=== PATIENT | female | born 1950 | race Caucasian/White ===

== ENCOUNTER 2020-04-09 11:41 | Outpatient (RCR) | payer MEDICARE, MEDICAID, SELFPAY ==
--- NOTE | 2020-04-09 13:52 | PCPTNOTE ---
Patient:Barbara Palma Date of :1950 Wheelchair seating assessment Thank you for referring this patient to [facility]. The patient has been evaluated for wheelchair seating and recommendations have been made, without assistance of the DME provider present. The findings have been scanned into the patient's EMR. Please review, sign, date and return this recognition of care provided and the wheelchair evaluation for the insurance company. I agree with and certify that the following plan for DME equipment is medically necessary.
--- NOTE | 2020-04-21 10:47 | PCPTNOTE ---
Called pt and left message to inform her of the lack of wc equipment provider available due to her insurance. Instructed her to contact her insurance company to locate a company who takes her insurance.
--- NOTE | 2020-04-25 13:48 | PCPTNOTE ---
Spoke with pt regarding locating a provider approved by her insurance. She stated she would contact her insurance to find a wc provider to allow completion of the paperwork.
== END 2020-05-13 10:13 | disposition home or self-care (01) ==
LOC: ANHPT 11:41
PROVIDERS: PCP Internal Medicine; Visit Provider Internal Medicine
DX: R26.2 Difficulty in walking, not elsewhere classified (principal)
CPT/HCPCS: 97163

== ENCOUNTER 2022-11-14 12:37 | Inpatient (IN) | payer MEDICARE, MEDICAID, SELFPAY ==
--- NOTE | ~2022-11-14 | XR_ITS ---
EXAMINATION: XR hip RT 2V w AP pelvis DATE: 11/14/2022 13:16 INDICATION: Right hip pain post fall from shower TECHNIQUE: Anteroposterior view of the pelvis and anteroposterior and cross-table lateral views of th e right hip were obtained. COMPARISON: None. FINDINGS: Basicervical fracture of the proximal right femur with 30 degrees varus angulation, 1 cm anterior dis placement, 2 cm proximal migration and external rotation. No other fractures identified. Bilateral hi p joint spaces appear relatively preserved. Mild left sacroiliac osteoarthritis. Lower lumbar spondyl osis. IMPRESSION: 1. Placement and varus angulation of a basicervical fracture of the proximal right femur. Reviewed, dictated and finalized at location A. IMPRESSION: 1. Placement and varus angulation of a basicervical fracture of the proximal ri ght femur.
--- NOTE | ~2022-11-14 | XR_ITS ---
EXAMINATION: XR surgery orthopedic DATE: 11/15/2022 13:40 CDT INDICATION: RIGHT I.T. NAIL . TECHNIQUE: 8 fluoroscopic images of the right hip were obtained during right intertrochanteric nail p lacement performed by the surgeon. I was not present in the operating room. Fluoroscopy exposure time was 1 minute 17.1 seconds. Air Kerma 20.015 mGy. DAP 0.3968 mGym2. COMPARISON: 11/14/2022 FINDINGS: Multiple images demonstrate intertrochanteric nail fixation of a basicervical proximal right femoral fracture into near-anatomic alignment. IMPRESSION: Fluoroscopic documentation of right intertrochanteric nail placement. Please refer to the operative n ote for complete procedural details . Reviewed, dictated and finalized at location K. IMPRESSION: Fluoroscopic documentation of right intertrochanteric nail placement. Please re oh to the operative note for complete procedural details .
--- NOTE | ~2022-11-14 | XR_ITS ---
EXAMINATION: XR chest 1V DATE: 11/14/2022 13:16 INDICATION: Right hip injury after falling out of the shower. TECHNIQUE: frontal view of the chest was obtained. COMPARISON: None FINDINGS: The lungs are clear with no focal airspace opacities, pulmonary edema, pleural effusion or pneumothor ax. The cardiomediastinal silhouette is normal. Moderate polyarticular osteoarthritis at the bilatera l shoulders. IMPRESSION: 1. No acute cardiopulmonary disease. Reviewed, dictated and finalized at location A.
--- NOTE | ~2022-11-14 | XR_ITS ---
EXAMINATION: XR knee RT min 4V DATE: 11/14/2022 13:16 INDICATION: Right hip pain and fracture post fall from shower TECHNIQUE: Anteroposterior, 2 oblique and crosstable lateral views of the right knee were obtained COMPARISON: None. FINDINGS: Tricompartmental osteoarthritis at the right knee, advanced in the medial compartment where there is severe joint space narrowing and remodeling of the articular surface of the medial tibial plateau. Th is contributes to approximately 10 degrees varus angulation on the AP radiograph. Additional moderate to severe joint space. The patellofemoral compartment and with moderate to large marginal osteophyte s in all 3 compartments. No fracture. No right knee joint effusion. Soft tissues are unremarkable. IMPRESSION: 1. Tricompartmental osteoarthritis, advanced in the medial compartment. Reviewed, dictated and finalized at location A.
[2022-11-14 12:36] VITALS: BP 122/99; PULSE 65; RESP 19; TEMP 36.4; O2SAT 99
--- NOTE | 2022-11-14 12:52 | ECG_ITS ---
Measurements Intervals [place] Rate: 62 P: 74 AK: 144 QRS: 45 QRSD: 93 T: 59 QT: 435 QTc: 443 Interpretive Statements SINUS RHYTHM BASELINE ARTIFACT- I, II, III, AVR, AVL, AVF, V1-V3 NORMAL ECG NO PREVIOUS ECG AVAILABLE FOR COMPARISON Electronically Signed On 11-14-2022 20:18:04 CDT by Ghulam Simmons D.O.
--- NOTE | 2022-11-14 12:54 | ED.GENADULT ---
HPI - General Adult General Chief complaint: Fall Stated complaint: fall/ right hip pain Source: patient, EMS and RN notes reviewed History of Present Illness HPI narrative: Patient presents emergency department from home via EMS for a fall. Patient states she was getting out of the shower when she tripped and fell landing on her right side. Since that time the patient's had pain in her right hip and has been unable to ambulate. States the pain radiates down into her right knee. She denies striking her head or any loss of consciousness she denies any other areas of pain. States she is not on any blood thinners. She denies having any dizziness or syncopal episodes prior to falling states she merely tripped getting out of the shower and fell. Patient was given fentanyl in route by EMS with minimal improvement in pain Related Data Allergies Allergy/AdvReac Type Severity Reaction Status Date / Time clindamycin Allergy Swelling Verified 11/14/22 12:55 of Lip/Tongue/Throat Review of Systems Review of Systems: Gen.: Denies fevers or chills Eyes: Denies eye pain or visual change ENT: Denies facial pain Respiratory: Denies shortness of breath or cough CV: Denies chest pain or palpitations GI: Denies abdominal pain nausea, emesis Musculoskeletal: See HPI Neuro: Denies numbness, tingling, weakness or focal weakness Skin: Denies rash Except as documented, all other systems reviewed and negative [facility] Past Medical History Medical History (Updated 11/14/22 @ 14:31 by Sloane Thompson NP) Depression with anxiety DM2 (diabetes mellitus, type 2) Ganglion wrist cyst removed Hepatitis B HTN (hypertension) with goal to be determined Hypercholesterolemia Hypothyroidism Surgical History Surgical History (Updated 11/14/22 @ 14:29 by Sloane Thompson NP) H/O: hysterectomy History of appendectomy Social History Social History (Updated 11/14/22 @ 14:31 by Sloane Thompson NP) Social History: 3 children [facility] . . 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 CARDIOVASCULAR: Regular rate and rhythm without murmurs rubs or gallops. ABDOMINAL: Soft, nontender, nondistended, no rebound or guarding MUSCULOSKELETAl: No clubbing, cyanosis or edema. No tenderness of the bilateral upper extremities and the left lower extremity full range of motion, tender over the right hip as well as the right knee pain with movement no tenderness of the right ankle dorsalis pedis pulse 2+ neurovascular intact NEURO: Awake and alert x 4. Following commands, speech normal, no focal deficits SKIN:: Warm, dry. No rashes lesions or abrasions PSYCHIATRIC: Normal affect/mood, Course Course Emergency Course: Called and discussed with Dr. Chaudhry for orthopedics presentation work-up agrees with consult with patient to be n.p.o. after Called and discussed with HAKAN Anton for Dr. Bustamante agrees with admission to hospital service Discussed with patient and family results of workup and diagnosis. Discussed need for admission. Patient and family understand and agree to current treatment plan Vital Signs Vital signs: Vital Signs Temperature 97.5 F L 11/14/22 12:36 Pulse Rate 65 11/14/22 12:36 Respiratory Rate 19 11/14/22 12:36 Blood Pressure 122/99 H 11/14/22 12:36 Pulse Oximetry 99 11/14/22 12:36 Temperature 97.5 F L 11/14/22 12:36 Pulse Rate 65 11/14/22 12:36 Respiratory Rate 19 11/14/22 12:36 Blood Pressure 122/99 H 11/14/22 12:36 Pulse Oximetry 99 11/14/22 12:36 Medical Decision Making MDM Narrative Medical
[2022-11-14] MEDS: MORPHINE SULFATE (*CRX) 4 MG/ML INJ 2 MG IV PUSH ×2 (13:00→15:22)
[2022-11-14 13:03] LABS: Basophils Absolute Auto 0.1 K/mm3 (0.0-0.1); Basophils Percent Auto 1.2 % (0.2-1.2); Eosinophils Absolute Auto 0.4 K/mm3 (0-0.3); Eosinophils Percent Auto 7.6 % (0-4.4); Hematocrit 37.3 % (37.0-47.0); Hemoglobin 12.1 g/dL (12.0-15.0); Immature Granulocyte Absolute 0.03 K/mm3 (0.00-0.031); Immature Granulocyte Percent A 0.6 % (0-0.5); Immature Platelet Fraction Pct 4.2 % (0.9-11.2); Lymphocytes Absolute Auto 1.01 K/mm3 (0.9-3.2); Lymphocytes Percent Auto 20.2 % (18.3-44.2); Mean Corpuscular HGB Conc 32.4 g/dl (32-36); Mean Corpuscular Volume 98.7 fl (80-100); Mean Platelet Volume 10.9 fl (7.4-10.4); Monocytes Absolute Auto 0.4 K/mm3 (0.1-0.6); Monocytes Percent Auto 7.6 % (2.6-8.5); Neutrophils Absolute Auto 3.1 K/mm3 (1.3-6.7); Neutrophils Percent Auto 62.8 % (45.5-73.1); Platelet Count Result 129 k/mm3 (150-375); Red Blood Count 3.78 M/mm3 (4.2-5.4); Red Cell Distribution Width 13.5 % (11.5-14.5)
[2022-11-14 13:12] LABS: Alanine Aminotransferase 38 U/L (6-35); Albumin Level 3.8 g/dL (3.5-5.1); Alkaline Phosphatase 111 U/L (38-126); Anion Gap 6 mmol/L (8-16); Aspartate Amino Transferase 51 U/L (14-36); Bilirubin,Total 1.1 mg/dL (0.2-1.3); Blood Urea Nitrogen 20 mg/dL (7-17); Calcium 8.9 mg/dL (8.4-10.2); Carbon Dioxide 23 mmol/L (22-30); Chloride 107 mmol/L (98-107); Estimated CRCL calculation 81 ml/min; Estimated Glomerular Filt Rate > 60; Glucose 165 mg/dL (65-110); Potassium 4.1 mmol/L (3.4-5.0); Sodium 136 mmol/L (137-145)
[2022-11-14 13:13] LABS: INR 1.2; Partial Thromboplastin Time 27.3 SECONDS (22.3-36.8); Prothrombin Time 14.4 Seconds (11.1-14.7)
--- NOTE | 2022-11-14 14:24 | PM.IMHP ---
H&P: HPI History of Present Illness Date/Time: 11/14/22 14:24 Chief Complaint: Fall Narrative: This is a 72-year-old female patient who resides at [facility]. The patient stated that she was getting out of the shower when she tripped and fell landing on her right side. She the patient is complaining of right hip pain and she on abdomen to ambulate on the right hip. The pain radiates into her right knee. She denies losing consciousness or striking her head. The patient is not on any blood thinners. The patient was given fentanyl EN route via EMS. Platelet count 129. Sodium 136. Knee x-ray was read as tricompartmental osteoarthritis she advanced in the medial compartment. Hip and pelvis x-ray?Placement and varus angulation of a basicervical fracture of the proximal right femur.. Ortho has been consulted. The patient was given morphine in the emergency room. The patient is being admitted to inpatient status on the date of service of 11/14/2022. Review of Systems Review of Systems: See HPI All systems reviewed & are unremarkable except as noted in HPI and below Constitutional: Constitutional: Reports as per HPI and Reports no additional constitutional complaints Eyes: Eyes: Reports as per HPI and Reports no additional eye complaints ENT: Reports system reviewed and no additional complaints, except as documented and Reports Normal hearing present Cardiovascular: Cardiovascular: Reports no additional cardiovascular complaints Respiratory: Respiratory: Reports no additional respiratory complaints and Reports no additional respiratory complaints Gastrointestinal: Gastrointestinal: Reports as per HPI and Reports no additional gastrointestinal complaints Musculoskeletal: Musculoskeletal: Reports no additional musculoskeletal complaints Integumentary/Breasts: Skin/Breast: Reports system reviewed and no additional complaints, except as docu and Reports as per HPI Neurologic: Reports system reviewed and no additional complaints, except as documented, Reports as per HPI and Reports Normal hearing present Psychiatric: Psychiatric: Reports no additional psychiatric complaints and Reports as per HPI Endocrine: Endocrine: Reports no additional endocrine complaints Hematologic/Lymphatic: Hematologic/Lymphatic: Reports no additional hematologic/lymphatic complaints Allergic/Immunologic: Allergic/Immunologic: Reports no additional allergic/immunologic complaints [facility] Past Medical History Medical History Depression with anxiety DM2 (diabetes mellitus, type 2) Ganglion wrist cyst removed Hepatitis B HTN (hypertension) with goal to be determined Hypercholesterolemia Hypothyroidism Surgical History Surgical History H/O: hysterectomy History of appendectomy Family History Family History Unknown No problems noted. Social History Social History (Updated 11/14/22 @ 17:12 by Sloane Thompson NP) Social History: She has 3 children. She resides at [facility]. She is . 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 Smoking status: Former smoker Alcohol intake: former Substance use: former Substance use type: marijuana Lack of Transportation: No Lack of Food: Sometimes True Current Housing: I Have Housing Concerned About Future Housing: No Difficulty Paying Gas/Electric Bills: No Difficulty Paying for Meds: No Currently Unemployed: No Education: Master's Degree or Higher Difficulty w/ Childcare or Family Care: No Spiritual care concerns: No Meds Home Medications and Allergies Allergies Allergy/AdvReac Type Severity Reaction Status Date / Time clindamycin Allergy Swelling Verified 11/14/22 12:55 of Lip/Tongue/Throat Vital Signs
[2022-11-14 14:27] LABS: Appearance Urine Clear (Clear); Bilirubin Urine Negative (Negative); Blood Urine Negative (Negative); Color Urine Yellow (Yellow); Glucose Urine UA Trace mg/dL (Negative); Ketones Urine Trace mg/dL (Negative); Leukocyte Esterase Ur Negative LEU/UL (Negative); Nitrate Urine Negative (Negative); Protein Urine Negative (Negative); Specific Grav Ur 1.018 (1.001-1.035); pH Urine 6.5 (5.0-9.0)
[2022-11-14 14:32] LABS: Add Urine Microscopic? NO
--- NOTE | 2022-11-14 14:51 | PC.NURSE ---
barrera placed per verbal order
[2022-11-14 15:03] VITALS: BP 159/84; PULSE 66; RESP 13; O2SAT 96
[2022-11-14 15:15] VITALS: BP 165/85; PULSE 66; RESP 18; TEMP 36.6; O2SAT 98
--- NOTE | 2022-11-14 15:18 | PC.NURSE ---
This patient, Barbara Palma, was admitted to Medical Room 257-01. Patient/family oriented to hospital policies and general routines including ID bracelet, bed and alarms, visiting hours, pain management, procedures, bathroom and other care routines, personal items, smoking policy, room service/diet, and visiting hours. Information on how to activate the Rapid Response Team has been discussed. Patient/Family are encouraged to report perceived risks to care and to ask questions if they do not understand what they are told or what they should do.
[2022-11-14 15:29] VITALS: BMI 37.0
--- NOTE | 2022-11-14 16:04 | PC.NURSE ---
Spoke with Nurse from [facility] ([phone]) in [place] regarding a medication list for the patient. She stated she will fax a list this afternoon. Patient unsure of medication list.
[2022-11-14 20:21] LABS: Glucose Point of Care 244 mg/dl (65-105)
[2022-11-14] MEDS: DICLOFENAC SODIUM 1% 100 GM GEL (*BKC) 1 APPLIC TOPICAL (21:34)
[2022-11-14] MEDS: DONEPEZIL HCL 5 MG TABLET PO (21:34)
[2022-11-14] MEDS: MELATONIN 3 MG TABLET PO (21:34)
[2022-11-14] MEDS: MORPHINE SULFATE (*CRX) 2 MG/ML INJ IV PUSH ×2 (21:36→23:40)
[2022-11-14 22:00] VITALS: BP 167/72; PULSE 79; RESP 20; TEMP 36.7; O2SAT 98
[2022-11-15] VITALS (14 sets, daily range): BP systolic 111–149; BP diastolic 54–73; PULSE 66–81; RESP 12–20; TEMP 36.6–36.9; O2SAT 94–100
[2022-11-15] MEDS: MORPHINE SULFATE (*CRX) 2 MG/ML INJ IV PUSH ×2 (05:25→08:40)
[2022-11-15] MEDS: LEVOTHYROXINE SODIUM 150 MCG TABLET PO (05:32)
[2022-11-15 06:09] LABS: Basophils Percent Auto 0.6 % (0.2-1.2); Eosinophils Absolute Auto 0.2 K/mm3 (0-0.3); Eosinophils Percent Auto 2.8 % (0-4.4); Hemoglobin 10.6 g/dL (12.0-15.0); Immature Granulocyte Absolute 0.02 K/mm3 (0.00-0.031); Immature Granulocyte Percent A 0.3 % (0-0.5); Lymphocytes Absolute Auto 1.59 K/mm3 (0.9-3.2); Lymphocytes Percent Auto 25.1 % (18.3-44.2); Mean Corpuscular HGB Conc 33.1 g/dl (32-36); Mean Corpuscular Hemoglobin 31.5 pg (26-34); Mean Platelet Volume 10.5 fl (7.4-10.4); Monocytes Absolute Auto 0.7 K/mm3 (0.1-0.6); Monocytes Percent Auto 10.7 % (2.6-8.5); Neutrophils Absolute Auto 3.8 K/mm3 (1.3-6.7); Neutrophils Percent Auto 60.5 % (45.5-73.1); Platelet Count Result 115 k/mm3 (150-375); Red Blood Count 3.37 M/mm3 (4.2-5.4); Red Cell Distribution Width 13.6 % (11.5-14.5); White Blood Count 6.3 K/mm3 (4.5-10.0)
[2022-11-15 06:14] LABS: Alanine Aminotransferase 33 U/L (6-35); Albumin Level 3.3 g/dL (3.5-5.1); Alkaline Phosphatase 92 U/L (38-126); Anion Gap 0 mmol/L (8-16); Aspartate Amino Transferase 46 U/L (14-36); Bilirubin,Total 1.1 mg/dL (0.2-1.3); Blood Urea Nitrogen 24 mg/dL (7-17); Calcium 8.7 mg/dL (8.4-10.2); Carbon Dioxide 30 mmol/L (22-30); Chloride 103 mmol/L (98-107); Estimated CRCL calculation 81 ml/min; Estimated Glomerular Filt Rate > 60; Glucose 121 mg/dL (65-110); Hemoglobin A1C 6.2 % (<5.7); Magnesium 1.4 mg/dL (1.6-2.3); Phosphorus 3.6 mg/dL (2.5-4.5); Potassium 3.8 mmol/L (3.4-5.0); Sodium 133 mmol/L (137-145)
[2022-11-15 06:26] LABS: INR 1.3; Prothrombin Time 15.5 Seconds (11.1-14.7)
[2022-11-15 08:26] LABS: Glucose Point of Care 126 mg/dl (65-105)
[2022-11-15] MEDS: LORATADINE 10 MG TABLET PO (08:37)
[2022-11-15] MEDS: DICLOFENAC SODIUM 1% 100 GM GEL (*BKC) 1 APPLIC TOPICAL ×2 (08:37→17:13)
[2022-11-15] MEDS: VENLAFAXINE HCL XR 75 MG CAP.ER.24H PO (08:37)
[2022-11-15] MEDS: FERROUS SULFATE 324 MG TABLET BY MOUTH (08:37)
[2022-11-15] MEDS: PANTOPRAZOLE 40 MG TABLET PO (08:37)
[2022-11-15] MEDS: LOVASTATIN 20 MG TABLET 40 MG PO (08:37)
[2022-11-15] MEDS: DOCUSATE SODIUM 100 MG CAPSULE PO (08:38)
[2022-11-15] MEDS: PROPRANOLOL HCL 20 MG TABLET PO (08:38)
--- NOTE | 2022-11-15 08:43 | PM.CNOR ---
Assessment and Plan Assessment and plan (1) Closed intertrochanteric fracture of right femur: Qualifiers: Encounter type: initial encounter Fracture alignment: displaced Qualified Code(s): S72.141A - Displaced intertrochanteric fracture of right femur, initial encounter for closed fracture Code(s): S72.141A - Displaced intertrochanteric fracture of right femur, initial encounter for closed fracture Status: Acute Assessment and Plan: New patient evaluation for chief complaint fall with right hip fracture. History, physical exam and radiographs reviewed with the patient. Discussed the condition, nature, etiology and course of natural history with the patient. Treatment options including surgical and nonoperative treatment were reviewed. Risks and benefits of each as well as alternatives reviewed. The patient's questions were answered. Conservative treatment ice, pain control and mechanical DVT prophylaxis. Patient desires operative treatment. Discussed nonoperative and operative treatment options with the patient. Risks and benefits of each as well as alternatives were reviewed. All of the patient's questions were answered. The risks of surgery reviewed including but not limited to: Neurovascular damage, wound complication, infection, blood clot, pulmonary embolus, stroke, myocardial infarction, and anesthetic risks up to and including . Continued pain and possible dysfunction were explained. Specific risks of the procedure including later recurrence of deformity. No guarantees were offered. If hardware used, discussed risk of failure/ breakage and possible need for removal. If complications occur, the patient understands the need for further treatment, possible further surgery. Patient verbalizes understanding and wishes to proceed. PLAN: Right hip open reduction internal fixation (trochanteric nail). 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 Right hip injury radiographs. Admitted through the emergency room for further care. Denies loss of consciousness. Review of Systems Constitutional: Constitutional: Denies fever(s) Eyes: Eyes: Denies blurry vision ENT: Reports Normal hearing present Cardiovascular: Cardiovascular: Denies chest pain and Denies dyspnea Respiratory: Respiratory: Denies dyspnea and Denies wheezing Gastrointestinal: Gastrointestinal: Denies abdominal pain Genitourinary: Genitourinary: Denies urinary urgency Musculoskeletal: Musculoskeletal: Reports as per HPI and Denies numbness Integumentary/Breasts: Skin/Breast: Denies changing lesions and Denies sores Neurologic: Reports Normal hearing present, Denies behavioral changes, Denies confusion, Denies numbness and Denies convulsions Psychiatric: Psychiatric: Denies behavioral changes, Denies confusion and Denies hallucinations Endocrine: Endocrine: Denies heat intolerance Hematologic/Lymphatic: Hematologic/Lymphatic: Denies easy bleeding Allergic/Immunologic: Allergic/Immunologic: Denies wheezing [facility] Past Medical History Medical History (Updated 11/15/22 @ 08:47 by Shimon Chaudhry MD) Degenerative arthritis of right knee Depression with anxiety DM2 (diabetes mellitus, type 2) Ganglion wrist cyst removed Hepatitis B HTN (hypertension) with
--- NOTE | 2022-11-15 10:55 | WPDHPUPDATE1 ---
History and Physical Update Update Date/Time: 11/15/22 10:55 History and Physical has been reviewed, including an updated exam of the patient. There are NO changes in the patient's condition. Risks, benefits, and alternatives have been discussed and questions answered. Patient agrees to proceed with procedure.
[2022-11-15] MEDS: LACTATED RINGERS 1,000 ML 30 ML IV CONT (12:15)
[2022-11-15] MEDS: TRANEXAMIC ACID 1,000MG/ISO100 1,000 MG/100 ML BAG 200 MG IVPB (12:15)
[2022-11-15] MEDS: KETOROLAC 15 MG/ML VIAL (*BKC) IV PUSH (12:15)
[2022-11-15] MEDS: ACETAMINOPHEN 500 MG TABLET 1000 MG PO (12:15)
--- NOTE | 2022-11-15 12:15 | WPDANESEPPF ---
Anes - Initial Pre Proc Eval Procedure: Operation Date: 11/15/22 13:00 Proposed Procedures p Right Hip Pinning - Shimon Chaudhry MD Date/Time: 11/15/22 12:15 Surgeon: Janina Cunningham PA-C Pre Op Diagnosis: Right Hip Fracture, Fall Patient Data Age: 72 Gender: F Height: 1.7 m Weight: 107.5 kg Last Vital Signs Temp 36.6 C 11/15/22 06:00 Pulse 77 11/15/22 08:38 Resp 16 11/15/22 06:00 BP 149/70 H 11/15/22 06:00 Pulse Ox 98 11/15/22 06:00 O2 Del Method Room Air 11/15/22 07:57 Allergies Allergy/AdvReac Type Severity Reaction Status Date / Time clindamycin Allergy Swelling Verified 11/14/22 12:55 of Lip/Tongue/Throat Home Medications Medication Instructions Recorded Confirmed Type Benadryl-D Allergy and Sinus 25 mg PO Q6H PRN Itching 11/14/22 11/14/22 History Fleet Enema 1 applicator RECTAL DAILY PRN 11/14/22 11/14/22 History Constipation Milk of Magnesia 30 ml PO DAILY PRN Constipation 11/14/22 11/14/22 History acetaminophen 500 mg tablet 500 mg PO BID PRN Pain 11/14/22 11/14/22 History bisacodyl 10 mg RECTAL DAILY 11/14/22 11/14/22 History diclofenac sodium 1 % topical gel 1 ea topical TID 11/14/22 11/14/22 History docusate sodium 100 mg capsule 100 mg PO DAILY 11/14/22 11/14/22 History donepezil 5 mg tablet 5 mg PO HS 11/14/22 11/14/22 History ferrous sulfate 325 mg (65 mg 325 mg DAILY 11/14/22 11/14/22 History iron) tablet (FeroSul) glucosamine sulf dipotassium Cl 1 cap PO DAILY 11/14/22 11/14/22 History 250 mg-chondroitin sulf 200 mg capsule hydroxyzine HCl 25 mg PO BID PRN Itching 11/14/22 11/14/22 History levothyroxine 150 mcg tablet 150 mcg PO DAILY 11/14/22 11/14/22 History loratadine 10 mg tablet 10 mg PO DAILY 11/14/22 11/14/22 History lovastatin 40 mg tablet 40 mg PO DAILY 11/14/22 11/14/22 History magnesium citrate 296 ml PO DAILY PRN Constipation 11/14/22 11/14/22 History melatonin 3 mg tablet 3 mg PO HS 11/14/22 11/14/22 History metformin 1,000 mg tablet 1,000 mg PO BID 11/14/22 11/14/22 History oxybutynin chloride 5 mg 5 mg PO DAILY 11/14/22 11/14/22 History tablet,extended release 24 hr pantoprazole 40 mg tablet,delayed 40 mg PO DAILY 11/14/22 11/14/22 History release polyethylene glycol 17 g PO DAILY PRN Constipation 11/14/22 11/14/22 History propranolol 20 mg tablet 20 mg PO DAILY 11/14/22 11/14/22 History tramadol 50 mg PO BID PRN Pain 11/14/22 11/14/22 History venlafaxine 75 mg capsule,extended 75 mg PO DAILY 11/14/22 11/14/22 History release 24 hr Laboratory Tests 11/14/22 11/14/22 11/14/22 12:56 12:56 12:56 WBC 5.0 K/mm3 K/mm3 (4.5-10.0) RBC 3.78 M/mm3 L M/mm3 (4.2-5.4) Hgb 12.1 g/dL g/dL (12.0-15.0) Hct 37.3 % % (37.0-47.0) MCV 98.7 fl fl (80-100) MCH 32.0 pg pg (26-34) MCHC 32.4 g/dl g/dl (32-36) RDW 13.5 % % (11.5-14.5) Plt Count 129 k/mm3 L k/mm3 (150-375) MPV 10.9 fl H fl (7.4-10.4) Immature Gran % (Auto) 0.6 % H % (0-0.5) Neut % (Auto) 62.8 % % (45.5-73.1) Lymph % (Auto) 20.2 % % (18.3-44.2) [place] % (Auto) 7.6 % % (2.6-8.5) Eos % (Auto) 7.6 % H % (0-4.4) Baso % (Auto) 1.2 % % (0.2-1.2) Lymph # (Auto) 1.01 K/mm3 K/mm3 (0.9-3.2) [place] # (Auto) 0.4 K/mm3 K/mm3 (0.1-0.6) Eos # (Auto) 0.4 K/mm3 H K/mm3 (0-0.3) Baso # (Auto) 0.1 K/mm3 K/mm3 (0.0-0.1) Abs Immat Gran (auto) 0.03 K/mm3 K/mm3 (0.00-0.031) Absolute Neuts (auto) 3.1 K/mm3 K/mm3 (1.3-6.7) Absolute Nucleated RBC 0.0 K/mm3 K/mm3 (0.0-0.012) Nucleated RBC % 0.0 % % (0.0-0.2) % Immature Plt Fraction 4.2 % % (0.9-11.2) PT 14.4 Seconds Seconds (11.1-14.7) INR 1.2 APTT 27.3 SECONDS SECONDS (22.3-36.8) Sodium 136 mmol/L L mmol/L
[2022-11-15] MEDS: HYDROmorphone HCL INJ (*CRX) 1 MG/ML SYR IV PUSH (12:30)
[2022-11-15 12:48] LABS: Glucose Point of Care 126 mg/dl (65-105)
[2022-11-15] MEDS: ceFAZolin 2 GM/D5W 50 ML 2 GM/50 ML BAG IVPB (13:18)
[2022-11-15] MEDS: BUPIVACAINE/EPINEPHRINE 0.25% 50 ML VIAL INFILTRATE (14:21)
--- NOTE | 2022-11-15 14:32 | PM.IMPN ---
Progress Note: A&P Assessment and Plan (1) Closed intertrochanteric fracture of right femur: Qualifiers: Encounter type: initial encounter Fracture alignment: displaced Qualified Code(s): S72.141A - Displaced intertrochanteric fracture of right femur, initial encounter for closed fracture Code(s): S72.141A - Displaced intertrochanteric fracture of right femur, initial encounter for closed fracture Status: Acute Assessment and Plan: secondary to mechanical fall hip/pelvis x-ray showed varus angulation of basicervical fracture of the proximal right femur appreciate orthopedic surgery consultation planning for surgical repair this afternoon DVT prophylaxis deferred to Orthopedic surgery will need PT/OT postoperatively supportive care. Analgesics available as needed (2) Hypothyroidism: Code(s): E03.9 - Hypothyroidism, unspecified Status: Acute Assessment and Plan: TSH is 2.2 continue home levothyroxine (3) DM2 (diabetes mellitus, type 2): Code(s): E11.9 - Type 2 diabetes mellitus without complications Status: Acute Assessment and Plan: A1c is 6.2 continue Accu-Cheks, sliding scale insulin, hypoglycemic protocol monitor glucose trends home metformin on hold (4) HTN (hypertension) with goal to be determined: Code(s): I10 - Essential (primary) hypertension Status: Acute Assessment and Plan: blood pressures are stable continue home propranolol monitor BP trends (5) Fall: Code(s): W19.XXXA - Unspecified fall, initial encounter Status: Acute Assessment and Plan: patient suffered a mechanical fall getting out of the shower fall precautions implemented (6) Hypomagnesemia: Code(s): E83.42 - Hypomagnesemia Status: Acute Assessment and Plan: magnesium is 1.4 today administer 2 g IV magnesium sulfate and recheck in the morning Subjective Date/time seen: 11/15/22 14:32 Interval history: date of service: 11/15/2022 1-at Louie is a 72-year-old female with a history of type 2 diabetes mellitus, hypertension, hepatitis-B, hypothyroidism, depression, anxiety who is seen in follow-up for right hip fracture secondary to mechanical fall. Patient reports that she is doing well. Endorses 6/10 hip pain at this time. Denies nausea, vomiting, fever, or chills. No shortness of breath or chest pain. She is preparing to head down to surgery for her right hip. Review of Systems Review of Systems: All systems reviewed & are unremarkable except as noted in HPI and below Exam Narrative: General: Well-nourished, well-appearing 72-year-old female, sitting up in bed, comfortable, NARD Neuro: awake, alert and oriented x4, speech clear, no focal neuro deficits noted HEENMT: normocephalic, atraumatic, EOMI, sclerae anicteric, moist oral mucosa Respiratory: clear to auscultation bilaterally, nonlabored breathing Cardio: regular rate, regular rhythm with S1-S2 Abdomen: nondistended, normoactive bowel sounds, soft, nontender to palpation] Extremities: no edema, erythema, or tenderness to palpation, DP pulses 2+ bilaterally, able to wiggle toes bilaterally Skin: no rashes or lesions, warm and dry Psych: appropriate mood and affect, judgment and insight intact Objective Data Vital Signs Vital Signs: Vital Signs - 24 hr 11/14/22 15:03 11/14/22 15:15 11/14/22 17:30 Temperature 97.8 F Pulse Rate 66 66 Respiratory Rate 13 18 Blood Pressure 159/84 H 165/85 H Pulse Oximetry 96 98 Oxygen Delivery Room Air 11/14/22 22:00 11/15/22 06:00 11/15/22 07:57 Temperature 98.1 F 98 F Pulse Rate 79 81 Respiratory Rate 20 16 Blood Pressure 167/72 H 149/70 H Pulse Oximetry 98 98 Oxygen Delivery Room Air 11/15/22 08:38 11/15/22 12:10 Temperature 98.4 F Pulse Rate 77 69 Respiratory Rate 16 Blood Pressure 144/56 H Pulse Oximetry 98 Oxyg
[2022-11-15 14:58] LABS: Glucose Point of Care 135 mg/dl (65-105)
--- NOTE | 2022-11-15 15:01 | W.PM.PROC2 ---
Procedure Note - Detailed Date of Procedure 11/15/22 Pre-op Diagnosis Right Hip Fracture, Fall Post-op Diagnosis Same Procedure Performed Intramedullary nail fixation right proximal femur fracture. Surgeon Shimon Chaudhry MD [place] [employer] psychiatric technician assistant Anesthesia General Indications 72-year-old woman who fell in the shower and sustained right hip proximal femur fracture. Presents for operative treatment. Description of Procedure After informed consent the operative extremity was marked in the preoperative holding area. Patient received intravenous antibiotics. The patient was taken to the operative room, placed in the supine position, general anesthesia induced by the anesthesia team, and was placed on a fracture table with longitudinal traction applied to the Right leg. left leg was extended out of the field. The hip fracture was reduced to near anatomic position and verified with image intensification. A time-out was performed confirming the patient, site of the surgery and plan. The left lower extremity was prepped and draped sterilely from the knee to the iliac crest region using a ChloraPrep skin solution. Incision was made just proximal to greater trochanter down to the subcutaneous tissues. Hemostasis controlled with electrocautery. Blunt dissection through the fascia to the tip of the greater trochanter. A starter awl was placed at the tip of the greater trochanter into the medullary canal of the femur. This was checked with image intensification and was in good position. Intramedullary guide nika positioned. A one-step hand reaming done proximally. Intramedullary canal was reamed with a 12.5 millimeter flexible reamer. Measuring was then performed off of the guide nika. Neck angle selected off of preoperative radiographs temp plating. 125 degree 11 X 390mm Nail opened on the back table and assembled. This was then inserted over the guide nika to the correct depth. Guide nika removed. Lag screw was then placed with a stab incision over the lateral femur using a 10 blade knife. Blunt dissection down to the lateral side of the bone. Soft tissue protectors placed. Guide pin placed in the center center position of the femoral head and measured. 95 millimeter x 10.5 millimeter lag screw placed to correct depth and verified with image intensification. Traction released from the leg and compression of the fracture performed with the external compression device. Distal locking of the nail necessary due to instability in the intramedullary canal and proximal femur. Stab incision made lateral distal thigh. Blunt dissection down lateral side of the femur. Image intensification used to guide drill which was placed through the locking hole. Distal femur measured and the appropriate size screw placed. Image intensification confirmed the placement through the locking hole. Final image intensification confirm reduction of the fracture and placement of the hardware. Wounds then thoroughly irrigated with antibiotic solution. Fascia repaired with 0 Vicryl interrupted suture. Subcutaneous tissue repaired with 00 Vicryl interrupted suture and skin repaired with geni. Sterile dressings applied. Patient then awoke from anesthesia, extubated, taken to recovery room stable condition. All sponge, needle and instrument counts correct at the end the case. Implants Arthrex extended length intramedullary right femoral nail 11 mm diameter by 39 cm length by 25? with 95 mm lag screw and 36 mm distal locking screw. Estimated Blood Loss -200.0 Drains No Packing No Pathology None sent Complications None Condition Stable Disposition PACU [facility] Billing Surgery - Charge Forward: Surgery Billing ([id number])
[2022-11-15] MEDS: HYDROmorphone HCL INJ (*CRX) 1 MG/ML SYR 0.5 MG IV PUSH (15:18)
[2022-11-15 16:57] LABS: Glucose Point of Care 121 mg/dl (65-105)
[2022-11-15] MEDS: SENNA/DOCUSATE SODIUM TABLET 2 TAB PO (17:13)
[2022-11-15] MEDS: KCL 20MEQ/0.9% SOD CHL 1,000 ML 125 ML IV CONT (17:13)
[2022-11-15] MEDS: ceFAZolin 1 GM/NS 50 ML 1 GM/50 ML BAG IVPB (20:19)
[2022-11-15] MEDS: DONEPEZIL HCL 5 MG TABLET PO (20:20)
[2022-11-15] MEDS: MELATONIN 3 MG TABLET PO (20:20)
[2022-11-15 20:24] LABS: Glucose Point of Care 126 mg/dl (65-105)
[2022-11-15] MEDS: HYDROcodone/acetaminophen (*CRX) 7.5-325 MG TABLET 1 TAB PO (20:54)
[2022-11-16] VITALS (8 sets, daily range): BP systolic 117–151; BP diastolic 60–83; PULSE 78–109; RESP 16–18; TEMP 36.5–36.9; O2SAT 92–97
[2022-11-16] MEDS: ceFAZolin 1 GM/NS 50 ML 1 GM/50 ML BAG IVPB ×2 (04:03→12:29)
[2022-11-16] MEDS: LEVOTHYROXINE SODIUM 150 MCG TABLET PO (06:36)
[2022-11-16 07:29] LABS: Basophils Percent Auto 0.5 % (0.2-1.2); Eosinophils Absolute Auto 0.2 K/mm3 (0-0.3); Eosinophils Percent Auto 2.7 % (0-4.4); Hematocrit 32.5 % (37.0-47.0); Hemoglobin 10.5 g/dL (12.0-15.0); Immature Granulocyte Absolute 0.03 K/mm3 (0.00-0.031); Immature Granulocyte Percent A 0.4 % (0-0.5); Lymphocytes Absolute Auto 1.14 K/mm3 (0.9-3.2); Lymphocytes Percent Auto 14.1 % (18.3-44.2); Mean Corpuscular HGB Conc 32.3 g/dl (32-36); Mean Corpuscular Hemoglobin 31.7 pg (26-34); Mean Corpuscular Volume 98.2 fl (80-100); Monocytes Absolute Auto 0.7 K/mm3 (0.1-0.6); Monocytes Percent Auto 8.9 % (2.6-8.5); Neutrophils Percent Auto 73.4 % (45.5-73.1); Platelet Count Result 106 k/mm3 (150-375); Red Blood Count 3.31 M/mm3 (4.2-5.4); Red Cell Distribution Width 13.8 % (11.5-14.5); White Blood Count 8.1 K/mm3 (4.5-10.0)
[2022-11-16 07:47] LABS: Anion Gap 3 mmol/L (8-16); Blood Urea Nitrogen 28 mg/dL (7-17); Calcium 8.1 mg/dL (8.4-10.2); Carbon Dioxide 27 mmol/L (22-30); Chloride 107 mmol/L (98-107); Estimated CRCL calculation 72 ml/min; Estimated Glomerular Filt Rate > 60; Glucose 149 mg/dL (65-110); Magnesium 1.5 mg/dL (1.6-2.3); Potassium 4.3 mmol/L (3.4-5.0); Sodium 137 mmol/L (137-145)
[2022-11-16 08:44] LABS: Glucose Point of Care 160 mg/dl (65-105)
--- NOTE | 2022-11-16 08:51 | PM.PNORT ---
Progress Note: A&P Assessment and Plan (1) Closed intertrochanteric fracture of right femur: Qualifiers: Encounter type: subsequent encounter Fracture alignment: displaced Fracture healing: with routine healing Qualified Code(s): S72.141D - Displaced intertrochanteric fracture of right femur, subsequent encounter for closed fracture with routine healing <Yarely Casey Rodríguez, BACTERIOLOGIST [employer] - Last Filed: 11/16/22 09:17> Code(s): S72.141A - Displaced intertrochanteric fracture of right femur, initial encounter for closed fracture <Yarely Nilo. Ruwe, BACTERIOLOGIST [employer] - Last Filed: 11/16/22 09:17> Status: Acute <Yarely Casey Canwe, BACTERIOLOGIST [employer] - Last Filed: 11/16/22 09:17> Assessment and Plan: POD #1: Right Hip CRPP Continue PT/OT. WBAT. Walker. HIGH FALL RISK. Continue pain control. Ice hip. Protect skin. DVT prophylaxis with Arixtra x28 days. SCDs. Incentive Spirometry Use reviewed. Monitor Dressing. Change daily. Okay to apply Mepilex Silver prior to discharge for ease with showering, etc. Romel to be removed on POD #14. Bowel Regimen. Dispo: SNF vs. [facility] pending progress with PT/OT and medical stability. <Yarely NiloMiguel Juan Joséyenny, BACTERIOLOGIST [employer] - Last Filed: 11/16/22 09:17> POD #1: Right Hip IMHS Continue PT/OT. WBAT. Walker. HIGH FALL RISK. Continue pain control. Ice hip. Protect skin. DVT prophylaxis with Arixtra while inpatient. Will switch to aspirin at d/c SCDs. Incentive Spirometry Use reviewed. Monitor Dressing. Change daily. Okay to apply Mepilex Silver prior to discharge for ease with showering, etc. Romel to be removed on POD #14. Bowel Regimen. Dispo: SNF vs. [facility] pending progress with PT/OT and medical stability. <Shimon Chaudhry MD - Last Filed: 11/16/22 09:45> (2) Hypothyroidism: Code(s): E03.9 - Hypothyroidism, unspecified <Yarely Casey Canwe, BACTERIOLOGIST [employer] - Last Filed: 11/16/22 09:17> Status: Acute <Yarely Casey Canwe, BACTERIOLOGIST [employer] - Last Filed: 11/16/22 09:17> (3) DM2 (diabetes mellitus, type 2): Code(s): E11.9 - Type 2 diabetes mellitus without complications <Yarely Rodríguez [facility] - Last Filed: 11/16/22 09:17> Status: Acute <Yarely Rodríguez [facility] - Last Filed: 11/16/22 09:17> (4) HTN (hypertension) with goal to be determined: Code(s): I10 - Essential (primary) hypertension <Yarely Rodríguez [facility] - Last Filed: 11/16/22 09:17> Status: Acute <Yarely Rodríguez [facility] - Last Filed: 11/16/22 09:17> Subjective Subjective Date/Time Seen: 11/16/22 08:51 <Yarely Rodríguez [facility] - Last Filed: 11/16/22 09:17> Post Op day: 1 <Yarely Rodríguez [facility] - Last Filed: 11/16/22 09:17> Interval history: POD #1: Right Hip CRPP Patient with mild confusion this AM. Up in chair. Assisted with breakfast. Complaints of 10/10 right hip pain. Awaiting pain medication from nursing at this time. Otherwise, no new concerns. <Yarely Rodríguez [facility] - Last Filed: 11/16/22 09:17> Review of Systems Review of Systems: All systems reviewed & are unremarkable except as noted in HPI and below <Yarely Rodríguez [facility] - Last Filed: 11/16/22 09:17> Exam Const: General: comfortable and no acute distress <Yarely Rodríguez [facility] - Last Filed: 11/16/22 09:17> Resp: Effort & Inspection: normal respiratory effort <Yarely Rodríguez [facility] - Last Filed: 11/16/22 09:17> Cardio: Rate: regular rate <Yarely Rodríguez [facility] - Last Filed: 11/16/22 09:17> Rhythm: regular rhythm <Yarely Rodríguez [facility] - Last Filed: 11/16/22 09:17> GI: Inspection: non-distended <OMID Solorio - Last Filed: 11/16/22 09:17> Skin: General skin exam: normal color <OMID Solorio - Last Filed: 11/16/22 09:17> Other: Incision right hip c/d/i. Surrounding tissue without redness/warmth. Mild swelling consistent with recent surgery. No drainage. <OMID Solorio - Last Filed: 11/16/22 09:17> Neuro: Cognition (Neuro): normal cognition <OMID Solorio - Last Filed: 11/16/22 09:17> Speech: normal
[2022-11-16] MEDS: DICLOFENAC SODIUM 1% 100 GM GEL (*BKC) 1 APPLIC TOPICAL ×2 (09:03→13:17)
[2022-11-16] MEDS: polyethylene glycoL 3350 17 GM POWD.PACK PO (09:03)
[2022-11-16] MEDS: SENNA/DOCUSATE SODIUM TABLET 2 TAB PO ×2 (09:03→16:08)
[2022-11-16] MEDS: FONDAPARINUX SODIUM 2.5 MG/0.5 ML SYRINGE SUB-Q (09:03)
[2022-11-16] MEDS: FERROUS SULFATE 324 MG TABLET BY MOUTH (09:03)
[2022-11-16] MEDS: DOCUSATE SODIUM 100 MG CAPSULE PO (09:03)
[2022-11-16] MEDS: VENLAFAXINE HCL XR 75 MG CAP.ER.24H PO (09:04)
[2022-11-16] MEDS: PANTOPRAZOLE 40 MG TABLET PO (09:04)
[2022-11-16] MEDS: LORATADINE 10 MG TABLET PO (09:04)
[2022-11-16] MEDS: LOVASTATIN 20 MG TABLET 40 MG PO (09:04)
[2022-11-16] MEDS: PROPRANOLOL HCL 20 MG TABLET PO (09:06)
[2022-11-16] MEDS: MORPHINE SULFATE (*CRX) 2 MG/ML INJ IV PUSH (09:25)
[2022-11-16] MEDS: MAGNESIUM SULF 2 GM/WATER 50ML 2 GM/50 ML BAG IVPB (10:36)
[2022-11-16 12:09] LABS: Glucose Point of Care 157 mg/dl (65-105)
[2022-11-16 16:20] LABS: Glucose Point of Care 193 mg/dl (65-105)
--- NOTE | 2022-11-16 16:37 | PM.IMPN ---
Progress Note: A&P Assessment and Plan (1) Closed intertrochanteric fracture of right femur: Qualifiers: Encounter type: subsequent encounter Fracture alignment: displaced Fracture healing: with routine healing Qualified Code(s): S72.141D - Displaced intertrochanteric fracture of right femur, subsequent encounter for closed fracture with routine healing Code(s): S72.141A - Displaced intertrochanteric fracture of right femur, initial encounter for closed fracture Status: Acute Assessment and Plan: secondary to mechanical fall hip/pelvis x-ray showed varus angulation of basicervical fracture of the proximal right femur appreciate orthopedic surgery consultation underwent surgical repair on 11/15/22. tolerated the procedure well continue Arixtra for DVT prophylaxis per Orthopedic surgery PT/OT eval appreciated supportive care. Analgesics available as needed (2) Hypothyroidism: Code(s): E03.9 - Hypothyroidism, unspecified Status: Acute Assessment and Plan: TSH is 2.2 continue home levothyroxine (3) DM2 (diabetes mellitus, type 2): Code(s): E11.9 - Type 2 diabetes mellitus without complications Status: Acute Assessment and Plan: A1c is 6.2 continue Accu-Cheks, sliding scale insulin, hypoglycemic protocol monitor glucose trends home metformin on hold (4) HTN (hypertension) with goal to be determined: Code(s): I10 - Essential (primary) hypertension Status: Acute Assessment and Plan: blood pressures are stable continue home propranolol monitor BP trends (5) Fall: Code(s): W19.XXXA - Unspecified fall, initial encounter Status: Acute Assessment and Plan: patient suffered a mechanical fall getting out of the shower resulting in right hip fracture fall precautions implemented (6) Hypomagnesemia: Code(s): E83.42 - Hypomagnesemia Status: Acute Assessment and Plan: magnesium is 1.5 today administer 2 g IV magnesium sulfate and recheck in the morning (7) Thrombocytopenia: Code(s): D69.6 - Thrombocytopenia, unspecified Status: Acute Assessment and Plan: mild thrombocytopenia noted monitor CBC with differential Subjective Date/time seen: 11/16/22 16:37 Interval history: date of service: 11/16/2022 Barbara Palma is a 72-year-old female with a history of type 2 diabetes mellitus, hypertension, hepatitis-B, hypothyroidism, depression, anxiety who is seen in follow-up for right hip fracture secondary to mechanical fall. patient is slightly confused today, not really able to provide any reliable history. States that her hip pain is severe, currently rates it as 10/10. She denies abdominal pain, nausea, vomiting, shortness of breath, cough, or chest pain. Not able to answer any additional questions Review of Systems Review of Systems: All systems reviewed & are unremarkable except as noted in HPI and below Exam Narrative: General: well-nourished, well-appearing 72-year-old female, sitting up in bed, comfortable, NARD Neuro: awake, alert and oriented x3, speech clear, no focal neuro deficits noted HEENMT: normocephalic, atraumatic, EOMI, sclerae anicteric Respiratory: clear to auscultation bilaterally, nonlabored breathing Cardio: regular rate, regular rhythm with S1-S2 Abdomen: nondistended, normoactive bowel sounds, soft, nontender to palpation Extremities: no edema, erythema, or tenderness to palpation, DP pulses 2+ bilaterally, able to wiggle toes bilaterally Skin: no rashes or lesions, warm and dry Psych: appropriate mood and affect, judgment and insight poor Objective Data Vital Signs Vital Signs: Vital Signs - 24 hr 11/15/22 16:44 11/15/22 17:44 11/15/22 19:38 Temperature 97.8 F 97.8 F 97.8 F Pulse Rate 77 76 79 Respiratory Rate 14 16 18 Blood Pressure 111/60 126/54 L 114/64 Pulse Oximetry 100 100
[2022-11-16 20:30] LABS: Glucose Point of Care 203 mg/dl (65-105)
[2022-11-16] MEDS: DONEPEZIL HCL 5 MG TABLET PO (20:47)
[2022-11-16] MEDS: MELATONIN 3 MG TABLET PO (20:47)
[2022-11-16] MEDS: HYDROcodone/acetaminophen (*CRX) 7.5-325 MG TABLET 1 TAB PO (23:30)
[2022-11-17 03:49] VITALS: BP 127/63; PULSE 95; RESP 18; TEMP 36.6; O2SAT 98
[2022-11-17 05:28] LABS: Hematocrit 29.1 % (37.0-47.0); Hemoglobin 9.5 g/dL (12.0-15.0); Mean Corpuscular HGB Conc 32.6 g/dl (32-36); Mean Corpuscular Hemoglobin 32.3 pg (26-34); Mean Platelet Volume 10.5 fl (7.4-10.4); Platelet Count Result 103 k/mm3 (150-375); Red Blood Count 2.94 M/mm3 (4.2-5.4); Red Cell Distribution Width 13.6 % (11.5-14.5); White Blood Count 6.5 K/mm3 (4.5-10.0)
[2022-11-17 05:37] LABS: Anion Gap 1 mmol/L (8-16); Blood Urea Nitrogen 24 mg/dL (7-17); Calcium 8.1 mg/dL (8.4-10.2); Carbon Dioxide 27 mmol/L (22-30); Chloride 106 mmol/L (98-107); Estimated CRCL calculation 81 ml/min; Estimated Glomerular Filt Rate > 60; Glucose 156 mg/dL (65-110); Potassium 3.8 mmol/L (3.4-5.0); Sodium 134 mmol/L (137-145)
[2022-11-17] MEDS: LEVOTHYROXINE SODIUM 150 MCG TABLET PO (06:15)
[2022-11-17] MEDS: FONDAPARINUX SODIUM 2.5 MG/0.5 ML SYRINGE SUB-Q (08:05)
[2022-11-17] MEDS: LOVASTATIN 20 MG TABLET 40 MG PO (08:06)
[2022-11-17] MEDS: VENLAFAXINE HCL XR 75 MG CAP.ER.24H PO (08:06)
[2022-11-17] MEDS: LORATADINE 10 MG TABLET PO (08:07)
[2022-11-17] MEDS: PANTOPRAZOLE 40 MG TABLET PO (08:07)
[2022-11-17] MEDS: SENNA/DOCUSATE SODIUM TABLET 2 TAB PO ×2 (08:07→16:31)
[2022-11-17] MEDS: FERROUS SULFATE 324 MG TABLET BY MOUTH (08:07)
[2022-11-17 08:10] VITALS: PULSE 94
[2022-11-17] MEDS: PROPRANOLOL HCL 20 MG TABLET PO (08:10)
[2022-11-17] MEDS: polyethylene glycoL 3350 17 GM POWD.PACK PO (08:11)
[2022-11-17] MEDS: DOCUSATE SODIUM 100 MG CAPSULE PO (08:11)
[2022-11-17 08:58] LABS: Glucose Point of Care 156 mg/dl (65-105)
--- NOTE | 2022-11-17 11:44 | PCOTNOTE ---
Patient refused treatment this session due to just being returned to bed by nursing.
[2022-11-17 12:22] LABS: Glucose Point of Care 220 mg/dl (65-105)
[2022-11-17] MEDS: INSULIN ASPART (*BKC) 100 UNITS/ML SUB-Q ×2 (12:36→16:38)
--- NOTE | 2022-11-17 16:02 | P.PNIM_ITS ---
Progress Note: A&P Assessment and Plan (1) Closed intertrochanteric fracture of right femur: Qualifiers: Encounter type: subsequent encounter Fracture alignment: displaced Fracture healing: with routine healing Qualified Code(s): S72.141D - Displaced intertrochanteric fracture of right femur, subsequent encounter for closed fracture with routine healing Code(s): S72.141A - Displaced intertrochanteric fracture of right femur, initial encounter for closed fracture Status: Acute Assessment and Plan: secondary to mechanical fall * hip/pelvis x-ray showed varus angulation of basicervical fracture of the proximal right femur * appreciate orthopedic surgery consultation * underwent surgical repair on 11/15/22. tolerated the procedure well * continue Arixtra for DVT prophylaxis per Orthopedic surgery * PT/OT eval appreciated * supportive care. Analgesics available as needed * planning for SNF following discharge (2) Hypothyroidism: Code(s): E03.9 - Hypothyroidism, unspecified Status: Acute Assessment and Plan: TSH is 2.2 * continue home levothyroxine (3) DM2 (diabetes mellitus, type 2): Code(s): E11.9 - Type 2 diabetes mellitus without complications Status: Acute Assessment and Plan: A1c is 6.2 * continue Accu-Cheks, sliding scale insulin, hypoglycemic protocol * monitor glucose trends * home metformin on hold (4) HTN (hypertension) with goal to be determined: Code(s): I10 - Essential (primary) hypertension Status: Acute Assessment and Plan: blood pressures are stable * continue home propranolol * monitor BP trends (5) Fall: Code(s): W19.XXXA - Unspecified fall, initial encounter Status: Acute Assessment and Plan: patient suffered a mechanical fall getting out of the shower resulting in right hip fracture * fall precautions implemented (6) Hypomagnesemia: Code(s): E83.42 - Hypomagnesemia Status: Acute Assessment and Plan: magnesium has been supplemented * continue to monitor (7) Thrombocytopenia: Code(s): D69.6 - Thrombocytopenia, unspecified Status: Acute Assessment and Plan: mild thrombocytopenia noted * monitor CBC with differential * no prior labs to establish baseline (8) Normocytic anemia: Code(s): D64.9 - Anemia, unspecified Status: Acute Assessment and Plan: hemoglobin within normal limits on presentation, slight decline postoperatively * suspect secondary to surgical blood loss * no evidence of active bleeding * continue to monitor H&H Subjective Date/time seen: 11/17/22 16:02 Interval history: date of service: 11/17/2022 Barbara Palma is a 72-year-old female with a history of type 2 diabetes mellitus, hypertension, hepatitis-B, hypothyroidism, depression, anxiety who is seen in follow-up for right hip fracture secondary to mechanical fall. patient is somewhat of a poor historian due to dementia, however answers all questions appropriately today. endorses 3/10 hip pain. States she was able to get out of bed and up to the chair with assistance today. She denies shortness of breath. Denies dysuria. Cannot recall her last bowel movement. States she has been eating well. Denies nausea or vomiting. Review of Systems Review of Systems: All systems reviewed & are unremarkable except as noted in HPI and below Exam
--- NOTE | 2022-11-17 16:02 | PM.IMPN ---
Progress Note: A&P Assessment and Plan (1) Closed intertrochanteric fracture of right femur: Qualifiers: Encounter type: subsequent encounter Fracture alignment: displaced Fracture healing: with routine healing Qualified Code(s): S72.141D - Displaced intertrochanteric fracture of right femur, subsequent encounter for closed fracture with routine healing Code(s): S72.141A - Displaced intertrochanteric fracture of right femur, initial encounter for closed fracture Status: Acute Assessment and Plan: secondary to mechanical fall hip/pelvis x-ray showed varus angulation of basicervical fracture of the proximal right femur appreciate orthopedic surgery consultation underwent surgical repair on 11/15/22. tolerated the procedure well continue Arixtra for DVT prophylaxis per Orthopedic surgery PT/OT eval appreciated supportive care. Analgesics available as needed planning for SNF following discharge (2) Hypothyroidism: Code(s): E03.9 - Hypothyroidism, unspecified Status: Acute Assessment and Plan: TSH is 2.2 continue home levothyroxine (3) DM2 (diabetes mellitus, type 2): Code(s): E11.9 - Type 2 diabetes mellitus without complications Status: Acute Assessment and Plan: A1c is 6.2 continue Accu-Cheks, sliding scale insulin, hypoglycemic protocol monitor glucose trends home metformin on hold (4) HTN (hypertension) with goal to be determined: Code(s): I10 - Essential (primary) hypertension Status: Acute Assessment and Plan: blood pressures are stable continue home propranolol monitor BP trends (5) Fall: Code(s): W19.XXXA - Unspecified fall, initial encounter Status: Acute Assessment and Plan: patient suffered a mechanical fall getting out of the shower resulting in right hip fracture fall precautions implemented (6) Hypomagnesemia: Code(s): E83.42 - Hypomagnesemia Status: Acute Assessment and Plan: magnesium has been supplemented continue to monitor (7) Thrombocytopenia: Code(s): D69.6 - Thrombocytopenia, unspecified Status: Acute Assessment and Plan: mild thrombocytopenia noted monitor CBC with differential no prior labs to establish baseline (8) Normocytic anemia: Code(s): D64.9 - Anemia, unspecified Status: Acute Assessment and Plan: hemoglobin within normal limits on presentation, slight decline postoperatively suspect secondary to surgical blood loss no evidence of active bleeding continue to monitor H&H Subjective Date/time seen: 11/17/22 16:02 Interval history: date of service: 11/17/2022 Barbara Palma is a 72-year-old female with a history of type 2 diabetes mellitus, hypertension, hepatitis-B, hypothyroidism, depression, anxiety who is seen in follow-up for right hip fracture secondary to mechanical fall. patient is somewhat of a poor historian due to dementia, however answers all questions appropriately today. endorses 3/10 hip pain. States she was able to get out of bed and up to the chair with assistance today. She denies shortness of breath. Denies dysuria. Cannot recall her last bowel movement. States she has been eating well. Denies nausea or vomiting. Review of Systems Review of Systems: All systems reviewed & are unremarkable except as noted in HPI and below Exam Narrative: General: well-nourished, well-appearing 72-year-old female, sitting up in bed, comfortable, NARD Neuro: awake, alert and oriented x3, speech clear, no focal neuro deficits noted, Exhibits occasional confusion HEENMT: normocephalic, atraumatic, EOMI, sclerae anicteric Respiratory: clear to auscultation bilaterally, nonlabored breathing Cardio: regular rate, regular rhythm with S1-S2 Abdomen: nondistended, normoactive bowel sounds, soft, nontender to palpation Extremities: no bharti
[2022-11-17 17:23] LABS: Glucose Point of Care 217 mg/dl (65-105)
[2022-11-17 17:28] LABS: Glucose Point of Care 204 mg/dl (65-105)
[2022-11-17] MEDS: DONEPEZIL HCL 5 MG TABLET PO (21:04)
[2022-11-17] MEDS: MELATONIN 3 MG TABLET PO (21:04)
[2022-11-17] MEDS: MORPHINE SULFATE (*CRX) 2 MG/ML INJ IV PUSH (21:05)
[2022-11-17 21:34] VITALS: BP 147/85; PULSE 93; RESP 18; TEMP 36.6; O2SAT 98
[2022-11-18] MEDS: MORPHINE SULFATE (*CRX) 2 MG/ML INJ IV PUSH (03:07)
[2022-11-18 04:58] VITALS: BP 144/69; PULSE 98; RESP 17; TEMP 36.8; O2SAT 100
[2022-11-18] MEDS: LEVOTHYROXINE SODIUM 150 MCG TABLET PO (05:57)
[2022-11-18 06:29] LABS: Magnesium 1.8 mg/dL (1.6-2.3)
[2022-11-18 08:40] LABS: Glucose Point of Care 138 mg/dl (65-105)
[2022-11-18] MEDS: FONDAPARINUX SODIUM 2.5 MG/0.5 ML SYRINGE SUB-Q (09:05)
[2022-11-18 09:07] VITALS: PULSE 88
[2022-11-18] MEDS: VENLAFAXINE HCL XR 75 MG CAP.ER.24H PO (09:07)
[2022-11-18] MEDS: PANTOPRAZOLE 40 MG TABLET PO (09:07)
[2022-11-18] MEDS: PROPRANOLOL HCL 20 MG TABLET PO (09:07)
[2022-11-18] MEDS: DOCUSATE SODIUM 100 MG CAPSULE PO (09:08)
[2022-11-18 09:09] VITALS: RESP 18; O2SAT 100
[2022-11-18] MEDS: FERROUS SULFATE 324 MG TABLET BY MOUTH (09:09)
[2022-11-18] MEDS: LOVASTATIN 20 MG TABLET 40 MG PO (09:09)
[2022-11-18] MEDS: LORATADINE 10 MG TABLET PO (09:09)
[2022-11-18] MEDS: DICLOFENAC SODIUM 1% 100 GM GEL (*BKC) 1 APPLIC TOPICAL ×3 (09:09→16:44)
[2022-11-18 09:59] LABS: Hematocrit 28.9 % (37.0-47.0); Hemoglobin 9.4 g/dL (12.0-15.0); Mean Corpuscular HGB Conc 32.5 g/dl (32-36); Mean Corpuscular Hemoglobin 31.3 pg (26-34); Mean Corpuscular Volume 96.3 fl (80-100); Mean Platelet Volume 10.6 fl (7.4-10.4); Platelet Count Result 128 k/mm3 (150-375); Red Cell Distribution Width 13.6 % (11.5-14.5); White Blood Count 6.1 K/mm3 (4.5-10.0)
[2022-11-18 10:09] LABS: Anion Gap 2 mmol/L (8-16); Blood Urea Nitrogen 18 mg/dL (7-17); Calcium 8.4 mg/dL (8.4-10.2); Carbon Dioxide 28 mmol/L (22-30); Chloride 102 mmol/L (98-107); Estimated CRCL calculation 94 ml/min; Estimated Glomerular Filt Rate > 60; Glucose 221 mg/dL (65-110); Potassium 4.1 mmol/L (3.4-5.0); Sodium 132 mmol/L (137-145)
[2022-11-18] MEDS: MAGNESIUM SULF 2 GM/WATER 50ML 2 GM/50 ML BAG IVPB (12:00)
[2022-11-18 12:42] LABS: Glucose Point of Care 304 mg/dl (65-105)
[2022-11-18 12:42] LABS: Glucose Point of Care 176 mg/dl (65-105)
[2022-11-18] MEDS: INSULIN ASPART (*BKC) 100 UNITS/ML SUB-Q (13:00)
[2022-11-18 14:00] VITALS: BP 142/70; PULSE 77; RESP 16; TEMP 36.8; O2SAT 98
[2022-11-18] MEDS: HYDROcodone/acetaminophen (*CRX) 7.5-325 MG TABLET 1 TAB PO ×2 (14:38→23:15)
--- NOTE | 2022-11-18 14:44 | P.PNIM_ITS ---
Progress Note: A&P Assessment and Plan (1) Closed intertrochanteric fracture of right femur: Qualifiers: Encounter type: subsequent encounter Fracture alignment: displaced Fracture healing: with routine healing Qualified Code(s): S72.141D - Displaced intertrochanteric fracture of right femur, subsequent encounter for closed fracture with routine healing Code(s): S72.141A - Displaced intertrochanteric fracture of right femur, initial encounter for closed fracture Status: Acute Assessment and Plan: secondary to mechanical fall * hip/pelvis x-ray showed varus angulation of basicervical fracture of the proximal right femur * appreciate orthopedic surgery consultation * underwent surgical repair on 11/15/22. tolerated the procedure well * continue Arixtra for DVT prophylaxis per Orthopedic surgery * PT/OT eval appreciated * supportive care. Analgesics available as needed * planning for SNF following discharge (2) Hypothyroidism: Code(s): E03.9 - Hypothyroidism, unspecified Status: Acute Assessment and Plan: TSH is 2.2 * continue home levothyroxine (3) DM2 (diabetes mellitus, type 2): Code(s): E11.9 - Type 2 diabetes mellitus without complications Status: Acute Assessment and Plan: A1c is 6.2 * continue Accu-Cheks, sliding scale insulin, hypoglycemic protocol * monitor glucose trends * home metformin on hold (4) HTN (hypertension) with goal to be determined: Code(s): I10 - Essential (primary) hypertension Status: Acute Assessment and Plan: blood pressures are stable * continue home propranolol * monitor BP trends (5) Fall: Code(s): W19.XXXA - Unspecified fall, initial encounter Status: Acute Assessment and Plan: patient suffered a mechanical fall getting out of the shower resulting in right hip fracture * fall precautions implemented (6) Hypomagnesemia: Code(s): E83.42 - Hypomagnesemia Status: Acute Assessment and Plan: magnesium 1.8 today * administer 2 g IV mag sulfate * continue to monitor (7) Thrombocytopenia: Code(s): D69.6 - Thrombocytopenia, unspecified Status: Acute Assessment and Plan: mild thrombocytopenia noted * monitor CBC with differential * no prior labs to establish baseline * remaining stable (8) Normocytic anemia: Code(s): D64.9 - Anemia, unspecified Status: Acute Assessment and Plan: hemoglobin within normal limits on presentation, slight decline postoperatively * suspect secondary to surgical blood loss * no evidence of active bleeding * continue to monitor H&H Subjective Date/time seen: 11/18/22 14:44 Interval history: date of service: 11/18/2022 Barbara Palma is a 72-year-old female with a history of type 2 diabetes mellitus, hypertension, hepatitis-B, hypothyroidism, depression, anxiety who is seen in follow-up for right hip fracture secondary to mechanical fall. patient is somewhat of a poor historian due to dementia. She is more alert today and participates in conversation well. We had a nice talk about what books she likes to read. Her right hip pain is well controlled today. She currently rates it as 3/10. She got out of bed and up into the chair today. She does complain of some neck discomfort which she attributes still lying in bed. She cannot recall her last bowel movement. Denies any issues with urination. Denies nausea or vomi
--- NOTE | 2022-11-18 14:44 | PM.IMPN ---
Progress Note: A&P Assessment and Plan (1) Closed intertrochanteric fracture of right femur: Qualifiers: Encounter type: subsequent encounter Fracture alignment: displaced Fracture healing: with routine healing Qualified Code(s): S72.141D - Displaced intertrochanteric fracture of right femur, subsequent encounter for closed fracture with routine healing Code(s): S72.141A - Displaced intertrochanteric fracture of right femur, initial encounter for closed fracture Status: Acute Assessment and Plan: secondary to mechanical fall hip/pelvis x-ray showed varus angulation of basicervical fracture of the proximal right femur appreciate orthopedic surgery consultation underwent surgical repair on 11/15/22. tolerated the procedure well continue Arixtra for DVT prophylaxis per Orthopedic surgery PT/OT eval appreciated supportive care. Analgesics available as needed planning for SNF following discharge (2) Hypothyroidism: Code(s): E03.9 - Hypothyroidism, unspecified Status: Acute Assessment and Plan: TSH is 2.2 continue home levothyroxine (3) DM2 (diabetes mellitus, type 2): Code(s): E11.9 - Type 2 diabetes mellitus without complications Status: Acute Assessment and Plan: A1c is 6.2 continue Accu-Cheks, sliding scale insulin, hypoglycemic protocol monitor glucose trends home metformin on hold (4) HTN (hypertension) with goal to be determined: Code(s): I10 - Essential (primary) hypertension Status: Acute Assessment and Plan: blood pressures are stable continue home propranolol monitor BP trends (5) Fall: Code(s): W19.XXXA - Unspecified fall, initial encounter Status: Acute Assessment and Plan: patient suffered a mechanical fall getting out of the shower resulting in right hip fracture fall precautions implemented (6) Hypomagnesemia: Code(s): E83.42 - Hypomagnesemia Status: Acute Assessment and Plan: magnesium 1.8 today administer 2 g IV mag sulfate continue to monitor (7) Thrombocytopenia: Code(s): D69.6 - Thrombocytopenia, unspecified Status: Acute Assessment and Plan: mild thrombocytopenia noted monitor CBC with differential no prior labs to establish baseline remaining stable (8) Normocytic anemia: Code(s): D64.9 - Anemia, unspecified Status: Acute Assessment and Plan: hemoglobin within normal limits on presentation, slight decline postoperatively suspect secondary to surgical blood loss no evidence of active bleeding continue to monitor H&H Subjective Date/time seen: 11/18/22 14:44 Interval history: date of service: 11/18/2022 Barbara Palma is a 72-year-old female with a history of type 2 diabetes mellitus, hypertension, hepatitis-B, hypothyroidism, depression, anxiety who is seen in follow-up for right hip fracture secondary to mechanical fall. patient is somewhat of a poor historian due to dementia. She is more alert today and participates in conversation well. We had a nice talk about what books she likes to read. Her right hip pain is well controlled today. She currently rates it as 3/10. She got out of bed and up into the chair today. She does complain of some neck discomfort which she attributes still lying in bed. She cannot recall her last bowel movement. Denies any issues with urination. Denies nausea or vomiting. Review of Systems Review of Systems: All systems reviewed & are unremarkable except as noted in HPI and below Exam Narrative: General: well-nourished, well-appearing 72-year-old female, sitting up in bed, comfortable, NARD Neuro: awake, alert and oriented x3, speech clear, no focal neuro deficits noted, exhibits occasional confusion HEENMT: normocephalic, atraumatic, EOMI, sclerae anicteric Respiratory: clear to auscultation bilaterally, n
[2022-11-18] MEDS: SENNA/DOCUSATE SODIUM TABLET 2 TAB PO (16:44)
[2022-11-18 17:39] LABS: Glucose Point of Care 146 mg/dl (65-105)
[2022-11-18 20:17] VITALS: BP 140/80; PULSE 82; RESP 18; TEMP 36.4; O2SAT 98
[2022-11-18] MEDS: MELATONIN 3 MG TABLET PO (22:37)
[2022-11-18] MEDS: DONEPEZIL HCL 5 MG TABLET PO (22:37)
[2022-11-18 23:02] LABS: Glucose Point of Care 145 mg/dl (65-105)
[2022-11-19] MEDS: MORPHINE SULFATE (*CRX) 2 MG/ML INJ IV PUSH ×3 (00:22→14:42)
[2022-11-19 03:39] VITALS: BP 129/65; PULSE 92; RESP 18; TEMP 36.6; O2SAT 98
[2022-11-19] MEDS: LEVOTHYROXINE SODIUM 150 MCG TABLET PO (05:35)
[2022-11-19 06:00] LABS: Hematocrit 28.1 % (37.0-47.0); Hemoglobin 9.1 g/dL (12.0-15.0); Mean Corpuscular HGB Conc 32.4 g/dl (32-36); Mean Corpuscular Hemoglobin 31.2 pg (26-34); Mean Corpuscular Volume 96.2 fl (80-100); Mean Platelet Volume 10.3 fl (7.4-10.4); Platelet Count Result 137 k/mm3 (150-375); Red Blood Count 2.92 M/mm3 (4.2-5.4); Red Cell Distribution Width 13.4 % (11.5-14.5); White Blood Count 4.9 K/mm3 (4.5-10.0)
[2022-11-19 06:12] LABS: Anion Gap 1 mmol/L (8-16); Blood Urea Nitrogen 17 mg/dL (7-17); Calcium 8.3 mg/dL (8.4-10.2); Carbon Dioxide 29 mmol/L (22-30); Chloride 101 mmol/L (98-107); Estimated CRCL calculation 94 ml/min; Estimated Glomerular Filt Rate > 60; Glucose 144 mg/dL (65-110); Potassium 4.1 mmol/L (3.4-5.0); Sodium 131 mmol/L (137-145)
[2022-11-19 08:38] LABS: Magnesium 1.7 mg/dL (1.6-2.3)
[2022-11-19 09:14] LABS: Glucose Point of Care 130 mg/dl (65-105)
[2022-11-19] MEDS: SENNA/DOCUSATE SODIUM TABLET 2 TAB PO (09:17)
[2022-11-19] MEDS: FONDAPARINUX SODIUM 2.5 MG/0.5 ML SYRINGE SUB-Q (09:17)
[2022-11-19] MEDS: DOCUSATE SODIUM 100 MG CAPSULE PO (09:18)
[2022-11-19] MEDS: FERROUS SULFATE 324 MG TABLET BY MOUTH (09:18)
[2022-11-19] MEDS: DICLOFENAC SODIUM 1% 100 GM GEL (*BKC) 1 APPLIC TOPICAL ×3 (09:18→18:00)
[2022-11-19] MEDS: LORATADINE 10 MG TABLET PO (09:19)
[2022-11-19] MEDS: PANTOPRAZOLE 40 MG TABLET PO (09:19)
[2022-11-19] MEDS: LOVASTATIN 20 MG TABLET 40 MG PO (09:19)
[2022-11-19 09:20] VITALS: PULSE 84
[2022-11-19] MEDS: PROPRANOLOL HCL 20 MG TABLET PO (09:20)
[2022-11-19] MEDS: VENLAFAXINE HCL XR 75 MG CAP.ER.24H PO (09:20)
[2022-11-19 09:25] VITALS: BP 135/57; PULSE 84; RESP 20; O2SAT 98
--- NOTE | 2022-11-19 09:34 | PM.PNORT ---
Progress Note: A&P Assessment and Plan (1) Closed intertrochanteric fracture of right femur: Qualifiers: Encounter type: subsequent encounter Fracture alignment: displaced Fracture healing: with routine healing Qualified Code(s): S72.141D - Displaced intertrochanteric fracture of right femur, subsequent encounter for closed fracture with routine healing Code(s): S72.141A - Displaced intertrochanteric fracture of right femur, initial encounter for closed fracture Status: Acute Assessment and Plan: POD #4: Right Hip IMHS Continue PT/OT. WBAT. Walker. HIGH FALL RISK. Continue pain control. Ice hip. Protect skin. DVT prophylaxis with Arixtra while inpatient. Will switch to aspirin at d/c SCDs. Incentive Spirometry Use reviewed. Monitor Dressing. Change daily. Okay to apply Mepilex Silver prior to discharge for ease with showering, etc. [place] to be removed on POD #14. Bowel Regimen. Dispo: SNF vs. [facility] pending progress with PT/OT and medical stability. (2) Hypothyroidism: Code(s): E03.9 - Hypothyroidism, unspecified Status: Acute (3) DM2 (diabetes mellitus, type 2): Code(s): E11.9 - Type 2 diabetes mellitus without complications Status: Acute (4) HTN (hypertension) with goal to be determined: Code(s): I10 - Essential (primary) hypertension Status: Acute Subjective Subjective Date/Time Seen: 11/19/ 09:34 Post Op day: 4 Interval history: POD #4: Right Hip CRPP Up in chair, working well with PT/OT. No new concerns. Still with pain right leg. Review of Systems Review of Systems: All systems reviewed & are unremarkable except as noted in HPI and below Exam Const: General: comfortable and no acute distress Resp: Effort & Inspection: normal respiratory effort Cardio: Rate: regular rate Rhythm: regular rhythm GI: Inspection: non-distended Skin: General skin exam: normal color Other: Incision right hip c/d/i. Surrounding tissue without redness/warmth. Mild swelling consistent with recent surgery. No drainage. Neuro: Cognition (Neuro): normal cognition Speech: normal speech Extrem: Right lower extremity: normal to inspection, normal capillary refill, hip/thigh Details: tenderness Location: of the hip (Thigh soft ) Location: laterally and anteriorly, swelling Location: at the hip, abnormal ROM (limited consistent with recent surgery ) Details: pain with active ROM during and pain with passive ROM during and other (Incision c/d/i. ); no deformity and no unusual warmth, knee Details: normal to inspection; no tenderness and no swelling, lower leg (Negative Elsie's Sign ) Details: normal to inspection and no edema; no tenderness, ankle (+ankle dorsiflexion/plantarflexion) Details: normal to inspection and no edema; no tenderness, no swelling and no ecchymosis and foot Details: normal capillary refill, toes with normal ROM, vascular exam Details: dorsalis pedis pulse present and motor-sensory exam Details: light-touch normal; no tenderness Objective Data Vital Signs Vital Signs: Vital Signs - 24 hr 11/18/22 14:00 11/18/22 20:17 11/18/22 20:00 Temperature 36.8 C 36.4 C Pulse Rate 77 82 Respiratory Rate 16 18 Blood Pressure 142/70 H 140/80 Pulse Oximetry 98 98 Oxygen Delivery Room Air 11/19/22 03:39 11/19/22 09:20 11/19/22 09:25 Temperature 36.6 C Pulse Rate 92 84 84 Respiratory Rate 18 20 Blood Pressure 129/65 135/57 L Pulse Oximetry 98 98 Oxygen Delivery Intake/Output Intake/Output: Intake & Output 11/16/22 11/17/22 11/18/22 11/19/22 23:59 23:59 23:59 23:59 Intake Total 2350 1180 1370 200 Output Total 500 500 Balance 1850 1180 1370 -300 Meds/Results Medications: Active Medications Generic Name Dose Route Start Last Admin Trade Name Russ PRN Reason Stop Dose Admin Hydrocodone Bitart/Acetaminophen 1 tab 11/15/22 15:59 11/18/22 23:15 Hydrocodone/Acetaminophen (*Crx) 7.5-325 Mg Tablet
[2022-11-19 12:55] LABS: Glucose Point of Care 195 mg/dl (65-105)
[2022-11-19 15:00] VITALS: BP 126/65; PULSE 86; RESP 16; TEMP 36.9; O2SAT 97
--- NOTE | 2022-11-19 15:43 | PM.DS ---
DS: Admitting Diagnosis Discharge Date 11/19/22 Admitting Diagnosis right hip fracture DS: Discharge Diagnosis Discharge Diagnosis (1) Closed intertrochanteric fracture of right femur: Qualifiers: Encounter type: subsequent encounter Fracture alignment: displaced Fracture healing: with routine healing Qualified Code(s): S72.141D - Displaced intertrochanteric fracture of right femur, subsequent encounter for closed fracture with routine healing Code(s): S72.141A - Displaced intertrochanteric fracture of right femur, initial encounter for closed fracture Status: Acute Assessment and Plan: Secondary to mechanical fall Hip/pelvis x-ray showed varus angulation of basicervical fracture of the proximal right femur Patient was seen in consultation by Orthopedic surgery underwent surgical repair on 11/15/22. tolerated the procedure well continue Arixtra for DVT prophylaxis per Orthopedic surgery Participated in PT/OT during admission and will continue therapy at SNF supportive care provided Outpatient orthopedic surgery follow-up (2) Hypothyroidism: Code(s): E03.9 - Hypothyroidism, unspecified Status: Acute Assessment and Plan: TSH is 2.2 continue home levothyroxine (3) DM2 (diabetes mellitus, type 2): Code(s): E11.9 - Type 2 diabetes mellitus without complications Status: Acute Assessment and Plan: A1c is 6.2 Blood sugars remained well controlled during admission Continue home metformin (4) HTN (hypertension) with goal to be determined: Code(s): I10 - Essential (primary) hypertension Status: Acute Assessment and Plan: Blood pressures are stable continue home propranolol (5) Fall: Code(s): W19.XXXA - Unspecified fall, initial encounter Status: Acute Assessment and Plan: patient suffered a mechanical fall getting out of the shower resulting in right hip fracture fall precautions implemented (6) Hypomagnesemia: Code(s): E83.42 - Hypomagnesemia Status: Acute Assessment and Plan: Magnesium was supplemented with improvement Begin magnesium oxide 400 mg daily supplementation (7) Thrombocytopenia: Code(s): D69.6 - Thrombocytopenia, unspecified Status: Acute Assessment and Plan: mild thrombocytopenia noted Platelet count improved, near normal at time of discharge (8) Normocytic anemia: Code(s): D64.9 - Anemia, unspecified Status: Acute Assessment and Plan: hemoglobin within normal limits on presentation, slight decline postoperatively suspect secondary to surgical blood loss no evidence of active bleeding H&H remained stable DS: Summary Hospital Course Hospital Course: date of admission: 11/14/2022 date of discharge: 11/19/2022 Barbara Palma is a 72-year-old female with a history of type 2 diabetes mellitus, hypertension, hepatitis-B, hypothyroidism, depression, anxiety who presented to the emergency department on 11/14/2022 after suffering a fall, patient tripped from her shower and fell onto her right side. Did not hit her head or lose consciousness. On presentation to the ED, her vital signs were stable, she was afebrile, labs on arrival showed mild thrombocytopenia, additional CBC and BMP relatively unremarkable, UA without concerns for infection, CXR with no acute cardiopulmonary disease, hip/ pelvis x-ray showed basal cervical fracture of the proximal right femur. She was admitted to the hospitalist service for further evaluation and management was seen in consultation by Orthopedic surgery. Please see above for further details. Patient underwent surgical repair on 11/15/2022 and tolerated the procedure well. She participated in PT/ OT postoperatively and will continue therapy at SNF. Patient was overall feeling improved and was determined to no longer require inpatient care. She was discharged
[2022-11-19 16:52] LABS: EDCOVIDSCREEN Negative (Negative)
[2022-11-19 17:33] LABS: Glucose Point of Care 176 mg/dl (65-105)
[2022-11-19] MEDS: HYDROcodone/acetaminophen (*CRX) 7.5-325 MG TABLET 1 TAB PO (18:38)
== END 2022-11-19 19:45 | DRG 481 ==
LOC: ANHED 14:35 → ANH2MED 14:44
PROVIDERS: Nurse Practitioner; Orthopaedic Surgery; Admitting Provider Chiropractor; Emergency Provider Emergency Medicine; PCP Internal Medicine; Visit Provider Physician Assistant
PROC: 0QS636Z Reposition Right Upper Femur with Intramedullary Internal Fixation Device, Percutaneous Approach (ICD-10-PCS; CPT 27245; principal; 2022-11-15 13:00)
DX: S72.091A Other fracture of head and neck of right femur, initial encounter for closed fracture (principal); D62 Acute posthemorrhagic anemia; W18.09XA Striking against other object with subsequent fall, initial encounter; M17.11 Unilateral primary osteoarthritis, right knee; Z20.822 Contact with and (suspected) exposure to COVID-19; E03.9 Hypothyroidism, unspecified; E11.9 Type 2 diabetes mellitus without complications; I10 Essential (primary) hypertension; E83.42 Hypomagnesemia; D69.6 Thrombocytopenia, unspecified; E78.00 Pure hypercholesterolemia, unspecified; F41.8 Other specified anxiety disorders; E66.9 Obesity, unspecified; Z68.37 Body mass index [BMI] 37.0-37.9, adult; Z86.19 Personal history of other infectious and parasitic diseases; Z90.49 Acquired absence of other specified parts of digestive tract; Z90.710 Acquired absence of both cervix and uterus; Z87.891 Personal history of nicotine dependence
CPT/HCPCS: 36415; 71045; 73502; 73564; 80048; 80053; 81003; 82948; 83036; 83735; 84100; 84443; 85025; 85027; 85055; 85610; 85730; 86850; 86900; 86901; 87426; 93005; 96374; 96376; 97110; 97161; 97165; 97530; 97535; 99199; 99285; A9270; C1713; C9803; G0378; J0131; J0690; J1100; J1170; J1652; J1815; J1885; J2270; J2405; J2704; J3010; J3475; J3480; J7120

== ENCOUNTER 2022-11-22 01:29 | Observation (INO) | payer MEDICARE, MEDICAID, SELFPAY ==
[2022-11-22] VITALS (9 sets, daily range): BP systolic 134–173; BP diastolic 57–80; PULSE 82–105; RESP 14–18; TEMP 36.3–36.5; O2SAT 94–100; BMI 37.3
--- NOTE | ~2022-11-22 | US_ITS ---
EXAMINATION: US venous doppler [facility] DATE: 11/22/2022 14:16 INDICATION: +Homans, recent surgery . Leg pain and mass. TECHNIQUE: Grayscale images without and with compression and Doppler images of the bilateral lower ex tremity veins were obtained. COMPARISON: None FINDINGS: The right common femoral vein, profunda (deep) femoral vein, femoral vein, popliteal vein, peroneal v ein, posterior tibial veins, gastrocnemius vein, and greater saphenous vein are patent. Subcutaneous edema in the right popliteal fossa The left common femoral vein, profunda femoral vein, femoral vein, popliteal vein, peroneal vein, pos terior tibial veins, gastrocnemius vein, and greater saphenous vein are patent. IMPRESSION: 1. Patent bilateral lower extremity veins. No evidence of deep venous thrombosis. Reviewed, dictated and finalized at location K. IMPRESSION: 1. Patent bilateral lower extremity veins. No evidence of deep venous thrombos is.
--- NOTE | ~2022-11-22 | CT_ITS ---
EXAMINATION: CT abdomen pelvis wo con DATE: 11/22/2022 13:46 INDICATION: Iliopsoas injury versus hematoma with right hip pain TECHNIQUE: Computed tomography (CT) of the abdomen and pelvis was performed without intravenous contr ast. Automated exposure control and iterative reconstruction technique were employed. The dose-length product was 2831.15 mGy-cm. COMPARISON: Pelvis CT dated 11/22/2022 FINDINGS: Antegrade intramedullary nika and interlocking femoral neck screw fixation of a comminuted intratrocha nteric fracture of the proximal right femur. Alignment appears near-anatomic aside 5 similar anterior proximal distraction of the lesser trochanteric fragments which are not included within the fixation . There is surrounding soft tissue swelling including diffuse asymmetric enlargement of the right glu teal musculature in the musculature of the proximal right thigh without discrete hematoma. There is a lso asymmetric enlargement of the right iliac is muscle with approximately 3 cm diameter region of in creased density within the muscle belly likely representing a small intramuscular hematoma. Minimal p ostoperative soft tissue gas and mild stranding with more focal approximately 4.5 x 4.8 x 2.2 cm like ly subcutaneous hematoma underlying several skin geni along the lateral proximal right thigh. Smal l fat-containing umbilical hernia. Bladder and visualized portions of the bowels are unremarkable. Th e uterus is not identified and has likely been surgically resected. Age-indeterminate L3 compression fracture with approximately one third anterior vertebral body height loss. Mild to moderate lumbar sp ondylosis with multilevel severe bilateral lumbar facet osteoarthritis. IMPRESSION: 1. Expected appearance post internal fixation of a comminuted intratrochanteric fracture of the proxi mal right femur is in near-anatomic alignment aside from residual distraction of the lesser trochante jaida fragments which are not included in the fixation. 2. Diffuse likely postoperative soft tissue swelling of the musculature about the right hip with like ly small intramuscular hematoma within the right iliac is muscle. 3. Age-indeterminate L3 compression fracture with one third anterior vertebral body height loss. Reviewed, dictated and finalized at location A. IMPRESSION: 1. Expected appearance post internal fixation of a comminuted intratrochanteric fracture of the proximal right femur is in near-anatomic alignment aside from residual distraction of the lesser trochanteric fragments which are not include d in the fixation. 2. Diffuse likely postoperative soft tissue swelling of the musculature about t he right hip with likely small intramuscular hematoma within the right iliac is muscle. 3. Age-indeterminate L3 compression fracture with one third anterior vertebral body height loss.
--- NOTE | ~2022-11-22 | XR_ITS ---
Left Humerus Technique: AP and lateral views were obtained. Clinical History: Trauma Findings: Lucency in the proximal humeral shaft is suspicious for an oblique, minimally displaced fra cture of the proximal half of the humeral shaft. Visualized joint spaces are grossly preserved. Soft tissues are unremarkable. Impression: Suspected oblique, minimally displaced fracture of the proximal half of the humeral shaft. Reviewed, dictated and finalized at location . Impression: Suspected oblique, minimally displaced fracture of the proximal half of the hum eral shaft.
--- NOTE | ~2022-11-22 | CT_ITS ---
Non-contrast CT scan of the Pelvis Clinical indication: Hip fracture Technique: 2.5 mm axial scans were obtained through the pelvis without intravenous or oral contrast. Dose reduction technique was used on this scan by utilizing automated exposure control and iterative reconstruction technique. The dose-length product (DLP) was 900.46 mGy-cm. COMPARISON: Prior radiographs dated 11/14/2022 Findings: Comminuted intertrochanteric fracture of the proximal right femur is present. There is orth opedic fixation hardware at the proximal femur, with intramedullary nika and dynamic interlocking femo ral neck screw, consistent with history of ORIF which was performed on 11/15/2022. There is significan t displacement of small lesser trochanteric fragments, which appear to be retracted along the course of the tendon, significantly anterior and superior to the anatomic location of the lesser trochanter (axial image 91 for example). Otherwise, remaining fracture alignment appears essentially unchanged f rom prior intraoperative radiographs, near anatomic. No other fracture identified in the pelvis. There is extensive soft tissue swelling about the right h ip, compatible with posttraumatic and/or postoperative change. There is asymmetric enlarged appearanc e of the right iliopsoas muscle at the iliac fossa as compared to the left side. Impression: Comminuted intertrochanteric fracture of the proximal right femur, status post ORIF on 11/15/2022. Most of the fracture alignment is near anatomic in appearance, except for several small lesser trocha nteric fragments which are significantly displaced anterosuperiorly along the expected course of the iliopsoas tendon. Asymmetric enlarged appearance of the right iliopsoas muscle belly. It is unclear whether this is rel ated to torn and retracted distal tendon versus possible intramuscular hematoma or other swelling. Reviewed, dictated and finalized at location . Impression: Comminuted intertrochanteric fracture of the proximal right femur, status post ORIF on 11/15/2022. Most of the fracture alignment is near anatomic in appearance, except for sever al small lesser trochanteric fragments which are significantly displaced sae superiorly along the expected course of the iliopsoas tendon. Asymmetric enlarged appearance of the right iliopsoas muscle belly. It is uncle ar whether this is related to torn and retracted distal tendon versus possible intramuscular hematoma or other swelling.
--- NOTE | ~2022-11-22 | XR_ITS ---
AP and lateral views of the right femur Clinical History: Pain COMPARISON: 11/14/2022 Findings: Patient is status post interval ORIF of comminuted intertrochanteric fracture of the proxim al right femur. There are displaced small lesser trochanteric fragments, but the remainder the fractu re fragments demonstrate near-anatomic alignment. There is advanced degenerative change of the medial compartment of the knee, with moderate degenerative change of the lateral and patellofemoral compart ments. Right hip joint space is preserved. Postoperative changes noted in the soft tissues. Impression: Status post ORIF of comminuted intertrochanteric fracture of the proximal right femur since 11/14/2022 . Displaced small lesser trochanteric fragments are present. Degenerative change at the knee, worst in the medial compartment. Reviewed, dictated and finalized at [facility]. Impression: Status post ORIF of comminuted intertrochanteric fracture of the proximal right femur since 11/14/2022. Displaced small lesser trochanteric fragments are prese nt. Degenerative change at the knee, worst in the medial compartment.
--- NOTE | ~2022-11-22 | CT_ITS ---
EXAMINATION: CT cervical spine wo con DATE: 11/22/2022 13:46 INDICATION: neck pain, fall TECHNIQUE: Computed tomography (CT) of the cervical spine was performed without intravenous contrast. Automated exposure control and iterative reconstruction technique were employed. The dose-length pro duct was 2831.15 mGy-cm. COMPARISON: None. FINDINGS: Vertebral Body Alignment: Intact. . Craniocervical and atlantoaxial alignment: Moderate degenerative change. Alignment intact. Osseous structures/fracture: No evidence of a lytic or blastic process in the visualized spine. No e vidence of acute fracture. . Cervical soft tissues: The paraspinal soft tissues planes are maintained. Degenerative changes: Multilevel degenerative disc disease and facet arthropathy. Mild-moderate bilat eral neural foraminal narrowing at C5-6. No severe central canal narrowing. IMPRESSION: No acute fracture or traumatic malalignment in the cervical spine. Reviewed, dictated and finalized at location K.
--- NOTE | ~2022-11-22 | XR_ITS ---
AP view of the pelvis and AP and lateral views of the right hip Clinical history: Pain COMPARISON: 11/14/2022 Findings: Patient is status post ORIF of comminuted intertrochanteric fracture of the proximal right femur. There are mildly displaced lesser trochanteric fragments. Remainder the fracture fragments ove rall demonstrate near-anatomic alignment. Remaining pelvic bones and left hip joint space are intact. Soft tissues are unremarkable. Impression: Comminuted intertrochanteric fracture of the proximal right femur, status post ORIF since 11/14/2022. Displaced lesser trochanteric fragments are present. Reviewed, dictated and finalized at location . Impression: Comminuted intertrochanteric fracture of the proximal right femur, status post ORIF since 11/14/2022. Displaced lesser trochanteric fragments are present.
--- NOTE | 2022-11-22 04:02 | ECG_ITS ---
Measurements Intervals [place] Rate: 100 P: 12 WI: 146 QRS: 13 QRSD: 87 T: 28 QT: 346 QTc: 448 Interpretive Statements SINUS TACHYCARDIA CONSIDER INFERIOR INFARCT, AGE INDETERMINATE BORDERLINE ST ABNORMALITY- HIGH LATERAL LEADS ABNORMAL ECG COMPARED TO ECG 11/14/2022 13:35:[address] PRESENT [address] ABNORMALITY NOW PRESENT Electronically Signed On 11-22-2022 6:52:30 CDT by Ghulam Simmons D.O.
[2022-11-22] MEDS: SODIUM CHLORIDE 0.9% IV 1,000 ML 999 ML IV CONT (04:48)
[2022-11-22] MEDS: HYDROmorphone HCL INJ (*CRX) 1 MG/ML SYR 0.5 MG IV PUSH ×2 (04:49→10:00)
--- NOTE | 2022-11-22 04:53 | ED.GENADULT ---
HPI - General Adult General Chief complaint: Extremity Injury, Upper Stated complaint: fall, arm deformity Time Seen by Provider: 11/22/22 01:40 History of Present Illness HPI narrative: This is a 72-year-old female presenting ED with chief complaint of a fall with arm pain. Patient is currently at [facility] after undergoing repair for a fractured hip. She got up to go to the restroom to urinate and tripped. She tripped into the wall and then slid down the wall and landed on her hip. Denies head trauma, loss of consciousness. She is complaining of pain to her left arm and right hip. She has not been ambulatory since the incident. She denies any pain difficulty breathing palpitations or dizziness before the fall and any other physical complaints at this time Related Data Home Medications Medication Instructions Recorded Confirmed Benadryl-D Allergy and Sinus 25 mg PO Q6H PRN Itching 11/14/22 11/14/22 Fleet Enema 1 applicator RECTAL DAILY PRN 11/14/22 11/14/22 Constipation Milk of Magnesia 30 ml PO DAILY PRN Constipation 11/14/22 11/14/22 acetaminophen 500 mg tablet 500 mg PO BID PRN Pain 11/14/22 11/14/22 diclofenac sodium 1 % topical gel 1 ea topical TID 11/14/22 11/14/22 docusate sodium 100 mg capsule 100 mg PO DAILY 11/14/22 11/14/22 donepezil 5 mg tablet 5 mg PO HS 11/14/22 11/14/22 ferrous sulfate 325 mg (65 mg 325 mg DAILY 11/14/22 11/14/22 iron) tablet (FeroSul) glucosamine sulf dipotassium Cl 1 cap PO DAILY 11/14/22 11/14/22 250 mg-chondroitin sulf 200 mg capsule hydroxyzine HCl 25 mg PO BID PRN Itching 11/14/22 11/14/22 levothyroxine 150 mcg tablet 150 mcg PO DAILY 11/14/22 11/14/22 loratadine 10 mg tablet 10 mg PO DAILY 11/14/22 11/14/22 lovastatin 40 mg tablet 40 mg PO DAILY 11/14/22 11/14/22 magnesium citrate 296 ml PO DAILY PRN Constipation 11/14/22 11/14/22 melatonin 3 mg tablet 3 mg PO HS 11/14/22 11/14/22 metformin 1,000 mg tablet 1,000 mg PO BID 11/14/22 11/14/22 oxybutynin chloride 5 mg 5 mg PO DAILY 11/14/22 11/14/22 tablet,extended release 24 hr pantoprazole 40 mg tablet,delayed 40 mg PO DAILY 11/14/22 11/14/22 release polyethylene glycol 17 g PO DAILY PRN Constipation 11/14/22 11/14/22 propranolol 20 mg tablet 20 mg PO DAILY 11/14/22 11/14/22 tramadol 50 mg PO BID PRN Pain 11/14/22 11/14/22 venlafaxine 75 mg capsule,extended 75 mg PO DAILY 11/14/22 11/14/22 release 24 hr Allergies Allergy/AdvReac Type Severity Reaction Status Date / Time clindamycin Allergy Swelling Verified 11/22/22 01:37 of Lip/Tongue/Throat PMFSH Past Medical History Medical History Degenerative arthritis of right knee Depression with anxiety DM2 (diabetes mellitus, type 2) Ganglion wrist cyst removed Hepatitis B HTN (hypertension) with goal to be determined Hypercholesterolemia Hypothyroidism Surgical History Surgical History H/O: hysterectomy History of appendectomy Family History Family History Unknown No problems noted. Social History Social History Social History: She has 3 children. She resides at [facility]. She is . 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 Head: atraumat
[2022-11-22 05:00] LABS: Basophils Absolute Auto 0.1 K/mm3 (0.0-0.1); Basophils Percent Auto 0.7 % (0.2-1.2); Eosinophils Absolute Auto 0.1 K/mm3 (0-0.3); Eosinophils Percent Auto 1.7 % (0-4.4); Hematocrit 28.9 % (37.0-47.0); Hemoglobin 9.4 g/dL (12.0-15.0); Immature Granulocyte Absolute 0.04 K/mm3 (0.00-0.031); Immature Granulocyte Percent A 0.5 % (0-0.5); Lymphocytes Absolute Auto 0.89 K/mm3 (0.9-3.2); Lymphocytes Percent Auto 10.8 % (18.3-44.2); Mean Corpuscular HGB Conc 32.5 g/dl (32-36); Mean Corpuscular Volume 98.3 fl (80-100); Mean Platelet Volume 10.2 fl (7.4-10.4); Monocytes Absolute Auto 0.9 K/mm3 (0.1-0.6); Monocytes Percent Auto 10.9 % (2.6-8.5); Neutrophils Absolute Auto 6.2 K/mm3 (1.3-6.7); Neutrophils Percent Auto 75.4 % (45.5-73.1); Platelet Count Result 182 k/mm3 (150-375); Red Blood Count 2.94 M/mm3 (4.2-5.4); Red Cell Distribution Width 13.3 % (11.5-14.5); White Blood Count 8.2 K/mm3 (4.5-10.0)
[2022-11-22 05:13] LABS: Anion Gap 4 mmol/L (8-16); Blood Urea Nitrogen 17 mg/dL (7-17); Calcium 8.7 mg/dL (8.4-10.2); Carbon Dioxide 27 mmol/L (22-30); Chloride 102 mmol/L (98-107); Estimated CRCL calculation 78 ml/min; Estimated Glomerular Filt Rate > 60; Glucose 173 mg/dL (65-110); Magnesium 1.5 mg/dL (1.6-2.3); Potassium 4.2 mmol/L (3.4-5.0); Sodium 133 mmol/L (137-145)
[2022-11-22 06:36] LABS: Appearance Urine Clear (Clear); Blood Urine Negative (Negative); Color Urine Dark Yellow (Yellow); Glucose Urine UA Negative (Negative); Ketones Urine 1+ mg/dL (Negative); Nitrate Urine Negative (Negative); Protein Urine Negative (Negative); Specific Grav Ur 1.022 (1.001-1.035); pH Urine 5.5 (5.0-9.0)
[2022-11-22 06:37] LABS: Bilirubin Urine Negative (Negative); Leukocyte Esterase Ur Negative LEU/UL (Negative)
[2022-11-22 06:48] LABS: Add Urine Microscopic? NO
[2022-11-22] MEDS: HYDROcodone/acetaminophen (*CRX) 5-325 MG TABLET 1 TAB PO (08:52)
[2022-11-22] MEDS: FAMOTIDINE 20 MG/2 ML VIAL IV PUSH (08:53)
--- NOTE | 2022-11-22 09:26 | PM.CNOR ---
Assessment and Plan Assessment and plan (1) Fracture, humerus: Code(s): S42.309A - Unspecified fracture of shaft of humerus, unspecified arm, initial encounter for closed fracture Status: Acute Assessment and Plan: Radiographs of the left humerus reveal an oblique, minimally displaced fracture of the proximal half of the humeral shaft. The fracture type and injury as well as radiographs discussed with the patient. Operative and nonoperative treatment options reviewed. The patient elects for non operative treatment. Risk of nonunion, malunion or late displacement discussed. Stiffness, pain and possible dysfunction of the joint discussed. Fracture precautions and activity restrictions reviewed. The patient verbalizes understanding. Patient to be fit with a sling. NWB LUE. PT/OT consult. Ice. Pain control. (2) Fall: Code(s): W19.XXXA - Unspecified fall, initial encounter Status: Acute Assessment and Plan: Patient with complaints of neck pain s/p fall. Cervical spine CT reveals no acute fracture or traumatic malalignment in the cervical spine. (3) Psoas muscle strain: Code(s): S76.019A - Strain of muscle, fascia and tendon of unspecified hip, initial encounter Status: Acute Assessment and Plan: Pelvis CT reveals an asymmetric enlarged appearance of the right iliopsoas muscle belly. Concern for torn and retracted distal tendon versus possible intramuscular hematoma. Abdomen CT ordered by medicine team. Results pending. Hgb Stable in comparison to postoperative labs. (4) Diabetes: Code(s): E11.9 - Type 2 diabetes mellitus without complications Status: Acute (5) Closed intertrochanteric fracture of right femur: Qualifiers: Encounter type: subsequent encounter Fracture alignment: displaced Fracture healing: with routine healing Qualified Code(s): S72.141D - Displaced intertrochanteric fracture of right femur, subsequent encounter for closed fracture with routine healing Code(s): S72.141A - Displaced intertrochanteric fracture of right femur, initial encounter for closed fracture Status: Acute Assessment and Plan: POD #7: Intramedullary nail fixation right proximal femur fracture Continue PT/OT. WBAT. Walker. HIGH FALL RISK. Continue pain control. Ice hip. Protect skin. DVT prophylaxis with resumed Arixtra- okay to transition back to Aspirin at discharge. SCDs. Incentive Spirometry Use reviewed. Monitor Dressing. New dressing placed today. Okay to change again prior to discharge. Bowel Regimen. Dispo: SNF pending medical work up, PT/OT, pain control (6) DM2 (diabetes mellitus, type 2): Code(s): E11.9 - Type 2 diabetes mellitus without complications Status: Acute Plan Reviewed radiographs, CT, assessment and current plan of care with attending MD, Dr. Chaudhry. Agrees with current plan as indicated above. No further recommendations at this time. History of Present Illness HPI Consult date: 11/22/22 Chief complaint: Humerus Fracture Narrative: 72 year old female well-known to the orthopedic service as she is 1 week s/p right hip fracture. She underwent an intramedullary nail fixation right proximal femur fracture by Dr. Chaudhry on 11/15/22. She was discharged to [facility] on 11/19/22 for acute rehab. Per the medical records and the patient, she got up to go to the bathroom when she fell to the floor on the hip. She was transported to the ED for further evaluation. Radiographs and CT of the right hip reveal postoperative ORIF of a comminuted intertrochanteric fracture of the proximal right femur with mildly displaced lesser trochanteric fragments. The remainder the fracture fragments demonstrate near-anatomic alignment. Radiographs of the left arm reveal an oblique, minimally displaced fracture of the proximal half of the humeral shaft. Orthopedic consult requested. Patient admitted to the medicine team. Review o
[2022-11-22] MEDS: LACTATED RINGERS 1,000 ML 75 ML IV CONT (10:02)
--- NOTE | 2022-11-22 11:26 | PM.IMHP ---
H&P: HPI History of Present Illness Date/Time: 11/22/22 11:26 Chief Complaint: Fall and left arm pain Narrative: 72yo female with DM, HTN and recent right hip fracture s/p repair 11/15/22 presents with complaints of left arm pain after a fall. Patient is alert and oriented x4 but is vague on the mechanism of fall. On 11/14/22, patient fell getting other shower landing on her right side. She is brought to the emergency room and found to have right hip fracture. The hip/pelvis x-ray showed varus angulation of basicervical fracture of the proximal right femur. Patient was seen by Orthopedics and she underwent an intramedullary nail fixation of the right proximal femur fracture on 11/15/2022. Patient worked with therapy. she remained clinically stable. She was discharged to a senior living facility on 11/19/2022. Since being at the facility, patient states she has been walking with a walker but only up to 4 ft. She has been up to the chair. In the evening hours around 10:30 p.m., patient stated she needed to go the bathroom and she was tired of waiting for assistance. Because of this reason she got up by herself to walk to the bathroom. Patient denies any chest pain, lightheadedness or dizziness when she got up. Patient is vague about the mechanism of injury but she states initially that she reached for the door and that the door handle came off in her hand and she fell backwards striking the left arm against the bed and landing on her buttock and then slid to the floor. She denies head injury or loss of consciousness. She does complain of neck pain and she does have a history of cervical spine arthritis. She also complains of right hip pain. She says she has no other joint pain but does have chronic arthritis in multiple joints. Because of this reason patient was sent to the emergency room for evaluation. In the ED, patient was hemodynamically stable. EKG showed sinus tachycardia rate of [address] abnormalities high lateral leads. The borderline ST changes are new. Pelvic CT showed comminuted IT fracture proximal humerus as ORIF. Most of the fracture alignment is near anatomic in appearance except for several smaller fragments. Asymmetric enlargement appearance to the right iliopsoas muscle which could be torn and retracted or possibly hematoma. Humerus x-ray showed suspected oblique minimally displaced fracture of the proximal half of the humeral shaft. Hemoglobin is 9.4. At time of last discharge, her hemoglobin was 9.1. UA was negative. She was given dose of Dilaudid and acetaminophen. She was given IV fluids. She was admitted for further care. Review of Systems Review of Systems: All systems reviewed & are unremarkable except as noted in HPI and below PMFSH Past Medical History Medical History Degenerative arthritis of right knee Depression with anxiety DM2 (diabetes mellitus, type 2) Ganglion wrist cyst removed Hepatitis B HTN (hypertension) with goal to be determined Hypercholesterolemia Hypothyroidism Surgical History Surgical History H/O: hysterectomy History of appendectomy Family History Family History (Updated 11/22/22 @ 11:45 by Evert Bess MD) Father Malignant neoplasm of prostate Mother Breast cancer Social History Social History (Updated 11/22/22 @ 11:47 by Evert Bess MD) Social History: She has 3 children. She resides at [facility]. She is . 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 She quite marijuana use and alcohol in the . Smoked cigarettes off/on for about 15 years but quite 30+ years ago. She is a [employer]. She nominates her sister to be the individual to make medical decisions for her if she is unable. Smoking packs per day: 1 Smoking cigarettes per day: 20.0 Smoking status: Former smoker T
[2022-11-22 12:26] LABS: Glucose Point of Care 173 mg/dl (65-105)
--- NOTE | 2022-11-22 14:51 | PM.OP ---
Procedure Note - Brief Procedure Note - Brief Date of procedure: 11/22/22 Pre-op diagnosis: Humerus Fracture Surgeon: OMID Solorio Fracture/Casting/Strapping Pre Procedure Consent was obtained, Procedures/risks were explained, Questions were answered, Correct patient identified and Correct side and site confirmed Episode of Care New episode Location: Left upper arm Fracture Care Humerus/elbow/ulna Humerus, Elbow, Ulna: CLOSED TX HUMERAL SHAFT W/O MANIPULATION Application Exam of Affected Area: Color: Normal, Temp: Normal, Pulse: Normal, Blanching: Normal, Capillary Refill: Normal and Sensory Exam: Normal Swelling: Yes and Tenderness: Yes Skin Apperance: Clean and Dry Patient Tolerated Procedure Well: Yes Post Procedure Patient tolerated the procedure well?: Tolerated procedure well
[2022-11-22 16:52] LABS: Glucose Point of Care 189 mg/dl (65-105)
[2022-11-22] MEDS: PROPRANOLOL HCL 20 MG TABLET PO (17:47)
[2022-11-22] MEDS: VENLAFAXINE HCL XR 75 MG CAP.ER.24H PO (17:47)
[2022-11-22] MEDS: LEVOTHYROXINE SODIUM 150 MCG TABLET PO (17:47)
[2022-11-22] MEDS: DONEPEZIL HCL 5 MG TABLET PO (20:08)
[2022-11-22] MEDS: metFORMIN HCL 500 MG TABLET 1000 MG PO (20:08)
[2022-11-22] MEDS: MELATONIN 3 MG TABLET PO (20:08)
[2022-11-22] MEDS: oxyCODONE HCL (*CRX) 5 MG TAB IR PO (20:12)
[2022-11-22 20:49] LABS: Glucose Point of Care 203 mg/dl (65-105)
[2022-11-22 22:50] LABS: Glucose Point of Care 180 mg/dl (65-105)
[2022-11-23] MEDS: LEVOTHYROXINE SODIUM 150 MCG TABLET PO (05:44)
[2022-11-23 06:00] VITALS: BP 139/68; PULSE 91; RESP 16; TEMP 36.2; O2SAT 99
[2022-11-23 06:36] LABS: Basophils Absolute Auto 0.1 K/mm3 (0.0-0.1); Basophils Percent Auto 0.9 % (0.2-1.2); Eosinophils Absolute Auto 0.5 K/mm3 (0-0.3); Eosinophils Percent Auto 6.6 % (0-4.4); Hematocrit 24.3 % (37.0-47.0); Hemoglobin 7.9 g/dL (12.0-15.0); Immature Granulocyte Absolute 0.04 K/mm3 (0.00-0.031); Immature Granulocyte Percent A 0.5 % (0-0.5); Lymphocytes Absolute Auto 1.51 K/mm3 (0.9-3.2); Lymphocytes Percent Auto 19.4 % (18.3-44.2); Mean Corpuscular HGB Conc 32.5 g/dl (32-36); Mean Corpuscular Hemoglobin 31.6 pg (26-34); Mean Corpuscular Volume 97.2 fl (80-100); Mean Platelet Volume 10.4 fl (7.4-10.4); Monocytes Absolute Auto 1.2 K/mm3 (0.1-0.6); Monocytes Percent Auto 15.4 % (2.6-8.5); Neutrophils Absolute Auto 4.5 K/mm3 (1.3-6.7); Neutrophils Percent Auto 57.2 % (45.5-73.1); Platelet Count Result 182 k/mm3 (150-375); Red Cell Distribution Width 13.6 % (11.5-14.5); White Blood Count 7.8 K/mm3 (4.5-10.0)
[2022-11-23 06:44] LABS: Chloride 104 mmol/L (98-107)
[2022-11-23 06:47] LABS: Alanine Aminotransferase 41 U/L (6-35); Alkaline Phosphatase 151 U/L (38-126); Anion Gap 4 mmol/L (8-16); Aspartate Amino Transferase 53 U/L (14-36); Bilirubin,Total 2.1 mg/dL (0.2-1.3); Blood Urea Nitrogen 21 mg/dL (7-17); Calcium 8.5 mg/dL (8.4-10.2); Carbon Dioxide 26 mmol/L (22-30); Estimated CRCL calculation 94 ml/min; Estimated Glomerular Filt Rate > 60; Glucose 164 mg/dL (65-110); Potassium 4.3 mmol/L (3.4-5.0); Sodium 134 mmol/L (137-145)
[2022-11-23 07:50] LABS: Glucose Point of Care 154 mg/dl (65-105)
[2022-11-23] MEDS: metFORMIN HCL 500 MG TABLET 1000 MG PO ×2 (09:21→20:33)
[2022-11-23] MEDS: PROPRANOLOL HCL 20 MG TABLET PO (09:21)
[2022-11-23] MEDS: DOCUSATE SODIUM 100 MG CAPSULE PO (09:21)
[2022-11-23] MEDS: PANTOPRAZOLE 40 MG TABLET PO (09:21)
[2022-11-23] MEDS: LOVASTATIN 20 MG TABLET 40 MG PO (09:21)
[2022-11-23] MEDS: FONDAPARINUX SODIUM 2.5 MG/0.5 ML SYRINGE SUB-Q (09:21)
[2022-11-23] MEDS: VENLAFAXINE HCL XR 75 MG CAP.ER.24H PO (09:21)
[2022-11-23] MEDS: oxyBUTYnin CHLORIDE XL 5 MG TAB.ER.24 PO (09:21)
[2022-11-23] MEDS: FERROUS SULFATE 324 MG TABLET PO (09:21)
[2022-11-23] MEDS: MAGNESIUM OXIDE 400 MG TABLET PO (09:21)
[2022-11-23] MEDS: DICLOFENAC SODIUM 1% 100 GM GEL (*BKC) 1 APPLIC TOPICAL ×3 (09:22→18:02)
[2022-11-23] MEDS: HYDROcodone/acetaminophen (*CRX) 5-325 MG TABLET 1 TAB PO ×2 (09:23→14:50)
[2022-11-23 12:08] LABS: Glucose Point of Care 234 mg/dl (65-105)
[2022-11-23] MEDS: INSULIN ASPART (*BKC) 100 UNITS/ML SUB-Q (12:32)
--- NOTE | 2022-11-23 13:21 | PM.PNORT ---
Progress Note: A&P Assessment and Plan (1) Fracture, humerus: Qualifiers: Encounter type: subsequent encounter Humerus Location: proximal Fracture type: closed Laterality: left Fracture healing: with routine healing Fracture alignment: displaced Fracture morphology: other fracture Qualified Code(s): S42.292D - Other displaced fracture of upper end of left humerus, subsequent encounter for fracture with routine healing Code(s): S42.309A - Unspecified fracture of shaft of humerus, unspecified arm, initial encounter for closed fracture Status: Acute Assessment and Plan: Radiographs reviewed with the patient. Treatment options including operative and non operative treatment discussed in detail. She has declined operative treatment. Continue with sling for immobilization. Okay for gentle range of motion of the elbow wrist and hand. Pain control. Discussed healing time of 10-12 weeks. Plan for disposition to [facility] when medically stable. (2) Closed intertrochanteric fracture of right femur: Qualifiers: Encounter type: subsequent encounter Fracture alignment: displaced Fracture healing: with routine healing Qualified Code(s): S72.141D - Displaced intertrochanteric fracture of right femur, subsequent encounter for closed fracture with routine healing Code(s): S72.141A - Displaced intertrochanteric fracture of right femur, initial encounter for closed fracture Status: Acute Assessment and Plan: POD #4: Right Hip IMHS Continue PT/OT. WBAT. Walker. HIGH FALL RISK. (3) DM2 (diabetes mellitus, type 2): Code(s): E11.9 - Type 2 diabetes mellitus without complications Status: Acute Subjective Subjective Date/Time Seen: 11/23/22 13:21 Post Op day: 8 Principal diagnosis: Right hip fracture Interval history: patient seen and evaluated. 8 days status post intramedullary fixation right hip fracture. Was at [facility] and fell getting and shower and sustained left humerus fracture 2 days ago. Patient states pain left shoulder and arm. Denies numbness or tingling. Right hip without increased pain at this time. Exam Const: General: comfortable and no acute distress Resp: Effort & Inspection: normal respiratory effort Cardio: Rate: regular rate Rhythm: regular rhythm GI: Inspection: non-distended Skin: General skin exam: normal color Other: Incision right hip c/d/i. Surrounding tissue without redness/warmth. Mild swelling consistent with recent surgery. No drainage. Neuro: Cognition (Neuro): abnormal cognition (mildly confused to situation. ) Speech: normal speech Extrem: Left upper extremity: shoulder/upper arm tenderness of the proximal humerus, swelling of the proximal humerus, axillary nerve sensory function normal and abnormal ROM held in an abnormal fashion in ADduction (sling in place ); no ecchymosis and no crepitus, elbow/forearm normal to inspection and normal ROM; no tenderness and no swelling, wrist normal to inspection and normal ROM; no tenderness and no swelling and hand normal to inspection, normal capillary refill, vascular exam radial pulse present Details: 2+ and no swelling; no tenderness, no unusual warmth, no swelling, no ecchymosis and no crepitus Right lower extremity: normal to inspection, normal capillary refill, hip/thigh Details: tenderness Location: of the hip (Thigh soft ) Location: laterally and anteriorly, swelling Location: at the hip, abnormal ROM (limited consistent with recent surgery ) Details: pain with active ROM during and pain with passive ROM during and other (Incision c/d/i. ); no deformity and no unusual warmth, knee Details: normal to inspection; no tenderness and no swelling, lower leg (Negative Elsie's Sign ) Details: normal to inspection and no edema; no tenderness, ankle (+ankle dorsiflexion/plantarflexion) Details: normal to inspection and no edema; no tenderness, no swelling and no ecchymosis a
[2022-11-23 14:00] VITALS: BP 114/80; PULSE 81; RESP 16; TEMP 36.7; O2SAT 100
[2022-11-23 14:09] LABS: Bilirubin Indirect 1.7 mg/dL (0-1.1); Creatine Kinase 118 U/L (30-135)
[2022-11-23 16:44] LABS: Glucose Point of Care 139 mg/dl (65-105)
--- NOTE | 2022-11-23 17:07 | PM.IMPN ---
Progress Note: A&P Assessment and Plan (1) Fracture, humerus: Qualifiers: Encounter type: subsequent encounter Fracture alignment: displaced Fracture healing: with routine healing Fracture morphology: other fracture Fracture type: closed Humerus Location: proximal Laterality: left Qualified Code(s): S42.292D - Other displaced fracture of upper end of left humerus, subsequent encounter for fracture with routine healing Code(s): S42.309A - Unspecified fracture of shaft of humerus, unspecified arm, initial encounter for closed fracture Status: Acute Assessment and Plan: Patient had a fall while attempting to walk to the bathroom at the rehab facility. She was found to have a left humeral fracture on evaluation here. After admission, she complained of neck pain but a CT cervical spine showed no acute fracture or traumatic malalignment. No CT the brain was performed because she denied head injury. Orthopedics was consulted. Options were discussed with the patient. Patient declined operative treatment. Continue with sling for immobilization. Therapy consult. Okay to return to rehab facility when arranged by care coordination. (2) Psoas muscle strain: Code(s): S76.019A - Strain of muscle, fascia and tendon of unspecified hip, initial encounter Status: Acute Assessment and Plan: There is ileus psoas abnormality noted on imaging. CT of the abdomen pelvis shows right hip with near anatomic alignment. There is asymmetric enlargement of the right iliac muscle which could be a small intramuscular hematoma. There is also minimal postoperative soft tissue gas and stranding likely a subcutaneous hematoma underlying stapled area. Will continue monitor clinically. (3) Fall: Code(s): W19.XXXA - Unspecified fall, initial encounter Status: Acute Assessment and Plan: Patient had a fall when she attempted to walk to the bathroom unassisted. No head injury. As above. (4) Diabetes: Code(s): E11.9 - Type 2 diabetes mellitus without complications Status: Acute Assessment and Plan: The patient's blood glucose was reviewed on 11/23 Glucose elevated at times. Continue AccuCheks covering with sliding scale. Hypoglycemia protocol available as needed. Continue current medications. (5) Normocytic anemia: Code(s): D64.9 - Anemia, unspecified Status: Acute Assessment and Plan: Hemoglobin was 9.1 at time of discharge and was 9.4 on readmission yesterday. Hemoglobin has dropped to 7.9. Could be related to the development of hematomas. Will continue to monitor H&H. Transfuse as necessary. (6) HTN (hypertension) with goal to be determined: Code(s): I10 - Essential (primary) hypertension Status: Acute Assessment and Plan: Patient's blood pressure was reviewed on 11/23 Blood pressure better controlled. Will continue to monitor (7) Closed intertrochanteric fracture of right femur: Qualifiers: Encounter type: subsequent encounter Fracture alignment: displaced Fracture healing: with routine healing Qualified Code(s): S72.141D - Displaced intertrochanteric fracture of right femur, subsequent encounter for closed fracture with routine healing Code(s): S72.141A - Displaced intertrochanteric fracture of right femur, initial encounter for closed fracture Status: Acute Assessment and Plan: Patient was admitted on November 14 for right hip pain after fall and found to have intratrochanteric right femur fracture. She underwent surgical repair on 11/15/2022. Continue therapy. Appreciate Orthopedic input. Subjective Date/time seen: 11/23/22 17:07 Interval history: 72yo female with DM, HTN and recent right hip fracture s/p repair 11/15/22 presents with complaints of left arm pain after a fall.? Patient continues to have pain in left arm and right hip. She slept okay last night. No
[2022-11-23] MEDS: DONEPEZIL HCL 5 MG TABLET PO (20:33)
[2022-11-23 20:36] VITALS: BP 143/63; PULSE 85; RESP 16; TEMP 36.9; O2SAT 99
[2022-11-23] MEDS: MELATONIN 3 MG TABLET PO (20:37)
[2022-11-23] MEDS: oxyCODONE HCL (*CRX) 5 MG TAB IR PO (20:37)
[2022-11-23] MEDS: PROMETHAZINE HCL 25 MG/ML AMPUL 12.5 MG IV PUSH (20:41)
[2022-11-23 20:59] LABS: Glucose Point of Care 172 mg/dl (65-105)
[2022-11-24] MEDS: oxyCODONE HCL (*CRX) 5 MG TAB IR PO ×3 (01:19→21:56)
[2022-11-24 04:56] VITALS: BP 126/56; PULSE 91; RESP 18; TEMP 36.6; O2SAT 96
[2022-11-24] MEDS: LEVOTHYROXINE SODIUM 150 MCG TABLET PO (05:41)
--- NOTE | 2022-11-24 06:14 | PC.NURSE ---
Pt flay affect, forgetful at times, talks about days gone by. Pain to both R hip from recent hip repair, and L humerus, Refused surgery to L arm. Sling on, pt loosened this am and is not giving support at present.Obese, pt cannot move self , Max assist turn in bed, Incontinent urine periwick placed at beginning of shift. Urine yogesh. Pt does not garbage pick up man container to drink per self. Neuro checks stable Oxy po given x3 overnight 12 hour shift Continue to monitor
[2022-11-24 06:37] LABS: Basophils Absolute Auto 0.1 K/mm3 (0.0-0.1); Basophils Percent Auto 0.7 % (0.2-1.2); Eosinophils Absolute Auto 0.4 K/mm3 (0-0.3); Eosinophils Percent Auto 5.6 % (0-4.4); Hemoglobin 7.7 g/dL (12.0-15.0); Immature Granulocyte Absolute 0.06 K/mm3 (0.00-0.031); Immature Granulocyte Percent A 0.8 % (0-0.5); Lymphocytes Absolute Auto 2.03 K/mm3 (0.9-3.2); Lymphocytes Percent Auto 27.9 % (18.3-44.2); Mean Corpuscular HGB Conc 32.1 g/dl (32-36); Mean Corpuscular Hemoglobin 32.4 pg (26-34); Mean Corpuscular Volume 100.8 fl (80-100); Mean Platelet Volume 10.2 fl (7.4-10.4); Monocytes Absolute Auto 0.9 K/mm3 (0.1-0.6); Monocytes Percent Auto 12.8 % (2.6-8.5); Neutrophils Absolute Auto 3.8 K/mm3 (1.3-6.7); Neutrophils Percent Auto 52.2 % (45.5-73.1); Platelet Count Result 183 k/mm3 (150-375); Red Blood Count 2.38 M/mm3 (4.2-5.4); Red Cell Distribution Width 13.9 % (11.5-14.5); White Blood Count 7.3 K/mm3 (4.5-10.0)
[2022-11-24 06:51] LABS: Alanine Aminotransferase 36 U/L (6-35); Albumin Level 2.8 g/dL (3.5-5.1); Alkaline Phosphatase 141 U/L (38-126); Anion Gap 3 mmol/L (8-16); Aspartate Amino Transferase 43 U/L (14-36); Bilirubin,Total 1.8 mg/dL (0.2-1.3); Blood Urea Nitrogen 20 mg/dL (7-17); Calcium 8.3 mg/dL (8.4-10.2); Carbon Dioxide 29 mmol/L (22-30); Chloride 101 mmol/L (98-107); Estimated CRCL calculation 82 ml/min; Estimated Glomerular Filt Rate > 60; Glucose 135 mg/dL (65-110); Potassium 4.1 mmol/L (3.4-5.0); Sodium 133 mmol/L (137-145)
[2022-11-24 08:22] LABS: Glucose Point of Care 141 mg/dl (65-105)
[2022-11-24 09:13] VITALS: PULSE 74
[2022-11-24] MEDS: metFORMIN HCL 500 MG TABLET 1000 MG PO ×2 (09:13→20:28)
[2022-11-24] MEDS: DOCUSATE SODIUM 100 MG CAPSULE PO (09:13)
[2022-11-24] MEDS: LOVASTATIN 20 MG TABLET 40 MG PO (09:13)
[2022-11-24] MEDS: VENLAFAXINE HCL XR 75 MG CAP.ER.24H PO (09:13)
[2022-11-24] MEDS: oxyBUTYnin CHLORIDE XL 5 MG TAB.ER.24 PO (09:13)
[2022-11-24] MEDS: MAGNESIUM OXIDE 400 MG TABLET PO (09:13)
[2022-11-24] MEDS: FERROUS SULFATE 324 MG TABLET PO (09:13)
[2022-11-24] MEDS: PROPRANOLOL HCL 20 MG TABLET PO (09:13)
[2022-11-24] MEDS: PANTOPRAZOLE 40 MG TABLET PO (09:13)
[2022-11-24] MEDS: FONDAPARINUX SODIUM 2.5 MG/0.5 ML SYRINGE SUB-Q (09:14)
[2022-11-24] MEDS: DICLOFENAC SODIUM 1% 100 GM GEL (*BKC) 1 APPLIC TOPICAL ×3 (09:14→16:47)
[2022-11-24 09:21] VITALS: O2SAT 96
[2022-11-24 11:26] LABS: Glucose Point of Care 181 mg/dl (65-105)
[2022-11-24] MEDS: HYDROcodone/acetaminophen (*CRX) 5-325 MG TABLET 1 TAB PO ×2 (11:33→18:28)
[2022-11-24 14:00] VITALS: BP 111/51; PULSE 86; RESP 18; TEMP 36.2; O2SAT 100
--- NOTE | 2022-11-24 15:04 | PM.DS ---
DS: Admitting Diagnosis Discharge Date 11/24/22 Admitting Diagnosis fall DS: Discharge Diagnosis Discharge Diagnosis (1) Fracture, humerus: Qualifiers: Encounter type: subsequent encounter Fracture alignment: displaced Fracture healing: with routine healing Fracture morphology: other fracture Fracture type: closed Humerus Location: proximal Laterality: left Qualified Code(s): S42.292D - Other displaced fracture of upper end of left humerus, subsequent encounter for fracture with routine healing Code(s): S42.309A - Unspecified fracture of shaft of humerus, unspecified arm, initial encounter for closed fracture Status: Acute Assessment and Plan: Patient had a fall while attempting to walk to the bathroom at the rehab facility. She was found to have a left humeral fracture on evaluation here. After admission, she complained of neck pain but a CT cervical spine showed no acute fracture or traumatic malalignment. No CT the brain was performed because she denied head injury. Orthopedics was consulted. Options were discussed with the patient. Patient declined operative treatment. Continue with sling for immobilization. Therapy consult. Okay to return to rehab facility when arranged by care coordination. (2) Psoas muscle strain: Code(s): S76.019A - Strain of muscle, fascia and tendon of unspecified hip, initial encounter Status: Acute Assessment and Plan: There is ileus psoas abnormality noted on imaging. CT of the abdomen pelvis shows right hip with near anatomic alignment. There is asymmetric enlargement of the right iliac muscle which could be a small intramuscular hematoma. There is also minimal postoperative soft tissue gas and stranding likely a subcutaneous hematoma underlying stapled area. Will continue monitor clinically. (3) Fall: Code(s): W19.XXXA - Unspecified fall, initial encounter Status: Acute Assessment and Plan: Patient had a fall when she attempted to walk to the bathroom unassisted. No head injury. As above. (4) Diabetes: Code(s): E11.9 - Type 2 diabetes mellitus without complications Status: Acute Assessment and Plan: The patient's blood glucose was reviewed on 11/26 Glucose elevated at times. Continue AccuCheks covering with sliding scale. Hypoglycemia protocol available as needed. Continue current medications. (5) Normocytic anemia: Code(s): D64.9 - Anemia, unspecified Status: Acute Assessment and Plan: Hemoglobin was 9.1 at time of discharge and was 9.4 on readmission. Hemoglobin has dropped to 7.9. Could be related to the development of hematomas. Will continue to monitor H&H. Transfuse as necessary. (6) HTN (hypertension) with goal to be determined: Code(s): I10 - Essential (primary) hypertension Status: Acute Assessment and Plan: Patient's blood pressure was reviewed on 11/26 Blood pressure better controlled. Will continue to monitor (7) Closed intertrochanteric fracture of right femur: Qualifiers: Encounter type: subsequent encounter Fracture alignment: displaced Fracture healing: with routine healing Qualified Code(s): S72.141D - Displaced intertrochanteric fracture of right femur, subsequent encounter for closed fracture with routine healing Code(s): S72.141A - Displaced intertrochanteric fracture of right femur, initial encounter for closed fracture Status: Acute Assessment and Plan: Patient was admitted on November 14 for right hip pain after fall and found to have intratrochanteric right femur fracture. She underwent surgical repair on 11/15/2022. Continue therapy. Appreciate Orthopedic input. Plan DVT prophylaxis with fondaparinux GI prophylaxis with PPI Code status full code DS: Summary Hospital Course Hospital Course: 72-year-old female with diabetes and hypertension presenting from a skilled
[2022-11-24 16:54] LABS: Glucose Point of Care 177 mg/dl (65-105)
--- NOTE | 2022-11-24 19:51 | PM.IMPN ---
Progress Note: A&P Assessment and Plan (1) Fracture, humerus: Qualifiers: Encounter type: subsequent encounter Fracture alignment: displaced Fracture healing: with routine healing Fracture morphology: other fracture Fracture type: closed Humerus Location: proximal Laterality: left Qualified Code(s): S42.292D - Other displaced fracture of upper end of left humerus, subsequent encounter for fracture with routine healing Code(s): S42.309A - Unspecified fracture of shaft of humerus, unspecified arm, initial encounter for closed fracture Status: Acute Assessment and Plan: Patient had a fall while attempting to walk to the bathroom at the rehab facility. She was found to have a left humeral fracture on evaluation here. After admission, she complained of neck pain but a CT cervical spine showed no acute fracture or traumatic malalignment. No CT the brain was performed because she denied head injury. Orthopedics was consulted. Options were discussed with the patient. Patient declined operative treatment. Continue with sling for immobilization. Therapy consult. Okay to return to rehab facility when arranged by care coordination. (2) Psoas muscle strain: Code(s): S76.019A - Strain of muscle, fascia and tendon of unspecified hip, initial encounter Status: Acute Assessment and Plan: There is ileus psoas abnormality noted on imaging. CT of the abdomen pelvis shows right hip with near anatomic alignment. There is asymmetric enlargement of the right iliac muscle which could be a small intramuscular hematoma. There is also minimal postoperative soft tissue gas and stranding likely a subcutaneous hematoma underlying stapled area. Will continue monitor clinically. (3) Fall: Code(s): W19.XXXA - Unspecified fall, initial encounter Status: Acute Assessment and Plan: Patient had a fall when she attempted to walk to the bathroom unassisted. No head injury. As above. (4) Diabetes: Code(s): E11.9 - Type 2 diabetes mellitus without complications Status: Acute Assessment and Plan: The patient's blood glucose was reviewed on 11/24 Glucose elevated at times. Continue AccuCheks covering with sliding scale. Hypoglycemia protocol available as needed. Continue current medications. (5) Normocytic anemia: Code(s): D64.9 - Anemia, unspecified Status: Acute Assessment and Plan: Hemoglobin was 9.1 at time of discharge and was 9.4 on readmission. Hemoglobin has dropped to 7.9. Could be related to the development of hematomas. Will continue to monitor H&H. Transfuse as necessary. (6) HTN (hypertension) with goal to be determined: Code(s): I10 - Essential (primary) hypertension Status: Acute Assessment and Plan: Patient's blood pressure was reviewed on 11/24 Blood pressure better controlled. Will continue to monitor (7) Closed intertrochanteric fracture of right femur: Qualifiers: Encounter type: subsequent encounter Fracture alignment: displaced Fracture healing: with routine healing Qualified Code(s): S72.141D - Displaced intertrochanteric fracture of right femur, subsequent encounter for closed fracture with routine healing Code(s): S72.141A - Displaced intertrochanteric fracture of right femur, initial encounter for closed fracture Status: Acute Assessment and Plan: Patient was admitted on November 14 for right hip pain after fall and found to have intratrochanteric right femur fracture. She underwent surgical repair on 11/15/2022. Continue therapy. Appreciate Orthopedic input. Plan DVT prophylaxis with fondaparinux GI prophylaxis with PPI Code status full code Subjective Date/time seen: 11/24/22 19:51 Interval history: 72yo female with DM, HTN and recent right hip fracture s/p repair 11/15/22 presents with complaints of left arm pain after a fall.? Patien
[2022-11-24] MEDS: MELATONIN 3 MG TABLET PO (20:28)
[2022-11-24] MEDS: DONEPEZIL HCL 5 MG TABLET PO (20:28)
[2022-11-24 21:33] VITALS: BP 119/61; PULSE 87; RESP 16; TEMP 37; O2SAT 100
[2022-11-24 21:49] LABS: Glucose Point of Care 184 mg/dl (65-105)
[2022-11-25 05:17] VITALS: BP 130/58; PULSE 90; RESP 18; TEMP 36.7; O2SAT 100
[2022-11-25] MEDS: LEVOTHYROXINE SODIUM 150 MCG TABLET PO (05:21)
[2022-11-25] MEDS: oxyCODONE HCL (*CRX) 5 MG TAB IR PO ×4 (05:21→23:48)
[2022-11-25 08:07] LABS: Glucose Point of Care 147 mg/dl (65-105)
[2022-11-25] MEDS: metFORMIN HCL 500 MG TABLET 1000 MG PO ×2 (09:18→20:57)
[2022-11-25] MEDS: PROPRANOLOL HCL 20 MG TABLET PO (09:18)
[2022-11-25] MEDS: MAGNESIUM OXIDE 400 MG TABLET PO (09:18)
[2022-11-25] MEDS: DOCUSATE SODIUM 100 MG CAPSULE PO (09:18)
[2022-11-25] MEDS: LOVASTATIN 20 MG TABLET 40 MG PO (09:18)
[2022-11-25] MEDS: FERROUS SULFATE 324 MG TABLET PO (09:18)
[2022-11-25] MEDS: oxyBUTYnin CHLORIDE XL 5 MG TAB.ER.24 PO (09:18)
[2022-11-25] MEDS: PANTOPRAZOLE 40 MG TABLET PO (09:18)
[2022-11-25] MEDS: VENLAFAXINE HCL XR 75 MG CAP.ER.24H PO (09:18)
[2022-11-25] MEDS: FONDAPARINUX SODIUM 2.5 MG/0.5 ML SYRINGE SUB-Q (09:18)
[2022-11-25] MEDS: HYDROcodone/acetaminophen (*CRX) 5-325 MG TABLET 1 TAB PO ×2 (09:24→16:27)
[2022-11-25 11:19] LABS: Basophils Absolute Auto 0.1 K/mm3 (0.0-0.1); Basophils Percent Auto 0.7 % (0.2-1.2); Eosinophils Absolute Auto 0.4 K/mm3 (0-0.3); Eosinophils Percent Auto 5.1 % (0-4.4); Hemoglobin 7.5 g/dL (12.0-15.0); Immature Granulocyte Absolute 0.08 K/mm3 (0.00-0.031); Lymphocytes Absolute Auto 1.18 K/mm3 (0.9-3.2); Lymphocytes Percent Auto 15.4 % (18.3-44.2); Mean Corpuscular HGB Conc 31.3 g/dl (32-36); Mean Corpuscular Hemoglobin 31.5 pg (26-34); Mean Corpuscular Volume 100.8 fl (80-100); Mean Platelet Volume 9.8 fl (7.4-10.4); Monocytes Absolute Auto 0.9 K/mm3 (0.1-0.6); Neutrophils Absolute Auto 5.1 K/mm3 (1.3-6.7); Neutrophils Percent Auto 65.8 % (45.5-73.1); Platelet Count Result 193 k/mm3 (150-375); Red Blood Count 2.38 M/mm3 (4.2-5.4); Red Cell Distribution Width 13.9 % (11.5-14.5); White Blood Count 7.7 K/mm3 (4.5-10.0)
[2022-11-25 11:41] LABS: Alanine Aminotransferase 34 U/L (6-35); Albumin Level 2.7 g/dL (3.5-5.1); Anion Gap 3 mmol/L (8-16); Aspartate Amino Transferase 62 U/L (14-36); Bilirubin,Total 1.8 mg/dL (0.2-1.3); Blood Urea Nitrogen 18 mg/dL (7-17); Carbon Dioxide 27 mmol/L (22-30); Chloride 101 mmol/L (98-107); Estimated CRCL calculation 94 ml/min; Estimated Glomerular Filt Rate > 60; Glucose 231 mg/dL (65-110); Potassium 4.4 mmol/L (3.4-5.0); Sodium 131 mmol/L (137-145)
[2022-11-25 11:42] LABS: Alkaline Phosphatase 145 U/L (38-126)
[2022-11-25 11:51] LABS: Glucose Point of Care 238 mg/dl (65-105)
[2022-11-25] MEDS: INSULIN ASPART (*BKC) 100 UNITS/ML SUB-Q (12:08)
[2022-11-25] MEDS: DICLOFENAC SODIUM 1% 100 GM GEL (*BKC) 1 APPLIC TOPICAL ×2 (13:12→16:27)
[2022-11-25 14:00] VITALS: BP 106/52; PULSE 78; RESP 18; TEMP 36.2; O2SAT 100
--- NOTE | 2022-11-25 15:29 | PM.IMPN ---
Progress Note: A&P Assessment and Plan (1) Fracture, humerus: Qualifiers: Encounter type: subsequent encounter Fracture alignment: displaced Fracture healing: with routine healing Fracture morphology: other fracture Fracture type: closed Humerus Location: proximal Laterality: left Qualified Code(s): S42.292D - Other displaced fracture of upper end of left humerus, subsequent encounter for fracture with routine healing Code(s): S42.309A - Unspecified fracture of shaft of humerus, unspecified arm, initial encounter for closed fracture Status: Acute Assessment and Plan: Patient had a fall while attempting to walk to the bathroom at the rehab facility. She was found to have a left humeral fracture on evaluation here. After admission, she complained of neck pain but a CT cervical spine showed no acute fracture or traumatic malalignment. No CT the brain was performed because she denied head injury. Orthopedics was consulted. Options were discussed with the patient. Patient declined operative treatment. Continue with sling for immobilization. Therapy consult. Okay to return to rehab facility when arranged by care coordination. (2) Psoas muscle strain: Code(s): S76.019A - Strain of muscle, fascia and tendon of unspecified hip, initial encounter Status: Acute Assessment and Plan: There is ileus psoas abnormality noted on imaging. CT of the abdomen pelvis shows right hip with near anatomic alignment. There is asymmetric enlargement of the right iliac muscle which could be a small intramuscular hematoma. There is also minimal postoperative soft tissue gas and stranding likely a subcutaneous hematoma underlying stapled area. Will continue monitor clinically. (3) Fall: Code(s): W19.XXXA - Unspecified fall, initial encounter Status: Acute Assessment and Plan: Patient had a fall when she attempted to walk to the bathroom unassisted. No head injury. As above. (4) Diabetes: Code(s): E11.9 - Type 2 diabetes mellitus without complications Status: Acute Assessment and Plan: The patient's blood glucose was reviewed on 11/25 Glucose elevated at times. Continue AccuCheks covering with sliding scale. Hypoglycemia protocol available as needed. Continue current medications. (5) Normocytic anemia: Code(s): D64.9 - Anemia, unspecified Status: Acute Assessment and Plan: Hemoglobin was 9.1 at time of discharge and was 9.4 on readmission. Hemoglobin has dropped to 7.9. Could be related to the development of hematomas. Will continue to monitor H&H. Transfuse as necessary. (6) HTN (hypertension) with goal to be determined: Code(s): I10 - Essential (primary) hypertension Status: Acute Assessment and Plan: Patient's blood pressure was reviewed on 11/25 Blood pressure better controlled. Will continue to monitor (7) Closed intertrochanteric fracture of right femur: Qualifiers: Encounter type: subsequent encounter Fracture alignment: displaced Fracture healing: with routine healing Qualified Code(s): S72.141D - Displaced intertrochanteric fracture of right femur, subsequent encounter for closed fracture with routine healing Code(s): S72.141A - Displaced intertrochanteric fracture of right femur, initial encounter for closed fracture Status: Acute Assessment and Plan: Patient was admitted on November 14 for right hip pain after fall and found to have intratrochanteric right femur fracture. She underwent surgical repair on 11/15/2022. Continue therapy. Appreciate Orthopedic input. Plan DVT prophylaxis with fondaparinux GI prophylaxis with PPI Code status full code Subjective Date/time seen: 11/25/22 15:29 Interval history: 72yo female with DM, HTN and recent right hip fracture s/p repair 11/15/22 presents with complaints of left arm pain after a fall.? No ove
[2022-11-25 17:16] LABS: Glucose Point of Care 157 mg/dl (65-105)
[2022-11-25] MEDS: DONEPEZIL HCL 5 MG TABLET PO (20:57)
[2022-11-25] MEDS: MELATONIN 3 MG TABLET PO (20:57)
[2022-11-25 22:00] VITALS: BP 142/54; PULSE 82; RESP 16; TEMP 36.2; O2SAT 100
[2022-11-26] MEDS: oxyCODONE HCL (*CRX) 5 MG TAB IR PO (04:52)
[2022-11-26] MEDS: LEVOTHYROXINE SODIUM 150 MCG TABLET PO (04:52)
[2022-11-26 06:00] VITALS: BP 114/57; PULSE 87; RESP 16; TEMP 36.2; O2SAT 99
[2022-11-26 07:41] LABS: Glucose Point of Care 155 mg/dl (65-105)
[2022-11-26] MEDS: metFORMIN HCL 500 MG TABLET 1000 MG PO (08:37)
[2022-11-26 08:38] VITALS: PULSE 86
[2022-11-26] MEDS: oxyBUTYnin CHLORIDE XL 5 MG TAB.ER.24 PO (08:38)
[2022-11-26] MEDS: VENLAFAXINE HCL XR 75 MG CAP.ER.24H PO (08:38)
[2022-11-26] MEDS: PROPRANOLOL HCL 20 MG TABLET PO (08:38)
[2022-11-26] MEDS: FERROUS SULFATE 324 MG TABLET PO (08:38)
[2022-11-26] MEDS: LOVASTATIN 20 MG TABLET 40 MG PO (08:38)
[2022-11-26] MEDS: DOCUSATE SODIUM 100 MG CAPSULE PO (08:38)
[2022-11-26] MEDS: MAGNESIUM OXIDE 400 MG TABLET PO (08:38)
[2022-11-26] MEDS: PANTOPRAZOLE 40 MG TABLET PO (08:39)
[2022-11-26] MEDS: FONDAPARINUX SODIUM 2.5 MG/0.5 ML SYRINGE SUB-Q (08:39)
[2022-11-26] MEDS: DICLOFENAC SODIUM 1% 100 GM GEL (*BKC) 1 APPLIC TOPICAL ×3 (08:39→17:12)
[2022-11-26] MEDS: HYDROcodone/acetaminophen (*CRX) 5-325 MG TABLET 1 TAB PO (08:41)
[2022-11-26 11:57] LABS: Glucose Point of Care 206 mg/dl (65-105)
[2022-11-26] MEDS: INSULIN ASPART (*BKC) 100 UNITS/ML SUB-Q (12:15)
[2022-11-26] MEDS: ACETAMINOPHEN 325 MG TABLET 650 MG PO (12:17)
[2022-11-26 14:00] VITALS: BP 110/51; PULSE 85; RESP 18; TEMP 36.3; O2SAT 98
[2022-11-26 16:06] LABS: EDCOVIDSCREEN Negative (Negative)
[2022-11-26 17:07] LABS: Glucose Point of Care 137 mg/dl (65-105)
== END 2022-11-26 18:35 ==
LOC: ANHED 07:17 → ANH3MEDSUR 11-23 09:41
PROVIDERS: Admitting Provider Internal Medicine; Emergency Provider Emergency Medicine; PCP Internal Medicine; Visit Provider Student in an Organized Health Care Education/Training Program
DX: S42.292A Other displaced fracture of upper end of left humerus, initial encounter for closed fracture (principal); S76.019A Strain of muscle, fascia and tendon of unspecified hip, initial encounter; W01.0XXA Fall on same level from slipping, tripping and stumbling without subsequent striking against object, initial encounter; Y92.129 Unspecified place in nursing home as the place of occurrence of the external cause; S72.141D Displaced intertrochanteric fracture of right femur, subsequent encounter for closed fracture with routine healing; E11.9 Type 2 diabetes mellitus without complications; F41.8 Other specified anxiety disorders; I10 Essential (primary) hypertension; E78.00 Pure hypercholesterolemia, unspecified; E03.9 Hypothyroidism, unspecified; Z20.822 Contact with and (suspected) exposure to COVID-19; M17.11 Unilateral primary osteoarthritis, right knee; F12.11 Cannabis abuse, in remission; R94.31 Abnormal electrocardiogram [ECG] [EKG]; Z87.891 Personal history of nicotine dependence; Z79.1 Long term (current) use of non-steroidal anti-inflammatories (NSAID); Z79.82 Long term (current) use of aspirin; Z79.891 Long term (current) use of opiate analgesic; Z79.899 Other long term (current) drug therapy
CPT/HCPCS: 36415; 72125; 72192; 73060; 73502; 73552; 74176; 80048; 80053; 81003; 82550; 82607; 82746; 82948; 83735; 85025; 87426; 93005; 93970; 96361; 96372; 96374; 96375; 96376; 97110; 97162; 97165; 97530; 97535; 99285; A4565; A9270; C9803; G0378; J0131; J1170; J1652; J1815; J2550; J7030; J7120

== ENCOUNTER 2023-06-08 22:51 | Inpatient (IN) | payer MEDICARE, MEDICAID, SELFPAY ==
--- NOTE | ~2023-06-08 | CT_ITS ---
Noncontrast CT scan of the right hip CLINICAL HISTORY: Femoral neck fracture TECHNIQUE: Axial noncontrast imaging of the right hip was performed. Sagittal and coronal reformatted images were constructed. Dose reduction technique was used on this scan by utilizing automated expos ure control and iterative reconstruction technique. The dose-length product (DLP) was 625.71 mGy-cm. Comparison made to prior CT scan dated 11/22/2022. FINDINGS: Patient is status post ORIF of an intertrochanteric comminuted fracture of the proximal rig ht femur, as was present on prior CT dated 11/22/2022. This fracture demonstrates partial interval hea ling, callus formation present, though there are still fracture lines visible at the lesser trochante r/subtrochanteric region. There is a new minimally displaced subcapital fracture of the proximal right femoral neck with associ ated fracture of the femoral neck orthopedic screw. There is no subcapital fracture present on the pr ior CT, and this is therefore most likely an acute new fracture. Right hip joint space is preserved. There is nonspecific soft tissue edema in the subcutaneous soft tissues at the right hip region, part icularly laterally. Visualized musculature is grossly unremarkable. No definite joint effusion seen. IMPRESSION: Acute, minimally displaced subcapital fracture of the right femoral neck with associated fracture of the right femoral neck orthopedic screw. Fracture of the screw and subcapital femoral neck are new as compared to prior CT dated 11/22/2022. Healing comminuted intertrochanteric fracture of the proximal right femur, which was in the more acut e phase on prior CT dated 11/22/2022. Some fracture lines are still partially visible as lucencies, in dicating incomplete healing at this time. Visualized portion of the femoral intramedullary nika is int act. Reviewed, dictated and finalized at location . IMPRESSION: Acute, minimally displaced subcapital fracture of the right femoral neck with a ssociated fracture of the right femoral neck orthopedic screw. Fracture of the screw and subcapital femoral neck are new as compared to prior CT dated 11/23/19 23. Healing comminuted intertrochanteric fracture of the proximal right femur, whic h was in the more acute phase on prior CT dated 11/22/2022. Some fracture lines are still partially visible as lucencies, indicating incomplete healing at this time. Visualized portion of the femoral intramedullary nika is intact.
--- NOTE | ~2023-06-08 | XR_ITS ---
Portable chest x-ray Comparison: 11/14/2022 Clinical History: Preoperative evaluation Findings: Lungs are clear, without focal consolidation or pleural effusion. Cardiomediastinal silho uette is stable. Bones and soft tissues are unremarkable. Impression: Clear lungs. Reviewed, dictated and finalized at [facility]. Impression: Clear lungs.
--- NOTE | ~2023-06-08 | XR_ITS ---
AP view of the pelvis and AP and lateral views of the right hip Clinical history: Pain COMPARISON: 12/22/2022 Findings: There is a fracture through the distal portion of the femoral neck orthopedic screw at the region of the subcapital neck. There is a probable recurrent fracture through the subcapital region o f the right femoral neck. Small fragments about the hip are again present related to prior fracture. Visualized femoral intramedullary nika appears intact. Bilateral hip joint spaces are intact. Soft tis sues are unremarkable. Impression: Fracture of the femoral neck orthopedic screw at the subcapital region with probable minimally displa maxwell subcapital femoral neck fracture. Somewhat unclear whether this is a new fracture versus failure of healing of the fracture diagnosed and operated on in . Reviewed, dictated and finalized at [facility]. Impression: Fracture of the femoral neck orthopedic screw at the subcapital region with pro bable minimally displaced subcapital femoral neck fracture. Somewhat unclear wh ether this is a new fracture versus failure of healing of the fracture diagnose d and operated on in .
[2023-06-08 23:01] VITALS: BP 151/69; PULSE 79; RESP 18; TEMP 36.8; O2SAT 100
[2023-06-09] VITALS (10 sets, daily range): BP systolic 134–218; BP diastolic 62–104; PULSE 76–89; RESP 16–20; TEMP 36.6–36.9; O2SAT 96–100; BMI 37.0
[2023-06-09] MEDS: ACETAMINOPHEN 500 MG TABLET 1000 MG PO (00:29)
[2023-06-09] MEDS: HYDROmorphone HCL INJ (*CRX) 1 MG/ML SYR 0.5 MG IV PUSH (00:29)
--- NOTE | 2023-06-09 02:33 | PC.NURSE ---
Dr. Nelson, EDP, VORB. 15mg Toradol IV push.
[2023-06-09] MEDS: KETOROLAC 15 MG/ML VIAL (*BKC) IV PUSH (02:48)
--- NOTE | 2023-06-09 03:13 | ECG_ITS ---
Measurements Intervals [place] Rate: 84 P: 50 PA: 141 QRS: 7 QRSD: 91 T: 30 QT: 388 QTc: 459 Interpretive Statements SINUS RHYTHM COMPARED TO ECG 11/22/2022 05:55:53 SINUS RHYTHM NOW PRESENT Electronically Signed On 06-09-2023 12:44:03 CDT by Lanie Ayala M.D.
--- NOTE | 2023-06-09 03:13 | ED.GENADULT ---
HPI - General Adult General Chief complaint: Extremity Injury, Lower Stated complaint: RIGHT HIP PAIN Time Seen by Provider: 06/09/23 00:24 History of Present Illness HPI narrative: this is 72-year-old female presenting ED with chief complaint of right hip pain. Patient had ahip replacement hip replacement performed in November of 2022. She has been doing well since then but earlier tonight when she got up and started walking bathroom she noticed significant pain in her hip. She then sat down on the toilet but was unable to get up. She activated her Life Alert and came to the hospital via EMS. Patient denies any falls, fevers chills chest pain difficulty breathing urinary symptoms Her only complaint is right hip pain Related Data Home Medications Medication Instructions Recorded Confirmed acetaminophen 500 mg tablet 500 mg PO BID PRN Pain 11/14/22 01/25/23 diclofenac sodium 1 % topical gel 1 ea topical TID 11/14/22 01/25/23 docusate sodium 100 mg capsule 100 mg PO DAILY 11/14/22 01/25/23 donepezil 5 mg tablet 5 mg PO HS 11/14/22 01/25/23 ferrous sulfate 325 mg (65 mg 325 mg DAILY 11/14/22 01/25/23 iron) tablet (FeroSul) glucosamine sulf dipotassium Cl 1 cap PO DAILY 11/14/22 01/25/23 250 mg-chondroitin sulf 200 mg capsule hydroxyzine HCl 25 mg PO BID PRN Itching 11/14/22 01/25/23 levothyroxine 150 mcg tablet 150 mcg PO DAILY 11/14/22 01/25/23 loratadine 10 mg tablet 10 mg PO DAILY 11/14/22 01/25/23 lovastatin 40 mg tablet 40 mg PO DAILY 11/14/22 01/25/23 melatonin 3 mg tablet 3 mg PO HS 11/14/22 01/25/23 metformin 1,000 mg tablet 1,000 mg PO BID 11/14/22 01/25/23 oxybutynin chloride 5 mg 5 mg PO DAILY 11/14/22 01/25/23 tablet,extended release 24 hr pantoprazole 40 mg tablet,delayed 40 mg PO DAILY 11/14/22 01/25/23 release propranolol 20 mg tablet 20 mg PO DAILY 11/14/22 01/25/23 venlafaxine 75 mg capsule,extended 75 mg PO DAILY 11/14/22 01/25/23 release 24 hr Allergies Allergy/AdvReac Type Severity Reaction Status Date / Time clindamycin Allergy Swelling Verified 06/08/23 23:12 of Lip/Tongue/Throat PMFSH Past Medical History Medical History Degenerative arthritis of right knee Depression with anxiety DM2 (diabetes mellitus, type 2) Ganglion wrist cyst removed Hepatitis B HTN (hypertension) with goal to be determined Hypercholesterolemia Hypothyroidism Surgical History Surgical History H/O: hysterectomy History of appendectomy Family History Family History Father Malignant neoplasm of prostate Mother Breast cancer Social History Social History Social History: She has 3 children. She resides at [facility]. She is . 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 She quite marijuana use and alcohol in the . Smoked cigarettes off/on for about 15 years but quite 30+ years ago. She is a Full Code. She nominates her sister to be the individual to make medical decisions for her if she is unable. Smoking packs per day: 1 Smoking cigarettes per day: 20.0 Smoking status: Former smoker Tobacco type: cigarettes Alcohol intake: former Substance use: former Substance use type: marijuana Lack of Transportation: No Lack of Food: Sometimes True Current Housing: I Have Housing Concerned About Future Housing: No Difficulty Paying Gas/Electric Bills: No Difficulty Paying for Meds: No Currently Unemployed: No Education: Master's Degree or Higher Difficulty w/ Childcare or Family Care: No Spiritual care concerns: No Exam Narrative: APPEARANCE: No apparent distress. Head: atraumatic. EYES: EOMI, NOSE: Atraumatic NECK: Trachea midline RESPIRATORY: No increased rate of breathing CARDIOVASCULA
[2023-06-09] MEDS: SODIUM CHLORIDE 0.9% IV 1,000 ML 999 ML IV CONT (03:45)
[2023-06-09 03:52] LABS: Basophils Percent Auto 0.7 % (0.2-1.2); Eosinophils Absolute Auto 0.2 K/mm3 (0-0.3); Eosinophils Percent Auto 3.2 % (0-4.4); Hematocrit 34.9 % (37.0-47.0); Hemoglobin 10.9 g/dL (12.0-15.0); Immature Granulocyte Absolute 0.01 K/mm3 (0.00-0.031); Immature Granulocyte Percent A 0.2 % (0-0.5); Lymphocytes Absolute Auto 1.02 K/mm3 (0.9-3.2); Lymphocytes Percent Auto 18.4 % (18.3-44.2); Mean Corpuscular HGB Conc 31.2 g/dl (32-36); Mean Corpuscular Hemoglobin 31.6 pg (26-34); Mean Corpuscular Volume 101.2 fl (80-100); Mean Platelet Volume 10.1 fl (7.4-10.4); Monocytes Absolute Auto 0.6 K/mm3 (0.1-0.6); Monocytes Percent Auto 10.6 % (2.6-8.5); Neutrophils Absolute Auto 3.7 K/mm3 (1.3-6.7); Neutrophils Percent Auto 66.9 % (45.5-73.1); Platelet Count Result 142 k/mm3 (150-375); Red Blood Count 3.45 M/mm3 (4.2-5.4); Red Cell Distribution Width 14.3 % (11.5-14.5); White Blood Count 5.6 K/mm3 (4.5-10.0)
[2023-06-09 04:04] LABS: Alanine Aminotransferase 33 U/L (6-35); Albumin Level 3.5 g/dL (3.5-5.1); Alkaline Phosphatase 151 U/L (38-126); Anion Gap 6 mmol/L (8-16); Aspartate Amino Transferase 58 U/L (14-36); Bilirubin,Total 1.3 mg/dL (0.2-1.3); Blood Urea Nitrogen 21 mg/dL (7-17); Carbon Dioxide 25 mmol/L (22-30); Chloride 104 mmol/L (98-107); Estimated CRCL calculation 520 ml/min; Estimated Glomerular Filt Rate > 60; Glucose 113 mg/dL (65-110); Potassium 4.3 mmol/L (3.4-5.0); Sodium 135 mmol/L (137-145)
--- NOTE | 2023-06-09 05:54 | ADMGEN ---
This patient, Barbara Palma, was admitted to Medical Room 244-. Patient/family oriented to hospital policies and general routines including ID bracelet, bed and alarms, visiting hours, pain management, procedures, bathroom and other care routines, personal items, smoking policy, room service/diet, and visiting hours. Information on how to activate the Rapid Response Team has been discussed. Patient/Family are encouraged to report perceived risks to care and to ask questions if they do not understand what they are told or what they should do.
--- NOTE | 2023-06-09 06:43 | PC.NURSE ---
On 06/09/23, the Derick Schmid, provided care and completed [employer] documentation on this patient. I have reviewed the student's documentation and agree with the findings.
--- NOTE | 2023-06-09 07:12 | PM.IMHP ---
H&P: HPI History of Present Illness Date/Time: 06/09/23 07:12 Chief Complaint: Right hip pain Narrative: This is a 9-year-old female with a past medical history of depression with anxiety, diabetes type 2, hypertension , hypercholesteremia, hypothyroidism who presented to the ER her assisted living with complaints of right hip pain. She also had recently undergone right hip fracture repair in November of this year. She states she went to the bathroom and then was able to walk a couple feet to her sink and started having right hip pain. She was unable to bear weight on her right hip and she needed to sit back down. EMS was called and she was transferred to the ER here at [facility]. Imaging shows minimally displaced subcapital fracture of the right femoral neck with associated fracture of the right femoral neck orthopedic screw. Besides her right hip pain she complains of recurrent episodes of depression and as well as diarrhea. She says that since she came out of rehab back in December she has been having intermittent episodes of diarrhea approximately 6 to 7 times but not daily. She takes Imodium for this. She has seen her PCP regarding the diarrhea and she states the workup has been negative. She is requesting assistance with establishing a new PCP as well as psychiatrist. Her previous providers were [facility] and now that she lives at [facility] there unable to provide transportation that far. She is being admitted with orthopedic consult for possible intervention and pain control. She is seen this morning resting in bed states that she has hip pain that is not controlled with the 5 mg of Oxy that I have prescribed. Will make adjustments to her pain regimen. She said orthopedics to come by this morning already but she does not know if they are planning to take her to surgery today. She remains NPO. Review of Systems Review of Systems: All systems reviewed & are unremarkable except as noted in HPI and below PMFSH Past Medical History Medical History (Updated 06/09/23 @ 10:54 by Stephanie Fish APRN) Closed right femoral fracture Degenerative arthritis of right knee Depression with anxiety DM2 (diabetes mellitus, type 2) Ganglion wrist cyst removed Hepatitis B HTN (hypertension) with goal to be determined Hypercholesterolemia Hypothyroidism Surgical History Surgical History H/O: hysterectomy History of appendectomy Family History Family History Father Malignant neoplasm of prostate Mother Breast cancer Social History Social History Social History: She has 3 children. She resides at [facility]. She is . 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 She quite marijuana use and alcohol in the . Smoked cigarettes off/on for about 15 years but quite 30+ years ago. She is a Full Code. She nominates her sister to be the individual to make medical decisions for her if she is unable. Smoking packs per day: 1 Smoking cigarettes per day: 20.0 Smoking status: Former smoker Tobacco type: cigarettes Alcohol intake: former Substance use: former Substance use type: marijuana Lack of Transportation: YES Lack of Food: Sometimes True Current Housing: I Have Housing Concerned About Future Housing: No Difficulty Paying Gas/Electric Bills: No Difficulty Paying for Meds: YES Currently Unemployed: No Education: Don't Know Difficulty w/ Childcare or Family Care: No Spiritual care concerns: No Meds Home Medications and Allergies Home Medications Medication Instructions Recorded Confirmed Type acetaminophen 500 mg tablet 500 mg PO BID PRN Pain 11/14/22 06/09/23 History diclofenac sodium 1 % topical gel 1 ea topical TID 11/14/22 06/09/23 History donepezil 5 mg tablet 5 mg PO HS 11/14/22
[2023-06-09] MEDS: PANTOPRAZOLE 40 MG TABLET PO (08:04)
[2023-06-09] MEDS: PROPRANOLOL HCL 20 MG TABLET PO (08:04)
[2023-06-09] MEDS: LEVOTHYROXINE SODIUM 150 MCG TABLET PO (08:05)
[2023-06-09] MEDS: lisinopriL 10 MG TABLET PO (08:05)
[2023-06-09] MEDS: oxyCODONE HCL (*CRX) 5 MG TAB IR PO (08:05)
[2023-06-09] MEDS: VENLAFAXINE HCL XR 75 MG CAP.ER.24H PO (08:05)
[2023-06-09 09:16] LABS: Glucose Point of Care 109 mg/dl (65-105)
--- NOTE | 2023-06-09 10:54 | PM.CNOR ---
Assessment and Plan Assessment and plan (1) Closed hip fracture: Qualifiers: Encounter type: initial encounter Laterality: right Qualified Code(s): S72.001A - Fracture of unspecified part of neck of right femur, initial encounter for closed fracture Code(s): S72.009A - Fracture of unspecified part of neck of unspecified femur, initial encounter for closed fracture Status: Acute Assessment and Plan: 72-year-old woman now 7 months status post right hip intertrochanteric fracture with intramedullary fixation. Now with new femoral neck fracture with failure of the lag screw hardware which was in place. Injury occurred overnight when she got up from seated position. No other trauma reported. Full discussion with the patient regarding treatment options including operative and non operative treatment. Concern about bone quality and the failure of the femoral neck as well as the internal device. Concern for ability of bone to heal. Discussed option of hardware removal and hip arthroplasty replacement. Risks, benefits and alternatives discussed in detail. Chance for ambulation and function without operative treatment discussed in detail. Questions were answered. Patient would like to be transferred to a trauma/hip specialty center. We will try to assist with transfer as needed. Patient is medically stable at this time. Continue with conservative care in meantime. (2) Failed hardware: Status: Acute History of Present Illness HPI Consult date: 06/09/23 Requesting physician: Stephanie Fish APRN Chief complaint: Hip Fracture Narrative: 72-year-old woman known to the Orthopedic Service for right hip intertrochanteric fracture November 2022. Also with left proximal humerus fracture at that time. Treated with right hip trochanteric nail intramedullary fixation. Was reportedly doing well until yesterday. She got up at night the bathroom and felt pain in the right hip. New radiographs from the emergency room show fracture through the femoral neck as well as fracture the internal fixation. Complains of right hip pain and inability to bear weight. Review of Systems Constitutional: Constitutional: Denies fever(s) Eyes: Eyes: Denies blurry vision ENT: Reports Normal hearing present Cardiovascular: Cardiovascular: Denies chest pain and Denies dyspnea Respiratory: Respiratory: Denies dyspnea and Denies wheezing Gastrointestinal: Gastrointestinal: Denies abdominal pain Genitourinary: Genitourinary: Denies urinary urgency Musculoskeletal: Musculoskeletal: Reports as per HPI and Denies numbness Integumentary/Breasts: Skin/Breast: Denies changing lesions and Denies sores Neurologic: Reports Normal hearing present, Denies behavioral changes, Denies confusion, Denies numbness and Denies convulsions Psychiatric: Psychiatric: Denies behavioral changes, Denies confusion and Denies hallucinations Endocrine: Endocrine: Denies heat intolerance Hematologic/Lymphatic: Hematologic/Lymphatic: Denies easy bleeding Allergic/Immunologic: Allergic/Immunologic: Denies wheezing PMF Past Medical History Medical History (Updated 06/09/23 @ 10:59 by Shimon Chaudhry MD) Closed right femoral fracture Degenerative arthritis of right knee Depression with anxiety DM2 (diabetes mellitus, type 2) Failed hardware Ganglion wrist cyst removed Hepatitis B HTN (hypertension) with goal to be determined Hypercholesterolemia Hypothyroidism Surgical History Surgical History H/O: hysterectomy History of appendectomy Family History Family History Father Malignant neoplasm of prostate Mother Breast cancer Social History Social History Social History: She has 3 children. She resides at [facility]. She is . She is a re
[2023-06-09] MEDS: ACETAMINOPHEN 500 MG TABLET PO ×2 (11:52→16:29)
[2023-06-09] MEDS: MORPHINE SULFATE (*CRX) 2 MG/ML INJ IV PUSH ×3 (11:52→20:12)
[2023-06-09 11:56] LABS: Glucose Point of Care 108 mg/dl (65-105)
--- NOTE | 2023-06-09 13:25 | PC.NURSE ---
On 06/09/23, the student, [Billie Tariq], provided care and completed [facility] documentation on this patient. I have reviewed the student's documentation and agree with the findings.
[2023-06-09] MEDS: hydrALAZINE HCL 20 MG/ML VIAL 10 MG IV PUSH (15:06)
[2023-06-09 17:18] LABS: Glucose Point of Care 163 mg/dl (65-105)
[2023-06-09] MEDS: hydrOXYzine HCL 25 MG TABLET PO (20:12)
[2023-06-09] MEDS: FLUTICASONE PROPIONATE 0.05% NA SPR 16 GM BTL (*BKC) 2 SPRAY NASAL (20:12)
[2023-06-09] MEDS: DONEPEZIL HCL 5 MG TABLET PO (20:12)
[2023-06-09 21:08] LABS: Glucose Point of Care 163 mg/dl (65-105)
--- NOTE | 2023-06-09 21:12 | PC.NURSE ---
2100 REPORT CALLED TO [facility] TAKEN BY ANNMARIE BOYLE. AMBULANCE ETA 2200. PT AWARE OF TRANSFER. PT TO GO TO ROOM [facility]
[2023-06-09 21:37] LABS: Glucose Point of Care 166 mg/dl (65-105)
[2023-06-09] MEDS: oxyCODONE HCL (*CRX) 5 MG TAB IR 10 MG PO (22:06)
--- NOTE | 2023-06-10 15:24 | PM.TDS ---
Transfer Discharge Sum: Prov Provider Date of admission: 06/09/23 04:24 Primary care physician: Cali Lerma MD Admitting clinician: Priti Miller DO Consults: 06/09/23 Care Coordination Consult Routine Comment: needs new PCP referral and psychatrist referral Reason for Consult:: Other 06/09/23 04:25 Consult to Physician Routine Comment: Consulting Provider: Shimon Chaudhry Reason for consultation: Hip fx Has provider been notified: Yes DS: Admitting Diagnosis Discharge Date 06/09/23 Admitting Diagnosis right hip pain DS: Discharge Diagnosis Discharge Diagnosis (1) Closed hip fracture: Qualifiers: Encounter type: initial encounter Laterality: right Qualified Code(s): S72.001A - Fracture of unspecified part of neck of right femur, initial encounter for closed fracture Code(s): S72.009A - Fracture of unspecified part of neck of unspecified femur, initial encounter for closed fracture Status: Acute Assessment and Plan: Right hip pain from fracture of the femoral neck orthopedic screw at the subcapital region with probable minimally displaced subcapital femoral neck fracture seen on hip and pelvis x-ray. Recent repair in November of this year Orthopedics consulted and recommendations appreciated Oxy and Tylenol for pain PRN NPO for expected surgery SCD's for DVT prophylaxis (2) Diabetes: Code(s): E11.9 - Type 2 diabetes mellitus without complications Status: Acute Assessment and Plan: Hemoglobin A1c 6.2% in 11/2022 On metformin at home. Holding while inpatient. Accu checks ac/hs with SSI (3) Hypothyroidism: Code(s): E03.9 - Hypothyroidism, unspecified Status: Acute Assessment and Plan: TSH ordered for the morning home dose levothyroxine reordered (4) Depression with anxiety: Code(s): F41.8 - Other specified anxiety disorders Status: Acute Assessment and Plan: History of anxiety and depression on venlafaxine Nurse called to notify of suicide screening score with a 6. Patient has long psych history of anxiety depression and she spoke to her past history of having a plan. She is currently not suicidal and does not have an active plan. See's psychiatrist and counselor in [place]. She needs referrals closer to [facility] because of lack of transportation. Plan This is a 72-year-old female with a past medical history of depression with anxiety, diabetes type 2, hypertension , hypercholesteremia, hypothyroidism who presented to the ER her assisted living with complaints of right hip pain.? She also had recently undergone right hip fracture repair in November of this year.? She states she went to the bathroom and then was able to walk a couple feet to her sink and started having right hip pain.? She was unable to bear weight on her right hip and she needed to sit back down.? EMS was called and she was transferred to the ER here at [place].? Imaging shows minimally displaced subcapital fracture of the right femoral neck with associated fracture of the right femoral neck orthopedic screw.? Besides her right hip pain she complains of recurrent episodes of depression and as well as diarrhea.? She says that since she came out of rehab back in December she has been having intermittent episodes of diarrhea approximately 6 to 7 times but not daily.? She takes Imodium for this.? She has seen her PCP regarding the diarrhea and she states the workup has been negative.? She is requesting assistance with establishing a new PCP as well as psychiatrist.? Her previous providers were [facility] and now that she lives at [facility] [place] unable to provide transportation that far.? She is being admitted with orthopedic consult for possible intervention and pain control. She is seen this morning resting in bed states that she has hip pain that is not controlled with the 5 mg of Oxy that I have prescribed.? Will make a
== END 2023-06-09 22:14 | disposition short-term general hospital (02) | DRG 559 ==
LOC: ANHED 06-09 04:24 → ANH2MED 06-09 05:30
PROVIDERS: Admitting Provider Internal Medicine; Emergency Provider Emergency Medicine; PCP Emergency Medicine; Visit Provider Nurse Practitioner Acute Care
DX: T84.114A Breakdown (mechanical) of internal fixation device of right femur, initial encounter (principal); S72.011A Unspecified intracapsular fracture of right femur, initial encounter for closed fracture; I10 Essential (primary) hypertension; S42.202D Unspecified fracture of upper end of left humerus, subsequent encounter for fracture with routine healing; S72.141D Displaced intertrochanteric fracture of right femur, subsequent encounter for closed fracture with routine healing; E11.9 Type 2 diabetes mellitus without complications; E78.00 Pure hypercholesterolemia, unspecified; E03.9 Hypothyroidism, unspecified; M17.11 Unilateral primary osteoarthritis, right knee; R19.7 Diarrhea, unspecified; Y79.2 Prosthetic and other implants, materials and accessory orthopedic devices associated with adverse incidents; F32.A Depression, unspecified; F41.9 Anxiety disorder, unspecified; Z87.891 Personal history of nicotine dependence
CPT/HCPCS: 36415; 71045; 73502; 73700; 80053; 82948; 85025; 93005; 96361; 96374; 96375; 99285; A9270; J0360; J1170; J1885; J2270; J7030

== ENCOUNTER 2023-07-01 13:21 | Inpatient (IN) | payer MEDICARE, MEDICAID, SELFPAY ==
[2023-07-01] VITALS (27 sets, daily range): BP systolic 126–162; BP diastolic 55–118; PULSE 80–94; RESP 16–21; TEMP 36.3–37.1; O2SAT 97–100; BMI 42.3
--- NOTE | ~2023-07-01 | US_ITS ---
EXAMINATION: US paracentesis abd w/image DATE: 07/05/2023 11:13 INDICATION: Cirrhosis with ascites TECHNIQUE: The procedure and its risks and benefits were discussed with the patient. Potential risks discussed included bleeding and infection. The skin was prepped and draped in sterile fashion. 1% lid ocaine was used for local anesthesia. Under ultrasound guidance, a 5 Fr catheter with trochar was adv anced into the ascites in the left lower quadrant. Fluid was aspirated into vacuum bottles. The hernandez ter was removed, and a dressing was applied. There were no immediate complications. FINDINGS: Ultrasound images demonstrate ascites and the catheter within the fluid. IMPRESSION: 1. Successful ultrasound-guided paracentesis yielding 1900 mL of cloudy yellow fluid. Reviewed, dictated and finalized at location A.
--- NOTE | ~2023-07-01 | CT_ITS ---
EXAMINATION: CT soft tissue neck w con DATE: 07/01/2023 15:35 INDICATION: Right-sided neck swelling and erythema TECHNIQUE: Computed tomography (CT) of the neck was performed with 75 mL Omnipaque-350 intravenous co ntrast. Automated exposure control and iterative reconstruction technique were employed. The dose-bela gth product was 509.94 mGy-cm. COMPARISON: None FINDINGS: There is soft tissue swelling at the lateral right side of the face with prominent asymmetr ic stranding within and surrounding the right parotid gland consistent with parotitis. No abscess or calcified sialolithiasis. The left parotid gland is unremarkable. Bilateral submandibular glands are normal and symmetric. Dystrophic calcifications at the bilateral palatine tonsils. Parapharyngeal sof t tissues are otherwise unremarkable. Normal epiglottis and aryepiglottic folds. Bilateral orbits are normal. Near-complete opacification of the left maxillary sinus mastoid air cells and middle ear cav ities are clear. No pathologically enlarged cervical or upper thoracic lymphadenopathy. Cervical vasc ulature is unremarkable. Mosaic attenuation in the visualized upper lungs consistent with mild atelec tasis which along with the concave posterior wall of the trachea is likely related to expiratory phas e of imaging. Visualized portions of the thoracic aorta is normal in caliber with no dissection. Ther e is enlargement of the central pulmonary arteries consistent with pulmonary arterial hypertension. M oderate lower cervical spondylosis. IMPRESSION: 1. Prominent inflammatory stranding within and surrounding the right parotid lobe consistent with par otitis. No abscess. Reviewed, dictated and finalized at location A. IMPRESSION: 1. Prominent inflammatory stranding within and surrounding the right parotid lo be consistent with parotitis. No abscess.
--- NOTE | ~2023-07-01 | US_ITS ---
EXAMINATION: US venous doppler LE DATE: 07/01/2023 19:13 INDICATION: Bilateral lower limb swelling TECHNIQUE: Martin scale images without and with compression and Doppler images of the bilateral lower e xtremity veins were obtained. COMPARISON: 11/22/2022 FINDINGS: There is moderate amount of bilateral lower limb edema. Probable bilateral Florez cysts are noted. The right common femoral vein, profunda femoral vein, femoral vein, popliteal vein are grossly patent . The peroneal trunk, posterior tibial veins, and greater saphenous vein are not well evaluated. The left common femoral vein, profunda femoral vein, femoral vein, popliteal vein grossly patent. The peroneal trunk, posterior tibial veins, and greater saphenous vein are not well evaluated. IMPRESSION: 1. Patent bilateral lower extremity veins. No evidence of deep venous thrombosis. Limited examination . Reviewed, dictated and finalized at location F. IMPRESSION: 1. Patent bilateral lower extremity veins. No evidence of deep venous thrombosi s. Limited examination.
--- NOTE | ~2023-07-01 | XR_ITS ---
EXAMINATION: XR chest 2V DATE: 07/04/2023 11:35 INDICATION: Vomiting TECHNIQUE: frontal and lateral views of the chest were obtained. COMPARISON: Chest radiograph dated 06/09/2023 FINDINGS: Lung volumes remain small with elevation of the right hemidiaphragm. No focal airspace opacities, pul monary edema, pleural effusion or pneumothorax. The cardiomediastinal silhouette is normal. IMPRESSION: 1. Unchanged small lung volumes with elevation of the right hemidiaphragm. No acute cardiopulmonary d isease. Reviewed, dictated and finalized at location A. IMPRESSION: 1. Unchanged small lung volumes with elevation of the right hemidiaphragm. No a cute cardiopulmonary disease.
--- NOTE | ~2023-07-01 | CT_ITS ---
EXAMINATION: CT abdomen pelvis w con DATE: 07/04/2023 21:34 INDICATION: Generalized abdominal pain TECHNIQUE: Computed tomography (CT) of the abdomen and pelvis was performed with 100 cc Omnipaque 350 intravenous contrast. The dose-length product was 1637.27 mGy-cm. Automated exposure control and ite rative reconstruction technique were employed. COMPARISON: None. FINDINGS: Lung bases unremarkable. There is generalized subcutaneous edema. Large amount of ascites. Findings compatible with anasarca. Dias catheter in the bladder. Cirrhosis of the liver. Spleen, harris creas, adrenal glands and kidneys are unremarkable. No significant vascular abnormality. No lymphaden opathy. Gallbladder is present. No free air. Nonobstructive bowel gas pattern. There is a right hip a rthroplasty. Moderate size hiatal hernia. Small left pleural effusion. IMPRESSION: 1. Cirrhosis of the liver with large amount of ascites and diffuse subcutaneous edema, consistent wit h anasarca. 2: Moderate size hiatal hernia. 3: Small left pleural effusion. Moderate lower thoracic and lumbar spondylosis. Reviewed, dictated and finalized at location A. IMPRESSION: 1. Cirrhosis of the liver with large amount of ascites and diffuse subcutaneous edema, consistent with anasarca. 2: Moderate size hiatal hernia. 3: Small left pleural effusion. Moderate lower thoracic and lumbar spondylosis.
--- NOTE | ~2023-07-01 | XR_ITS ---
EXAMINATION: XR abdomen/kub 1V DATE: 07/04/2023 11:35 INDICATION: Vomiting. TECHNIQUE: A supine view of the abdomen on 2 radiographs was obtained. COMPARISON: CT abdomen and pelvis 11/22/2022 FINDINGS: There are dilated loops of small bowel. The colon is normal in caliber. There is a total ri ght hip arthroplasty. IMPRESSION: 1. Dilated small bowel, consistent with adynamic ileus versus small bowel obstruction. Reviewed, dictated and finalized at location E. IMPRESSION: 1. Dilated small bowel, consistent with adynamic ileus versus small bowel obstr uction.
--- NOTE | 2023-07-01 13:56 | ED.GENADULT ---
HPI - General Adult General Chief complaint: Unspecified <Court Guzman PA-C - Last Filed: 07/01/23 17:26> Stated complaint: neck swelling <Court Guzman PA-C - Last Filed: 07/01/23 17:26> Time Seen by Provider: 07/01/23 13:50 <Court Guzman PA-C - Last Filed: 07/01/23 17:26> Source: patient <LYNN Perkins Last Filed: 07/01/23 17:26> Mode of arrival: EMS <LYNN Perkins Last Filed: 07/01/23 17:26> Limitations: no limitations <Court Guzman PA-C - Last Filed: 07/01/23 17:26> History of Present Illness HPI narrative: This is a 72-year-old female that presents to the emergency department for right-sided neck swelling. Ongoing over the last couple of days. Associated with sore throat. Reports she has been on oral antibiotics with little relief. Denies fevers, difficulty swallowing, or trouble breathing. <Court Guzman PA-C - Last Filed: 07/01/23 17:26> Related Data Home medications: Home Medications Medication Instructions Recorded Confirmed acetaminophen 500 mg tablet 500 mg PO BID PRN Pain 11/14/22 06/09/23 diclofenac sodium 1 % topical gel 1 ea topical TID 11/14/22 06/09/23 donepezil 5 mg tablet 5 mg PO HS 11/14/22 06/09/23 ferrous sulfate 325 mg (65 mg 325 mg PO Q12H 11/14/22 06/09/23 iron) tablet (FeroSul) glucosamine sulf dipotassium Cl 1 cap PO DAILY 11/14/22 06/09/23 250 mg-chondroitin sulf 200 mg capsule hydroxyzine HCl 25 mg PO BID PRN Itching 11/14/22 06/09/23 levothyroxine 150 mcg tablet 150 mcg PO DAILY 11/14/22 06/09/23 loratadine 10 mg tablet 10 mg PO DAILY 11/14/22 06/09/23 lovastatin 40 mg tablet 40 mg PO DAILY 11/14/22 06/09/23 melatonin 3 mg tablet 3 mg PO HS 11/14/22 06/09/23 metformin 1,000 mg tablet 1,000 mg PO BID 11/14/22 06/09/23 oxybutynin chloride 5 mg 5 mg PO DAILY 11/14/22 06/09/23 tablet,extended release 24 hr pantoprazole 40 mg tablet,delayed 40 mg PO DAILY 11/14/22 06/09/23 release propranolol 20 mg tablet 20 mg PO DAILY 11/14/22 06/09/23 venlafaxine 75 mg capsule,extended 75 mg PO DAILY 11/14/22 06/09/23 release 24 hr bisacodyl 10 mg rectal suppository 10 mg RECTAL Q24H PRN Constipation 06/09/23 06/09/23 colestipol 1 gram tablet 1 g PO BID PRN Diarrhea 06/09/23 06/09/23 diphenhydramine HCl 25 mg tablet 25 mg PO Q6H PRN Itching 06/09/23 06/09/23 (Benadryl Allergy) fluticasone propionate 50 2 spray intranasal HS 06/09/23 06/09/23 mcg/actuation nasal spray,suspension lisinopril 10 mg tablet 10 mg PO DAILY 06/09/23 06/09/23 magnesium citrate 300 ml PO DAILY PRN Constipation 06/09/23 06/09/23 magnesium hydroxide 400 mg/5 mL 30 ml PO DAILY PRN Constipation 06/09/23 06/09/23 oral suspension (Milk of Magnesia) naloxone 4 mg/actuation nasal spray 4 mg intranasal PRN PRN overdose 06/09/23 06/09/23 oxycodone 5 mg tablet 5 mg PO Q4H PRN Pain (Scale Score 06/09/23 06/09/23 4-6) peg 400-propylene glycol (PF) 0.4 1 drp ophthalmic (eye) QID PRN Dry 06/09/23 06/09/23 %-0.3 % eye drops in a dropperette Eyes (Systane (PF)) polyethylene glycol 3350 17 17 g PO DAILY PRN Constipation 06/09/23 06/09/23 gram/dose oral powder <Court Guzman PA-C - Last Filed: 07/01/23 17:26> Allergies/adverse reactions: Allergies Allergy/AdvReac Type Severity Reaction Status Date / Time clindamycin Allergy Swelling Verified 06/08/23 23:12 of Lip/Tongue/Throat <Court Guzman PA-C - Last Filed: 07/01/23 17:26> Review of Systems Review of Systems: CONSTITUTIONAL: Denies fever ENT: Reports sore throat RESPIRATORY: Denies dyspnea. GASTROINTESTINAL: Denies vomiting <Court Guzman PA-C - Last Filed: 07/01/23 17:26> All systems reviewed & are unremarkable except as noted in HPI and below <Court Guzman PA-C - Last Filed: 07/01/23 17:26> [facility] Past Medical History Medical History: Medical History (Updated 07/01/23 @ 21:57 by Gretta Sanchez PA-C) Arthritis Depres
[2023-07-01 15:19] LABS: Basophils Percent Auto 0.3 % (0.2-1.2); Eosinophils Absolute Auto 0.3 K/mm3 (0-0.3); Eosinophils Percent Auto 1.8 % (0-4.4); Hematocrit 27.8 % (37.0-47.0); Hemoglobin 8.5 g/dL (12.0-15.0); Immature Granulocyte Absolute 0.09 K/mm3 (0.00-0.031); Immature Granulocyte Percent A 0.6 % (0-0.5); Lymphocytes Absolute Auto 1.22 K/mm3 (0.9-3.2); Lymphocytes Percent Auto 7.9 % (18.3-44.2); Mean Corpuscular HGB Conc 30.6 g/dl (32-36); Mean Corpuscular Hemoglobin 31.5 pg (26-34); Mean Platelet Volume 8.9 fl (7.4-10.4); Monocytes Absolute Auto 1.4 K/mm3 (0.1-0.6); Monocytes Percent Auto 8.9 % (2.6-8.5); Neutrophils Absolute Auto 12.4 K/mm3 (1.3-6.7); Neutrophils Percent Auto 80.5 % (45.5-73.1); Platelet Count Result 171 k/mm3 (150-375); Red Cell Distribution Width 17.4 % (11.5-14.5); White Blood Count 15.4 K/mm3 (4.5-10.0)
[2023-07-01 15:22] LABS: Estimated Glomerular Filt Rate 44
[2023-07-01 15:32] LABS: Lactic Acid Reflex 2.8 mmol/L (0.7-2.0)
[2023-07-01 15:36] LABS: Alanine Aminotransferase 23 U/L (6-35); Albumin Level 2.8 g/dL (3.5-5.1); Alkaline Phosphatase 233 U/L (38-126); Anion Gap 7 mmol/L (8-16); Aspartate Amino Transferase 50 U/L (14-36); Bilirubin,Total 1.8 mg/dL (0.2-1.3); Blood Urea Nitrogen 31 mg/dL (7-17); Calcium 8.6 mg/dL (8.4-10.2); Carbon Dioxide 17 mmol/L (22-30); Chloride 105 mmol/L (98-107); Estimated Glomerular Filt Rate 49; Glucose 131 mg/dL (65-110); Potassium 4.9 mmol/L (3.4-5.0); Sodium 129 mmol/L (137-145)
[2023-07-01 15:53] LABS: CRP 17.6 mg/dL (<1.0)
[2023-07-01] MEDS: SODIUM CHLORIDE 0.9% IV 500 ML 999 ML IV CONT (15:56)
[2023-07-01 15:57] LABS: Erythrocyte Sedimentation Rate 88 mm/hr (0-20)
--- NOTE | 2023-07-01 17:01 | PM.IMHP ---
H&P: HPI History of Present Illness Date/Time: 07/01/23 20:00 Chief Complaint: Pain and swelling over the right side of the face and neck. Narrative: This is a 9-year-old female with type 2 diabetes mellitus, hypertension, hyperlipidemia, hypothyroidism, and other comorbidities who presented to the emergency department via EMS from a local rehab facility for evaluation of pain and swelling over the right side of the face and neck. The patient provides the following history. She was admitted to this facility on 06/09/2023 with a right femoral neck fracture with failure of leg screw hardware which was previously in place. She was evaluated by the orthopedic surgeon and was ultimately transferred to [facility] for trauma/hip specialty. There she reportedly underwent repair/replacement of the hip and she has been at rehab since that time. She reports doing well with therapy and is now reportedly able to be 20% weight-bearing. In any event on Tuesday she developed discomfort on the right side of her face and she has since developed swelling and redness in front of the ear extending onto the neck. Workup today in the ED is consistent with right parotiditis. With further questioning she does endorse mild discomfort with swallowing but she denies difficulty swallowing. She has no knowledge of fever and denies chills and sweats. Appetite has been okay though she has been a bit nauseated. No vomiting or diarrhea. No prior history of proctitis. She has not noticed any drainage coming from the mouth. Review of Systems Review of Systems: Twelve systems were reviewed. She is doing well with regards to her recent hip fracture and surgery. She has bilateral lower extremity edema since her hospitalization at [facility] which is new for her. No known history of DVT or congestive heart failure. She denies orthopnea, paroxysmal nocturnal dyspnea, chest pain, pleuritic pain, and shortness of breath. Except as documented, all other systems were reviewed and are negative. [facility] Past Medical History Medical History (Updated 07/01/23 @ 21:57 by Gretta Sanchez PA-C) Arthritis Depression with anxiety Failed hardware Hepatitis B Hypercholesterolemia Hypertension Hypothyroidism Type 2 diabetes mellitus Surgical History Surgical History (Updated 07/01/23 @ 21:50 by Gretta Sanchez PA-C) History of appendectomy History of hysterectomy History of right hip replacement History of surgical removal of ganglion cyst Family History Family History Father Malignant neoplasm of prostate History of quadruple bypass HLD (hyperlipidemia) Hypertension Diabetes mellitus Mother Breast cancer Diabetes mellitus Sibling Diabetes mellitus Other Arthritis Social History Social History (Updated 07/01/23 @ 21:51 by Gretta Sanchez PA-C) Social History: She has 3 children. She resides at [facility]. She is . 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 She quit marijuana use and alcohol in the . Smoked cigarettes off/on for about 15 years but quite 30+ years ago. She is a [employer]. She nominates her sister to be the individual to make medical decisions for her if she is unable. Smoking packs per day: 1 Smoking cigarettes per day: 20.0 Smoking status: Former smoker Alcohol intake: former Substance use: former Substance use type: marijuana Lack of Transportation: No Lack of Food: Never True Current Housing: I Have Housing Concerned About Future Housing: No Difficulty Paying Gas/Electric Bills: No Difficulty Paying for Meds: No Currently Unemployed: No Education: Decline to Answer Difficulty w/ Childcare or Family Care: No Spiritual care concerns: No Meds Home Medications and Allergies Home Medications Medication Instructions Recorded Confirmed Type acetaminophen 500 mg tablet 500 mg PO BID PRN Pain 0
[2023-07-01] MEDS: AMPICILLIN SULB 3 GM/NS 100 ML 3 GM/100 ML VIAL IVPB (17:16)
[2023-07-01 18:17] LABS: Reflex Lactic Acid Yes or No Add Lactic
[2023-07-01] MEDS: metroNIDAZOLE 500 MG/ISO 100ML 500 MG/100 ML BAG 100 MG IVPB (18:20)
[2023-07-01 20:45] LABS: Lactic Acid 2.3 mmol/L (0.7-2.0)
[2023-07-01 20:54] LABS: Glucose Point of Care 112 mg/dl (65-105)
[2023-07-01 22:38] LABS: Anion Gap 7 mmol/L (8-16); Blood Urea Nitrogen 32 mg/dL (7-17); Calcium 8.8 mg/dL (8.4-10.2); Carbon Dioxide 19 mmol/L (22-30); Chloride 103 mmol/L (98-107); Estimated CRCL calculation 57 ml/min; Estimated Glomerular Filt Rate 49; Glucose 124 mg/dL (65-110); Iron 32 ug/dL (37-170); Potassium 5.3 mmol/L (3.4-5.0); Sodium 129 mmol/L (137-145)
[2023-07-01 22:45] LABS: Prealbumin 6.2 mg/dL (17.6-36.0)
[2023-07-01 22:47] LABS: NT Pro B Type Natriuretic Pept 316 pg/mL (19.9-100)
[2023-07-01 22:48] LABS: Percent Iron Saturation 14 % (20-50)
[2023-07-01 23:44] LABS: Folic Acid 6.5 ng/mL (2.76->20)
[2023-07-02] MEDS: CEFEPIME 2 GM/NS 50 ML 2 GM/50 ML BAG IVPB ×3 (00:43→21:21)
[2023-07-02] MEDS: VANCOMYCIN 1,250 MG/NS 250 ML 1,250 MG/250 ML BAG 166.67 MG IVPB ×2 (00:45→02:15)
[2023-07-02] MEDS: metroNIDAZOLE 500 MG/ISO 100ML 500 MG/100 ML BAG 100 MG IVPB ×3 (02:40→17:09)
[2023-07-02 06:00] VITALS: BP 156/67; PULSE 100; RESP 21; TEMP 35.6; O2SAT 100
[2023-07-02 06:17] LABS: Anion Gap 4 mmol/L (8-16); Blood Urea Nitrogen 28 mg/dL (7-17); Calcium 8.4 mg/dL (8.4-10.2); Carbon Dioxide 21 mmol/L (22-30); Chloride 106 mmol/L (98-107); Estimated CRCL calculation 63 ml/min; Estimated Glomerular Filt Rate 55; Glucose 127 mg/dL (65-110); Magnesium 1.7 mg/dL (1.6-2.3); Potassium 4.8 mmol/L (3.4-5.0); Sodium 131 mmol/L (137-145)
--- NOTE | 2023-07-02 08:00 | ECHO_ITS ---
Patient Info Name: Barbara Palma Age: 72 years : 1950 Gender: Female Ht: 67 in Wt: 220 lbs BSA: 2.21 m2 HR: 102 bpm Heart Rhythm: Tachycardia, Sinus Rhythm Technical Quality: Good Exam Date: 07/02/2023 12:31 PM Exam Location: [facility] Patient Status: Inpatient Admit Date: 07/01/2023 Staff Ordering Physician: Radha Whipple MD Inset Cutter: Lydia Cerda RDCS Attending Provider: Evert Bess MD Exam Type: CA echo doppler color flow Study Info Indications - leg swelling Complete two-dimensional, color flow and Doppler transthoracic echocardiogram is performed. Summary 1. Complete two-dimensional, color flow and Doppler transthoracic echocardiogram is performed. 2. Left ventricular chamber dimension is normal. 3. Left ventricular systolic function is hyperdynamic, estimated at >70%. 4. There is moderately increased left ventricular wall thickness. 5. The left ventricular diastolic function is grade I diastolic dysfunction. 6. There is no aortic valve stenosis. 7. There is trace aortic valve regurgitation. 8. There is trace mitral valve regurgitation. 9. The mitral valve has normal leaflets. 10. There is mild tricuspid valve regurgitation. 11. Moderate pulmonary hypertension, estimated pulmonary arterial systolic pressure is 54 mmHg. Left Ventricle Left ventricular chamber dimension is normal. Left ventricular systolic function is hyperdynamic, estimated at >70%. There is moderately increased left ventricular wall thickness. The left ventricular diastolic function is grade I diastolic dysfunction. Right Ventricle Right ventricular chamber dimension is normal. Right ventricular systolic function is normal. Left Atria Left atrial chamber dimension is normal. Right Atria Right atrial chamber dimension is normal. Aortic Valve The aortic valve is trileaflet. There is no aortic valve stenosis. There is trace aortic valve regurgitation. Pulmonic Valve The pulmonic valve is not well visualized. There is trace pulmonic regurgitation. Mitral Valve The mitral valve has normal leaflets. There is trace mitral valve regurgitation. Tricuspid Valve The tricuspid valve leaflets are normal. There is mild tricuspid valve regurgitation. Moderate pulmonary hypertension, estimated pulmonary arterial systolic pressure is 54 mmHg. Pericardium/Pleural The pericardium appears normal. There is small pericardial effusion. Pleural effusion. Aorta The aortic root size at the sinus of Valsalva is upper limits or normal at 3.7cm.. Left Ventricular Outflow Tract Name Value Normal LVOT 2D LVOT Diameter 2.1 cm LVOT Doppler LVOT Peak Gradient 9 mmHg LVOT Mean Gradient 5 mmHg LVOT VTI 41 cm LVOT VTI/AV VTI Ratio 1.2 LVOT Stroke Volume 137 ml LVOT CO 10.5 l/min LVOT CI 4.7 l/min/m2 Pulmonic Valve Name Value Normal
[2023-07-02 08:31] LABS: Hematocrit 26.4 % (37.0-47.0); Hemoglobin 8.2 g/dL (12.0-15.0); Mean Corpuscular HGB Conc 31.1 g/dl (32-36); Mean Corpuscular Volume 103.1 fl (80-100); Mean Platelet Volume 9.2 fl (7.4-10.4); Platelet Count Result 169 k/mm3 (150-375); Red Blood Count 2.56 M/mm3 (4.2-5.4); Red Cell Distribution Width 17.9 % (11.5-14.5); White Blood Count 12.5 K/mm3 (4.5-10.0)
[2023-07-02] MEDS: ENOXAPARIN 40 MG/0.4 ML SYRINGE SUB-Q (08:47)
[2023-07-02 08:52] LABS: Glucose Point of Care 136 mg/dl (65-105)
--- NOTE | 2023-07-02 10:46 | PM.IMPN ---
Progress Note: A&P Assessment and Plan (1) Edema: Code(s): R60.9 - Edema, unspecified Status: Acute (2) Chronic anemia: Code(s): D64.9 - Anemia, unspecified Status: Acute (3) Acute parotitis: Code(s): K11.21 - Acute sialoadenitis Status: Acute (4) Type 2 diabetes mellitus: Code(s): E11.9 - Type 2 diabetes mellitus without complications Status: Acute (5) Hypertension: Code(s): I10 - Essential (primary) hypertension Status: Acute (6) Hyponatremia: Code(s): E87.1 - Hypo-osmolality and hyponatremia Status: Acute (7) Acute kidney injury: Code(s): N17.9 - Acute kidney failure, unspecified Status: Acute Plan 72F w/ PMH NIDDM, HTN, HLD, hypothyroidism, depression with anxiety, presented with right facial swelling. Admitted on 07/02 for acute parotitis. 1) acute parotitis - started 2 days prior to admission, no evidence of metastatic infection. - cefepime, vancomycin, and flagyl started 07/01. continue. f/u blood cultures malik MRSA swab - non toxic appearing. CTM 2) R hip fracture - recent, past month, was transferred to OSH, was at rehab which is where she presented from this admission - stable. PT/OT. case mgmt for d/c to rehab again 3) PIOTR - resolved after fluid administration 4) LE swelling - new since she had her surgery, but b/l. US dopplers negataive - continue compression stockings. check 2d echo. likely venous stasis revealing after immobility 5) suspected hypoosmolar hyponatremia - improved after fluid bolus. ctm 6) NIDDM - accuchecks and ISS 7) HTN - CTM FEN: saline lock IV, cardiac diabetic diet GI prophylaxis: not indicated DVT prophylaxis: lovenox Lines: pIV Code Status: Full Code Dispo: stable. plan to discharge back to rehab More than 35 minutes spent on chart review, patient interaction and assessment and plan. Subjective Date/time seen: 07/02/23 10:46 Interval history: NAOE. pt believes her swelling is slightly improved but pain upon swallowing is still 6/10 since admission. she otherwise denies any complaints Review of Systems Review of Systems: All systems reviewed & are unremarkable except as noted in HPI and below Exam Const: General: comfortable and no acute distress HENMT: Mouth: Yes moist mucous membranes Other: no drainage or lesion identified Eyes: Pupils: Equal, round and reactive pupils present Neck: Neck: supple Resp: Effort & Inspection: normal respiratory effort Auscultation: clear to auscultation bilaterally Cardio: Rate: regular rate Rhythm: regular rhythm GI: Inspection: non-distended GI Palp: Yes Soft to palpation Auscultation: normal bowel sounds Extrem: General: edema (1+ edema b/l LEs) Objective Data Vital Signs Vital Signs: Vital Signs - 24 hr 07/01/23 13:22 07/01/23 13:28 07/01/23 14:01 Temperature 98.1 F Pulse Rate 87 90 Respiratory Rate 18 18 Blood Pressure 126/55 L 126/55 L 127/70 Pulse Oximetry 100 100 100 Oxygen Delivery Room Air 07/01/23 15:00 07/01/23 15:15 07/01/23 14:30 Temperature 97.3 F L 98.3 F Pulse Rate 88 83 Respiratory Rate 18 16 Blood Pressure 142/80 H 143/80 H Pulse Oximetry 100 100 98 Oxygen Delivery 07/01/23 15:38 07/01/23 15:58 07/01/23 16:00 Temperature Pulse Rate 80 82 Respiratory Rate 20 20 Blood Pressure 150/59 H 143/67 H 141/78 H Pulse Oximetry 98 Oxygen Delivery 07/01/23 16:01 07/01/23 16:15 07/01/23 16:16 Temperature Pulse Rate Respiratory Rate Blood Pressure 158/79 H Pulse Oximetry 100 99 Oxygen Delivery 07/01/23 16:30 07/01/23 16:31 07/01/23 16:45 Temperature Pulse Rate Respiratory Rate Blood Pressure 162/98 H 147/118 H Pulse Oximetry 99 Oxygen Delivery 07/01/23 16:46 07/01/23 17:01 07/01/23 17:02 Temperature Pulse Rate Respiratory Rate Blood Pressure 157/75 H Pulse Oximetry 100 100 100 Oxygen Deliv
[2023-07-02 11:47] LABS: Glucose Point of Care 166 mg/dl (65-105)
[2023-07-02 14:00] VITALS: BP 153/84; PULSE 124; RESP 18; TEMP 36.9; O2SAT 97
[2023-07-02 17:06] LABS: Glucose Point of Care 146 mg/dl (65-105)
[2023-07-02] MEDS: ACETAMINOPHEN 325 MG TABLET 650 MG PO (20:27)
[2023-07-02 20:49] LABS: Glucose Point of Care 151 mg/dl (65-105)
[2023-07-02 21:10] VITALS: BP 144/77; PULSE 112; RESP 18; TEMP 37.4; O2SAT 99
[2023-07-02 21:46] LABS: Glucose Point of Care 139 mg/dl (65-105)
[2023-07-03] MEDS: metroNIDAZOLE 500 MG/ISO 100ML 500 MG/100 ML BAG 100 MG IVPB ×3 (02:59→17:12)
[2023-07-03 05:59] VITALS: BP 131/69; PULSE 101; RESP 20; TEMP 36.9; O2SAT 96
[2023-07-03 06:13] LABS: Basophils Percent Auto 0.6 % (0.2-1.2); Eosinophils Absolute Auto 0.5 K/mm3 (0-0.3); Hematocrit 25.7 % (37.0-47.0); Hemoglobin 7.8 g/dL (12.0-15.0); Immature Granulocyte Absolute 0.04 K/mm3 (0.00-0.031); Immature Granulocyte Percent A 0.6 % (0-0.5); Lymphocytes Absolute Auto 0.64 K/mm3 (0.9-3.2); Lymphocytes Percent Auto 8.9 % (18.3-44.2); Mean Corpuscular HGB Conc 30.4 g/dl (32-36); Mean Corpuscular Hemoglobin 31.7 pg (26-34); Mean Corpuscular Volume 104.5 fl (80-100); Mean Platelet Volume 9.1 fl (7.4-10.4); Monocytes Absolute Auto 0.7 K/mm3 (0.1-0.6); Monocytes Percent Auto 9.3 % (2.6-8.5); Neutrophils Absolute Auto 5.3 K/mm3 (1.3-6.7); Neutrophils Percent Auto 73.6 % (45.5-73.1); Platelet Count Result 145 k/mm3 (150-375); Red Blood Count 2.46 M/mm3 (4.2-5.4); Red Cell Distribution Width 17.8 % (11.5-14.5); White Blood Count 7.2 K/mm3 (4.5-10.0)
[2023-07-03 06:32] LABS: Anion Gap 5 mmol/L (8-16); Blood Urea Nitrogen 23 mg/dL (7-17); Calcium 8.1 mg/dL (8.4-10.2); Carbon Dioxide 21 mmol/L (22-30); Chloride 105 mmol/L (98-107); Estimated CRCL calculation 78 ml/min; Estimated Glomerular Filt Rate > 60; Glucose 149 mg/dL (65-110); Potassium 4.6 mmol/L (3.4-5.0); Sodium 131 mmol/L (137-145)
[2023-07-03 08:45] LABS: Glucose Point of Care 142 mg/dl (65-105)
--- NOTE | 2023-07-03 09:35 | PM.IMPN ---
Progress Note: A&P Assessment and Plan (1) Acute parotitis: Code(s): K11.21 - Acute sialoadenitis Status: Acute (2) Edema: Code(s): R60.9 - Edema, unspecified Status: Acute (3) Chronic anemia: Code(s): D64.9 - Anemia, unspecified Status: Acute (4) Type 2 diabetes mellitus: Code(s): E11.9 - Type 2 diabetes mellitus without complications Status: Acute (5) Hypertension: Code(s): I10 - Essential (primary) hypertension Status: Acute (6) Hyponatremia: Code(s): E87.1 - Hypo-osmolality and hyponatremia Status: Acute (7) Acute kidney injury: Code(s): N17.9 - Acute kidney failure, unspecified Status: Acute Plan 72F w/ PMH NIDDM, HTN, HLD, hypothyroidism, depression with anxiety, presented with right facial swelling. Admitted on 07/02 for acute parotitis. 1) acute parotitis - started 2 days prior to admission, no evidence of metastatic infection. - cefepime, vancomycin, and flagyl started 07/01. continue for 1 more day. f/u blood cultures and MRSA swab - non toxic appearing. CTM 2) R hip fracture - recent, past month, was transferred to OSH, was at rehab which is where she presented from this admission - stable. PT/OT. case mgmt for d/c to rehab again 3) PIOTR - resolved after fluid administration 4) LE swelling - new since she had her surgery, but b/l. US dopplers negative - continue compression stockings. echo revealing diastolic dysfunction. she otherwise appears compensated volume contreras. venous stasis revealing after immobility 5) suspected hypoosmolar hyponatremia - improved after fluid bolus on admission. ctm 6) NIDDM - accuchecks and ISS 7) HTN - CTM FEN: saline lock IV, cardiac diabetic diet GI prophylaxis: not indicated DVT prophylaxis: lovenox Lines: pIV Code Status: Full Code Dispo: stable. plan to discharge back to rehab Subjective Date/time seen: 07/03/23 09:35 Interval history: NAOE. pt believes swelling it better but she still has pain upon swallowing. she feels overly weak and would be amenable to acute rehab Review of Systems Review of Systems: All systems reviewed & are unremarkable except as noted in HPI and below Exam Const: General: comfortable HENMT: Other: right swelling decreased, but indurated at angle under tmj . redness improved Eyes: Pupils: Equal, round and reactive pupils present Resp: Effort & Inspection: normal respiratory effort Cardio: Rate: regular rate Rhythm: regular rhythm Objective Data Vital Signs Vital Signs: Vital Signs - 24 hr 07/02/23 13:47 07/02/23 14:00 07/02/23 21:10 Temperature 98.4 F 99.3 F Pulse Rate 124 H 112 H Respiratory Rate 18 18 Blood Pressure 153/84 H 144/77 H Pulse Oximetry 97 99 Oxygen Delivery Room Air 07/02/23 20:00 07/03/23 05:59 Temperature 98.4 F Pulse Rate 101 H Respiratory Rate 20 Blood Pressure 131/69 Pulse Oximetry 96 Oxygen Delivery Room Air Intake/Output Intake/Output: Intake & Output 06/30/23 07/01/23 07/02/23 07/03/23 23:59 23:59 23:59 23:59 Intake Total 600 2520 700 Balance 600 2520 700 Meds/Results Medications: Active Medications Generic Name Dose Route Start Last Admin Trade Name Freq PRN Reason Stop Dose Admin Acetaminophen 650 mg 07/01/23 22:05 07/02/23 20:27 Acetaminophen 325 Mg Tablet PO 650 mg Q6H PRN Administration Mild Pain (1-3) or Fever Dextrose 12.5 gm 07/01/23 22:05 Dextrose 50% 25 Gm/50 Ml Syringe IV PUSH PRN PRN Hypoglycemia Protocol Enoxaparin Sodium 40 mg 07/02/23 09:00 07/02/23 08:47 Enoxaparin 40 Mg/0.4 Ml Syringe SUB-Q 40 mg DAILY LORA Administration Glucagon 1 mg 07/01/23 22:05 Glucagon For Inj 1 Mg Vial IM PRN PRN Hypoglycemia Protocol Glucose 15 gm 07/01/23 22:05 Glucose Oral Gel 15 Gm Of Glucse In 37.5 Gm Tube PO PRN PRN Hypoglycemia Protocol Metronidazo
[2023-07-03] MEDS: ENOXAPARIN 40 MG/0.4 ML SYRINGE SUB-Q (09:40)
[2023-07-03] MEDS: CEFEPIME 2 GM/NS 50 ML 2 GM/50 ML BAG IVPB (10:51)
[2023-07-03 12:05] LABS: Glucose Point of Care 153 mg/dl (65-105)
--- NOTE | 2023-07-03 13:54 | PCPTNOTE ---
The patient treatment was not able to be completed today due to patient having nausea and vomiting. Will plan to continue treatment per plan of care.
[2023-07-03 14:00] VITALS: BP 168/91; PULSE 119; RESP 20; TEMP 37.4; O2SAT 100
[2023-07-03] MEDS: ONDANSETRON INJ 4 MG/2 ML VIAL IV PUSH (14:43)
[2023-07-03 17:21] LABS: Glucose Point of Care 162 mg/dl (65-105)
[2023-07-03 18:37] LABS: Vancomycin Trough 13.1 ug/mL (10.0-20.0)
[2023-07-03 19:35] VITALS: BP 168/94; PULSE 132; RESP 18; TEMP 37.1; O2SAT 98
[2023-07-03 20:00] VITALS: PULSE 132; RESP 18; O2SAT 98
[2023-07-03 20:40] LABS: Glucose Point of Care 170 mg/dl (65-105)
[2023-07-03 21:53] LABS: Creatinine Urine 127.3 mg/dL
[2023-07-03 21:58] LABS: Sodium Urine Random < 5 meq/L
[2023-07-03 22:40] VITALS: PULSE 108
--- NOTE | 2023-07-03 22:58 | PC.NURSE ---
Blood culture results not flagging positive under microbiology, positive result entered under comment with no definitive results. Lab results received from [facility], printed out, and placed on chart. Blood cultures positive for gram positive cocci in clusters in both aerobic and anaerobic bottles. Gretta notified.
[2023-07-04] MEDS: ONDANSETRON HCL ODT 4 MG TABLET PO ×2 (00:02→05:13)
[2023-07-04 06:00] VITALS: BP 166/72; PULSE 110; RESP 20; TEMP 36.4; O2SAT 99
[2023-07-04 06:03] LABS: Basophils Percent Auto 0.5 % (0.2-1.2); Eosinophils Percent Auto 0.1 % (0-4.4); Hematocrit 26.9 % (37.0-47.0); Hemoglobin 8.4 g/dL (12.0-15.0); Immature Granulocyte Absolute 0.03 K/mm3 (0.00-0.031); Immature Granulocyte Percent A 0.4 % (0-0.5); Lymphocytes Percent Auto 7.2 % (18.3-44.2); Mean Corpuscular HGB Conc 31.2 g/dl (32-36); Mean Corpuscular Hemoglobin 31.8 pg (26-34); Mean Corpuscular Volume 101.9 fl (80-100); Monocytes Absolute Auto 0.9 K/mm3 (0.1-0.6); Monocytes Percent Auto 10.6 % (2.6-8.5); Neutrophils Absolute Auto 6.8 K/mm3 (1.3-6.7); Neutrophils Percent Auto 81.2 % (45.5-73.1); Platelet Count Result 208 k/mm3 (150-375); Red Blood Count 2.64 M/mm3 (4.2-5.4); Red Cell Distribution Width 17.7 % (11.5-14.5); White Blood Count 8.3 K/mm3 (4.5-10.0)
[2023-07-04 06:20] LABS: Anion Gap 4 mmol/L (8-16); Blood Urea Nitrogen 28 mg/dL (7-17); Calcium 8.5 mg/dL (8.4-10.2); Carbon Dioxide 23 mmol/L (22-30); Chloride 104 mmol/L (98-107); Estimated CRCL calculation 69 ml/min; Estimated Glomerular Filt Rate > 60; Glucose 178 mg/dL (65-110); Potassium 4.9 mmol/L (3.4-5.0); Sodium 131 mmol/L (137-145)
--- NOTE | 2023-07-04 08:22 | ECG_ITS ---
Measurements Intervals [place] Rate: 121 P: 0 ND: 118 QRS: -2 QRSD: 87 T: 34 QT: 314 QTc: 446 Interpretive Statements SINUS TACHYCARDIA WITH SHORT ND INTERVAL POSSIBLE ANTERIOR MYOCARDIAL INFARCTION , OF INDETERMINATE AGE [30 ms Q WAVE IN V3/V4, OR R < 0.2 mV IN V4] ABNORMAL ECG COMPARED TO ECG 06/09/2023 03:27:24 SINUS TACHYCARDIA NOW PRESENT Electronically Signed On 07-04-2023 8:52:25 CDT by Shon Kenny M.D.
[2023-07-04 08:39] LABS: Glucose Point of Care 196 mg/dl (65-105)
[2023-07-04 09:01] LABS: Basophils Absolute Auto 0.1 K/mm3 (0.0-0.1); Basophils Percent Auto 0.6 % (0.2-1.2); Hematocrit 25.9 % (37.0-47.0); Hemoglobin 7.9 g/dL (12.0-15.0); Immature Granulocyte Absolute 0.12 K/mm3 (0.00-0.031); Immature Granulocyte Percent A 1.4 % (0-0.5); Lymphocytes Absolute Auto 0.54 K/mm3 (0.9-3.2); Lymphocytes Percent Auto 6.4 % (18.3-44.2); Mean Corpuscular HGB Conc 30.5 g/dl (32-36); Mean Corpuscular Hemoglobin 31.5 pg (26-34); Mean Corpuscular Volume 103.2 fl (80-100); Monocytes Percent Auto 11.3 % (2.6-8.5); Neutrophils Absolute Auto 6.8 K/mm3 (1.3-6.7); Neutrophils Percent Auto 80.3 % (45.5-73.1); Platelet Count Result 197 k/mm3 (150-375); Red Blood Count 2.51 M/mm3 (4.2-5.4); Red Cell Distribution Width 17.6 % (11.5-14.5); White Blood Count 8.5 K/mm3 (4.5-10.0)
--- NOTE | 2023-07-04 09:10 | PCPTNOTE ---
Attempted to see patient for PT, however patient was eating breakfast.
[2023-07-04 09:11] LABS: Alanine Aminotransferase 20 U/L (6-35); Albumin Level 2.5 g/dL (3.5-5.1); Alkaline Phosphatase 173 U/L (38-126); Anion Gap 4 mmol/L (8-16); Aspartate Amino Transferase 34 U/L (14-36); Bilirubin,Total 1.1 mg/dL (0.2-1.3); Blood Urea Nitrogen 29 mg/dL (7-17); Calcium 8.2 mg/dL (8.4-10.2); Carbon Dioxide 23 mmol/L (22-30); Chloride 105 mmol/L (98-107); Estimated CRCL calculation 69 ml/min; Estimated Glomerular Filt Rate > 60; Glucose 184 mg/dL (65-110); Lipase 15 U/L (23-300); Sodium 132 mmol/L (137-145)
[2023-07-04 09:12] LABS: Lactic Acid Reflex 1.8 mmol/L (0.7-2.0)
[2023-07-04 09:23] LABS: Troponin I 0.015 ng/mL (0.000-0.034)
[2023-07-04] MEDS: ENOXAPARIN 40 MG/0.4 ML SYRINGE SUB-Q (09:31)
--- NOTE | 2023-07-04 09:41 | PCPTNOTE ---
Patient unable to be seen for PT at this time, per RN asked therapy to wait to see patient due to patient needing testing done prior to therapy.
[2023-07-04] MEDS: SODIUM CHLORIDE 0.9% IV 500 ML 999 ML IV CONT (09:45)
[2023-07-04 09:50] LABS: Procalcitonin 0.4 ng/mL
[2023-07-04 10:00] VITALS: BP 145/65; PULSE 123; RESP 18; TEMP 37.3; O2SAT 96
[2023-07-04 10:40] VITALS: BP 152/70; PULSE 128; RESP 18; TEMP 37.1; O2SAT 100
--- NOTE | 2023-07-04 11:11 | PM.IMPN ---
Progress Note: A&P Assessment and Plan (1) Acute parotitis: Code(s): K11.21 - Acute sialoadenitis Status: Acute (2) Edema: Code(s): R60.9 - Edema, unspecified Status: Acute (3) Chronic anemia: Code(s): D64.9 - Anemia, unspecified Status: Acute (4) Type 2 diabetes mellitus: Code(s): E11.9 - Type 2 diabetes mellitus without complications Status: Acute (5) Hypertension: Code(s): I10 - Essential (primary) hypertension Status: Acute (6) Hyponatremia: Code(s): E87.1 - Hypo-osmolality and hyponatremia Status: Acute (7) Acute kidney injury: Code(s): N17.9 - Acute kidney failure, unspecified Status: Acute (8) Vomiting: Code(s): R11.10 - Vomiting, unspecified Status: Acute (9) Tachycardia: Code(s): R00.0 - Tachycardia, unspecified Status: Acute Plan 72F w/ PMH NIDDM, HTN, HLD, hypothyroidism, depression with anxiety, presented with right facial swelling. Admitted on 07/02 for acute parotitis. That has improved with antibiotics. on 07/04 she had dark/brown vomitus. 1) acute parotitis - started 2 days prior to admission, no evidence of metastatic infection. - cefepime, vancomycin, and flagyl started 07/01. greatly improved. continue antibiotics. 2) bacteremia? - for some reason unknown to me, only one bottle of blood culture was drawn on admission which now resulted staph aureus on 07/04. her MSRA nares cultures is negative. - continue vancomycin, metronidazole and cefepime as in plan #1 and check repeat blood cultures on 07/04. 3) tachycardia and vomiting - sinus. EKG without acute ischemic changes and trop x1 normal. this is likely 2/2 to her vomiting. - lipase pending, CXR 2 view and KUB 1 view pending. made her NPO and consulted GI for futher recs. also started normal saline 150ml/hr as her urine sodium was <5 on admission and protonix 40mg IV BID. she denies taking aspirin or painkillers at home, denies tobacco or ETOH abuse, takes 1 coffee per day. - echo on this admission with diastolic dysfunction and PAP of 54 mmhg. she has 1+ pitting edema of LE on admission but otherwise has no s/s of decompensated heart failure 4) R hip fracture - recent, past month, was transferred to OSH, was at rehab which is where she presented from this admission - stable. PT/OT. case mgmt for d/c to rehab again 5) PIOTR - resolved after fluid administration 6) LE swelling - new since she had her surgery, but b/l. US dopplers negative - continue compression stockings. echo revealing diastolic dysfunction. she otherwise appears compensated volume contreras. 7) suspected hypoosmolar hyponatremia - improved after fluid bolus on admission. ctm 8) NIDDM - accuchecks and ISS 7) HTN - CTM FEN: NPO with IVF GI prophylaxis: protonix 40mg IV BID DVT prophylaxis: lovenox dc'ed on 07/04 due to dark/brown vomitus. Lines: pIV Code Status: Full Code Dispo: stable. plan to discharge back to rehab More than 35 minutes spent on chart review, patient interaction and assessment and plan. Subjective Date/time seen: 07/04/23 11:11 Interval history: pt vomited multiple times since last night, dark/black vomitus. at bedside she appears anxious and slightly short of breath, but she denies shortness of breath, chest pain or abdominal pain and only admit to feeling a bit nauseous. her parotitis does not seem to both her anymore Review of Systems Review of Systems: All systems reviewed & are unremarkable except as noted in HPI and below Exam Const: General: no acute distress and uncomfortable HENMT: Other: right swelling decreased, but indurated at angle under tmj . redness improved Eyes: Pupils: Equal, round and reactive pupils present Neck: Neck: supple Resp: Effort & Inspection: normal respiratory effort Auscultation: clear to auscultation bilaterally Cardio: Rate: regular rate Rhythm: regular rhythm GI: Inspection: non-di
[2023-07-04 11:48] LABS: Glucose Point of Care 170 mg/dl (65-105)
[2023-07-04] MEDS: BETAMETHASONE/CLOTRIMAZOLE CR 15 GM TUBE 1 APPLIC TOPICAL ×2 (12:43→22:02)
[2023-07-04] MEDS: SODIUM CHLORIDE 0.9% IV 1,000 ML 150 ML IV CONT (12:45)
[2023-07-04] MEDS: CEFEPIME 2 GM/NS 50 ML 2 GM/50 ML BAG IVPB ×2 (12:46→18:21)
[2023-07-04] MEDS: metroNIDAZOLE 500 MG/ISO 100ML 500 MG/100 ML BAG 100 MG IVPB ×2 (12:50→21:57)
--- NOTE | 2023-07-04 12:59 | PCOTNOTE ---
Per nursing, pt. vomiting today with concerns for need for pt.'s further testing and observation prior to activity with therapy. Following.
[2023-07-04 13:05] LABS: IFOB Positive Control Positive; Immunochemical Fecal Occult Bl Positive (N)
--- NOTE | 2023-07-04 14:12 | WPDGICN ---
Assessment and Plan Assessment and plan (1) Coffee ground emesis: Code(s): K92.0 - Hematemesis Status: Acute Assessment and Plan: will assess with egd to check if ulcers, esophagitis, gastritis, etc iv protonix for now (2) Nausea and vomiting in adult: Code(s): R11.2 - Nausea with vomiting, unspecified Status: Acute Assessment and Plan: kub showed possible ileus (3) Chronic anemia: Code(s): D64.9 - Anemia, unspecified Status: Acute Assessment and Plan: could be after recent hip surgery but also noted occult blood in stools will proceed with sigmoidoscopy as well (4) Occult blood in stools: Code(s): R19.5 - Other fecal abnormalities Status: Acute (5) Acute parotitis: Code(s): K11.21 - Acute sialoadenitis Status: Acute Assessment and Plan: on iv antibiotics, clinically better (6) Type 2 diabetes mellitus: Code(s): E11.9 - Type 2 diabetes mellitus without complications Status: Acute (7) Hyponatremia: Code(s): E87.1 - Hypo-osmolality and hyponatremia Status: Acute (8) Closed hip fracture: Qualifiers: Encounter type: initial encounter Laterality: right Qualified Code(s): S72.001A - Fracture of unspecified part of neck of right femur, initial encounter for closed fracture Code(s): S72.009A - Fracture of unspecified part of neck of unspecified femur, initial encounter for closed fracture Status: Acute GI Consult Note Consult date/time: 07/04/23 14:12 Reason for consult: coffee ground emesis, anemia, FOBT + HPI: Barbaranahomi Palma is a 72 year old female with history of?type 2 diabetes mellitus, hypertension, hyperlipidemia who presented to the emergency department via EMS from a local rehab facility for evaluation of pain and swelling over the right side of the face and neck. She had recent hospitalization on 06/09/2023 with a right femoral neck fracture with failure of leg screw hardware which was previously in place then transferred to [place] for trauma/hip specialty and underwent repair/replacement of the hip and she has been at rehab since that time. This weekend she noticed discomfort on the right side of her face with swelling and redness in front of the ear extending onto the neck. CT scan reviewed and showed right parotiditis, also anemia with hgb 8 range since surgery, also yesterday episode of dark emesis but no abdominal pain, RN noted mucus in stool and positive for occult blood. Started on antibiotics for parotiditis. Review of Systems Constitutional: Constitutional: Denies chills Eyes: Eyes: Denies blurry vision ENT: Reports Normal hearing present Comments: Ri sided facial swelling Cardiovascular: Cardiovascular: Denies chest pain Respiratory: Respiratory: Denies cough Gastrointestinal: Gastrointestinal: Reports nausea and Reports vomiting Musculoskeletal: Musculoskeletal: Denies back pain Integumentary/Breasts: Skin/Breast: Denies rash Neurologic: Denies Abnormal speech present [facility] Past Medical History Medical History (Updated 07/04/23 @ 14:19 by Dewey Arauz MD) Arthritis Coffee ground emesis Depression with anxiety Failed hardware Hepatitis B Hypercholesterolemia Hypertension Hypothyroidism Nausea and vomiting in adult Occult blood in stools Type 2 diabetes mellitus Surgical History Surgical History (Updated 07/01/23 @ 21:50 by Gretta Sanchez PA-C) History of appendectomy History of hysterectomy History of right hip replacement History of surgical removal of ganglion cyst Family History Family History Father Malignant neoplasm of prostate History of quadruple bypass HLD (hyperlipidemia) Hypertension Diabetes mellitus Mother Breast cancer Diabetes mellitus Sibling Diabetes mellitus Other Arthritis Social History Social History (Updated
[2023-07-04 14:34] VITALS: BP 150/71; PULSE 113; RESP 18; TEMP 36.1; O2SAT 100
[2023-07-04] MEDS: polyethylene glycoL 3350 238 GM BOTTLE PO (16:21)
[2023-07-04 16:56] LABS: Glucose Point of Care 205 mg/dl (65-105)
--- NOTE | 2023-07-04 18:38 | PC.NURSE ---
Pt tolerated removal of remaining sutures.
[2023-07-04] MEDS: INSULIN ASPART (*BKC) 100 UNITS/ML SUB-Q (18:43)
--- NOTE | 2023-07-04 20:30 | PM.EVENT ---
Event Note Event Note Event Note: I was on the floor for another matter when nursing staff were in the patient's room evaluating the patient's Dias catheter. The patient had Dias catheter placed earlier in the day. There was 100 mL of urine in the catheter. However there had been no further urine output from the catheter. There was some concern as to whether the catheter was in the appropriate place. Nursing staff stated that a bladder scanner was demonstrating greater than a 1000 mL of presumed urine. I went to evaluate the patient. Found the patient to be tachycardic and altered. Nursing staff reports the patient has been confused but the nurse was unsure if this was new finding. Patient was oriented to place and time but confused as to the month. Patient has been afebrile. She is currently being treated for possible bacteremia however only 1 blood culture was obtained. I suspect patient only had 1 blood culture obtain due to her having difficulty with blood draws an access as the patient had an ultrasound guided IV placed earlier today for unknown reasons that midline that had been ordered was not placed. The patient has a 22 IV and her forearm. Patient reports feeling mildly short of breath. She denies any chest pain. On exam she her abdomen was noted to be distended with large pannus and large is mons edema. She had a small ulceration in the pannus fold with no obvious drainage. Some mild erythema underlying the pannus with no overt candidiasis. The reported generalized abdominal tenderness. Patient was noted to have anasarca on exam. She had some abdominal scars noted with a linear scar running from the umbilicus to the pubic symphysis and a smaller lateral right lower quadrant scar all that her well-healed, abdomen was distended but not taut no rebound or guarding, quiet bowel sounds, Dias catheter in place with a small amount of dark mildly cloudy urine, no UA available for review. Initially bladder scan was used at bedside but is was unable to provide me with additional information regarding abdominal structures. IC use ultrasound was utilized to perform a limited abdominal ultrasound of the abdomen with interpretation by myself demonstrating large volume of ascites, no obvious free air. The patient had significant tenderness to palpation of the abdomen and given limited evaluation with bedside ultrasound stat contrast CT scan of the abdomen pelvis was ordered. Patient was tachycardic but no leukocytosis. Patient had initial positive blood cultures with plan for repeat blood cultures on the however looks like these were not obtained. Subsequently repeat blood cultures have been ordered at this time. Will continue antibiotic coverage with cefepime Flagyl and vancomycin. Rate lactic acid was obtained which was normal. Patient is afebrile. CT of the abdomen pelvis result was personally reviewed and demonstrated marked ascites and nodular liver. No free air on my interpretation. Later official radiology interpretation was reviewed verified my interpretation with the addition of moderate-size hiatal hernia and small left pleural effusion with thoracic and lumbar spondylosis. Patient was receiving IV fluids at 150 mL/hour intravascular volume depletion in the patient was still on 150 mL of normal saline. Given the patient's marked amount of anasarca and ascites will discontinue IV fluids at this time. The patient would likely benefit from some Lasix. On review of the patient's sharp when the patient was admitted to the hospital on the 08 of June her weight was 101 kg. Currently her weight is 123 kg. Patient has had significant fluid retention since her orthopedic surgeries. Diuresis would definitely be beneficial. Will monitor strict I&O's and daily weights. Also upon review of the chart the patient has been persistently tachycardic since admission. Will place patient on telemetry. Patient during the review of the chart is appears
[2023-07-04 21:07] LABS: Lactic Acid Reflex 1.6 mmol/L (0.7-2.0)
[2023-07-04] MEDS: PANTOPRAZOLE SODIUM IV 40 MG VIAL IV PUSH (21:57)
[2023-07-04 22:00] VITALS: BP 141/56; PULSE 114; RESP 18; TEMP 36.7; O2SAT 97
[2023-07-04 22:19] LABS: Glucose Point of Care 159 mg/dl (65-105)
[2023-07-05] VITALS (24 sets, daily range): BP systolic 115–149; BP diastolic 53–84; PULSE 64–124; RESP 15–24; TEMP 35.2–37.2; O2SAT 93–100
[2023-07-05] MEDS: CEFEPIME 2 GM/NS 50 ML 2 GM/50 ML BAG IVPB ×3 (03:08→22:00)
[2023-07-05] MEDS: metroNIDAZOLE 500 MG/ISO 100ML 500 MG/100 ML BAG 100 MG IVPB ×3 (04:09→22:35)
--- NOTE | 2023-07-05 05:25 | WPDPROCEDUR ---
Procedures Other Procedures Procedure 1: Other Procedure: Bedside ultrasound was used to evaluate the patient's abdomen. Exam demonstrated copious amounts of fluids. No obvious dilated bowel. Dias catheter noted within the bladder. Exam was generally limited due to the volume of ascites and depth of penetration of the ultrasound. No obvious free air noted of. Exam was limited to the lower abdomen. Given the limited nature of the exam in the degree the patient's pain and concern for possible sepsis or other inter abdominal process CT of the abdomen pelvis was ordered.
[2023-07-05 05:38] LABS: Appearance Urine Cloudy (Clear); Bacteria Urine None Seen /hpf; Bilirubin Urine Negative (Negative); Blood Urine Negative (Negative); Color Urine Dark Yellow (Yellow); Glucose Urine UA Negative (Negative); Ketones Urine Negative (Negative); Leukocyte Esterase Ur Trace LEU/UL (Negative); Nitrate Urine Negative (Negative); Non Pathogenic Casts 0-2; Protein Urine 2+ mg/dL (Negative); RBC Urine 0-2 /hpf (0-2); Squamous Epithelial Cell Urine Few /hpf (Few); Urobilinogen Urine 0.2 mg/dL (<2.0); pH Urine 5.5 (5.0-9.0)
[2023-07-05 05:44] LABS: Add Urine Microscopic? YES; Specific Grav Ur 1.052 (1.001-1.035)
[2023-07-05] MEDS: METOPROLOL TARTRATE INJ 5 MG/5 ML VIAL IV PUSH (06:01)
[2023-07-05] MEDS: FUROSEMIDE INJ 40 MG/4 ML VIAL IV PUSH (06:01)
[2023-07-05] MEDS: LEVOTHYROXINE SODIUM INJ 100 MCG/5 ML VIAL 87.5 MCG IV PUSH (06:02)
[2023-07-05 07:04] LABS: Basophils Percent Auto 0.6 % (0.2-1.2); Eosinophils Absolute Auto 0.3 K/mm3 (0-0.3); Eosinophils Percent Auto 4.7 % (0-4.4); Hematocrit 21.3 % (37.0-47.0); Immature Granulocyte Absolute 0.04 K/mm3 (0.00-0.031); Immature Granulocyte Percent A 0.6 % (0-0.5); Lymphocytes Absolute Auto 0.83 K/mm3 (0.9-3.2); Lymphocytes Percent Auto 12.7 % (18.3-44.2); Mean Corpuscular HGB Conc 29.6 g/dl (32-36); Mean Corpuscular Hemoglobin 31.8 pg (26-34); Mean Corpuscular Volume 107.6 fl (80-100); Monocytes Percent Auto 14.9 % (2.6-8.5); Neutrophils Absolute Auto 4.3 K/mm3 (1.3-6.7); Neutrophils Percent Auto 66.5 % (45.5-73.1); Platelet Count Result 134 k/mm3 (150-375); Red Blood Count 1.98 M/mm3 (4.2-5.4); White Blood Count 6.5 K/mm3 (4.5-10.0)
[2023-07-05 07:16] LABS: Ammonia < 9 umol/L (9-30)
[2023-07-05 07:18] LABS: Albumin Level 1.9 g/dL (3.5-5.1)
[2023-07-05 07:22] LABS: Amylase < 30 U/L (30-110)
[2023-07-05 07:24] LABS: Alanine Aminotransferase 17 U/L (6-35); Albumin Level 1.8 g/dL (3.5-5.1); Alkaline Phosphatase 132 U/L (38-126); Anion Gap 3 mmol/L (8-16); Aspartate Amino Transferase 33 U/L (14-36); Bilirubin,Total 0.9 mg/dL (0.2-1.3); Blood Urea Nitrogen 22 mg/dL (7-17); Calcium 6.5 mg/dL (8.4-10.2); Carbon Dioxide 19 mmol/L (22-30); Chloride 89 mmol/L (98-107); Estimated CRCL calculation 88 ml/min; Estimated Glomerular Filt Rate > 60; Magnesium 1.3 mg/dL (1.6-2.3); Potassium 3.5 mmol/L (3.4-5.0)
[2023-07-05 07:40] LABS: Glucose Point of Care 153 mg/dl (65-105)
[2023-07-05 07:40] LABS: Procalcitonin 0.3 ng/mL
[2023-07-05 07:40] LABS: Glucose Point of Care 155 mg/dl (65-105)
[2023-07-05 07:50] LABS: Anisocytosis 1+ (NORMAL); Hemoglobin 6.3 g/dL (12.0-15.0); Hypochromasia 1+ (NORMAL); Platelet Estimate Decreased (Adequate); Schistocytes None Seen (NORMAL)
--- NOTE | 2023-07-05 08:05 | PCPTNOTE ---
The patient treatment was not able to be completed on 07/05/2023 due to change in medical condition. Per RN advised not to see patient for therapy due to change in medical condition this date. Will plan to continue treatment per plan of care.
[2023-07-05 08:25] LABS: Anion Gap 3 mmol/L (8-16); Blood Urea Nitrogen 29 mg/dL (7-17); Calcium 8.1 mg/dL (8.4-10.2); Carbon Dioxide 22 mmol/L (22-30); Chloride 106 mmol/L (98-107); Estimated CRCL calculation 78 ml/min; Estimated Glomerular Filt Rate > 60; Glucose 158 mg/dL (65-110); INR 1.4; Potassium 4.3 mmol/L (3.4-5.0); Prothrombin Time 18.4 Seconds (11.1-14.7); Sodium 131 mmol/L (137-145)
[2023-07-05 08:26] LABS: Partial Thromboplastin Time 36.1 SECONDS (22.3-36.8)
[2023-07-05] MEDS: BETAMETHASONE/CLOTRIMAZOLE CR 15 GM TUBE 1 APPLIC TOPICAL ×2 (09:51→20:31)
[2023-07-05] MEDS: PANTOPRAZOLE SODIUM IV 40 MG VIAL IV PUSH ×2 (09:54→20:32)
--- NOTE | 2023-07-05 10:39 | PC.NURSE ---
[facility] [employer] confirmed with radiologist that is is ok to continue with paracentesis with current labs.
[2023-07-05 10:50] LABS: Hematocrit 22.5 % (37.0-47.0)
[2023-07-05 10:51] LABS: Hemoglobin 6.8 g/dL (12.0-15.0)
[2023-07-05] MEDS: LACTATED RINGERS 1,000 ML 150 ML IV CONT (11:42)
--- NOTE | 2023-07-05 11:56 | WPDANESEPPF ---
Anes - Initial Pre Proc Eval Procedure: Operation Date: 07/05/23 14:30 Proposed Procedures p Esophagogastroduodenoscopy - Dewey Arauz MD s Flexible Sigmoidoscopy - Dewey Arauz MD Date/Time: 07/05/23 11:56 Surgeon: Tarik Bess MD Pre Op Diagnosis: Parotitis Patient Data Age: 72 Gender: F Height: 1.7 m Weight: 125.4 kg Last Vital Signs Temp 97.2 F L 07/05/23 11:48 Pulse 87 07/05/23 11:48 Resp 24 H 07/05/23 11:48 BP 119/53 L 07/05/23 11:48 Pulse Ox 100 07/05/23 11:48 O2 Del Method Room Air 07/05/23 11:48 Allergies Allergy/AdvReac Type Severity Reaction Status Date / Time baclofen Allergy Unknown Verified 07/05/23 11:45 clindamycin Allergy Swelling Verified 07/05/23 11:45 of Lip/Tongue/Throat corn Allergy Unknown Verified 07/05/23 11:45 erythromycin base Allergy Unknown Verified 07/05/23 11:45 oxytetracycline Allergy Unknown Verified 07/05/23 11:45 streptomycin Allergy Unknown Verified 07/05/23 11:45 Home Medications Medication Instructions Recorded Confirmed Type acetaminophen 500 mg tablet 1,000 mg PO TID PRN Pain 11/14/22 07/01/23 History donepezil 5 mg tablet 5 mg PO DAILY 11/14/22 07/01/23 History loratadine 10 mg tablet 10 mg PO DAILY 11/14/22 07/01/23 History lovastatin 40 mg tablet 40 mg PO HS 11/14/22 07/01/23 History melatonin 3 mg tablet 3 mg PO HS 11/14/22 07/01/23 History metformin 1,000 mg tablet 1,000 mg PO BID 11/14/22 07/01/23 History oxybutynin chloride 5 mg 5 mg PO TID 11/14/22 07/01/23 History tablet,extended release 24 hr propranolol 20 mg tablet 20 mg PO DAILY 11/14/22 07/01/23 History venlafaxine 75 mg capsule,extended 75 mg PO DAILY 11/14/22 07/01/23 History release 24 hr bisacodyl 10 mg rectal suppository 10 mg RECTAL Q24H PRN Constipation 06/09/23 07/01/23 History magnesium hydroxide 400 mg/5 mL 30 ml PO PRN PRN Constipation 06/09/23 07/01/23 History oral suspension (Milk of Magnesia) oxycodone 5 mg tablet 5 mg PO Q4H PRN pain 7-10 06/09/23 07/01/23 History ascorbic acid (vitamin C) 500 mg 500 mg PO BID 07/01/23 07/01/23 History tablet aspirin 81 mg capsule 81 mg PO DAILY 07/01/23 07/01/23 History levothyroxine 175 mcg tablet 175 mcg PO DAILY 07/01/23 07/01/23 History multivitamin with minerals (Daily 1 tablet PO DAILY 07/01/23 07/01/23 History Multivitamin-Minerals tablet) omeprazole 20 mg tablet,delayed 20 mg PO DAILY 07/01/23 07/01/23 History release senna-docusate sodium tablet 1 tablet PO BID 07/01/23 07/01/23 History tramadol 50 mg tablet 50 mg PO Q6H PRN pain 4-6 07/01/23 07/01/23 History Laboratory Tests 07/04/23 07/04/23 07/04/23 12:40 16:50 20:51 WBC RBC Hgb Hct MCV MCH MCHC RDW Plt Count MPV Immature Gran % (Auto) Neut % (Auto) Lymph % (Auto) Meagher % (Auto) Eos % (Auto) Baso % (Auto) Lymph # (Auto) Meagher # (Auto) Eos # (Auto) Baso # (Auto) Abs Immat Gran (auto) Absolute Neuts (auto) Absolute Nucleated RBC Nucleated RBC % Platelet Estimate Hypochromasia Anisocytosis Schistocytes PT INR APTT Sodium Potassium Chloride Carbon Dioxide Anion Gap BUN Creatinine Estim Creat Clear Calc Estimated GFR Glucose POC Capillary Glucose 205 H mg/dl (65-105) Lactic Acid 1.6 mmol/L (0.7-2.0) Calcium Magnesium Total Bilirubin AST ALT Alkaline Phosphatase Ammonia Total Protein
[2023-07-05 12:02] LABS: Glucose Point of Care 137 mg/dl (65-105)
[2023-07-05 12:04] LABS: Appearance Peritoneal Fluid Hazy (Clear); Color Peritoneal Fluid Yellow (Colorless); Nucleated Cells Peritoneal Flu 214 /uL (0-500); Source Peritoneal Fluid Peritoneal Fluid
[2023-07-05 12:12] LABS: RBC Peritoneal Fluid < 2000 /uL (0-100000)
[2023-07-05 12:23] LABS: Lymphocytes Peritoneal Fluid 23 %; Mesothelial Cells Peritoneal Fluid 25 %; Monocytes Peritoneal Fluid 5 %; Neutrophils Peritoneal Fluid 28 % (0-25); Other Cells Peritoneal Fluid 2 %
[2023-07-05 12:24] LABS: Macrophages Peritoneal Fluid 17 %
--- NOTE | 2023-07-05 12:54 | PM.IMPN ---
Progress Note: A&P Assessment and Plan (1) Acute parotitis: Code(s): K11.21 - Acute sialoadenitis Status: Acute Assessment and Plan: SEE BELOW (2) Edema: Code(s): R60.9 - Edema, unspecified Status: Acute (3) Chronic anemia: Code(s): D64.9 - Anemia, unspecified Status: Acute (4) Type 2 diabetes mellitus: Code(s): E11.9 - Type 2 diabetes mellitus without complications Status: Acute (5) Hypertension: Code(s): I10 - Essential (primary) hypertension Status: Acute (6) Hyponatremia: Code(s): E87.1 - Hypo-osmolality and hyponatremia Status: Acute (7) Acute kidney injury: Code(s): N17.9 - Acute kidney failure, unspecified Status: Acute (8) Vomiting: Code(s): R11.10 - Vomiting, unspecified Status: Acute (9) Tachycardia: Code(s): R00.0 - Tachycardia, unspecified Status: Acute Plan 1) acute parotitis - started 2 days prior to admission, no evidence of metastatic infection. - cefepime, vancomycin, and flagyl started 07/01. greatly improved. continue antibiotics. - BC positive for MRSA 2) bacteremia? - for some reason unknown to me, only one bottle of blood culture was drawn on admission which now resulted staph aureus on 07/04. her MSRA nares cultures is negative. - continue vancomycin, metronidazole and cefepime - BC positive for MRSA 3) upper GI bleed pt going for EGD and flex sigmoidoscopy today GI rounding 4) ascites Pt sp paracentesis watch lfts GI rounding 5) Acute blood loss anaemia Hb less than 7 tranfuse 2 units of blood 6) R hip fracture - recent, past month, was transferred to OSH, was at rehab which is where she presented from this admission - stable. PT/OT. case mgmt for d/c to rehab again 7) PIOTR - resolved after fluid administration 8) suspected hypoosmolar hyponatremia - improved after fluid bolus on admission. 9) NIDDM - accuchecks and SSI 100) HTN - chronic continue to monitor Subjective Date/time seen: 07/05/23 12:54 Interval history: 9O-year-old female with type 2 diabetes mellitus, hypertension, hyperlipidemia, hypothyroidism, and other comorbidities who presented to the emergency department via EMS from a local rehab facility for evaluation of pain and swelling over the right side of the face and neck. The patient provides the following history. She was admitted to this facility on 06/09/2023 with a right femoral neck fracture with failure of leg screw hardware which was previously in place. She was evaluated by the orthopedic surgeon and was ultimately transferred to [place] for trauma/hip specialty. There she reportedly underwent repair/replacement of the hip and she has been at rehab since that time. pt admitted for right parotiditis. Unfortunately pt has been having vomiting blood pt due to have EGD an flex sigmoid for upper GI bleed Pt had paracentesis today earlier this morning Pt to have 2 units of blood for hb less than 7 Review of Systems Review of Systems: Tired and weak chronically ill appearing All systems reviewed & are unremarkable except as noted in HPI and below Exam Const: General: comfortable, no acute distress and uncomfortable HENMT: Mouth: Yes moist mucous membranes Other: right swelling decreased, but indurated at angle under tmj . redness improved Eyes: Pupils: Equal, round and reactive pupils present Neck: Neck: supple Resp: Effort & Inspection: normal respiratory effort Auscultation: clear to auscultation bilaterally Cardio: Rate: regular rate Rhythm: regular rhythm GI: Inspection: non-distended Auscultation: normal bowel sounds Neuro: Cranial nerves: Yes Equal, round and reactive pupils present Extrem: General: edema (1+ LE edema b/l. unchanged) Objective Data Vital Signs Vital Signs: Vital Signs - 24 hr 07/04/23 14:34 07/04/23 22:00 07/05/23 00:00 Temperature 36.1 C L
[2023-07-05] MEDS: SODIUM CHLORIDE 0.9% IV 500 ML IV CONT (12:55)
--- NOTE | 2023-07-05 13:00 | SUR.OPER ---
EGD: Start 12:50, End 12:53 Sigmoidoscopy: Start 12:58, End 13:06
[2023-07-05] MEDS: SODIUM CHLORIDE 0.9% IV 250 ML 30 ML IV CONT (13:50)
[2023-07-05 15:18] LABS: Glucose Point of Care 132 mg/dl (65-105)
--- NOTE | 2023-07-05 17:01 | PCOTNOTE ---
Pt. unable to be evaluated due to change in medical condition. Per RN advised not to see patient for therapy due to change in medical condition this date. Pt. underwent procedures on this date. Therapy services to follow up with care team prior to evaluation of pt. to ensure safe participation in therapy services
[2023-07-05] MEDS: SUCRALFATE SUSP 100 MG/ML 10 ML UDC 1000 MG PO ×2 (17:26→20:32)
[2023-07-05 17:38] LABS: Glucose Point of Care 125 mg/dl (65-105)
[2023-07-05] MEDS: ACETAMINOPHEN 325 MG TABLET 650 MG PO (20:33)
[2023-07-06] VITALS (10 sets, daily range): BP systolic 128–147; BP diastolic 61–75; PULSE 76–100; RESP 18–20; TEMP 36.2–37.1; O2SAT 98–100
[2023-07-06] MEDS: traMADol HCL (*CRX) 50 MG TABLET 25 MG PO (00:23)
[2023-07-06 06:05] LABS: Iron 71 ug/dL (37-170)
[2023-07-06 06:12] LABS: Vancomycin Trough 22.5 ug/mL (10.0-20.0)
[2023-07-06 06:15] LABS: Percent Iron Saturation 40 % (20-50)
[2023-07-06] MEDS: SUCRALFATE SUSP 100 MG/ML 10 ML UDC 1000 MG PO ×4 (06:22→21:21)
[2023-07-06] MEDS: LEVOTHYROXINE SODIUM INJ 100 MCG/5 ML VIAL 87.5 MCG IV PUSH (06:22)
[2023-07-06] MEDS: CEFEPIME 2 GM/NS 50 ML 2 GM/50 ML BAG IVPB (06:22)
[2023-07-06] MEDS: metroNIDAZOLE 500 MG/ISO 100ML 500 MG/100 ML BAG 100 MG IVPB (06:22)
[2023-07-06 06:36] LABS: Hepatitis B Surface Antigen Negative (Negative)
[2023-07-06 06:42] LABS: HAV RESULT Negative (Negative); Hepatitis B Core IgM Result Negative (Negative)
[2023-07-06 06:54] LABS: Hepatitis C Virus Antibody Negative (Negative)
[2023-07-06] MEDS: PROPRANOLOL HCL 20 MG TABLET PO (08:15)
[2023-07-06] MEDS: PANTOPRAZOLE SODIUM IV 40 MG VIAL IV PUSH ×2 (08:16→21:21)
[2023-07-06] MEDS: VENLAFAXINE HCL XR 75 MG CAP.ER.24H PO (08:16)
[2023-07-06] MEDS: BETAMETHASONE/CLOTRIMAZOLE CR 15 GM TUBE 1 APPLIC TOPICAL ×2 (08:17→21:22)
--- NOTE | 2023-07-06 08:57 | WPDANESPN ---
Anes - Prog Note Post-Op Date/Time: 07/06/23 08:57 Cardiovascular status: other (anemia) Respiratory status: normal Airway patency: baseline Mental status: baseline Post-Op hydration status: normal Vital Signs: Last Vital Signs Temp 98.7 F 07/06/23 06:00 Pulse 99 07/06/23 08:15 Resp 20 07/06/23 06:00 BP 147/71 H 07/06/23 06:00 Pulse Ox 99 07/06/23 06:00 O2 Del Method Room Air 07/05/23 13:30 O2 Flow Rate 3 07/05/23 13:20 Pain Score (VAS): 0/10 I/O: Intake & Output 07/05/23 07/06/23 07/06/23 23:59 07:59 15:59 Intake Total 840 Output Total 400 600 Balance 440 -600 Laboratory Tests 07/05/23 10:41 07/05/23 08:07 07/02/23 07/05/23 07/05/23 05:22 06:46 10:41 Hgb 6.8 L* Hct 22.5 L POC Capillary Glucose Serum Osmolality 290 Iron TIBC % Saturation Ferritin Peritoneal Source Peritoneal Color Peritoneal Appearance Peritoneal RBC Periton Nuc Cells Periton Neutrophils Periton Lymphocytes Peritoneal Monocytes Periton Mesothelial Periton Macrophages Peritoneal Other Cells Peritoneal Tot Protein Peritoneal Albumin Peritoneal LDH Peritoneal Glucose Peritoneal Amylase Vancomycin Trough GALINA Screen Mitochondria M2 IgG Ab Hepatitis A IgM Ab Hep Bs Antigen Hep B Core IgM Ab Hepatitis C Ab Screen Blood Type A Positive Antibody Screen Negative Crossmatch See Detail 07/05/23 07/05/23 07/05/23 10:51 12:00 15:05 Hgb Hct POC Capillary Glucose 137 H 132 H Serum Osmolality Iron TIBC % Saturation Ferritin Peritoneal Source Peritoneal fluid Peritoneal Color Yellow Peritoneal Appearance Hazy A Peritoneal RBC < 2000 Periton Nuc Cells 214 Periton Neutrophils 28 H Periton Lymphocytes 23 Peritoneal Monocytes 5 Periton Mesothelial 25 Periton Macrophages 17 Peritoneal Other Cells 2 Peritoneal Tot Protein Pending Peritoneal Albumin Pending Peritoneal LDH Pending Peritoneal Glucose Pending Peritoneal Amylase Pending Vancomycin Trough GALINA Screen Mitochondria M2 IgG Ab Hepatitis A IgM Ab Hep Bs Antigen Hep B Core IgM Ab Hepatitis C Ab Screen Blood Type Antibody Screen Crossmatch 07/05/23 07/06/23 17:35 05:29 Hgb Hct POC Capillary Glucose 125 H Serum Osmolality Iron 71 TIBC 177 L % Saturation 40 Ferritin 105.00 Peritoneal Source Peritoneal Color Peritoneal Appearance Peritoneal RBC Periton Nuc Cells Periton Neutrophils Periton Lymphocytes Peritoneal Monocytes Periton Mesothelial Periton Macrophages Peritoneal Other Cells Peritoneal Tot Protein Peritoneal Albumin Peritoneal LDH Peritoneal Glucose Peritoneal Amylase Vancomycin Trough 22.5 H GALINA Screen Pending Mitochondria M2 IgG Ab Pending Hepatitis A IgM Ab Negative Hep Bs Antigen Negative Hep B Core IgM Ab Negative Hepatitis C Ab Screen Negative Blood Type Antibody Screen Crossmatch Microbiology 07/04/23 20:51 Blood Blood Culture - Preliminary 07/04/23 20:51 Blood Blood Culture - Preliminary 07/01/23 17:27 Blood Blood Culture - Final Methicillin Resis Staph Aureus Post-procedural complaints: none Patient Feedback: Patient satisfied with anesthetic care.
[2023-07-06 08:58] LABS: Glucose Point of Care 111 mg/dl (65-105)
[2023-07-06] MEDS: VANCOMYCIN 1,250 MG/NS 250 ML 1,250 MG/250 ML BAG 166.67 MG IVPB (09:02)
[2023-07-06 09:14] LABS: Glucose 804 mg/dL (65-110)
[2023-07-06 09:15] LABS: Sodium 111 mmol/L (137-145)
[2023-07-06 12:27] LABS: Hematocrit 26.1 % (37.0-47.0); Hemoglobin 8.2 g/dL (12.0-15.0); Mean Corpuscular HGB Conc 31.4 g/dl (32-36); Mean Corpuscular Hemoglobin 30.5 pg (26-34); Mean Platelet Volume 9.6 fl (7.4-10.4); Platelet Count Result 132 k/mm3 (150-375); Red Blood Count 2.69 M/mm3 (4.2-5.4); White Blood Count 6.8 K/mm3 (4.5-10.0)
[2023-07-06 12:32] LABS: Glucose Point of Care 135 mg/dl (65-105)
[2023-07-06 12:36] LABS: Alanine Aminotransferase 23 U/L (6-35); Albumin Level 2.2 g/dL (3.5-5.1); Alkaline Phosphatase 132 U/L (38-126); Anion Gap 2 mmol/L (8-16); Aspartate Amino Transferase 57 U/L (14-36); Bilirubin,Total 1.5 mg/dL (0.2-1.3); Blood Urea Nitrogen 24 mg/dL (7-17); Calcium 7.9 mg/dL (8.4-10.2); Carbon Dioxide 21 mmol/L (22-30); Chloride 106 mmol/L (98-107); Estimated CRCL calculation 88 ml/min; Estimated Glomerular Filt Rate > 60; Glucose 120 mg/dL (65-110); Sodium 129 mmol/L (137-145)
--- NOTE | 2023-07-06 12:58 | PCPTNOTE ---
Attempted to see patient for PT, however patient was eating breakfast.
--- NOTE | 2023-07-06 13:20 | PM.IMPN ---
Progress Note: A&P Assessment and Plan (1) Acute parotitis: Code(s): K11.21 - Acute sialoadenitis Status: Acute Assessment and Plan: SEE BELOW (2) Edema: Code(s): R60.9 - Edema, unspecified Status: Acute (3) Chronic anemia: Code(s): D64.9 - Anemia, unspecified Status: Acute (4) Type 2 diabetes mellitus: Code(s): E11.9 - Type 2 diabetes mellitus without complications Status: Acute (5) Hypertension: Code(s): I10 - Essential (primary) hypertension Status: Acute (6) Hyponatremia: Code(s): E87.1 - Hypo-osmolality and hyponatremia Status: Acute (7) Acute kidney injury: Code(s): N17.9 - Acute kidney failure, unspecified Status: Acute (8) Vomiting: Code(s): R11.10 - Vomiting, unspecified Status: Acute (9) Tachycardia: Code(s): R00.0 - Tachycardia, unspecified Status: Acute Plan 1) acute parotitis - started 2 days prior to admission, no evidence of metastatic infection. - cefepime, vancomycin, and flagyl started 07/01. greatly improved. - Change to iv vancomycin and Augmentin - BC positive for MRSA 2) bacteremia? - for some reason unknown to me, only one bottle of blood culture was drawn on admission which now resulted staph aureus on 07/04. her MSRA nares cultures is negative. - dc vancomycin, metronidazole and cefepime transition to iv vancomycin and augmentin - BC positive for MRSA 3) upper GI bleed sp EGD and flex sigmoidoscopy GI rounding 4) ascites Pt sp paracentesis watch lfts GI rounding 5) Acute blood loss anaemia Hb less than 7 tranfuse 2 units of blood hb is 8 today 6) R hip fracture - recent, past month, was transferred to OSH, was at rehab which is where she presented for this admission - stable. PT/OT. case mgmt for d/c to rehab when medically stable 7) PIOTR - resolved after fluid administration 8) suspected hypoosmolar hyponatremia - improved after fluid bolus on admission. 9) NIDDM - accuchecks and SSI 10) HTN - chronic continue to monitor Subjective Date/time seen: 07/06/23 13:20 Interval history: 9O-year-old female with type 2 diabetes mellitus, hypertension, hyperlipidemia, hypothyroidism, and other comorbidities who presented to the emergency department via EMS from a local rehab facility for evaluation of pain and swelling over the right side of the face and neck. The patient provides the following history. She was admitted to this facility on 06/09/2023 with a right femoral neck fracture with failure of leg screw hardware which was previously in place. She was evaluated by the orthopedic surgeon and was ultimately transferred to [place] for trauma/hip specialty. There she reportedly underwent repair/replacement of the hip and she has been at rehab since that time. pt admitted for right parotiditis. Unfortunately pt has been having vomiting blood pt due to have EGD an flex sigmoid for upper GI bleed Pt had paracentesis today earlier this morning Pt to have 2 units of blood for hb less than 7 hb today is 8 pt looks better more alert holding conversation Review of Systems Review of Systems: Tired and weak chronically ill appearing Exam Const: General: comfortable, no acute distress and uncomfortable Neck: Neck: supple Resp: Effort & Inspection: normal respiratory effort Auscultation: clear to auscultation bilaterally Cardio: Rate: regular rate Rhythm: regular rhythm GI: Inspection: non-distended Auscultation: normal bowel sounds Neuro: Cranial nerves: Yes Equal, round and reactive pupils present Extrem: General: edema (1+ LE edema b/l. unchanged) Objective Data Vital Signs Vital Signs: Vital Signs - 24 hr 07/05/23 13:30 07/05/23 14:03 07/05/23 14:19 Temperature 35.3 C L 35.2 C L Pulse Rate 84 91 87 Respiratory Rate 15 18 18 Blood Pressure 134/76 126/69 115/67 Pulse Oximetry 99 93 99 Oxygen Deliver
[2023-07-06] MEDS: AMOXICILLIN/CLAVULANATE K 875-125 MG TAB 1 TABLET PO ×2 (14:05→21:21)
--- NOTE | 2023-07-06 15:09 | WPDGIPROGNO ---
Progress Note: A&P Assessment and Plan (1) Coffee ground emesis: Code(s): K92.0 - Hematemesis Status: Acute Assessment and Plan: egd yesterday showed non bleeding esophagitis and hiatal hernia, no varices continue with ppi and also carafate no more coffee ground emesis (2) Erosive esophagitis: Code(s): K22.10 - Ulcer of esophagus without bleeding Status: Acute (3) Cirrhosis: Code(s): K74.60 - Unspecified cirrhosis of liver Status: Acute Assessment and Plan: probably lucio work up for other chronic liver conditions pending she will need liver imaging every 6 months and follow-up in office after discharge (4) Acute parotitis: Code(s): K11.21 - Acute sialoadenitis Status: Acute Assessment and Plan: on iv antibiotic also noted MRSA in one bottle (5) MRSA bacteremia: Code(s): R78.81 - Bacteremia; B95.62 - Methicillin resistant Staphylococcus aureus infection as the cause of diseases classified elsewhere Status: Acute (6) Ascites: Code(s): R18.8 - Other ascites Status: Acute Assessment and Plan: no sign of sbp but she has been on abx anyways will start low dose diuretics 2g na diet Subjective Date/time seen: 07/06/23 15:09 Interval history: egd yesterday with esophagitis without bleeding, also hiatal hernia. Also underwent paracentesis- liquid negative for SBP. She denies any nausea, no abdominal pain. Review of Systems Review of Systems: All systems reviewed & are unremarkable except as noted in HPI and below Exam Const: General: comfortable, no acute distress and uncomfortable HENMT: Face/Nose/Sinus: Normal nares present Eyes: Sclera: sclerae normal Neck: Neck: supple Resp: Effort & Inspection: normal respiratory effort Auscultation: clear to auscultation bilaterally Cardio: Rate: regular rate Rhythm: regular rhythm GI: Inspection: non-distended GI Palp: Yes Soft to palpation and No Guarding due to palpation present (GI) Auscultation: normal bowel sounds Skin: General skin exam: normal color Neuro: Speech: normal speech Motor exam (neuro): 5/5 motor strength present throughout Extrem: General: edema (1+ LE edema b/l. unchanged) Psych: Affect: normal affect Objective Data Vital Signs Vital Signs: Vital Signs - 24 hr 07/05/23 15:15 07/05/23 16:20 07/05/23 17:19 Temperature 98.0 F 98.3 F 98.4 F Pulse Rate 96 90 81 Respiratory Rate 18 16 16 Blood Pressure 120/56 L 116/77 133/73 Pulse Oximetry 100 96 100 Oxygen Delivery 07/05/23 16:00 07/05/23 18:39 07/05/23 18:57 Temperature 98.4 F 98.3 F Pulse Rate 78 84 105 H Respiratory Rate 16 16 Blood Pressure 125/82 127/70 Pulse Oximetry 100 100 Oxygen Delivery 07/05/23 18:57 07/05/23 19:57 07/05/23 20:57 Temperature 98.3 F 98.5 F 98.7 F Pulse Rate 105 H 104 H 102 H Respiratory Rate 16 21 H 21 H Blood Pressure 127/70 145/65 H 115/69 Pulse Oximetry 100 100 100 Oxygen Delivery 07/05/23 21:57 07/05/23 22:57 07/05/23 22:00 Temperature 99.0 F 98.1 F 98.5 F Pulse Rate 101 H 99 104 H Respiratory Rate 21 H 20 21 H Blood Pressure 115/62 132/60 145/65 H Pulse Oximetry 100 98 100 Oxygen Delivery 07/05/23 20:00 07/06/23 00:00 07/06/23 04:00 Temperature Pulse Rate 101 H 99 84 Respiratory Rate Blood Pressure Pulse Oximetry Oxygen Delivery 07/06/23 06:00 07/06/23 08:15 07/06/23 08:30 Temperature 98.7 F Pulse Rate 86 99 Respiratory Rate 20 Blood Pressure 147/71 H Pulse Oximetry 99 Oxygen Delivery Room Air 07/06/23 08:04 07/06/23 12:05 07/06/23 14:21 Temperature 98.2 F Pulse Rate 100 77 76 Respiratory Rate 18 Blood Pressure 128/75 Pulse Oximetry 100 Oxygen Delivery Intake/Output Intake/Output: Intake & Output 07/03/23 07/04/23 07/05/23 07/06/23 23:59 23:59 23:59 23:59 Intake Total 1310 1340 890 730 Output Total 234 856 7329 600 Balance 1110 765
[2023-07-06 15:57] LABS: Osmolality, Urine 510 mOsm/kg (50-1200)
[2023-07-06 17:19] LABS: Glucose Point of Care 126 mg/dl (65-105)
[2023-07-06] MEDS: VANCOMYCIN 1,250 MG/NS 250 ML 1,250 MG/250 ML BAG 166 MG IVPB (20:00)
[2023-07-06 20:23] LABS: Glucose Point of Care 157 mg/dl (65-105)
[2023-07-06 22:26] LABS: Glucose Point of Care 146 mg/dl (65-105)
[2023-07-07] VITALS (8 sets, daily range): BP systolic 118–129; BP diastolic 51–67; PULSE 73–99; RESP 18; TEMP 36.3–36.7; O2SAT 96–100
[2023-07-07] MEDS: ACETAMINOPHEN 325 MG TABLET 650 MG PO (01:40)
[2023-07-07] MEDS: LEVOTHYROXINE SODIUM INJ 100 MCG/5 ML VIAL 87.5 MCG IV PUSH (05:49)
[2023-07-07] MEDS: SUCRALFATE SUSP 100 MG/ML 10 ML UDC 1000 MG PO ×4 (05:49→21:36)
[2023-07-07] MEDS: PANTOPRAZOLE SODIUM IV 40 MG VIAL IV PUSH ×2 (08:17→21:36)
[2023-07-07] MEDS: VENLAFAXINE HCL XR 75 MG CAP.ER.24H PO (08:17)
[2023-07-07] MEDS: AMOXICILLIN/CLAVULANATE K 875-125 MG TAB 1 TABLET PO ×2 (08:18→21:36)
[2023-07-07] MEDS: SPIRONOLACTONE 50 MG TABLET PO (08:18)
[2023-07-07] MEDS: FUROSEMIDE 20 MG TABLET PO (08:18)
[2023-07-07] MEDS: PROPRANOLOL HCL 20 MG TABLET PO (08:18)
[2023-07-07] MEDS: BETAMETHASONE/CLOTRIMAZOLE CR 15 GM TUBE 1 APPLIC TOPICAL ×2 (08:19→21:39)
[2023-07-07] MEDS: VANCOMYCIN 1,250 MG/NS 250 ML 1,250 MG/250 ML BAG 166 MG IVPB (08:23)
[2023-07-07 08:26] LABS: Glucose Point of Care 113 mg/dl (65-105)
--- NOTE | 2023-07-07 12:29 | PM.IMPN ---
Progress Note: A&P Assessment and Plan (1) Acute parotitis: Code(s): K11.21 - Acute sialoadenitis Status: Acute Assessment and Plan: SEE BELOW (2) Edema: Code(s): R60.9 - Edema, unspecified Status: Acute (3) Chronic anemia: Code(s): D64.9 - Anemia, unspecified Status: Acute (4) Type 2 diabetes mellitus: Code(s): E11.9 - Type 2 diabetes mellitus without complications Status: Acute (5) Hypertension: Code(s): I10 - Essential (primary) hypertension Status: Acute (6) Hyponatremia: Code(s): E87.1 - Hypo-osmolality and hyponatremia Status: Acute (7) Acute kidney injury: Code(s): N17.9 - Acute kidney failure, unspecified Status: Acute (8) Vomiting: Code(s): R11.10 - Vomiting, unspecified Status: Acute (9) Tachycardia: Code(s): R00.0 - Tachycardia, unspecified Status: Acute Plan 1) acute parotitis - started 2 days prior to admission, no evidence of metastatic infection. - cefepime, vancomycin, and flagyl started 07/01. greatly improved. - Changed to iv vancomycin and Augmentin - BC positive for MRSA 2) bacteremia? - for some reason unknown to me, only one bottle of blood culture was drawn on admission which now resulted staph aureus on 07/04. her MSRA nares cultures is negative. - dc vancomycin, metronidazole and cefepime transition to iv vancomycin and augmentin - BC positive for MRSA 3) upper GI bleed sp EGD and flex sigmoidoscopy GI rounding EGD showed non bleeding esophagitis and hiatal hernia, no varices 4) ascites Pt sp paracentesis not likely to be SBP watch lfts likely secondary to DUQUE GI rounding 5) Acute blood loss anaemia Hb less than 7 tranfuse 2 units of blood hb is 8 continue to watch hb 6) R hip fracture - recent, past month, was transferred to OSH, was at rehab which is where she presented for this admission - stable. PT/OT. case mgmt for d/c to rehab when medically stable 7) PIOTR - resolved after fluid administration 8) suspected hypoosmolar hyponatremia - improved after fluid bolus on admission. sodium is 129 today 9) NIDDM - accuchecks and SSI 10) HTN - chronic continue to monitor [facility] to SNF on Tuesday Subjective Date/time seen: 07/07/23 12:29 Interval history: 9O-year-old female with type 2 diabetes mellitus, hypertension, hyperlipidemia, hypothyroidism, and other comorbidities who presented to the emergency department via EMS from a local rehab facility for evaluation of pain and swelling over the right side of the face and neck. The patient provides the following history. She was admitted to this facility on 06/09/2023 with a right femoral neck fracture with failure of leg screw hardware which was previously in place. She was evaluated by the orthopedic surgeon and was ultimately transferred to [place] for trauma/hip specialty. There she reportedly underwent repair/replacement of the hip and she has been at rehab since that time. pt admitted for right parotiditis. Unfortunately pt has been having vomiting blood pt due to have EGD an flex sigmoid for upper GI bleed EGD showed non bleeding esophagitis and hiatal hernia, no varices Pt had paracentesis Pt had blood tranfusion Pt doing better today continue theraphy and DC to SNF on Tuesday Review of Systems Review of Systems: Feels better Exam Const: General: comfortable, no acute distress and uncomfortable HENMT: Mouth: Yes moist mucous membranes Other: right swelling decreased, but indurated at angle under tmj . redness improved Eyes: Pupils: Equal, round and reactive pupils present Neck: Neck: supple Resp: Effort & Inspection: normal respiratory effort Auscultation: clear to auscultation bilaterally Cardio: Rate: regular rate Rhythm: regular rhythm GI: Inspection: non-distended Auscultation: normal bowel sounds Neuro: Cranial nerves: Yes Equal,
[2023-07-07 12:43] LABS: Glucose Point of Care 138 mg/dl (65-105)
[2023-07-07 17:30] LABS: Glucose Point of Care 131 mg/dl (65-105)
[2023-07-07 19:24] LABS: Vancomycin Trough 28.5 ug/mL (10.0-20.0)
[2023-07-07 21:06] LABS: Glucose Point of Care 136 mg/dl (65-105)
[2023-07-08 05:24] VITALS: BP 142/67; PULSE 84; RESP 16; TEMP 36.8; O2SAT 100
[2023-07-08] MEDS: LEVOTHYROXINE SODIUM INJ 100 MCG/5 ML VIAL 87.5 MCG IV PUSH (05:42)
[2023-07-08] MEDS: SUCRALFATE SUSP 100 MG/ML 10 ML UDC 1000 MG PO ×4 (05:43→20:11)
[2023-07-08 06:22] LABS: Alanine Aminotransferase 19 U/L (6-35); Albumin Level 2.3 g/dL (3.5-5.1); Alkaline Phosphatase 162 U/L (38-126); Anion Gap 2 mmol/L (8-16); Aspartate Amino Transferase 48 U/L (14-36); Blood Urea Nitrogen 18 mg/dL (7-17); Calcium 7.9 mg/dL (8.4-10.2); Carbon Dioxide 21 mmol/L (22-30); Chloride 105 mmol/L (98-107); Estimated CRCL calculation 79 ml/min; Estimated Glomerular Filt Rate > 60; Glucose 120 mg/dL (65-110); Potassium 3.9 mmol/L (3.4-5.0); Sodium 128 mmol/L (137-145)
[2023-07-08 08:20] LABS: Glucose Point of Care 124 mg/dl (65-105)
[2023-07-08 08:31] VITALS: PULSE 84
[2023-07-08] MEDS: AMOXICILLIN/CLAVULANATE K 875-125 MG TAB 1 TABLET PO ×2 (08:31→20:10)
[2023-07-08] MEDS: FUROSEMIDE 20 MG TABLET PO (08:31)
[2023-07-08] MEDS: PROPRANOLOL HCL 20 MG TABLET PO (08:31)
[2023-07-08] MEDS: PANTOPRAZOLE SODIUM IV 40 MG VIAL IV PUSH ×2 (08:31→20:11)
[2023-07-08] MEDS: BETAMETHASONE/CLOTRIMAZOLE CR 15 GM TUBE 1 APPLIC TOPICAL ×2 (08:32→20:11)
[2023-07-08] MEDS: SPIRONOLACTONE 50 MG TABLET PO (08:32)
[2023-07-08] MEDS: VENLAFAXINE HCL XR 75 MG CAP.ER.24H PO (08:32)
[2023-07-08 12:28] LABS: Glucose Point of Care 142 mg/dl (65-105)
[2023-07-08] MEDS: SODIUM CHLORIDE 1 GM TABLET PO (13:50)
--- NOTE | 2023-07-08 15:46 | PM.IMPN ---
Progress Note: A&P Assessment and Plan (1) Acute parotitis: Code(s): K11.21 - Acute sialoadenitis Status: Acute Assessment and Plan: SEE BELOW (2) Edema: Code(s): R60.9 - Edema, unspecified Status: Acute (3) Chronic anemia: Code(s): D64.9 - Anemia, unspecified Status: Acute (4) Type 2 diabetes mellitus: Code(s): E11.9 - Type 2 diabetes mellitus without complications Status: Acute (5) Hypertension: Code(s): I10 - Essential (primary) hypertension Status: Acute (6) Hyponatremia: Code(s): E87.1 - Hypo-osmolality and hyponatremia Status: Acute (7) Acute kidney injury: Code(s): N17.9 - Acute kidney failure, unspecified Status: Acute (8) Vomiting: Code(s): R11.10 - Vomiting, unspecified Status: Acute (9) Tachycardia: Code(s): R00.0 - Tachycardia, unspecified Status: Acute Plan 1) acute parotitis - started 2 days prior to admission, no evidence of metastatic infection. - cefepime, vancomycin, and flagyl started 07/01. greatly improved. - Changed to iv vancomycin and Augmentin - BC positive for MRSA 2) bacteremia? - for some reason unknown to me, only one bottle of blood culture was drawn on admission which now resulted staph aureus on 07/04. her MSRA nares cultures is negative. - dc vancomycin, metronidazole and cefepime transition to iv vancomycin and augmentin - BC positive for MRSA 3) upper GI bleed sp EGD and flex sigmoidoscopy GI rounding EGD showed non bleeding esophagitis and hiatal hernia, no varices 4) ascites Pt sp paracentesis not likely to be SBP watch lfts likely secondary to DUQUE GI rounding 5) Acute blood loss anaemia Hb less than 7 tranfuse 2 units of blood hb is 8 continue to watch hb 6) R hip fracture - recent, past month, was transferred to OSH, was at rehab which is where she presented for this admission - stable. PT/OT. case mgmt for d/c to rehab when medically stable 7) PIOTR - resolved after fluid administration 8) suspected hypoosmolar hyponatremia - improved after fluid bolus on admission. sodium is 129 today - start salt tablets 9) NIDDM - accuchecks and SSI 10) HTN - chronic continue to monitor [facility] Dc to SNF on Tuesday Subjective Date/time seen: 07/08/23 15:46 Interval history: 9O-year-old female with type 2 diabetes mellitus, hypertension, hyperlipidemia, hypothyroidism, and other comorbidities who presented to the emergency department via EMS from a local rehab facility for evaluation of pain and swelling over the right side of the face and neck. The patient provides the following history. She was admitted to this facility on 06/09/2023 with a right femoral neck fracture with failure of leg screw hardware which was previously in place. She was evaluated by the orthopedic surgeon and was ultimately transferred to [place] for trauma/hip specialty. There she reportedly underwent repair/replacement of the hip and she has been at rehab since that time. pt admitted for right parotiditis. Unfortunately pt has been having vomiting blood pt due to have EGD an flex sigmoid for upper GI bleed EGD showed non bleeding esophagitis and hiatal hernia, no varices Pt had paracentesis Pt had blood tranfusion Pt doing better today continue theraphy and DC to SNF on Tuesday plan to dc barrera today voiding trail today Pt to be DC on tuesday to SNF Review of Systems Review of Systems: Feels better All systems reviewed & are unremarkable except as noted in HPI and below Exam Const: General: comfortable, no acute distress and uncomfortable HENMT: Mouth: Yes moist mucous membranes Other: right swelling decreased, but indurated at angle under tmj . redness improved Eyes: Pupils: Equal, round and reactive pupils present Neck: Neck: supple Resp: Effort & Inspection: normal respiratory effort Auscultation: clear to auscultatio
[2023-07-08 17:46] LABS: Glucose Point of Care 141 mg/dl (65-105)
[2023-07-08 18:37] LABS: Vancomycin Trough 19.2 ug/mL (10.0-20.0)
[2023-07-08 21:23] VITALS: BP 122/53; PULSE 77; RESP 18; TEMP 36.3; O2SAT 100
[2023-07-08] MEDS: VANCOMYCIN 1,250 MG/NS 250 ML 1,250 MG/250 ML BAG 166.67 MG IVPB (21:35)
[2023-07-08 22:03] LABS: Glucose Point of Care 134 mg/dl (65-105)
[2023-07-09] MEDS: ACETAMINOPHEN 325 MG TABLET 650 MG PO (00:45)
[2023-07-09] MEDS: SUCRALFATE SUSP 100 MG/ML 10 ML UDC 1000 MG PO ×4 (05:38→21:19)
[2023-07-09] MEDS: LEVOTHYROXINE SODIUM INJ 100 MCG/5 ML VIAL 87.5 MCG IV PUSH (05:38)
[2023-07-09 05:40] VITALS: BP 114/54; PULSE 89; RESP 18; TEMP 37; O2SAT 99
[2023-07-09 08:09] LABS: Glucose Point of Care 121 mg/dl (65-105)
[2023-07-09 08:33] LABS: Hematocrit 27.3 % (37.0-47.0); Hemoglobin 8.6 g/dL (12.0-15.0); Mean Corpuscular HGB Conc 31.5 g/dl (32-36); Mean Corpuscular Hemoglobin 30.7 pg (26-34); Mean Corpuscular Volume 97.5 fl (80-100); Mean Platelet Volume 9.2 fl (7.4-10.4); Platelet Count Result 166 k/mm3 (150-375); Red Cell Distribution Width 18.7 % (11.5-14.5); White Blood Count 5.7 K/mm3 (4.5-10.0)
[2023-07-09 08:36] LABS: Anion Gap 1 mmol/L (8-16); Blood Urea Nitrogen 16 mg/dL (7-17); Carbon Dioxide 22 mmol/L (22-30); Chloride 106 mmol/L (98-107); Estimated CRCL calculation 79 ml/min; Estimated Glomerular Filt Rate > 60; Glucose 120 mg/dL (65-110); Potassium 3.9 mmol/L (3.4-5.0); Sodium 129 mmol/L (137-145)
[2023-07-09] MEDS: AMOXICILLIN/CLAVULANATE K 875-125 MG TAB 1 TABLET PO ×2 (08:36→21:18)
[2023-07-09] MEDS: PANTOPRAZOLE SODIUM IV 40 MG VIAL IV PUSH ×2 (08:36→21:20)
[2023-07-09] MEDS: SPIRONOLACTONE 50 MG TABLET PO (08:36)
[2023-07-09] MEDS: BETAMETHASONE/CLOTRIMAZOLE CR 15 GM TUBE 1 APPLIC TOPICAL ×2 (08:37→21:19)
[2023-07-09] MEDS: VENLAFAXINE HCL XR 75 MG CAP.ER.24H PO (08:37)
[2023-07-09] MEDS: FUROSEMIDE 20 MG TABLET PO (08:37)
[2023-07-09] MEDS: SODIUM CHLORIDE 1 GM TABLET PO (08:37)
[2023-07-09 08:39] VITALS: PULSE 83
[2023-07-09] MEDS: PROPRANOLOL HCL 20 MG TABLET PO (08:39)
[2023-07-09 11:47] LABS: Glucose Point of Care 137 mg/dl (65-105)
--- NOTE | 2023-07-09 12:35 | PM.IMPN ---
Progress Note: A&P Assessment and Plan (1) Acute parotitis: Code(s): K11.21 - Acute sialoadenitis Status: Acute Assessment and Plan: Continue vancomycin and Augmentin Clinically improving (2) Edema: Code(s): R60.9 - Edema, unspecified Status: Acute Assessment and Plan: Appears to be chronic and nonpitting (3) Chronic anemia: Code(s): D64.9 - Anemia, unspecified Status: Acute Assessment and Plan: EGD and colonoscopy showed only nonbleeding esophagitis (4) Type 2 diabetes mellitus: Code(s): E11.9 - Type 2 diabetes mellitus without complications Status: Acute Assessment and Plan: 07/09/2023 blood sugar adequately controlled (5) Hypertension: Code(s): I10 - Essential (primary) hypertension Status: Acute Assessment and Plan: 07/09/2023 blood pressure adequately controlled (6) Hyponatremia: Code(s): E87.1 - Hypo-osmolality and hyponatremia Status: Acute Assessment and Plan: Chronic mild 07/09/2023 sodium 129 (7) Acute kidney injury: Code(s): N17.9 - Acute kidney failure, unspecified Status: Acute Assessment and Plan: Resolved (8) Vomiting: Code(s): R11.10 - Vomiting, unspecified Status: Acute Assessment and Plan: Resolved Subjective Date/time seen: 07/09/23 12:35 Interval history: Pain right jaw much better. Swelling and right jaw much better. No fevers or chills. Denied GI issues. Denied chest pain or shortness of breath or swelling. Tolerating diet well. Review of Systems Review of Systems: All systems reviewed & are unremarkable except as noted in HPI and below Exam Narrative: HEENT: PERRL, sclerae nonicteric, pharyngeal mucosa pink and intact NECK: No JVD, adenopathy, or thyromegaly, mild enlargement of right parotid gland with mild tenderness CHEST: Clear to auscultation. Normal effort. HEART: NL S1/S2, regular, no murmur ABDOMEN: BS+, soft, nontender, no mass, no bruits EXTREMITIES: No cyanosis, edema, or clubbing NEUROLOGIC: CN intact and symmetric to inspection. MUSCULOSKELETAL: Tone and strength symmetric. PSYCH: Alert. Oriented to person, place, and time. Objective Data Vital Signs Vital Signs: Vital Signs - 24 hr 07/08/23 21:23 07/09/23 05:40 07/09/23 08:39 Temperature 97.4 F L 98.6 F Pulse Rate 77 89 83 Respiratory Rate 18 18 Blood Pressure 122/53 L 114/54 L Pulse Oximetry 100 99 Oxygen Delivery 07/09/23 08:00 Temperature Pulse Rate Respiratory Rate Blood Pressure Pulse Oximetry Oxygen Delivery Room Air Intake/Output Intake/Output: Intake & Output 07/06/23 07/07/23 07/08/23 07/09/23 23:59 23:59 23:59 23:59 Intake Total 1770 1540 2060 390 Output Total 850 1050 900 Balance 794 869 9787 390 Meds/Results Medications: Active Medications Generic Name Dose Route Start Last Admin Trade Name Freq PRN Reason Stop Dose Admin Acetaminophen 650 mg 07/01/23 22:05 07/09/23 00:45 Acetaminophen 325 Mg Tablet PO 650 mg Q6H PRN Administration Pain or Fever Amoxicillin/Clavulanate Potassium 1 tablet 07/06/23 12:45 07/09/23 08:36 Amoxicillin/Clavulanate K 875-125 Mg Tab PO 1 tablet Q12HR LORA Administration Clotrimazole 1 applic 07/04/23 09:00 07/09/23 08:37 Betamethasone/Clotrimazole Cr 15 Gm Tube TOPICAL 1 applic Q12HR LORA Administration Dextrose 12.5 gm 07/01/23 22:05 Dextrose 50% 25 Gm/50 Ml Syringe IV PUSH PRN PRN Hypoglycemia Protocol Furosemide 20 mg 07/07/23 09:00 07/09/23 08:37 Furosemide 20 Mg Tablet PO 20 mg DAILY LORA Administration Glucagon 1 mg 07/01/23 22:05 Glucagon For Inj 1 Mg Vial IM PRN PRN Hypoglycemia Protocol Glucose 15 gm 07/01/23 22:05 Glucose Oral Gel 15 Gm Of Glucse In 37.5 Gm Tube PO PRN PRN Hypoglycemia Protocol Dextrose 1,000 mls @ 100
[2023-07-09 14:15] VITALS: BP 123/62; PULSE 80; RESP 12; TEMP 37; O2SAT 100
--- NOTE | 2023-07-09 15:35 | WPDGIPROGNO ---
Progress Note: A&P Assessment and Plan (1) Coffee ground emesis: Code(s): K92.0 - Hematemesis Status: Acute Assessment and Plan: no more episodes, tolerating diet egd c/w non-bleeding esophagitis and hiatal hernia, no varices ppi and also carafate (2) Erosive esophagitis: Code(s): K22.10 - Ulcer of esophagus without bleeding Status: Acute Assessment and Plan: on treatment (3) Cirrhosis: Code(s): K74.60 - Unspecified cirrhosis of liver Status: Acute Assessment and Plan: probably lucio work up for other chronic liver conditions pending she will need liver imaging every 6 months and follow-up in office after discharge (4) Acute parotitis: Code(s): K11.21 - Acute sialoadenitis Status: Acute Assessment and Plan: on antibiotic (5) MRSA bacteremia: Code(s): R78.81 - Bacteremia; B95.62 - Methicillin resistant Staphylococcus aureus infection as the cause of diseases classified elsewhere Status: Acute (6) Ascites: Code(s): R18.8 - Other ascites Status: Acute Assessment and Plan: no sign of sbp but she has been on abx anyways she is tolerating low dose diuretics, normal renal function and Na stable now Subjective Date/time seen: 07/09/23 15:35 Interval history: no new issues, tolerating diet, no gib Review of Systems Review of Systems: All systems reviewed & are unremarkable except as noted in HPI and below Exam Narrative: awake and alert HEENT: PERRL, sclerae nonicteric, pharyngeal mucosa pink and intact NECK: No JVD, mild enlargement of right parotid gland with mild tenderness CHEST: Clear to auscultation. Normal effort. HEART: NL S1/S2, regular, no murmur ABDOMEN: BS+, soft, nontender, less distended EXTREMITIES: No cyanosis, edema, or clubbing NEUROLOGIC: CN intact and symmetric to inspection. MUSCULOSKELETAL: Tone and strength symmetric. PSYCH: Alert. Oriented to person, place, and time. Objective Data Vital Signs Vital Signs: Vital Signs - 24 hr 07/08/23 21:23 07/09/23 05:40 07/09/23 08:39 Temperature 97.4 F L 98.6 F Pulse Rate 77 89 83 Respiratory Rate 18 18 Blood Pressure 122/53 L 114/54 L Pulse Oximetry 100 99 Oxygen Delivery 07/09/23 08:00 07/09/23 14:15 Temperature 98.6 F Pulse Rate 80 Respiratory Rate 12 Blood Pressure 123/62 Pulse Oximetry 100 Oxygen Delivery Room Air Intake/Output Intake/Output: Intake & Output 07/06/23 07/07/23 07/08/23 07/09/23 23:59 23:59 23:59 23:59 Intake Total 1770 1540 2060 390 Output Total 850 1050 900 Balance 021 850 4388 390 Meds/Results Medications: Active Medications Generic Name Dose Route Start Last Admin Trade Name Freq PRN Reason Stop Dose Admin Acetaminophen 650 mg 07/01/23 22:05 07/09/23 00:45 Acetaminophen 325 Mg Tablet PO 650 mg Q6H PRN Administration Pain or Fever Amoxicillin/Clavulanate Potassium 1 tablet 07/06/23 12:45 07/09/23 08:36 Amoxicillin/Clavulanate K 875-125 Mg Tab PO 1 tablet Q12HR LORA Administration Clotrimazole 1 applic 07/04/23 09:00 07/09/23 08:37 Betamethasone/Clotrimazole Cr 15 Gm Tube TOPICAL 1 applic Q12HR LORA Administration Dextrose 12.5 gm 07/01/23 22:05 Dextrose 50% 25 Gm/50 Ml Syringe IV PUSH PRN PRN Hypoglycemia Protocol Furosemide 20 mg 07/07/23 09:00 07/09/23 08:37 Furosemide 20 Mg Tablet PO 20 mg DAILY LORA Administration Glucagon 1 mg 07/01/23 22:05 Glucagon For Inj 1 Mg Vial IM PRN PRN Hypoglycemia Protocol Glucose 15 gm 07/01/23 22:05 Glucose Oral Gel 15 Gm Of Glucse In 37.5 Gm Tube PO PRN PRN Hypoglycemia Protocol Dextrose 1,000 mls @ 100 mls/hr 07/01/23 22:05 Dextrose 5% 1,000 Ml IVPB PRN PRN Hypoglycemia Protocol Vancomycin HCl 1,250 mg in 250 mls @ 166.667 mls/hr 07/08/23 21:00 07/08/23 23:05 Vancomycin 1,250 Mg/Ns 250
[2023-07-09 16:54] LABS: Glucose Point of Care 163 mg/dl (65-105)
[2023-07-09 19:49] LABS: Amylase Peritoneal Fluid <10 U/L
[2023-07-09] MEDS: VANCOMYCIN 1,250 MG/NS 250 ML 1,250 MG/250 ML BAG 100 MG IVPB (22:29)
[2023-07-09 22:36] VITALS: BP 153/79; PULSE 85; RESP 21; TEMP 36.8; O2SAT 100
--- NOTE | 2023-07-10 01:25 | PC.NURSE ---
Daylight Savings Time For Daylight Savings Time Ending in the Fall - Clocks are moved back. For Daylight Savings Time Beginning in the Spring - Clocks are moved ahead. For [facility], the time of change occurs at 0200 hrs. Time is taken from the client server programmer. This entry on the patient's chart recognizes the change in time reflected during documentation. Example: 2 entries for vital signs may be charted for 0200 hrs.
[2023-07-10] MEDS: LEVOTHYROXINE SODIUM INJ 100 MCG/5 ML VIAL 87.5 MCG IV PUSH (05:37)
[2023-07-10] MEDS: SUCRALFATE SUSP 100 MG/ML 10 ML UDC 1000 MG PO ×4 (05:37→21:03)
[2023-07-10 05:47] LABS: Hematocrit 28.7 % (37.0-47.0); Hemoglobin 8.9 g/dL (12.0-15.0); Mean Corpuscular Hemoglobin 30.5 pg (26-34); Mean Corpuscular Volume 98.3 fl (80-100); Mean Platelet Volume 9.2 fl (7.4-10.4); Platelet Count Result 159 k/mm3 (150-375); Red Blood Count 2.92 M/mm3 (4.2-5.4); Red Cell Distribution Width 18.6 % (11.5-14.5); White Blood Count 5.9 K/mm3 (4.5-10.0)
[2023-07-10 05:58] LABS: Anion Gap 2 mmol/L (8-16); Blood Urea Nitrogen 14 mg/dL (7-17); Calcium 8.1 mg/dL (8.4-10.2); Carbon Dioxide 22 mmol/L (22-30); Chloride 106 mmol/L (98-107); Estimated CRCL calculation 89 ml/min; Estimated Glomerular Filt Rate > 60; Glucose 128 mg/dL (65-110); Potassium 3.7 mmol/L (3.4-5.0); Sodium 130 mmol/L (137-145)
[2023-07-10 06:00] VITALS: BP 129/56; PULSE 86; RESP 21; TEMP 37.1; O2SAT 100
[2023-07-10 08:11] LABS: Glucose Point of Care 133 mg/dl (65-105)
[2023-07-10 08:16] LABS: Glucose Point of Care 126 mg/dl (65-105)
[2023-07-10 08:45] VITALS: BP 124/56; PULSE 81
[2023-07-10] MEDS: AMOXICILLIN/CLAVULANATE K 875-125 MG TAB 1 TABLET PO ×2 (08:45→21:03)
[2023-07-10] MEDS: VENLAFAXINE HCL XR 75 MG CAP.ER.24H PO (08:45)
[2023-07-10 08:46] VITALS: PULSE 81
[2023-07-10] MEDS: PROPRANOLOL HCL 20 MG TABLET PO (08:46)
[2023-07-10] MEDS: SPIRONOLACTONE 50 MG TABLET PO (08:46)
[2023-07-10] MEDS: BETAMETHASONE/CLOTRIMAZOLE CR 15 GM TUBE 1 APPLIC TOPICAL ×2 (08:46→21:04)
[2023-07-10] MEDS: SODIUM CHLORIDE 1 GM TABLET PO (08:46)
[2023-07-10] MEDS: PANTOPRAZOLE SODIUM IV 40 MG VIAL IV PUSH ×2 (08:46→21:03)
[2023-07-10] MEDS: FUROSEMIDE 20 MG TABLET PO (08:46)
--- NOTE | 2023-07-10 09:48 | PM.IMPN ---
Progress Note: A&P Assessment and Plan (1) Acute parotitis: Code(s): K11.21 - Acute sialoadenitis Status: Acute Assessment and Plan: Continue vancomycin and Augmentin Clinically improving Scheduled to return to rehab 07/11 (2) Edema: Code(s): R60.9 - Edema, unspecified Status: Acute Assessment and Plan: Appears to be chronic and nonpitting (3) Chronic anemia: Code(s): D64.9 - Anemia, unspecified Status: Acute Assessment and Plan: EGD and colonoscopy showed only nonbleeding esophagitis (4) Type 2 diabetes mellitus: Code(s): E11.9 - Type 2 diabetes mellitus without complications Status: Acute Assessment and Plan: 07/10/2023 blood sugar adequately controlled (5) Hypertension: Code(s): I10 - Essential (primary) hypertension Status: Acute Assessment and Plan: 07/10/2023 blood pressure adequately controlled (6) Hyponatremia: Code(s): E87.1 - Hypo-osmolality and hyponatremia Status: Acute Assessment and Plan: Chronic mild 07/09/2023 sodium 129, 07/10 130 (7) Acute kidney injury: Code(s): N17.9 - Acute kidney failure, unspecified Status: Acute Assessment and Plan: Resolved (8) Vomiting: Code(s): R11.10 - Vomiting, unspecified Status: Acute Assessment and Plan: Resolved Subjective Date/time seen: 07/10/23 09:48 Interval history: Pain right jaw resolved. Swelling and right jaw much better. No fevers or chills. Denied GI issues. Denied chest pain or shortness of breath or swelling. Tolerating diet well. Review of Systems Review of Systems: All systems reviewed & are unremarkable except as noted in HPI and below Exam Narrative: HEENT: PERRL, sclerae nonicteric, pharyngeal mucosa pink and intact NECK: No JVD, adenopathy, or thyromegaly, NO enlargement of right parotid gland with NO tenderness CHEST: Clear to auscultation. Normal effort. HEART: NL S1/S2, regular, no murmur ABDOMEN: BS+, soft, nontender, no mass, no bruits EXTREMITIES: No cyanosis, edema, or clubbing NEUROLOGIC: CN intact and symmetric to inspection. MUSCULOSKELETAL: Tone and strength symmetric. PSYCH: Alert. Oriented to person, place, and time. Objective Data Vital Signs Vital Signs: Vital Signs - 24 hr 07/09/23 14:15 07/09/23 22:36 07/10/23 06:00 Temperature 98.6 F 98.2 F 98.7 F Pulse Rate 80 85 86 Respiratory Rate 12 21 H 21 H Blood Pressure 123/62 153/79 H 129/56 L Pulse Oximetry 100 100 100 07/10/23 08:46 Temperature Pulse Rate 81 Respiratory Rate Blood Pressure Pulse Oximetry Intake/Output Intake/Output: Intake & Output 07/07/23 07/08/23 07/09/23 07/10/23 23:59 23:59 23:59 22:59 Intake Total 1540 2060 830 650 Output Total 1050 900 800 Balance 490 1160 830 -150 Meds/Results Medications: Active Medications Generic Name Dose Route Start Last Admin Trade Name Freq PRN Reason Stop Dose Admin Acetaminophen 650 mg 07/01/23 22:05 07/09/23 00:45 Acetaminophen 325 Mg Tablet PO 650 mg Q6H PRN Administration Pain or Fever Amoxicillin/Clavulanate Potassium 1 tablet 07/06/23 12:45 07/10/23 08:45 Amoxicillin/Clavulanate K 875-125 Mg Tab PO 1 tablet Q12HR LORA Administration Clotrimazole 1 applic 07/04/23 09:00 07/10/23 08:46 Betamethasone/Clotrimazole Cr 15 Gm Tube TOPICAL 1 applic Q12HR LORA Administration Dextrose 12.5 gm 07/01/23 22:05 Dextrose 50% 25 Gm/50 Ml Syringe IV PUSH PRN PRN Hypoglycemia Protocol Furosemide 20 mg 07/07/23 09:00 07/10/23 08:46 Furosemide 20 Mg Tablet PO 20 mg DAILY LORA Administration Glucagon 1 mg 07/01/23 22:05 Glucagon For Inj 1 Mg Vial IM PRN PRN Hypoglycemia Protocol Glucose 15 gm 07/01/23 22:05 Glucose Oral Gel 15 Gm Of Glucse In 37.5 Gm Tube PO PRN PRN Hypoglycemia Protocol Dextrose 1
[2023-07-10 12:07] LABS: Glucose Point of Care 164 mg/dl (65-105)
[2023-07-10 14:33] VITALS: BP 119/70; PULSE 73; RESP 17; TEMP 36.8; O2SAT 100
[2023-07-10 17:31] LABS: Glucose Point of Care 134 mg/dl (65-105)
[2023-07-10 19:57] VITALS: BP 120/60; PULSE 79; RESP 14; TEMP 36.7; O2SAT 99
[2023-07-10 20:09] LABS: Vancomycin Trough 17.4 ug/mL (10.0-20.0)
[2023-07-10 20:47] LABS: Glucose Point of Care 177 mg/dl (65-105)
[2023-07-10] MEDS: VANCOMYCIN 1,250 MG/NS 250 ML 1,250 MG/250 ML BAG 175 MG IVPB (21:04)
[2023-07-10 23:51] LABS: Albumin Peritoneal Fluid 0.4 g/dL
[2023-07-11 04:54] LABS: Glucose Peritoneal Fluid 176 mg/dL; LDH Peritoneal Fluid 46 U/L (<63); Total Protein Peritoneal Fluid <3.0 g/dL
[2023-07-11 04:55] VITALS: BP 121/65; PULSE 90; RESP 18; TEMP 36.9; O2SAT 97
[2023-07-11] MEDS: SUCRALFATE SUSP 100 MG/ML 10 ML UDC 1000 MG PO ×3 (05:29→17:11)
[2023-07-11 06:19] LABS: Estimated CRCL calculation 89 ml/min; Estimated Glomerular Filt Rate > 60
[2023-07-11 08:39] LABS: Glucose Point of Care 129 mg/dl (65-105)
[2023-07-11 08:53] VITALS: PULSE 88
[2023-07-11] MEDS: SPIRONOLACTONE 50 MG TABLET PO (08:53)
[2023-07-11] MEDS: PROPRANOLOL HCL 20 MG TABLET PO (08:53)
[2023-07-11] MEDS: FUROSEMIDE 20 MG TABLET PO (08:53)
[2023-07-11] MEDS: AMOXICILLIN/CLAVULANATE K 875-125 MG TAB 1 TABLET PO (08:53)
[2023-07-11] MEDS: SODIUM CHLORIDE 1 GM TABLET PO (08:53)
[2023-07-11] MEDS: VENLAFAXINE HCL XR 75 MG CAP.ER.24H PO (08:53)
[2023-07-11] MEDS: BETAMETHASONE/CLOTRIMAZOLE CR 15 GM TUBE 1 APPLIC TOPICAL (08:54)
--- NOTE | 2023-07-11 09:40 | PM.IMPN ---
Progress Note: A&P Assessment and Plan (1) Acute parotitis: Code(s): K11.21 - Acute sialoadenitis Status: Acute Assessment and Plan: Continue vancomycin since 07/08, and continue vancomycin DS May 17 for bacteremia of MRSA And Augmentin since 07/06 Clinically improving Scheduled to return to rehab 07/11 (2) Edema: Code(s): R60.9 - Edema, unspecified Status: Acute Assessment and Plan: Appears to be chronic and nonpitting (3) Chronic anemia: Code(s): D64.9 - Anemia, unspecified Status: Acute Assessment and Plan: EGD and colonoscopy showed only nonbleeding esophagitis, hiatal hernia, no varices ppi and also carafate (4) Type 2 diabetes mellitus: Code(s): E11.9 - Type 2 diabetes mellitus without complications Status: Acute Assessment and Plan: 07/10/2023 blood sugar adequately controlled (5) Hypertension: Code(s): I10 - Essential (primary) hypertension Status: Acute Assessment and Plan: 07/10/2023 blood pressure adequately controlled (6) Hyponatremia: Code(s): E87.1 - Hypo-osmolality and hyponatremia Status: Acute Assessment and Plan: Chronic mild 07/09/2023 sodium 129, 07/10 130 (7) Acute kidney injury: Code(s): N17.9 - Acute kidney failure, unspecified Status: Acute Assessment and Plan: Resolved (8) Vomiting: Code(s): R11.10 - Vomiting, unspecified Status: Acute Assessment and Plan: Resolved Plan Plans to place midline, discharg patient today to rehab or long term Subjective Date/time seen: 07/11/23 09:40 Interval history: I saw exam patient, patient has no new issue events overnight. Patient feels comfortable, denies jaw pain, abdomen pain, nausea vomiting chest pain. Patient is afebrile, blood pressure stable. Exam Narrative: HEENT: PERRL, sclerae nonicteric, pharyngeal mucosa pink and intact NECK: No JVD, adenopathy, or thyromegaly, NO enlargement of right parotid gland with NO tenderness CHEST: Clear to auscultation. Normal effort. HEART: NL S1/S2, regular, no murmur ABDOMEN: BS+, soft, nontender, no mass, no bruits EXTREMITIES: No cyanosis, edema, or clubbing NEUROLOGIC: CN intact and symmetric to inspection. MUSCULOSKELETAL: Tone and strength symmetric. PSYCH: Alert. Oriented to person, place, and time. Objective Data Vital Signs Vital Signs: Vital Signs - 24 hr 07/10/23 14:33 07/10/23 19:57 07/11/23 04:55 Temperature 98.2 F 98.1 F 98.4 F Pulse Rate 73 79 90 Respiratory Rate 17 14 18 Blood Pressure 119/70 120/60 121/65 Pulse Oximetry 100 99 97 07/11/23 08:53 Temperature Pulse Rate 88 Respiratory Rate Blood Pressure Pulse Oximetry Intake/Output Intake/Output: Intake & Output 07/09/23 07/10/23 07/10/23 07/11/23 00:59 00:59 23:59 23:59 Intake Total 290 Output Total 250 Balance 40 Meds/Results Medications: Active Medications Generic Name Dose Route Start Last Admin Trade Name Freq PRN Reason Stop Dose Admin Acetaminophen 650 mg 07/01/23 22:05 07/09/23 00:45 Acetaminophen 325 Mg Tablet PO 650 mg Q6H PRN Administration Pain or Fever Amoxicillin/Clavulanate Potassium 1 tablet 07/06/23 12:45 07/11/23 08:53 Amoxicillin/Clavulanate K 875-125 Mg Tab PO 1 tablet Q12HR LORA Administration Clotrimazole 1 applic 07/04/23 09:00 07/11/23 08:54 Betamethasone/Clotrimazole Cr 15 Gm Tube TOPICAL 1 applic Q12HR LORA Administration Dextrose 12.5 gm 07/01/23 22:05 Dextrose 50% 25 Gm/50 Ml Syringe IV PUSH PRN PRN Hypoglycemia Protocol Furosemide 20 mg 07/07/23 09:00 07/11/23 08:53 Furosemide 20 Mg Tablet PO 20 mg DAILY LORA Administration Glucagon 1 mg 07/01/23 22:05 Glucagon For Inj 1 Mg Vial IM PRN PRN Hypoglycemia Protocol Glucose 15 gm 07/01/23 22:05 Glucose Oral Gel 15 Gm Of Glucse In
--- NOTE | 2023-07-11 09:44 | PM.DS ---
DS: Admitting Diagnosis Discharge Date 07/11 Admitting Diagnosis K11.21 - Acute sialoadenitis ?Status:?Acute ?Code(s): D64.9 - Anemia, unspecified ?Status:?Acute DS: Discharge Diagnosis Discharge Diagnosis (1) Erosive esophagitis: Code(s): K22.10 - Ulcer of esophagus without bleeding Status: Acute (2) Chronic anemia: Code(s): D64.9 - Anemia, unspecified Status: Acute (3) Type 2 diabetes mellitus: Code(s): E11.9 - Type 2 diabetes mellitus without complications Status: Acute (4) Acute parotitis: Code(s): K11.21 - Acute sialoadenitis Status: Acute (5) HTN (hypertension) with goal to be determined: Code(s): I10 - Essential (primary) hypertension Status: Acute (6) DM2 (diabetes mellitus, type 2): Code(s): E11.9 - Type 2 diabetes mellitus without complications Status: Acute (7) Hypothyroidism: Code(s): E03.9 - Hypothyroidism, unspecified Status: Acute (8) Coffee ground emesis: Code(s): K92.0 - Hematemesis Status: Acute DS: Summary Hospital Course Hospital Course: Per H&P, this is a 72-year-old female with type 2 diabetes mellitus, hypertension, hyperlipidemia, hypothyroidism, and other comorbidities who presented to the emergency department via EMS from a local rehab facility for evaluation of pain and swelling over the right side of the face and neck. The patient provides the following history. She was admitted to this facility on 06/09/2023 with a right femoral neck fracture with failure of leg screw hardware which was previously in place. She was evaluated by the orthopedic surgeon and was ultimately transferred to [place] for trauma/hip specialty. There she reportedly underwent repair/replacement of the hip and she has been at rehab since that time. She reports doing well with therapy and is now reportedly able to be 20% weight-bearing. In any event on Tuesday she developed discomfort on the right side of her face and she has since developed swelling and redness in front of the ear extending onto the neck. Workup today in the ED is consistent with right parotiditis. With further questioning she does endorse mild discomfort with swallowing but she denies difficulty swallowing. She has no knowledge of fever and denies chills and sweats. Appetite has been okay though she has been a bit nauseated. No vomiting or diarrhea. No prior history of proctitis. She has not noticed any drainage coming from the mouth. The following med issues have been addressed during hospitalization (1) Acute parotitis: ?Code(s): K11.21 - Acute sialoadenitis ?Status:?Acute ?Assessment and Plan: Continue vancomycin and Augmentin Clinically improving Bacteremia with MRSA Discussed the case with Infectious Disease pharmacist, will continue vancomycin until 07/16/2023 PICC line is placed or ?Code(s): R60.9 - Edema, unspecified ?Status:?Acute ?Assessment and Plan: Appears to be chronic and nonpitting(3) Chronic anemia: ?Code(s): D64.9 - Anemia, unspecified ?Status:?Acute ?Assessment and Plan: EGD and colonoscopy showed only nonbleeding esophagitis (4) Type 2 diabetes mellitus: ?Code(s): E11.9 - Type 2 diabetes mellitus without complications ?Status:?Acute ?Assessment and Plan: 07/10/2023 blood sugar adequately controlled (5) Hypertension: ?Code(s): I10 - Essential (primary) hypertension ?Status:?Acute ?Assessment and Plan: 07/10/2023 blood pressure adequately controlled (6) Hyponatremia: ?Code(s): E87.1 - Hypo-osmolality and hyponatremia ?Status:?Acute ?Assessment and Plan: Chronic mild 07/09/2023 sodium 129, 07/10 130 Follow-up with primary care doctor for monitoring (7) Acute kidney injury: ?Code(s): N17.9 - Acute kidney failure, unspecified ?Status:?Acute ?Assessment and Plan: Resolved (8)
--- NOTE | 2023-07-11 11:20 | PCNWS ---
Weekly nutritional screen. Patient is tolerating current diet with adequate intake. No weight loss reported. No nutritional needs at this time.
[2023-07-11 11:45] LABS: Glucose Point of Care 124 mg/dl (65-105)
[2023-07-11 14:33] VITALS: BP 111/55; PULSE 86; RESP 16; TEMP 36.8; O2SAT 100
[2023-07-11] MEDS: LIDOCAINE HCL 1% PF INJ 5 ML VIAL INFILTRATE (15:15)
[2023-07-11 16:52] LABS: Glucose Point of Care 141 mg/dl (65-105)
--- NOTE | 2023-07-11 18:41 | PC.NURSE ---
RN attempted to call report at [place]. Applications Programmer hung up on RN.
--- NOTE | 2023-07-11 18:55 | PC.NURSE ---
RN called a third time and got Julia and gave report on patient via telephone.
[2023-07-11 21:54] LABS: Mitochondrial (M2) Ab (IgG) <=20.0 U (<=20.0)
--- NOTE | 2023-07-12 11:01 | PC.NURSE ---
This RN opened patient's chart after discharge because patient left wallet in room. RN called patient and asked who the best person would be to come retrieve patient's wallet. Patient stated Shiela will come cloth picker wallet tomorrow 07/13/2023. RN will call and confirm with Shiela as well.
== END 2023-07-11 18:48 | DRG 155 ==
LOC: ANHED 17:24 → ANH3MED 18:21
PROVIDERS: Family Medicine; General Practice; Internal Medicine; Internal Medicine Gastroenterology; Physician Assistant; Admitting Provider Internal Medicine; Emergency Provider Physician Assistant; PCP Emergency Medicine; Visit Provider Hospitalist
PROC: 0DJ08ZZ Inspection of Upper Intestinal Tract, Via Natural or Artificial Opening Endoscopic (ICD-10-PCS; CPT 43235; principal; 2023-07-05 14:30)
PROC: 0DJD8ZZ Inspection of Lower Intestinal Tract, Via Natural or Artificial Opening Endoscopic (ICD-10-PCS; CPT 45330; 2023-07-05 14:30)
DX: K11.21 Acute sialoadenitis (principal); E87.1 Hypo-osmolality and hyponatremia; N17.9 Acute kidney failure, unspecified; K92.0 Hematemesis; R18.8 Other ascites; R78.81 Bacteremia; K22.10 Ulcer of esophagus without bleeding; B95.62 Methicillin resistant Staphylococcus aureus infection as the cause of diseases classified elsewhere; K21.00 Gastro-esophageal reflux disease with esophagitis, without bleeding; K44.9 Diaphragmatic hernia without obstruction or gangrene; K64.4 Residual hemorrhoidal skin tags; K75.81 Nonalcoholic steatohepatitis (NASH); K74.60 Unspecified cirrhosis of liver; D64.9 Anemia, unspecified; E03.9 Hypothyroidism, unspecified; E78.00 Pure hypercholesterolemia, unspecified; E11.9 Type 2 diabetes mellitus without complications; F41.8 Other specified anxiety disorders; I10 Essential (primary) hypertension; R00.0 Tachycardia, unspecified; M19.90 Unspecified osteoarthritis, unspecified site; S72.001D Fracture of unspecified part of neck of right femur, subsequent encounter for closed fracture with routine healing; Z90.49 Acquired absence of other specified parts of digestive tract; Z90.710 Acquired absence of both cervix and uterus; Z96.641 Presence of right artificial hip joint; Z87.891 Personal history of nicotine dependence; Z79.84 Long term (current) use of oral hypoglycemic drugs; Z79.82 Long term (current) use of aspirin
CPT/HCPCS: 36415; 36430; 36569; 49083; 70491; 71046; 74018; 74177; 80048; 80053; 80074; 80202; 81001; 82040; 82042; 82140; 82150; 82274; 82565; 82570; 82607; 82728; 82746; 82945; 82948; 83520; 83540; 83550; 83605; 83615; 83690; 83735; 83880; 83930; 83935; 84134; 84145; 84157; 84300; 84443; 84484; 85014; 85018; 85025; 85027; 85610; 85652; 85730; 86038; 86039; 86140; 86850; 86900; 86901; 86923; 87040; 87070; 87075; 87081; 87086; 87147; 87186; 87205; 88104; 88108; 88305; 89051; 93005; 93306; 93970; 96361; 96365; 96366; 96367; 96372; 96375; 97110; 97161; 97165; 97530; 97535; 99285; A9270; C9113; G0378; J0295; J0692; J1650; J1815; J1836; J1940; J2405; J2704; J3370; J7030; J7040; J7050; J7120; P9016; Q9967

== ENCOUNTER 2023-07-29 13:11 | Inpatient (IN) | payer MEDICARE, MEDICAID, SELFPAY ==
--- NOTE | ~2023-07-29 | US_ITS ---
EXAMINATION: US venous doppler [facility] DATE: 07/30/2023 16:22 INDICATION: Bilateral lower extremity edema . TECHNIQUE: Grayscale images without and with compression and Doppler images of the bilateral lower ex tremity veins were obtained. COMPARISON: 07/01/2023 FINDINGS: Acute nonocclusive thrombus in the right popliteal vein. Flow noted within the right posterior tibial and peroneal veins which were otherwise poorly visualized. The right common femoral vein, profunda ( deep) femoral vein, femoral vein, and greater saphenous vein are patent. Acute nonocclusive thrombus at the left common femoral/greater saphenous junction and the left proxim al femoral vein. Flow detected within the posterior tibial and peroneal veins, otherwise poorly visua lized. The profunda (deep) femoral vein, femoral vein, popliteal vein, and greater saphenous vein ar e patent. Florez's cyst. IMPRESSION: Acute bilateral DVTs, detailed above. Limited visualization of the bilateral peroneal and posterior tibial veins. Reviewed, dictated and finalized at location K. S REPRESENTATIVE PRINTING PAPER
--- NOTE | ~2023-07-29 | CT_ITS ---
EXAMINATION: CT brain wo con DATE: 08/07/2023 10:42 INDICATION: Confusion TECHNIQUE: Computed tomography (CT) of the head was performed without intravenous contrast. Sagittal and coronal reconstructions were performed. The mA was adjusted according to patient size. Iterative reconstruction technique was employed. The dose-length product was 605.33 mGy-cm. COMPARISON: head CT dated FINDINGS: No acute intracranial hemorrhage, acute infarction or abnormal extra axial fluid collection. There is mild scattered white matter hypoattenuation consistent with chronic small vessel ischemic disease. S ymmetric prominence of the sulci and ventricles consistent with mild to moderateage-appropriate diffu se cerebral volume loss. Normal variant cavum septum pellucidum et vergae. No mass/mass effect. The orbits, paranasal sinuses and mastoid air cells are normal. IMPRESSION: 1. No acute intracranial process. 2. Age-related changes including mild to moderate diffuse volume loss and mild scattered white matter hypoattenuation consistent with chronic small vessel ischemic disease. Reviewed, dictated and finalized at location A. AL RISK MANAGEMENT DIRECTOR IMPRESSION: 1. No acute intracranial process. 2. Age-related changes including mild to moderate diffuse volume loss and mild scattered white matter hypoattenuation consistent with chronic small vessel isc hemic disease.
--- NOTE | ~2023-07-29 | XR_ITS ---
EXAMINATION: XR chest 1V portable INDICATION: Hypoxia TECHNIQUE: Portable AP chest at 1448 hours COMPARISON: 07/04/2023 FINDINGS: There is elevation of the right hemidiaphragm. The lungs are free of acute opacities. No pl eural effusion or pneumothorax. The cardiomediastinal silhouette is normal. There is advanced osteoar thritis of the shoulders. IMPRESSION: 1. No acute cardiopulmonary abnormality. Reviewed, dictated and finalized at location F. UNITY DEVELOPMENT TECHNICIAN
--- NOTE | ~2023-07-29 | XR_ITS ---
XR chest PICC line 08/06/2023 15:11 Indication: PICC line placement Procedure: AP portable chest Comparison: Comparison to multiple prior studies sequentially, with oldest reviewed study dated 11/14. Findings: Right subclavian PICC line tip in the SVC. Cardiomegaly. Chronic elevation the right diaphr agm. Shallow inspiration with crowding of the pulmonary vasculature. No focal air space disease, pulm onary edema, pleural effusion or suspected pneumothorax. Impression: 1: PICC line tip in the SVC. Reviewed, dictated and finalized at location A. NEER TECHNICIAN Impression: 1: PICC line tip in the SVC.
--- NOTE | ~2023-07-29 | US_ITS ---
EXAMINATION: US biopsy renal DATE: 08/12/2023 13:21 INDICATION: Resolving acute renal insufficiency TECHNIQUE: The procedure including the risks, benefits, and alternatives was discussed with the patie nt. Risks discussed included bleeding and infection. The patient understood the risks and agreed to p roceed. A timeout was performed to verify the patient's name, date of , and procedure to be p erformed. The skin overlying the left kidney was prepped and draped in usual sterile fashion. Anest hetic was administered with 1% lidocaine subcutaneously. An 18 gauge core biopsy needle was then use d to obtain 4 core biopsy specimens under continuous sonographic guidance. The entry site was cleaned and dressed. There were no immediate complications. FINDINGS: Ultrasound images demonstrate the needle in the kidney. IMPRESSION: 1. Ultrasound-guided random left kidney core needle biopsy. Reviewed, dictated and finalized at location A. K SUPERINTENDENT
--- NOTE | ~2023-07-29 | US_ITS ---
EXAMINATION: US renal BI DATE: 07/30/2023 16:14 INDICATION: Acute kidney injury TECHNIQUE: Multiple grayscale and Doppler ultrasound images of the kidneys were obtained. COMPARISON: None. FINDINGS: The right kidney measures 10.8 x 4.8 x 5.1 cm. The left kidney measures 10.3 x 4.9 x 4.5 cm. The kidn eys demonstrate normal parenchymal echogenicity. There is no hydronephrosis. The bladder is empty, th erefore not well visualized or evaluated. Moderate ascites. IMPRESSION: Moderate ascites, bladder not visualized, otherwise unremarkable renal sonogram findings. Reviewed, dictated and finalized at location K. TION TECHNICIAN
--- NOTE | ~2023-07-29 | NM_ITS ---
EXAMINATION: NM renal flow and function DATE: 08/01/2023 14:59 INDICATION: Acute kidney injury. TECHNIQUE: 8.2 mCi Tc-99m MAG3 was administered IV. The patient was scanned in the supine position. A posterior abdominal radionuclide angiogram was obtained. A subsequent time course of static images of the kidneys, ureters, and bladder was obtained. COMPARISON: Ultrasound 07/30/2023, CT abdomen and pelvis 07/04/2023 FINDINGS: The posterior abdominal radionuclide angiogram and sequential static images show normal siz e, position, and morphology of the kidneys. Peak renal parenchymal uptake was 29 min in right kidney and 28 min in left kidney (normal peak 3-5 minutes). The relative early renal uptake was 67% on the right and 33% on the left (<40% is abnormal). No abnormalities of the ureters or bladder are seen. T1/2 for clearance of activity from the right kidney and proximal collecting system was too long to m easure. T1/2 for clearance of activity from the left kidney and proximal collecting system was too long to me asure. IMPRESSION: 1. Relatively decreased left kidney function, which is 33% of total renal function. 2. Delayed uptake and clearance of contrast from the kidneys, consistent with decreased renal functi on. Reviewed, dictated and finalized at location A. RANDER IMPRESSION: 1. Relatively decreased left kidney function, which is 33% of total renal func tion. 2. Delayed uptake and clearance of contrast from the kidneys, consistent with decreased renal function.
[2023-07-29 13:17] VITALS: BP 138/80; PULSE 80; RESP 18; TEMP 36.4; O2SAT 100
[2023-07-29 14:37] VITALS: BP 139/92; PULSE 84; RESP 20; O2SAT 100
--- NOTE | 2023-07-29 14:40 | ED.GENADULT ---
HPI - General Adult General Chief complaint: Abdominal Pain Stated complaint: Abd Discomfort Time Seen by Provider: 07/29/23 13:42 History of Present Illness HPI narrative: 72-year-old female presenting to the emergency department for evaluation of hypoxia. Patient is currently at a rehab facility for having 5 falls over the course of the year. Patient is a previous smoker but has no previous history of COPD. Upon arrival to the emergency department patient's oxygen is 100% on room air. Patient denies any current shortness of breath. Patient does have history of cirrhosis and has had previous paracentesis. Related Data Home Medications Medication Instructions Recorded Confirmed acetaminophen 500 mg tablet 1,000 mg PO TID PRN Pain 11/14/22 07/29/23 donepezil 5 mg tablet 5 mg PO DAILY 11/14/22 07/29/23 loratadine 10 mg tablet 10 mg PO DAILY 11/14/22 07/29/23 lovastatin 40 mg tablet 40 mg PO HS 11/14/22 07/29/23 melatonin 3 mg tablet 3 mg PO HS 11/14/22 07/29/23 metformin 1,000 mg tablet 1,000 mg PO BID 11/14/22 07/29/23 oxybutynin chloride 5 mg 5 mg PO TID 11/14/22 07/29/23 tablet,extended release 24 hr propranolol 20 mg tablet 20 mg PO DAILY 11/14/22 07/29/23 bisacodyl 10 mg rectal suppository 10 mg RECTAL Q24H PRN Constipation 06/09/23 07/29/23 magnesium hydroxide 400 mg/5 mL 30 ml PO PRN PRN Constipation 06/09/23 07/29/23 oral suspension (Milk of Magnesia) oxycodone 5 mg tablet 5 mg PO Q4H PRN pain 7-10 06/09/23 07/29/23 ascorbic acid (vitamin C) 500 mg 500 mg PO BID 07/01/23 07/29/23 tablet multivitamin with minerals (Daily 1 tablet PO DAILY 07/01/23 07/29/23 Multivitamin-Minerals tablet) omeprazole 20 mg tablet,delayed 20 mg PO DAILY 07/01/23 07/29/23 release senna-docusate sodium tablet 1 tablet PO BID 07/01/23 07/29/23 tramadol 50 mg tablet 50 mg PO Q6H PRN pain 4-6 07/01/23 07/29/23 Allergies Allergy/AdvReac Type Severity Reaction Status Date / Time baclofen Allergy Unknown Verified 07/05/23 11:45 clindamycin Allergy Swelling Verified 07/05/23 11:45 of Lip/Tongue/Throat corn Allergy Unknown Verified 07/05/23 11:45 erythromycin base Allergy Unknown Verified 07/05/23 11:45 oxytetracycline Allergy Unknown Verified 07/05/23 11:45 streptomycin Allergy Unknown Verified 07/05/23 11:45 Review of Systems Review of Systems: All systems reviewed & are unremarkable except as noted in HPI and below PMFSH Past Medical History Medical History (Updated 07/29/23 @ 19:14 by Valentino Taylor MD) Arthritis Ascites Cirrhosis Coffee ground emesis Depression with anxiety Erosive esophagitis Failed hardware Hepatitis B Hypercholesterolemia Hypertension Hypothyroidism MRSA bacteremia Nausea and vomiting in adult Occult blood in stools Type 2 diabetes mellitus Surgical History Surgical History (Updated 07/01/23 @ 21:50 by Gretta Sanchez PA-C) History of appendectomy History of hysterectomy History of right hip replacement History of surgical removal of ganglion cyst Family History Family History Father Malignant neoplasm of prostate History of quadruple bypass HLD (hyperlipidemia) Hypertension Diabetes mellitus Mother Breast cancer Diabetes mellitus Sibling Diabetes mellitus Other Arthritis Social History Social History (Updated 07/01/23 @ 21:51 by Gretta Sanchez PA-C) Social History: She has 3 children. She resides at [facility]. She is . 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 She quit marijuana use and alcohol in the . Smoked cigarettes off/on for about 15 years but quite 30+ years ago. She is a Full Code. She nominates her sister to be the individual to make medical decisions for her if she is unable. Smoking packs per day: 1 Smoking cigarettes per day: 20.0 Years smoked: 30 Smoking pack-years: 30.00 Smoking status: Former smok
[2023-07-29 15:04] LABS: Basophils Percent Auto 0.5 % (0.2-1.2); Eosinophils Absolute Auto 0.3 K/mm3 (0-0.3); Eosinophils Percent Auto 5.3 % (0-4.4); Immature Granulocyte Absolute 0.02 K/mm3 (0.00-0.031); Immature Granulocyte Percent A 0.3 % (0-0.5); Lymphocytes Absolute Auto 0.94 K/mm3 (0.9-3.2); Lymphocytes Percent Auto 14.8 % (18.3-44.2); Mean Corpuscular HGB Conc 31.3 g/dl (32-36); Mean Corpuscular Hemoglobin 30.7 pg (26-34); Mean Corpuscular Volume 98.2 fl (80-100); Mean Platelet Volume 10.3 fl (7.4-10.4); Monocytes Absolute Auto 0.6 K/mm3 (0.1-0.6); Monocytes Percent Auto 9.7 % (2.6-8.5); Neutrophils Absolute Auto 4.4 K/mm3 (1.3-6.7); Neutrophils Percent Auto 69.4 % (45.5-73.1); Platelet Count Result 216 k/mm3 (150-375); Red Blood Count 3.26 M/mm3 (4.2-5.4); Red Cell Distribution Width 17.7 % (11.5-14.5); White Blood Count 6.4 K/mm3 (4.5-10.0)
[2023-07-29 15:21] LABS: Alanine Aminotransferase 22 U/L (6-35); Albumin Level 2.8 g/dL (3.5-5.1); Alkaline Phosphatase 137 U/L (38-126); Anion Gap 12 mmol/L (8-16); Aspartate Amino Transferase 36 U/L (14-36); Bilirubin,Total 0.8 mg/dL (0.2-1.3); Blood Urea Nitrogen 28 mg/dL (7-17); Calcium 8.6 mg/dL (8.4-10.2); Carbon Dioxide 15 mmol/L (22-30); Chloride 106 mmol/L (98-107); Estimated Glomerular Filt Rate 17; Glucose 102 mg/dL (65-110); Potassium 4.2 mmol/L (3.4-5.0); Sodium 133 mmol/L (137-145)
[2023-07-29 15:25] LABS: INR 1.3; Prothrombin Time 16.8 Seconds (11.1-14.7)
[2023-07-29 15:26] LABS: Partial Thromboplastin Time 37.1 SECONDS (22.3-36.8)
[2023-07-29 15:39] LABS: Influenza A QL RT-PCR Negative (Negative); Influenza B QL RT-PCR Negative (Negative); RSV RNA, RT-PCR Negative (Negative); SARS-CoV-2 RNA PCR Negative (Negative)
[2023-07-29 17:04] LABS: Appearance Urine Clear (Clear); Bacteria Urine None Seen /hpf; Bilirubin Urine Negative (Negative); Blood Urine Negative (Negative); Color Urine Yellow (Yellow); Glucose Urine UA Negative (Negative); Ketones Urine Negative (Negative); Leukocyte Esterase Ur Trace LEU/UL (Negative); Nitrate Urine Negative (Negative); Non Pathogenic Casts 0-2; Protein Urine Negative (Negative); RBC Urine 0-2 /hpf (0-2); Specific Grav Ur 1.009 (1.001-1.035); Squamous Epithelial Cell Urine None seen /hpf (Few); Urobilinogen Urine 0.2 mg/dL (<2.0); WBC Urine 0-5 /hpf
[2023-07-29 17:06] LABS: Add Urine Microscopic? YES
--- NOTE | 2023-07-29 17:49 | PM.IMHP ---
H&P: HPI History of Present Illness Date/Time: 07/29/23 16:30 Chief Complaint: Hypoxia. Narrative: This is a pleasant 72-year-old female with type 2 diabetes mellitus, hypertension, hyperlipidemia, hypothyroidism, cirrhosis, heart failure with preserved ejection fraction, and other comorbidities who presented to the emergency department via EMS from a local rehab facility for evaluation of hypoxia. The patient provides the following history. She is known to the hospitalist service from 2 recent admissions in the last 2 months, most recently she was discharged on 07/11/2023 after being admitted with acute parotitis and MRSA bacteremia. She seems to have recovered well in that regard. Today she was reportedly hypoxic and EMS was summoned however on their arrival her SpO2 was 100% on room air. She was brought in for evaluation however after complaining of generalized abdominal discomfort. With further questions she admits to chronic abdominal discomfort and she goes on to say that she is scheduled for paracentesis in the coming weeks. On exam she has significant pitting edema up to the flank which she states is much worse than normal. She does not believe that she is on any diuretics and I do not see any listed on her medications. Labs today were significant for an acute kidney injury with a BUN and creatinine of 28 and 2.70 respectively. She does have a history of urinary retention however she does not think she has had any recent issues with that. Appetite has been okay and she has occasional nausea but no vomiting or diarrhea. She tries to drink a good amount of water each day and she doubts that she is dehydrated. She is being admitted in this setting for further evaluation of the acute kidney injury. Review of Systems Review of Systems: Twelve systems were reviewed. No fever, chills, or sweats. She denies cough. No cold or flu symptoms. No sick contacts. No chest pain or pleuritic pain. She denies shortness of breath at rest but does get winded with activity. No calf pain. Except as documented, all other systems were reviewed and are negative. [facility] Past Medical History Medical History (Updated 07/29/23 @ 21:32 by Gretta Sanchez PA-C) Arthritis Ascites Cirrhosis Depression with anxiety Erosive esophagitis Heart failure with preserved ejection fraction Echocardiogram in June 2023 showed an EF of greater than 70%, grade 1 diastolic dysfunction, and moderate pulmonary hypertension. Hepatitis B Hypercholesterolemia Hypertension Hypothyroidism MRSA bacteremia (06/2023) Type 2 diabetes mellitus Surgical History Surgical History History of appendectomy History of hysterectomy History of right hip replacement History of surgical removal of ganglion cyst Family History Family History Father Malignant neoplasm of prostate History of quadruple bypass HLD (hyperlipidemia) Hypertension Diabetes mellitus Mother Breast cancer Diabetes mellitus Sibling Diabetes mellitus Other Arthritis Social History Social History Social History: She has 3 children. She resides at [facility]. She is . 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 She quit marijuana use and alcohol in the . Smoked cigarettes off/on for about 15 years but quite 30+ years ago. She is a Full Code. She nominates her sister to be the individual to make medical decisions for her if she is unable. Smoking packs per day: 1 Smoking cigarettes per day: 20.0 Years smoked: 30 Smoking pack-years: 30.00 Smoking status: Former smoker Alcohol intake: former Substance use: former Substance use type: marijuana Lack of Transportation: No Lack of Food: Never True Current Housing: I Have Housing Concerned About Future Housing:
[2023-07-29 18:04] VITALS: BMI 34.5
[2023-07-29] MEDS: SODIUM CHLORIDE 0.9% IV 1,000 ML 125 ML IV CONT (18:35)
[2023-07-29 21:53] VITALS: BP 128/57; PULSE 88; RESP 16; TEMP 36.7; O2SAT 100
[2023-07-29] MEDS: FUROSEMIDE INJ 40 MG/4 ML VIAL IV PUSH (21:55)
[2023-07-29 22:33] LABS: Glucose Point of Care 105 mg/dl (65-105)
[2023-07-30 05:19] VITALS: BP 143/77; PULSE 100; RESP 16; TEMP 36.4; O2SAT 100
--- NOTE | 2023-07-30 05:40 | PC.NURSE ---
This RN tried to call hospitalist, Dr. Miller, in regards to bladder scan measurement, will attempt to reach her again in 15 mins.
[2023-07-30] MEDS: SUCRALFATE SUSP 100 MG/ML 10 ML UDC 1000 MG PO ×4 (05:43→20:51)
[2023-07-30 05:51] LABS: Hematocrit 30.5 % (37.0-47.0); Hemoglobin 9.5 g/dL (12.0-15.0); Mean Corpuscular HGB Conc 31.1 g/dl (32-36); Mean Corpuscular Hemoglobin 30.6 pg (26-34); Mean Corpuscular Volume 98.4 fl (80-100); Platelet Count Result 135 k/mm3 (150-375); Red Cell Distribution Width 17.3 % (11.5-14.5); White Blood Count 4.4 K/mm3 (4.5-10.0)
[2023-07-30 06:03] LABS: Anion Gap 9 mmol/L (8-16); Blood Urea Nitrogen 28 mg/dL (7-17); Calcium 8.4 mg/dL (8.4-10.2); Carbon Dioxide 17 mmol/L (22-30); Chloride 108 mmol/L (98-107); Estimated CRCL calculation 21 ml/min; Estimated Glomerular Filt Rate 17; Glucose 118 mg/dL (65-110); Magnesium 1.4 mg/dL (1.6-2.3); Potassium 4.1 mmol/L (3.4-5.0); Sodium 134 mmol/L (137-145)
[2023-07-30 08:28] LABS: Glucose Point of Care 118 mg/dl (65-105)
[2023-07-30] MEDS: ASCORBIC ACID 500 MG TABLET PO ×2 (08:37→17:32)
[2023-07-30] MEDS: DONEPEZIL HCL 5 MG TABLET PO (08:37)
[2023-07-30] MEDS: SENNA/DOCUSATE SODIUM TABLET 1 TAB PO ×2 (08:37→17:31)
[2023-07-30 08:38] VITALS: PULSE 106
[2023-07-30] MEDS: PROPRANOLOL HCL 20 MG TABLET PO (08:38)
[2023-07-30] MEDS: THERAPEUTIC MULTIVITAMINS/MINERALS TAB (*BKC) 1 TABLET PO (08:38)
[2023-07-30] MEDS: LORATADINE 10 MG TABLET PO (08:38)
[2023-07-30] MEDS: oxyBUTYnin CHLORIDE XL 5 MG TAB.ER.24 PO (08:38)
[2023-07-30] MEDS: TOLNAFTATE 1% POWDER 45 GM BTL 1 APPLIC TOPICAL ×2 (08:39→20:51)
--- NOTE | 2023-07-30 08:40 | PM.IMPN ---
Progress Note: A&P Assessment and Plan (1) Acute kidney injury: Code(s): N17.9 - Acute kidney failure, unspecified Status: Acute (2) Heart failure with preserved ejection fraction: Code(s): I50.30 - Unspecified diastolic (congestive) heart failure Status: Acute (3) Cirrhosis: Code(s): K74.60 - Unspecified cirrhosis of liver Status: Acute (4) Hypertension: Code(s): I10 - Essential (primary) hypertension Status: Acute (5) Type 2 diabetes mellitus: Code(s): E11.9 - Type 2 diabetes mellitus without complications Status: Acute (6) Hypothyroidism: Code(s): E03.9 - Hypothyroidism, unspecified Status: Acute (7) Erosive esophagitis: Code(s): K22.10 - Ulcer of esophagus without bleeding Status: Acute (8) Chronic anemia: Code(s): D64.9 - Anemia, unspecified Status: Acute Plan The patient presented to the emergency department with reports of hypoxia however her SpO2 was 100% on room air on EMS arrival as per HPI. She then began to complain of abdominal discomfort and was brought in for evaluation. Labs, imaging, EKG, and all reports were personally reviewed. Vital signs have been stable since arrival. Initial labs showed an acute kidney injury with a creatinine of 2.70 compared to 0.70 on labs obtained earlier this month. Acute renal failure creatinine of 2.70 compared to 0.70 on labs obtained earlier this month. Etiology is not entirely clear. Possible prerenal Urinalysis unremarkable Order renal ultrasound Hold furosemide Creatinine is trending up, start normal saline IV Consult program scheduler Heart failure with preserved EF Echocardiogram July 02, 2023 shows normal EF, diastolic dysfunction grade 1 Compensated Hold furosemide Monitor I/O and daily weights. Type 2 diabetes hold metformin while hospitalized. Initiate sliding scale insulin, Accu-Cheks, and hypoglycemic protocol. Hypothyroidism continue levothyroxine; recent TSH was within normal limits. Continue PPI and sucralfate for recent erosive esophagitis. Chronic anemia anemia stable on review of previous labs. Findings and treatment plan were discussed with the patient. Questions were solicited and answered to satisfaction. Subjective Date/time seen: 07/30/23 08:40 Interval history: I saw exam patient today, patient still has back pain, but denies dysuria. Patient denies chest pain, shortness breast, abdomen pain, nausea vomiting or diarrhea Exam Narrative: General:?Nontoxic-appearing female sitting up in bed no acute distress. Weight: 100 kg. BMI: 34.5. HEENT:?PERRL, EOMI. Sclera anicteric. Tacky mucous membranes. Neck:??Supple. Respiratory:?Lungs are clear to auscultation bilaterally. Cardiovascular:??Regular rate and rhythm with S1-S2. 2-3/6 systolic murmur at the right upper sternal border. Gastrointestinal:??Abdomen is large and slightly firm throughout with pitting edema at the flanks. Positive bowel sounds. No guarding or rebound tenderness. Skin:??Warm and dry. Generalized pallor. Extremities:??No cyanosis or clubbing. Massive pitting edema of the lower legs extending to the flanks. Neurological:??Alert.? Cranial nerves 2-12 are grossly intact. No gross focal deficits to casual conversation. Psychiatric:??Pleasant and cooperative with appropriate mood and affect. Objective Data Vital Signs Vital Signs: Vital Signs - 24 hr 07/29/23 13:17 07/29/23 14:37 07/29/23 18:51 Temperature 97.5 F L Pulse Rate 80 84 Respiratory Rate 18 20 Blood Pressure 138/80 139/92 H Pulse Oximetry 100 100 Oxygen Delivery Room Air Room Air 07/29/23 20:00 07/29/23 21:53 07/30/23 05:19 Temperature 98.0 F 97.6 F Pulse Rate 88 100 Respiratory Rate 16 16 Blood Pressure 128/57 L 143/77 H Pulse Oximetry 100 100 Oxygen Delivery Room Air 07/30/23 08:38 Temperature Pulse Rate 106 H Respiratory Rate Blood Pressure Pulse O
[2023-07-30] MEDS: SODIUM CHLORIDE 0.9% IV 1,000 ML 100 ML IV CONT (10:51)
[2023-07-30 11:51] LABS: Glucose Point of Care 132 mg/dl (65-105)
[2023-07-30 14:00] VITALS: BP 149/74; PULSE 84; RESP 16; TEMP 36.3; O2SAT 100
[2023-07-30 17:46] LABS: Glucose Point of Care 139 mg/dl (65-105)
[2023-07-30 20:00] VITALS: PULSE 89; RESP 16; O2SAT 100
[2023-07-30] MEDS: ENOXAPARIN 100 MG/ML SYRINGE SUB-Q (20:50)
[2023-07-30] MEDS: PANTOPRAZOLE 40 MG TABLET PO (20:50)
[2023-07-30] MEDS: LOVASTATIN 20 MG TABLET 40 MG PO (20:50)
[2023-07-30] MEDS: MELATONIN 3 MG TABLET PO (20:52)
[2023-07-30 21:06] VITALS: BP 132/73; PULSE 89; RESP 16; TEMP 36.6; O2SAT 100
[2023-07-30 23:17] LABS: Glucose Point of Care 142 mg/dl (65-105)
[2023-07-31] MEDS: ACETAMINOPHEN 325 MG TABLET 650 MG PO (01:00)
[2023-07-31 01:29] VITALS: PULSE 89; RESP 16; O2SAT 100
[2023-07-31] MEDS: BELLADONNA ALK/PHENOB ELIX 10 ML, MAG HYDROX/ALUMINUM HYD/SIMETH 30 ML, LIDOCAINE HCL 2... PO (02:50)
[2023-07-31] MEDS: SUCRALFATE SUSP 100 MG/ML 10 ML UDC 1000 MG PO ×4 (06:37→20:51)
[2023-07-31 06:59] VITALS: BP 140/69; PULSE 100; RESP 14; TEMP 36.5; O2SAT 100
[2023-07-31 08:39] LABS: Glucose Point of Care 148 mg/dl (65-105)
[2023-07-31 08:56] VITALS: O2SAT 100
[2023-07-31] MEDS: ASCORBIC ACID 500 MG TABLET PO ×2 (08:59→16:56)
[2023-07-31] MEDS: SENNA/DOCUSATE SODIUM TABLET 1 TAB PO (09:00)
[2023-07-31] MEDS: LORATADINE 10 MG TABLET PO (09:00)
[2023-07-31] MEDS: THERAPEUTIC MULTIVITAMINS/MINERALS TAB (*BKC) 1 TABLET PO (09:00)
[2023-07-31] MEDS: DONEPEZIL HCL 5 MG TABLET PO (09:00)
[2023-07-31 09:01] VITALS: PULSE 107
[2023-07-31] MEDS: TOLNAFTATE 1% POWDER 45 GM BTL 1 APPLIC TOPICAL ×2 (09:01→20:51)
[2023-07-31] MEDS: PROPRANOLOL HCL 20 MG TABLET PO (09:01)
[2023-07-31] MEDS: oxyBUTYnin CHLORIDE XL 5 MG TAB.ER.24 PO (09:01)
--- NOTE | 2023-07-31 11:19 | PM.CNNEP ---
Assessment and Plan Assessment and plan (1) Acute kidney injury: Code(s): N17.9 - Acute kidney failure, unspecified Status: Acute Assessment and Plan: The patient has acute kidney injury. This is on top of normal creatinine. There are several things that could be going on: The patient could have pre renal azotemia because of the severe swelling and poor venous return. The patient could also have under filling because of her cirrhosis. The patient could have hepatorenal syndrome as well but typically this starts with a procedure such as paracentesis or large volume diarrhea or some other reason to become suddenly dehydrated. So I think this is less likely. The patient could have clot involving her renal veins. There other causes of kidney disease as well including rhabdomyolysis, worsened heart disease, infiltrative disease, obstruction, or glomerulonephritis. The patient did have a renal ultrasound which rules out obstruction. Also the kidneys are normal in size so infiltrative disease is less likely. The patient has a clear chest x-ray suggesting that LV failure is not an issue. Since the patient's chest x-ray is clear and she has bilateral clot, I would avoid diuretics and just treat the clots to see if the kidneys get better. Will let the studies for above come back. Consider midodrine plus octreotide plus or minus albumin if hepatorenal syndrome is a consideration. Will check a urinalysis, urine electrolytes, CPK. (2) Edema: Code(s): R60.9 - Edema, unspecified Status: Acute Assessment and Plan: The patient has a DVT. Will treat this and reassess. (3) Hypertension: Code(s): I10 - Essential (primary) hypertension Status: Acute Assessment and Plan: Blood pressure is under good control (4) Type 2 diabetes mellitus: Code(s): E11.9 - Type 2 diabetes mellitus without complications Status: Acute Assessment and Plan: Metformin has been held. The patient does have a metabolic acidosis but they anion gap is only 9 so I doubt of this is lactic acidosis. Will check a lactic acid just in case. Will give oral bicarb to help the low CO2. (5) Chronic anemia: Code(s): D64.9 - Anemia, unspecified Status: Acute Assessment and Plan: Hemoglobin is 9.5. Will follow this along and get iron studies. (6) Cirrhosis: Code(s): K74.60 - Unspecified cirrhosis of liver Status: Acute Assessment and Plan: The patient says that she sees a capital campaign fundraiser here at the hospital. (7) Heart failure with preserved ejection fraction: Code(s): I50.30 - Unspecified diastolic (congestive) heart failure Status: Acute Assessment and Plan: Chest x-ray is clear. History of Present Illness Reason for Consult Consult date: 07/31/23 Chief Complaint Chief complaint: PIOTR History of Present Illness Narrative: One is a very pleasant 72-year-old lady who has multiple medical problems including cirrhosis followed by GI, ascites from the cirrhosis status post paracentesis 1 time 2 months ago, hyperlipidemia, diabetes, GERD, hypothyroidism, and heart failure with preserved ejection fraction. The patient says that she was well until 2 months ago when she gradually developed swelling. She had had swelling before but this was much more dramatic with severe swelling in her legs and also some swelling in her hips and lower abdomen. She did not call anybody about the swelling and it continuously progressed. On the day of admission the patient developed shortness of breath. Somebody at home checked in oxygen level and the O2 sat was low so they called 911. 911 check the O2 sat and it was 100% however she had such severe edema she was brought to the ER. In the ER she was evaluated and once again her O2 sat was okay but her BUN and creatinine were very elevated and so she was admitted. Because of the swelling the patient had venous Dopplers christine
[2023-07-31 11:46] LABS: Creatine Kinase < 20 U/L (30-135)
[2023-07-31 11:57] LABS: Iron 41 ug/dL (37-170)
[2023-07-31 12:05] LABS: Percent Iron Saturation 22 % (20-50)
[2023-07-31 12:07] LABS: Glucose Point of Care 135 mg/dl (65-105)
[2023-07-31 12:10] LABS: Basophils Percent Auto 0.6 % (0.2-1.2); Beta-Hydroxybutyrate/Acetoacetate 0.36 mmol/L (0.02-0.27); Eosinophils Absolute Auto 0.3 K/mm3 (0-0.3); Eosinophils Percent Auto 4.8 % (0-4.4); Hematocrit 29.5 % (37.0-47.0); Hemoglobin 9.3 g/dL (12.0-15.0); Immature Granulocyte Absolute 0.03 K/mm3 (0.00-0.031); Immature Granulocyte Percent A 0.6 % (0-0.5); Lymphocytes Absolute Auto 0.63 K/mm3 (0.9-3.2); Mean Corpuscular HGB Conc 31.5 g/dl (32-36); Mean Corpuscular Hemoglobin 31.2 pg (26-34); Mean Platelet Volume 9.1 fl (7.4-10.4); Monocytes Absolute Auto 0.4 K/mm3 (0.1-0.6); Neutrophils Absolute Auto 3.9 K/mm3 (1.3-6.7); Platelet Count Result 149 k/mm3 (150-375); Red Blood Count 2.98 M/mm3 (4.2-5.4); Red Cell Distribution Width 17.3 % (11.5-14.5); White Blood Count 5.3 K/mm3 (4.5-10.0)
[2023-07-31 12:27] LABS: Alanine Aminotransferase 20 U/L (6-35); Albumin Level 2.3 g/dL (3.5-5.1); Alkaline Phosphatase 131 U/L (38-126); Anion Gap 8 mmol/L (8-16); Aspartate Amino Transferase 40 U/L (14-36); Bilirubin,Total 0.9 mg/dL (0.2-1.3); Blood Urea Nitrogen 28 mg/dL (7-17); Calcium 8.4 mg/dL (8.4-10.2); Carbon Dioxide 17 mmol/L (22-30); Chloride 108 mmol/L (98-107); Estimated CRCL calculation 24 ml/min; Estimated Glomerular Filt Rate 20; Glucose 141 mg/dL (65-110); Potassium 4.4 mmol/L (3.4-5.0); Sodium 133 mmol/L (137-145)
[2023-07-31 12:35] LABS: Lactic Acid Reflex 1.3 mmol/L (0.7-2.0)
[2023-07-31 12:36] LABS: INR 1.3; Prothrombin Time 17.1 Seconds (11.1-14.7)
[2023-07-31 12:42] LABS: Partial Thromboplastin Time 42.5 SECONDS (22.3-36.8)
[2023-07-31 12:55] LABS: Appearance Urine Turbid (Clear); Bacteria Urine 4+ /hpf; Bilirubin Urine Negative (Negative); Blood Urine 3+ (Negative); Color Urine Yellow (Yellow); Glucose Urine UA Negative (Negative); Ketones Urine Negative (Negative); Leukocyte Esterase Ur 3+ LEU/UL (NEGATIVE); Need Manual Microscopic Reviewed; Nitrate Urine Positive (Negative); Protein Urine 1+ mg/dL (Negative); RBC Urine 21-50 /hpf (0-2); Specific Grav Ur 1.012 (1.001-1.035); Squamous Epithelial Cell Urine Occasional /hpf (Few); Urobilinogen Urine 0.2 mg/dL (<2.0); WBC Urine >100 /hpf (0-3); pH Urine 5.5 (5.0-9.0)
[2023-07-31 12:57] LABS: Add Urine Microscopic? YES
[2023-07-31 13:19] LABS: Creatinine Urine 90.1 mg/dL; Sodium Urine Random 22 meq/L; Total Protein Urine Random 43 mg/dL; Ur Ttl Prot Creatinine Ratio 0.48 mg/mg (0-0.20); Urea Random Urine 479 MG/DL
[2023-07-31 14:09] VITALS: BP 123/64; PULSE 84; RESP 16; TEMP 36.5; O2SAT 100
--- NOTE | 2023-07-31 15:47 | PM.IMPN ---
Progress Note: A&P Assessment and Plan (1) Acute DVT (deep venous thrombosis): Code(s): I82.409 - Acute embolism and thrombosis of unspecified deep veins of unspecified lower extremity Status: Acute (2) Acute kidney injury: Code(s): N17.9 - Acute kidney failure, unspecified Status: Acute (3) Heart failure with preserved ejection fraction: Code(s): I50.30 - Unspecified diastolic (congestive) heart failure Status: Acute (4) Cirrhosis: Code(s): K74.60 - Unspecified cirrhosis of liver Status: Acute (5) Hypertension: Code(s): I10 - Essential (primary) hypertension Status: Acute (6) Type 2 diabetes mellitus: Code(s): E11.9 - Type 2 diabetes mellitus without complications Status: Acute (7) Hypothyroidism: Code(s): E03.9 - Hypothyroidism, unspecified Status: Acute (8) Erosive esophagitis: Code(s): K22.10 - Ulcer of esophagus without bleeding Status: Acute (9) Chronic anemia: Code(s): D64.9 - Anemia, unspecified Status: Acute Plan The patient presented to the emergency department with reports of hypoxia however her SpO2 was 100% on room air on EMS arrival as per HPI. She then began to complain of abdominal discomfort and was brought in for evaluation. Labs, imaging, EKG, and all reports were personally reviewed. Vital signs have been stable since arrival. Initial labs showed an acute kidney injury with a creatinine of 2.70 compared to 0.70 on labs obtained earlier this month. Acute DVT both lower extremities Venous Doppler reports Acute nonocclusive thrombus in the right popliteal vein. Flow noted within the right posterior tibial and peroneal veins which were otherwise poorly visualized. The right common femoral vein, profunda (deep) femoral vein, femoral vein, and greater saphenous vein are patent. Acute nonocclusive thrombus at the left common femoral/greater saphenous junction and the left proximal femoral vein. Flow detected within the posterior tibial and peroneal veins, otherwise poorly visualized. The profunda (deep)? femoral vein, femoral vein, popliteal vein, and greater saphenous vein are patent. Start Lovenox 100 mg q.12 hours per pharmacist recommendation based on patient kidney function Patient denies chest pain or shortness of breath, we not pursue studies of pulmonary embolism will transition to or blood thinners tomorrow Acute renal failure creatinine of 2.70 compared to 0.70 on labs obtained earlier this month. Etiology is not entirely clear. Possible prerenal Urinalysis unremarkable Order renal ultrasound Hold furosemide Creatinine is trending up, start normal saline IV Consult plastics and composites inspector Heart failure with preserved EF Echocardiogram July 02, 2023 shows normal EF, diastolic dysfunction grade 1 Compensated Hold furosemide Monitor I/O and daily weights. Type 2 diabetes hold metformin while hospitalized. Initiate sliding scale insulin, Accu-Cheks, and hypoglycemic protocol. Hypothyroidism continue levothyroxine; recent TSH was within normal limits. Continue PPI and sucralfate for recent erosive esophagitis. Chronic anemia anemia stable on review of previous labs. Findings and treatment plan were discussed with the patient. Questions were solicited and answered to satisfaction. Subjective Date/time seen: 07/31/23 15:47 Interval history: I saw and examined patient today. Patient was found have DVT both lower extremities, patient denies chest pain, shortness a breath. Still has bilateral lower extremity pain Exam Narrative: General:?Nontoxic-appearing female sitting up in bed no acute distress. Weight: 100 kg. BMI: 34.5. HEENT:?PERRL, EOMI. Sclera anicteric. Tacky mucous membranes. Neck:??Supple. Respiratory:?Lungs are clear to auscultation bilaterally. Cardiovascular:??Regular rate and rhythm with S1-S2. 2-3/6 systolic murmur at the right upper sternal border. Ga
[2023-07-31] MEDS: SODIUM BICARBONATE TAB 650 MG TABLET 1300 MG PO (16:56)
[2023-07-31 17:17] LABS: Glucose Point of Care 138 mg/dl (65-105)
[2023-07-31] MEDS: ENOXAPARIN 100 MG/ML SYRINGE SUB-Q (18:47)
[2023-07-31 19:38] VITALS: BP 143/69; PULSE 105; RESP 20; TEMP 36.6; O2SAT 95
[2023-07-31 20:29] LABS: Glucose Point of Care 160 mg/dl (65-105)
[2023-07-31] MEDS: LOVASTATIN 20 MG TABLET 40 MG PO (20:50)
[2023-07-31] MEDS: MELATONIN 3 MG TABLET PO (20:51)
[2023-07-31] MEDS: PANTOPRAZOLE 40 MG TABLET PO (20:51)
[2023-08-01 04:31] VITALS: BP 155/81; PULSE 88; RESP 20; TEMP 36.3; O2SAT 99
[2023-08-01 05:45] LABS: Albumin Level 2.5 g/dL (3.5-5.1); Anion Gap 7 mmol/L (8-16); Blood Urea Nitrogen 26 mg/dL (7-17); Calcium 8.2 mg/dL (8.4-10.2); Carbon Dioxide 15 mmol/L (22-30); Chloride 107 mmol/L (98-107); Estimated CRCL calculation 28 ml/min; Estimated Glomerular Filt Rate 20; Glucose 131 mg/dL (65-110); Potassium 4.2 mmol/L (3.4-5.0); Sodium 129 mmol/L (137-145)
[2023-08-01] MEDS: SUCRALFATE SUSP 100 MG/ML 10 ML UDC 1000 MG PO ×4 (06:46→20:55)
[2023-08-01 07:44] VITALS: PULSE 91; RESP 16; O2SAT 97
[2023-08-01 08:09] LABS: Glucose Point of Care 123 mg/dl (65-105)
--- NOTE | 2023-08-01 08:33 | PM.IMPN ---
Progress Note: A&P Assessment and Plan (1) Acute DVT (deep venous thrombosis): Code(s): I82.409 - Acute embolism and thrombosis of unspecified deep veins of unspecified lower extremity Status: Acute (2) Acute kidney injury: Code(s): N17.9 - Acute kidney failure, unspecified Status: Acute (3) Heart failure with preserved ejection fraction: Code(s): I50.30 - Unspecified diastolic (congestive) heart failure Status: Acute (4) Cirrhosis: Code(s): K74.60 - Unspecified cirrhosis of liver Status: Acute (5) Hypertension: Code(s): I10 - Essential (primary) hypertension Status: Acute (6) Type 2 diabetes mellitus: Code(s): E11.9 - Type 2 diabetes mellitus without complications Status: Acute (7) Hypothyroidism: Code(s): E03.9 - Hypothyroidism, unspecified Status: Acute (8) Erosive esophagitis: Code(s): K22.10 - Ulcer of esophagus without bleeding Status: Acute (9) Chronic anemia: Code(s): D64.9 - Anemia, unspecified Status: Acute Plan The patient presented to the emergency department with reports of hypoxia however her SpO2 was 100% on room air on EMS arrival as per HPI. She then began to complain of abdominal discomfort and was brought in for evaluation. Labs, imaging, EKG, and all reports were personally reviewed. Vital signs have been stable since arrival. Initial labs showed an acute kidney injury with a creatinine of 2.70 compared to 0.70 on labs obtained earlier this month. Acute DVT both lower extremities Venous Doppler reports Acute nonocclusive thrombus in the right popliteal vein. Flow noted within the right posterior tibial and peroneal veins which were otherwise poorly visualized. The right common femoral vein, profunda (deep) femoral vein, femoral vein, and greater saphenous vein are patent. Acute nonocclusive thrombus at the left common femoral/greater saphenous junction and the left proximal femoral vein. Flow detected within the posterior tibial and peroneal veins, otherwise poorly visualized. The profunda (deep)? femoral vein, femoral vein, popliteal vein, and greater saphenous vein are patent. Start Lovenox 100 mg q.12 hours per pharmacist recommendation based on patient kidney function Patient denies chest pain or shortness of breath, we not pursue studies of pulmonary embolism transition to oral Eliquis 10 mg b.i.d. and then 5 mg b.i.d. p.o., I have discussed Eliquis doses with pharmacist, Jose. Discontinue Lovenox Acute renal failure creatinine of 2.70 compared to 0.70 on labs obtained earlier this month. Etiology is not entirely clear. Possible prerenal Urinalysis unremarkable renal ultrasound has rule out obstruction, kidneys are of normal in size Hold furosemide Creatinine is trending up, received normal saline IV Consult forge operator Appreciate forge operator input, forge operator considers possible hepatorenal syndrome, start octreotide 100 mcg t.i.d. subQ, midodrine 10 mg t.i.d. p.o. abdomen 1 gram/kilos x 1, will give 100 g today, then 20-40g qd tm Liver cirrhosis and ascites CT 07/04 the liver with large amount of ascites and diffuse subcutaneous edema, consistent with anasarca. Patient follow-up with Dr Stark order abd US Heart failure with preserved EF Echocardiogram July 02, 2023 shows normal EF, diastolic dysfunction grade 1 Compensated Hold furosemide Monitor I/O and daily weights. Type 2 diabetes hold metformin while hospitalized. Initiate sliding scale insulin, Accu-Cheks, and hypoglycemic protocol. Hypothyroidism continue levothyroxine; recent TSH was within normal limits. Continue PPI and sucralfate for recent erosive esophagitis. Chronic anemia anemia stable on review of previous labs. Findings and treatment plan were discussed with the patient. Questions were solicited and answered to satisfaction. Subjective Date/time seen: 08/01/23 08:33 Rosana
[2023-08-01] MEDS: oxyBUTYnin CHLORIDE XL 5 MG TAB.ER.24 PO (10:13)
[2023-08-01 10:14] VITALS: PULSE 91
[2023-08-01] MEDS: PROPRANOLOL HCL 20 MG TABLET PO (10:14)
[2023-08-01] MEDS: THERAPEUTIC MULTIVITAMINS/MINERALS TAB (*BKC) 1 TABLET PO (10:14)
[2023-08-01] MEDS: LORATADINE 10 MG TABLET PO (10:14)
[2023-08-01] MEDS: ASCORBIC ACID 500 MG TABLET PO ×2 (10:14→18:33)
[2023-08-01] MEDS: SODIUM BICARBONATE TAB 650 MG TABLET 1300 MG PO ×2 (10:14→18:34)
[2023-08-01] MEDS: SENNA/DOCUSATE SODIUM TABLET 1 TAB PO ×2 (10:14→18:33)
[2023-08-01 10:17] VITALS: BP 129/73; PULSE 91; RESP 14; O2SAT 100
[2023-08-01] MEDS: DONEPEZIL HCL 5 MG TABLET PO (10:20)
[2023-08-01] MEDS: TOLNAFTATE 1% POWDER 45 GM BTL 1 APPLIC TOPICAL ×2 (10:23→20:55)
[2023-08-01] MEDS: MIDODRINE HCL 10 MG TABLET PO ×3 (10:29→18:33)
[2023-08-01] MEDS: OCTREOTIDE ACETATE 100 MCG/ML VIAL SUB-Q ×3 (10:30→18:35)
--- NOTE | 2023-08-01 12:02 | P.PNNP_ITS ---
Progress Note: A&P Assessment and Plan (1) Acute kidney injury: Code(s): N17.9 - Acute kidney failure, unspecified Status: Acute Assessment and Plan: * etiology?? * evaluation to date: * renal ultrasound without obstruction * UA with blood, protein, WBC and LE -- possible infection? * urine electrolytes are prerenal * mild proteinuria of ~ 500mg * CPK low * suspect decreased effective circulating volume from liver cirrhosis/physiology resulting in chronic prerenal azotemia despite outward signs of fluid ove rload/retention * possible HRS (?) * await renal scan * follow trend of repeat labs and UOP (2) Edema: Code(s): R60.9 - Edema, unspecified Status: Acute Assessment and Plan: * due to liver cirrhosis, hypoalbuminemia, and DVTs * treat supportively * suspect will eventually need diuresis (3) Hypertension: Code(s): I10 - Essential (primary) hypertension Status: Chronic Assessment and Plan: * reasonable control * follow trend of hemodynamics (4) Chronic anemia: Code(s): D64.9 - Anemia, unspecified Status: Acute Assessment and Plan: * due to PIOTR, acute illness, and liver cirrhosis * follow trend of H/H (5) Cirrhosis: Code(s): K74.60 - Unspecified cirrhosis of liver Status: Chronic Assessment and Plan: * GI consulted * need repeat paracentesis(?) (6) Type 2 diabetes mellitus: Code(s): E11.9 - Type 2 diabetes mellitus without complications Status: Acute Assessment and Plan: * follow accu-cheks * glycemic control per hospitalists Will continue to follow. Subjective Date/time seen: 08/01/23 12:02 Interval history: Follow-up for acute kidney injury/acute renal failure. Chart reviewed -- assuming care from Dr. Law; major complaint at the time of my vist was that of generalized weakness and bilateral lower extremity pain/discomfort; denies any shortness of breath or chest discomfort; no significant change or improvement in creatinine/renal function by AM labs. Exam Narrative: General: elderly but WD/WN female in NAD Heart: normal S1 and S2; no rub Lungs: clear to auscultation Abdomen: soft, nontender, nondistended, positive bowel sounds Extremities: no cyanosis or clubbing; 2+ edema Skin: warm and dry Objective Data Vital Signs Vital Signs: Vital Signs Temp Pulse Resp BP Pulse Ox O2 Del Method FiO2 08/01/23 12:00 97.8 F 88 14 128/70 100 08/01/23 10:17 91 14 129/73 100 08/01/23 10:14 91 08/01/23 07:44 91 16 97 Room Air 08/01/23 04:31 97.4 F L 88 20 155/81 H 99 07/31/23 19:38 97.8 F 105 H 20 143/69 H 95 Intake/Output Intake/Output: Intake & Output 07/29/23 07/30/23 07/31/23 08/01/23 23:59 23:59 23:59 23:59 Intake Total 800 1030 1070 1150 Output Total 900 1025 1300 Balance 800 130 45 -150 Meds/Results Medications: Active Medications Generic Name Dose Route Start Last Admin Trade Name Freq PRN Reason Stop Dose Admin Apixaban 10 mg 08/02/23 09:00 Apixaban 5 Mg Tablet PO 08/08/23 21:01 Q12HR LORA
--- NOTE | 2023-08-01 12:02 | PM.PNNEP ---
Progress Note: A&P Assessment and Plan (1) Acute kidney injury: Code(s): N17.9 - Acute kidney failure, unspecified Status: Acute Assessment and Plan: etiology?? evaluation to date: renal ultrasound without obstruction UA with blood, protein, WBC and LE -- possible infection? urine electrolytes are prerenal mild proteinuria of ~ 500mg CPK low suspect decreased effective circulating volume from liver cirrhosis/physiology resulting in chronic prerenal azotemia despite outward signs of fluid overload/retention possible HRS (?) await renal scan follow trend of repeat labs and UOP (2) Edema: Code(s): R60.9 - Edema, unspecified Status: Acute Assessment and Plan: due to liver cirrhosis, hypoalbuminemia, and DVTs treat supportively suspect will eventually need diuresis (3) Hypertension: Code(s): I10 - Essential (primary) hypertension Status: Chronic Assessment and Plan: reasonable control follow trend of hemodynamics (4) Chronic anemia: Code(s): D64.9 - Anemia, unspecified Status: Acute Assessment and Plan: due to PIOTR, acute illness, and liver cirrhosis follow trend of H/H (5) Cirrhosis: Code(s): K74.60 - Unspecified cirrhosis of liver Status: Chronic Assessment and Plan: GI consulted need repeat paracentesis(?) (6) Type 2 diabetes mellitus: Code(s): E11.9 - Type 2 diabetes mellitus without complications Status: Acute Assessment and Plan: follow accu-cheks glycemic control per hospitalists Will continue to follow. Subjective Date/time seen: 08/01/23 12:02 Interval history: Follow-up for acute kidney injury/acute renal failure. Chart reviewed -- assuming care from Dr. Law; major complaint at the time of my vist was that of generalized weakness and bilateral lower extremity pain/discomfort; denies any shortness of breath or chest discomfort; no significant change or improvement in creatinine/renal function by AM labs. Exam Narrative: General: elderly but WD/WN female in NAD Heart: normal S1 and S2; no rub Lungs: clear to auscultation Abdomen: soft, nontender, nondistended, positive bowel sounds Extremities: no cyanosis or clubbing; 2+ edema Skin: warm and dry Objective Data Vital Signs Vital Signs: Vital Signs Temp Pulse Resp BP Pulse Ox O2 Del Method FiO2 08/01/23 12:00 97.8 F 88 14 128/70 100 08/01/23 10:17 91 14 129/73 100 08/01/23 10:14 91 08/01/23 07:44 91 16 97 Room Air 08/01/23 04:31 97.4 F L 88 20 155/81 H 99 07/31/23 19:38 97.8 F 105 H 20 143/69 H 95 Intake/Output Intake/Output: Intake & Output 07/29/23 07/30/23 07/31/23 08/01/23 23:59 23:59 23:59 23:59 Intake Total 800 1030 1070 1150 Output Total 900 1025 1300 Balance 800 130 45 -150 Meds/Results Medications: Active Medications Generic Name Dose Route Start Last Admin Trade Name Freq PRN Reason Stop Dose Admin Apixaban 10 mg 08/02/23 09:00 Apixaban 5 Mg Tablet PO 08/08/23 21:01 Q12HR LORA Apixaban 5 mg 08/09/23 09:00 Apixaban 5 Mg Tablet PO Q12HR LORA Ascorbic Acid 500 mg 07/30/23 09:00 08/01/23 10:14 Ascorbic Acid 500 Mg Tablet PO 500 mg BID LORA Administration Bisacodyl 10 mg 07/29/23 21:45 Bisacodyl 10 Mg Suppository RECTAL Q24H PRN Constipation Dextrose 12.5 gm 07/29/23 21:38 Dextrose 50% 25 Gm/50 Ml Syringe IV PUSH PRN PRN Hypoglycemia Protocol Donepezil HCl 5 mg 07/30/23 09:00 08/01/23 10:20 Donepezil Hcl 5 Mg Tablet PO 5 mg DAILY LORA Administration Glucagon 1 mg 07/29/23 21:38 Glucagon For Inj 1 Mg Vial IM PRN PRN Hypoglycemia Protocol Glucose 15 gm 07/29/23 21:38 Glucose Oral Gel 15 Gm Of Glucse In 37.5 Gm Tube PO PRN PRN Hypoglycemia Protocol Dextrose 1,
[2023-08-01 12:46] LABS: Glucose Point of Care 136 mg/dl (65-105)
[2023-08-01] MEDS: ALBUMIN HUMAN 25% 25 GM/100 ML 200 ML IVPB ×2 (12:49→16:33)
[2023-08-01 14:00] VITALS: BP 128/70; PULSE 88; RESP 14; TEMP 36.6; O2SAT 100
[2023-08-01] MEDS: oxyCODONE HCL (*CRX) 5 MG TAB IR PO (16:41)
--- NOTE | 2023-08-01 17:00 | WPDGICN ---
Assessment and Plan Assessment and plan (1) Cirrhosis: Code(s): K74.60 - Unspecified cirrhosis of liver Status: Acute Assessment and Plan: probably lucio (mild elevated bahman but she has multiple risk factors for lucio), had paracentesis last month (2) Ascites: Code(s): R18.8 - Other ascites Status: Acute (3) Acute DVT (deep venous thrombosis): Code(s): I82.409 - Acute embolism and thrombosis of unspecified deep veins of unspecified lower extremity Status: Acute Assessment and Plan: on blood thinner now egd last month with moderate esophagitis, no varices (4) Acute kidney injury: Code(s): N17.9 - Acute kidney failure, unspecified Status: Acute Assessment and Plan: ? ATN, med related, HRS started on midodrine and octreotide, also received iv albumin holding diuretics and avoid nephrotoxin agents renal to see (5) DM2 (diabetes mellitus, type 2): Code(s): E11.9 - Type 2 diabetes mellitus without complications Status: Acute (6) HTN (hypertension) with goal to be determined: Code(s): I10 - Essential (primary) hypertension Status: Acute GI Consult Note Consult date/time: 08/01/23 17:00 Reason for consult: cirrhosis HPI: Barbara Palma is a 72 year old female with history of diabetes mellitus, hypertension, hyperlipidemia, hypothyroidism, cirrhosis ? lucio, heart failure with preserved ejection fraction who presented to the emergency department via EMS from a local rehab facility for evaluation of hypoxia and also leg edema. Most recently she was discharged on 07/11/2023 after being admitted with acute parotitis and MRSA bacteremia, also had cirrhosis with ascites- paracentesis without sbp. Blood work revealed acute kidney injury with a BUN and creatinine of 28 and 2.70 respectively, also new diagnosis of DVT legs now on eliquis. EGD last month grade II esophagitis, no varices, also hiatal hernia. Review of Systems Constitutional: Constitutional: Denies chills Eyes: Eyes: Denies blurry vision ENT: Reports Normal hearing present Cardiovascular: Cardiovascular: Denies chest pain Respiratory: Respiratory: Reports dyspnea Gastrointestinal: Gastrointestinal: Denies nausea Musculoskeletal: Musculoskeletal: Denies neck pain Integumentary/Breasts: Skin/Breast: Denies rash Neurologic: Denies confusion [facility] Past Medical History Medical History Arthritis Ascites Cirrhosis Depression with anxiety Erosive esophagitis Heart failure with preserved ejection fraction Echocardiogram in June 2023 showed an EF of greater than 70%, grade 1 diastolic dysfunction, and moderate pulmonary hypertension. Hepatitis B Hypercholesterolemia Hypertension Hypothyroidism MRSA bacteremia (06/2023) Type 2 diabetes mellitus Surgical History Surgical History History of appendectomy History of hysterectomy History of right hip replacement History of surgical removal of ganglion cyst Family History Family History Father Malignant neoplasm of prostate History of quadruple bypass HLD (hyperlipidemia) Hypertension Diabetes mellitus Mother Breast cancer Diabetes mellitus Sibling Diabetes mellitus Other Arthritis Social History Social History Social History: She has 3 children. She resides at [facility]. She is . 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 She quit marijuana use and alcohol in the . Smoked cigarettes off/on for about 15 years but quite 30+ years ago. She is a [employer]. She nominates her sister to be the individual to make medical decisions for her if she is unable. Smoking packs per day: 1 Smoking cigarettes per day: 20.0 Years smoked: 30
[2023-08-01 17:20] LABS: Glucose Point of Care 168 mg/dl (65-105)
[2023-08-01 19:32] VITALS: BP 180/82; PULSE 80; RESP 20; TEMP 36.6; O2SAT 97
[2023-08-01] MEDS: PANTOPRAZOLE 40 MG TABLET PO (20:55)
[2023-08-01] MEDS: MELATONIN 3 MG TABLET PO (20:55)
[2023-08-01] MEDS: LOVASTATIN 20 MG TABLET 40 MG PO (20:55)
[2023-08-01 21:13] LABS: Glucose Point of Care 181 mg/dl (65-105)
[2023-08-02 03:16] VITALS: BP 153/72; PULSE 80; RESP 20; TEMP 36.6; O2SAT 95
[2023-08-02] MEDS: SUCRALFATE SUSP 100 MG/ML 10 ML UDC 1000 MG PO ×4 (05:38→20:53)
[2023-08-02 06:02] LABS: Basophils Percent Auto 0.5 % (0.2-1.2); Eosinophils Absolute Auto 0.3 K/mm3 (0-0.3); Eosinophils Percent Auto 5.8 % (0-4.4); Hematocrit 27.9 % (37.0-47.0); Hemoglobin 8.7 g/dL (12.0-15.0); Immature Granulocyte Absolute 0.02 K/mm3 (0.00-0.031); Immature Granulocyte Percent A 0.4 % (0-0.5); Lymphocytes Absolute Auto 0.73 K/mm3 (0.9-3.2); Lymphocytes Percent Auto 13.2 % (18.3-44.2); Mean Corpuscular HGB Conc 31.2 g/dl (32-36); Mean Corpuscular Hemoglobin 30.9 pg (26-34); Mean Corpuscular Volume 98.9 fl (80-100); Mean Platelet Volume 9.2 fl (7.4-10.4); Monocytes Absolute Auto 0.6 K/mm3 (0.1-0.6); Neutrophils Absolute Auto 3.8 K/mm3 (1.3-6.7); Neutrophils Percent Auto 69.1 % (45.5-73.1); Platelet Count Result 132 k/mm3 (150-375); Red Blood Count 2.82 M/mm3 (4.2-5.4); Red Cell Distribution Width 17.2 % (11.5-14.5); White Blood Count 5.5 K/mm3 (4.5-10.0)
[2023-08-02 06:27] LABS: Alanine Aminotransferase 14 U/L (6-35); Albumin Level 3.2 g/dL (3.5-5.1); Alkaline Phosphatase 104 U/L (38-126); Anion Gap 12 mmol/L (8-16); Aspartate Amino Transferase 30 U/L (14-36); Bilirubin,Total 1.1 mg/dL (0.2-1.3); Blood Urea Nitrogen 24 mg/dL (7-17); Calcium 8.5 mg/dL (8.4-10.2); Carbon Dioxide 17 mmol/L (22-30); Chloride 105 mmol/L (98-107); Estimated CRCL calculation 27 ml/min; Estimated Glomerular Filt Rate 20; Glucose 150 mg/dL (65-110); Potassium 4.1 mmol/L (3.4-5.0); Sodium 134 mmol/L (137-145)
[2023-08-02 08:00] VITALS: BP 168/80; PULSE 89; O2SAT 99
[2023-08-02 08:31] LABS: Glucose Point of Care 147 mg/dl (65-105)
[2023-08-02] MEDS: SODIUM BICARBONATE TAB 650 MG TABLET 1300 MG PO ×2 (08:32→18:04)
[2023-08-02 08:33] VITALS: PULSE 89
[2023-08-02] MEDS: PROPRANOLOL HCL 20 MG TABLET PO (08:33)
[2023-08-02] MEDS: APIXABAN 5 MG TABLET 10 MG PO ×2 (08:33→20:54)
[2023-08-02] MEDS: LORATADINE 10 MG TABLET PO (08:34)
[2023-08-02] MEDS: THERAPEUTIC MULTIVITAMINS/MINERALS TAB (*BKC) 1 TABLET PO (08:34)
[2023-08-02] MEDS: oxyBUTYnin CHLORIDE XL 5 MG TAB.ER.24 PO (08:34)
[2023-08-02] MEDS: MIDODRINE HCL 10 MG TABLET PO ×3 (08:34→18:04)
[2023-08-02] MEDS: OCTREOTIDE ACETATE 100 MCG/ML VIAL SUB-Q ×3 (08:34→19:11)
[2023-08-02] MEDS: ASCORBIC ACID 500 MG TABLET PO ×2 (08:35→18:04)
[2023-08-02] MEDS: SENNA/DOCUSATE SODIUM TABLET 1 TAB PO ×2 (08:35→18:04)
[2023-08-02] MEDS: DONEPEZIL HCL 5 MG TABLET PO (08:35)
[2023-08-02] MEDS: oxyCODONE HCL (*CRX) 5 MG TAB IR PO (11:12)
[2023-08-02] MEDS: TOLNAFTATE 1% POWDER 45 GM BTL 1 APPLIC TOPICAL ×2 (11:14→20:52)
--- NOTE | 2023-08-02 11:30 | P.PNNP_ITS ---
Progress Note: A&P Assessment and Plan (1) Acute kidney injury: Code(s): N17.9 - Acute kidney failure, unspecified Status: Acute Assessment and Plan: * etiology?? * evaluation to date: * renal ultrasound without obstruction * UA with blood, protein, WBC and LE -- possible infection? * urine electrolytes are prerenal * mild proteinuria of ~ 500mg * CPK low * suspect decreased effective circulating volume from liver cirrhosis/physiology resulting in chronic prerenal azotemia despite outward signs of fluid overload/retention * renal scan results noted - element of ATN (?) * possible HRS (?) -- trial of octreotride and midodrine? * follow trend of repeat labs and UOP (2) Edema: Code(s): R60.9 - Edema, unspecified Status: Acute Assessment and Plan: * due to liver cirrhosis, hypoalbuminemia, and DVTs * treat supportively * suspect will eventually need diuresis (3) Hypertension: Code(s): I10 - Essential (primary) hypertension Status: Chronic Assessment and Plan: * reasonable control * follow trend of hemodynamics (4) Chronic anemia: Code(s): D64.9 - Anemia, unspecified Status: Acute Assessment and Plan: * due to PIOTR, acute illness, and liver cirrhosis * follow trend of H/H (5) Cirrhosis: Code(s): K74.60 - Unspecified cirrhosis of liver Status: Chronic Assessment and Plan: * GI recommendations noted * follow LFTs * watch for hepatic encephalopathy (6) Type 2 diabetes mellitus: Code(s): E11.9 - Type 2 diabetes mellitus without complications Status: Acute Assessment and Plan: * follow accu-cheks * glycemic control per hospitalists Will continue to follow. Subjective Date/time seen: 08/02/23 11:30 Interval history: Follow-up for acute kidney injury/acute renal failure. No significant change with regard to lower extremity edema or renal function at this time; still feels weak and tired; still making reasonable urine output at this time; no other issues/events overnight or earlier this morning. Exam Narrative: General: elderly female in NAD Heart: normal S1 and S2; no rub Lungs: clear to auscultation Abdomen: soft, nontender, mild distension, positive bowel sounds Extremities: no cyanosis or clubbing; 2+ edema Skin: warm and intact Objective Data Vital Signs Vital Signs: Vital Signs - 24 hr ? 08/01/23 14:00 08/01/23 19:32 08/02/23 03:16 Temperature 36.6 C 36.6 C 36.6 C Pulse Rate 88 80 80 Respiratory Rate 14 20 20 Blood Pressure 128/70 180/82 H 153/72 H Pulse Oximetry 100 97 95 ? 08/02/23 08:33 08/02/23 08:00 Temperature ? ? Pulse Rate 89 89 Respiratory Rate ? ? Blood Pressure ? 168/80 H Pulse Oximetry ? 99 Intake/Output Intake/Output: Intake & Output 08/07/23 08/08/23 08/09/23 08/10/23 23:59 23:59 23:59 23:59 Intake Total 300 1480 1700 70 Output Total 2435 7061 6800 900 [facility] -5100 -5570 -5100 -830 Meds/Results Medications: Active Medications Generic Name Dose Route Start Last Admin ? Trade Name Freq? PRN Re
--- NOTE | 2023-08-02 11:30 | PM.PNNEP ---
Progress Note: A&P Assessment and Plan (1) Acute kidney injury: Code(s): N17.9 - Acute kidney failure, unspecified Status: Acute Assessment and Plan: etiology?? evaluation to date: renal ultrasound without obstruction UA with blood, protein, WBC and LE -- possible infection? urine electrolytes are prerenal mild proteinuria of ~ 500mg CPK low suspect decreased effective circulating volume from liver cirrhosis/physiology resulting in chronic prerenal azotemia despite outward signs of fluid overload/retention renal scan results noted - element of ATN (?) possible HRS (?) -- trial of octreotride and midodrine? follow trend of repeat labs and UOP (2) Edema: Code(s): R60.9 - Edema, unspecified Status: Acute Assessment and Plan: due to liver cirrhosis, hypoalbuminemia, and DVTs treat supportively suspect will eventually need diuresis (3) Hypertension: Code(s): I10 - Essential (primary) hypertension Status: Chronic Assessment and Plan: reasonable control follow trend of hemodynamics (4) Chronic anemia: Code(s): D64.9 - Anemia, unspecified Status: Acute Assessment and Plan: due to PIOTR, acute illness, and liver cirrhosis follow trend of H/H (5) Cirrhosis: Code(s): K74.60 - Unspecified cirrhosis of liver Status: Chronic Assessment and Plan: GI recommendations noted follow LFTs watch for hepatic encephalopathy (6) Type 2 diabetes mellitus: Code(s): E11.9 - Type 2 diabetes mellitus without complications Status: Acute Assessment and Plan: follow accu-cheks glycemic control per hospitalists Will continue to follow. Subjective Date/time seen: 08/02/23 11:30 Interval history: Follow-up for acute kidney injury/acute renal failure. No significant change with regard to lower extremity edema or renal function at this time; still feels weak and tired; still making reasonable urine output at this time; no other issues/events overnight or earlier this morning. Exam Narrative: General: elderly female in NAD Heart: normal S1 and S2; no rub Lungs: clear to auscultation Abdomen: soft, nontender, mild distension, positive bowel sounds Extremities: no cyanosis or clubbing; 2+ edema Skin: warm and intact Objective Data Vital Signs Vital Signs: Vital Signs - 24 hr ? 08/01/23 14:00 08/01/23 19:32 08/02/23 03:16 Temperature 36.6 C 36.6 C 36.6 C Pulse Rate 88 80 80 Respiratory Rate 14 20 20 Blood Pressure 128/70 180/82 H 153/72 H Pulse Oximetry 100 97 95 ? 08/02/23 08:33 08/02/23 08:00 Temperature ? ? Pulse Rate 89 89 Respiratory Rate ? ? Blood Pressure ? 168/80 H Pulse Oximetry ? 99 Intake/Output Intake/Output: Intake & Output 08/07/23 08/08/23 08/09/23 08/10/23 23:59 23:59 23:59 23:59 Intake Total 300 1480 1700 70 Output Total 5400 [address] [facility] -[phone] -830 Meds/Results Medications: Active Medications Generic Name Dose Route Start Last Admin ? Trade Name Freq? PRN Reason Stop Dose Admin Apixaban ?10 mg ?08/02/23 09:00 ?08/02/23 08:33 ? Apixaban 5 Mg Tablet ?PO ?08/08/23 21:01 ?10 mg ? ?Q12HR LORA ? ?Administration Apixaban ?5 mg ?08/09/23 09:00 ? ? Apixaban 5 Mg Tablet ?PO ?Q12HR LORA ? ? Ascorbic Acid ?500 mg ?07/30/23 09:00 ?08/02/23 08:35 ? Ascorbic Acid 500 Mg Tablet ?PO ? ?500 mg ? ?BID LORA ? ?Administration Bisacodyl ?10 mg ?07/29/23 21:45 ? ? Bisacodyl 10 Mg Suppository ?RECTAL ?Q24H PRN ?Constipation ? ? Dextrose ?12.5 gm ?07/29/23 21:38 ? ? Dextrose 50% 25 Gm/50 Ml Syringe ?IV PUSH ?PRN PRN ?Hypoglycemia ?Protocol ? ? Donepezil HCl ?5 mg ?07/30/23 09:00 ?08/02/23 08:35 ? Donepezil Hcl 5 Mg Tablet ?PO ? ?5 mg ? ?DAILY LORA ? ?Administration Glucagon ?1 mg ?07/29/23 21:38 ? ? Glucagon For Inj 1 Mg Vial ?IM ?PRN PRN ?Hypoglycemia ?Protocol ? ?
[2023-08-02 12:00] LABS: Glucose Point of Care 164 mg/dl (65-105)
--- NOTE | 2023-08-02 13:06 | PM.IMPN ---
Progress Note: A&P Assessment and Plan (1) Acute DVT (deep venous thrombosis): Code(s): I82.409 - Acute embolism and thrombosis of unspecified deep veins of unspecified lower extremity Status: Acute (2) Acute kidney injury: Code(s): N17.9 - Acute kidney failure, unspecified Status: Acute (3) Heart failure with preserved ejection fraction: Code(s): I50.30 - Unspecified diastolic (congestive) heart failure Status: Acute (4) Cirrhosis: Code(s): K74.60 - Unspecified cirrhosis of liver Status: Chronic (5) Hypertension: Code(s): I10 - Essential (primary) hypertension Status: Chronic (6) Type 2 diabetes mellitus: Code(s): E11.9 - Type 2 diabetes mellitus without complications Status: Acute (7) Hypothyroidism: Code(s): E03.9 - Hypothyroidism, unspecified Status: Acute (8) Erosive esophagitis: Code(s): K22.10 - Ulcer of esophagus without bleeding Status: Acute (9) Chronic anemia: Code(s): D64.9 - Anemia, unspecified Status: Acute Plan The patient presented to the emergency department with reports of hypoxia however her SpO2 was 100% on room air on EMS arrival as per HPI. She then began to complain of abdominal discomfort and was brought in for evaluation. Labs, imaging, EKG, and all reports were personally reviewed. Vital signs have been stable since arrival. Initial labs showed an acute kidney injury with a creatinine of 2.70 compared to 0.70 on labs obtained earlier this month. Acute DVT both lower extremities Venous Doppler reports Acute nonocclusive thrombus in the right popliteal vein. Flow noted within the right posterior tibial and peroneal veins which were otherwise poorly visualized. The right common femoral vein, profunda (deep) femoral vein, femoral vein, and greater saphenous vein are patent. Acute nonocclusive thrombus at the left common femoral/greater saphenous junction and the left proximal femoral vein. Flow detected within the posterior tibial and peroneal veins, otherwise poorly visualized. The profunda (deep)? femoral vein, femoral vein, popliteal vein, and greater saphenous vein are patent. Start Lovenox 100 mg q.12 hours per pharmacist recommendation based on patient kidney function Patient denies chest pain or shortness of breath, we not pursue studies of pulmonary embolism transition to oral Eliquis 10 mg b.i.d. and then 5 mg b.i.d. p.o. Acute renal failure creatinine of 2.70 compared to 0.70 on labs obtained earlier this month. Etiology is not entirely clear. Possible prerenal Urinalysis unremarkable renal ultrasound has rule out obstruction, kidneys are of normal in size Hold furosemide Creatinine is trending up, received normal saline IV Consult legal paraprofessional Appreciate legal paraprofessional input, legal paraprofessional considers possible hepatorenal syndrome, start octreotide 100 mcg t.i.d. subQ, midodrine 10 mg t.i.d. p.o. abdomen 1 gram/kilos x 1, will give 100 g today, then 20-40g qd tm renal NM scan- 1.? Relatively decreased left kidney function, which is 33% of total renal function. 2.? Delayed uptake and clearance of contrast from the kidneys, consistent with decreased renal function. Liver cirrhosis and ascites CT 07/04 the liver with large amount of ascites and diffuse subcutaneous edema, consistent with anasarca. Patient follow-up with Dr Stark Heart failure with preserved EF Echocardiogram July 02, 2023 shows normal EF, diastolic dysfunction grade 1 Compensated Hold furosemide Type 2 diabetes hold metformin while hospitalized. Initiate sliding scale insulin, Accu-Cheks, and hypoglycemic protocol. Hypothyroidism continue levothyroxine; recent TSH was within normal limits. Continue PPI and sucralfate for recent erosive esophagitis. Chronic anemia anemia stable on review of previous labs. Subjective Date/time seen: 08/02/23 13:06 Interval history: 72-year-old female with
[2023-08-02 13:29] VITALS: BP 157/61; PULSE 70; RESP 14; TEMP 36.4; O2SAT 99
--- NOTE | 2023-08-02 14:48 | PC.NURSE ---
On 08/02/23, the student, [Viet Peters], provided care and completed [facility] documentation on this patient. I have reviewed the student's documentation and agree with the findings.
--- NOTE | 2023-08-02 15:17 | WPDGIPROGNO ---
Progress Note: A&P Assessment and Plan (1) Cirrhosis: Code(s): K74.60 - Unspecified cirrhosis of liver Status: Chronic Assessment and Plan: probably lucio related egd last month with erosive esophagitis, no varices will need to follow-up with chicken handler as outpatient (2) Ascites: Code(s): R18.8 - Other ascites Status: Acute Assessment and Plan: 2g na diet diuretics on hold since she is here also with PIOTR (3) Acute kidney injury: Code(s): N17.9 - Acute kidney failure, unspecified Status: Acute Assessment and Plan: ? HRS on midodrine, octreotide holding diuretics, avoid nephrotoxin agents monitor nephrology on board (4) Erosive esophagitis: Code(s): K22.10 - Ulcer of esophagus without bleeding Status: Acute Assessment and Plan: no signs of bleeding on ppi and carafate anemia stable (5) DM2 (diabetes mellitus, type 2): Code(s): E11.9 - Type 2 diabetes mellitus without complications Status: Acute (6) Acute DVT (deep venous thrombosis): Code(s): I82.409 - Acute embolism and thrombosis of unspecified deep veins of unspecified lower extremity Status: Acute Assessment and Plan: tolerating blood thinner (7) Thrombocytopenia: Code(s): D69.6 - Thrombocytopenia, unspecified Status: Acute Assessment and Plan: stable, probably from cirrhosis (8) Chronic anemia: Code(s): D64.9 - Anemia, unspecified Status: Acute Subjective Date/time seen: 08/02/23 15:17 Interval history: no new changes Review of Systems Review of Systems: All systems reviewed & are unremarkable except as noted in HPI and below Exam Narrative: General:?Nontoxic-appearing female, obese HEENT:?PERRL, EOMI. Neck:??Supple. Respiratory:?Lungs are clear to auscultation bilaterally. Cardiovascular:??Regular rate and rhythm with S1-S2. Gastrointestinal:??Obese, Positive bowel sounds. No guarding or rebound tenderness. Skin:??Warm and dry. Generalized pallor. Extremities:??+ pitting edema of the lower legs extending to the flanks. Blister in left foot unchanged. Neurological:??Alert.? Cranial nerves 2-12 are grossly intact. No gross focal deficits to casual conversation. Psychiatric:??Pleasant and cooperative with appropriate mood and affect. Objective Data Vital Signs Vital Signs: Vital Signs - 24 hr 08/01/23 19:32 08/02/23 03:16 08/02/23 08:33 Temperature 97.8 F 98 F Pulse Rate 80 80 89 Respiratory Rate 20 20 Blood Pressure 180/82 H 153/72 H Pulse Oximetry 97 95 08/02/23 08:00 08/02/23 13:29 Temperature 97.6 F Pulse Rate 89 70 Respiratory Rate 14 Blood Pressure 168/80 H 157/61 H Pulse Oximetry 99 99 Intake/Output Intake/Output: Intake & Output 07/30/23 07/31/23 08/01/23 08/02/23 23:59 23:59 23:59 23:59 Intake Total 1030 1070 1270 770 Output Total 900 1025 1300 750 Balance 130 45 -30 20 Meds/Results Medications: Active Medications Generic Name Dose Route Start Last Admin Trade Name Freq PRN Reason Stop Dose Admin Apixaban 10 mg 08/02/23 09:00 08/02/23 08:33 Apixaban 5 Mg Tablet PO 08/08/23 21:01 10 mg Q12HR LORA Administration Apixaban 5 mg 08/09/23 09:00 Apixaban 5 Mg Tablet PO Q12HR LORA Ascorbic Acid 500 mg 07/30/23 09:00 08/02/23 08:35 Ascorbic Acid 500 Mg Tablet PO 500 mg BID LORA Administration Bisacodyl 10 mg 07/29/23 21:45 Bisacodyl 10 Mg Suppository RECTAL Q24H PRN Constipation Dextrose 12.5 gm 07/29/23 21:38 Dextrose 50% 25 Gm/50 Ml Syringe IV PUSH PRN PRN Hypoglycemia Protocol Donepezil HCl 5 mg 07/30/23 09:00 08/02/23 08:35 Donepezil Hcl 5 Mg Tablet PO 5 mg DAILY LORA Administration Glucagon 1 mg 07/29/23 21:38 Glucagon For Inj 1 Mg Vial IM PRN PRN Hypoglycemia Protocol Glucose 15 gm 07/29/23 21:38 Glucose Oral Gel 15 Gm Of Glucse In 3
[2023-08-02 17:03] LABS: Glucose Point of Care 153 mg/dl (65-105)
[2023-08-02 20:00] VITALS: PULSE 73; RESP 20; O2SAT 97
[2023-08-02] MEDS: MELATONIN 3 MG TABLET PO (20:54)
[2023-08-02] MEDS: LOVASTATIN 20 MG TABLET 40 MG PO (20:54)
[2023-08-02] MEDS: PANTOPRAZOLE 40 MG TABLET PO (20:55)
[2023-08-02 21:24] VITALS: BP 185/81; PULSE 73; RESP 20; TEMP 36.7; O2SAT 97
[2023-08-03 02:39] LABS: Glucose Point of Care 156 mg/dl (65-105)
[2023-08-03 03:41] VITALS: BP 165/85; PULSE 79; RESP 20; TEMP 36.4; O2SAT 96
[2023-08-03 05:27] LABS: Basophils Absolute Auto 0.1 K/mm3 (0.0-0.1); Basophils Percent Auto 0.7 % (0.2-1.2); Eosinophils Absolute Auto 0.3 K/mm3 (0-0.3); Hematocrit 31.1 % (37.0-47.0); Hemoglobin 9.4 g/dL (12.0-15.0); Immature Granulocyte Absolute 0.02 K/mm3 (0.00-0.031); Immature Granulocyte Percent A 0.3 % (0-0.5); Immature Platelet Fraction Pct 1.9 % (0.9-11.2); Lymphocytes Absolute Auto 0.83 K/mm3 (0.9-3.2); Lymphocytes Percent Auto 11.5 % (18.3-44.2); Mean Corpuscular HGB Conc 30.2 g/dl (32-36); Mean Corpuscular Hemoglobin 30.7 pg (26-34); Mean Corpuscular Volume 101.6 fl (80-100); Mean Platelet Volume 10.2 fl (7.4-10.4); Monocytes Absolute Auto 0.6 K/mm3 (0.1-0.6); Monocytes Percent Auto 8.9 % (2.6-8.5); Neutrophils Absolute Auto 5.4 K/mm3 (1.3-6.7); Neutrophils Percent Auto 74.6 % (45.5-73.1); Platelet Count Result 85 k/mm3 (150-375); Red Blood Count 3.06 M/mm3 (4.2-5.4); Red Cell Distribution Width 17.5 % (11.5-14.5); White Blood Count 7.2 K/mm3 (4.5-10.0)
[2023-08-03 05:43] LABS: Alanine Aminotransferase 14 U/L (6-35); Albumin Level 2.9 g/dL (3.5-5.1); Alkaline Phosphatase 81 U/L (38-126); Anion Gap 7 mmol/L (8-16); Aspartate Amino Transferase 37 U/L (14-36); Bilirubin,Total 1.2 mg/dL (0.2-1.3); Blood Urea Nitrogen 24 mg/dL (7-17); Calcium 8.2 mg/dL (8.4-10.2); Carbon Dioxide 20 mmol/L (22-30); Chloride 108 mmol/L (98-107); Estimated CRCL calculation 28 ml/min; Estimated Glomerular Filt Rate 21; Glucose 147 mg/dL (65-110); Potassium 4.7 mmol/L (3.4-5.0); Sodium 135 mmol/L (137-145)
[2023-08-03] MEDS: SUCRALFATE SUSP 100 MG/ML 10 ML UDC 1000 MG PO ×4 (05:56→20:04)
[2023-08-03 08:00] VITALS: PULSE 66; RESP 12; O2SAT 100
[2023-08-03 08:43] LABS: Glucose Point of Care 146 mg/dl (65-105)
[2023-08-03] MEDS: SENNA/DOCUSATE SODIUM TABLET 1 TAB PO ×2 (09:13→18:07)
[2023-08-03] MEDS: oxyBUTYnin CHLORIDE XL 5 MG TAB.ER.24 PO (09:13)
[2023-08-03] MEDS: SODIUM BICARBONATE TAB 650 MG TABLET 1300 MG PO ×2 (09:13→18:07)
[2023-08-03] MEDS: oxyCODONE HCL (*CRX) 5 MG TAB IR PO (09:13)
[2023-08-03] MEDS: APIXABAN 5 MG TABLET 10 MG PO ×2 (09:13→20:04)
[2023-08-03 09:14] VITALS: PULSE 85
[2023-08-03] MEDS: DONEPEZIL HCL 5 MG TABLET PO (09:14)
[2023-08-03] MEDS: MIDODRINE HCL 10 MG TABLET PO ×3 (09:14→18:07)
[2023-08-03] MEDS: THERAPEUTIC MULTIVITAMINS/MINERALS TAB (*BKC) 1 TABLET PO (09:14)
[2023-08-03] MEDS: PROPRANOLOL HCL 20 MG TABLET PO (09:14)
[2023-08-03] MEDS: LORATADINE 10 MG TABLET PO (09:14)
[2023-08-03] MEDS: ASCORBIC ACID 500 MG TABLET PO ×2 (09:14→18:07)
[2023-08-03] MEDS: TOLNAFTATE 1% POWDER 45 GM BTL 1 APPLIC TOPICAL ×2 (09:15→20:05)
[2023-08-03] MEDS: OCTREOTIDE ACETATE 100 MCG/ML VIAL SUB-Q ×3 (09:16→18:07)
[2023-08-03 11:52] LABS: Glucose Point of Care 164 mg/dl (65-105)
--- NOTE | 2023-08-03 12:53 | PM.IMPN ---
Progress Note: A&P Assessment and Plan (1) Acute DVT (deep venous thrombosis): Code(s): I82.409 - Acute embolism and thrombosis of unspecified deep veins of unspecified lower extremity Status: Acute (2) Acute kidney injury: Code(s): N17.9 - Acute kidney failure, unspecified Status: Acute (3) Heart failure with preserved ejection fraction: Code(s): I50.30 - Unspecified diastolic (congestive) heart failure Status: Acute (4) Cirrhosis: Code(s): K74.60 - Unspecified cirrhosis of liver Status: Chronic (5) Hypertension: Code(s): I10 - Essential (primary) hypertension Status: Chronic (6) Type 2 diabetes mellitus: Code(s): E11.9 - Type 2 diabetes mellitus without complications Status: Acute (7) Hypothyroidism: Code(s): E03.9 - Hypothyroidism, unspecified Status: Acute (8) Erosive esophagitis: Code(s): K22.10 - Ulcer of esophagus without bleeding Status: Acute (9) Chronic anemia: Code(s): D64.9 - Anemia, unspecified Status: Acute Plan The patient presented to the emergency department with reports of hypoxia however her SpO2 was 100% on room air on EMS arrival as per HPI. She then began to complain of abdominal discomfort and was brought in for evaluation. Labs, imaging, EKG, and all reports were personally reviewed. Vital signs have been stable since arrival. Initial labs showed an acute kidney injury with a creatinine of 2.70 compared to 0.70 on labs obtained earlier this month. Acute DVT both lower extremities Venous Doppler reports Acute nonocclusive thrombus in the right popliteal vein. Flow noted within the right posterior tibial and peroneal veins which were otherwise poorly visualized. The right common femoral vein, profunda (deep) femoral vein, femoral vein, and greater saphenous vein are patent. Acute nonocclusive thrombus at the left common femoral/greater saphenous junction and the left proximal femoral vein. Flow detected within the posterior tibial and peroneal veins, otherwise poorly visualized. The profunda (deep)? femoral vein, femoral vein, popliteal vein, and greater saphenous vein are patent. Start Lovenox 100 mg q.12 hours per pharmacist recommendation based on patient kidney function Patient denies chest pain or shortness of breath, we not pursue studies of pulmonary embolism transition to oral Eliquis 10 mg b.i.d. and then 5 mg b.i.d. p.o. Acute renal failure creatinine of 2.70 compared to 0.70 on labs obtained earlier this month. Etiology is not entirely clear. Possible prerenal Urinalysis unremarkable renal ultrasound has rule out obstruction, kidneys are of normal in size Hold furosemide Creatinine is trending up, received normal saline IV Consult network diagnostic support specialist Appreciate network diagnostic support specialist input, network diagnostic support specialist considers possible hepatorenal syndrome, start octreotide 100 mcg t.i.d. subQ, midodrine 10 mg t.i.d. p.o. abdomen 1 gram/kilos x 1, will give 100 g today, then 20-40g qd tm renal NM scan- 1.? Relatively decreased left kidney function, which is 33% of total renal function. 2.? Delayed uptake and clearance of contrast from the kidneys, consistent with decreased renal function. Liver cirrhosis and ascites CT 07/04 the liver with large amount of ascites and diffuse subcutaneous edema, consistent with anasarca. Patient follow-up with Dr Stark Heart failure with preserved EF Echocardiogram July 02, 2023 shows normal EF, diastolic dysfunction grade 1 Compensated Hold furosemide Type 2 diabetes hold metformin while hospitalized. Initiate sliding scale insulin, Accu-Cheks, and hypoglycemic protocol. Hypothyroidism continue levothyroxine; recent TSH was within normal limits. Continue PPI and sucralfate for recent erosive esophagitis. Chronic anemia anemia stable on review of previous labs. Subjective Date/time seen: 08/03/23 12:53 Interval history: 72-year-old female with
--- NOTE | 2023-08-03 13:15 | P.PNNP_ITS ---
Progress Note: A&P Assessment and Plan (1) Acute kidney injury: Code(s): N17.9 - Acute kidney failure, unspecified Status: Acute Assessment and Plan: * etiology?? * evaluation to date: * renal ultrasound without obstruction * UA with blood, protein, WBC and LE -- possible infection? * urine electrolytes are prerenal * mild proteinuria of ~ 500mg * CPK low * suspect decreased effective circulating volume from liver cirrhosis/physiology resulting in chronic prerenal azotemia despite outward signs of fluid ove rload/retention * renal scan results noted - element of ATN (?) * possible HRS (?) -- trial of octreotride and midodrine ongoing * follow trend of repeat labs and UOP (2) Edema: Code(s): R60.9 - Edema, unspecified Status: Acute Assessment and Plan: * due to liver cirrhosis, hypoalbuminemia, and DVTs * treat supportively * suspect will eventually need diuresis to help (3) Hypertension: Code(s): I10 - Essential (primary) hypertension Status: Chronic Assessment and Plan: * reasonable control * follow trend of hemodynamics (4) Chronic anemia: Code(s): D64.9 - Anemia, unspecified Status: Acute Assessment and Plan: * due to PIOTR, acute illness, and liver cirrhosis * follow trend of H/H (5) Cirrhosis: Code(s): K74.60 - Unspecified cirrhosis of liver Status: Chronic Assessment and Plan: * GI recommendations noted * follow LFTs * watch for hepatic encephalopathy (6) Type 2 diabetes mellitus: Code(s): E11.9 - Type 2 diabetes mellitus without complications Status: Acute Assessment and Plan: * follow accu-cheks * glycemic control per hospitalists Will continue to follow. Subjective Date/time seen: 08/03/23 13:15 Interval history: Follow-up for acute kidney injury/acute renal failure. Renal function remains about the same and continues to make reasonable urine output as well; reports diffuse pain all over making PT/OT somewhat difficult to endure; no other acute issues voiced on my visit; no events overnight or earlier this morning. Exam Narrative: General: elderly female in NAD Heart: normal S1 and S2; no rub Lungs: clear to auscultation Abdomen: soft, nontender, mild distension, positive bowel sounds Extremities: no cyanosis or clubbing; 2+ edema Skin: no rash; unchanged left foot water blister Objective Data Vital Signs Vital Signs: Vital Signs Temp Pulse Resp BP Pulse Ox O2 Del Method FiO2 08/03/23 13:04 98.2 F 66 12 160/68 H 100 08/03/23 09:14 85 08/03/23 08:00 66 12 100 Room Air 08/03/23 03:41 97.6 F 79 20 165/85 H 96 08/02/23 20:00 73 20 97 Room Air 21 08/02/23 21:24 98.0 F 73 20 185/81 H 97 Intake/Output Intake/Output: Intake & Output 07/31/23 08/01/23 08/02/23 08/03/23 23:59 23:59 23:59 23:59 Intake Total 1070 1270 1010 690 Output Total 1025 1300 1700 500 Balance 45 30 -637 190 Meds/Results Medications: Active Medications Generic Name Dose Route Start Last Admin Trade Name Freq PRN Reason Stop Dose Admin Apixaban 10 mg 1
--- NOTE | 2023-08-03 13:15 | PM.PNNEP ---
Progress Note: A&P Assessment and Plan (1) Acute kidney injury: Code(s): N17.9 - Acute kidney failure, unspecified Status: Acute Assessment and Plan: etiology?? evaluation to date: renal ultrasound without obstruction UA with blood, protein, WBC and LE -- possible infection? urine electrolytes are prerenal mild proteinuria of ~ 500mg CPK low suspect decreased effective circulating volume from liver cirrhosis/physiology resulting in chronic prerenal azotemia despite outward signs of fluid overload/retention renal scan results noted - element of ATN (?) possible HRS (?) -- trial of octreotride and midodrine ongoing follow trend of repeat labs and UOP (2) Edema: Code(s): R60.9 - Edema, unspecified Status: Acute Assessment and Plan: due to liver cirrhosis, hypoalbuminemia, and DVTs treat supportively suspect will eventually need diuresis to help (3) Hypertension: Code(s): I10 - Essential (primary) hypertension Status: Chronic Assessment and Plan: reasonable control follow trend of hemodynamics (4) Chronic anemia: Code(s): D64.9 - Anemia, unspecified Status: Acute Assessment and Plan: due to PIOTR, acute illness, and liver cirrhosis follow trend of H/H (5) Cirrhosis: Code(s): K74.60 - Unspecified cirrhosis of liver Status: Chronic Assessment and Plan: GI recommendations noted follow LFTs watch for hepatic encephalopathy (6) Type 2 diabetes mellitus: Code(s): E11.9 - Type 2 diabetes mellitus without complications Status: Acute Assessment and Plan: follow accu-cheks glycemic control per hospitalists Will continue to follow. Subjective Date/time seen: 08/03/23 13:15 Interval history: Follow-up for acute kidney injury/acute renal failure. Renal function remains about the same and continues to make reasonable urine output as well; reports diffuse pain all over making PT/OT somewhat difficult to endure; no other acute issues voiced on my visit; no events overnight or earlier this morning. Exam Narrative: General: elderly female in NAD Heart: normal S1 and S2; no rub Lungs: clear to auscultation Abdomen: soft, nontender, mild distension, positive bowel sounds Extremities: no cyanosis or clubbing; 2+ edema Skin: no rash; unchanged left foot water blister Objective Data Vital Signs Vital Signs: Vital Signs Temp Pulse Resp BP Pulse Ox O2 Del Method FiO2 11/29/23 13:04 98.2 F 66 12 160/68 H 100 08/03/23 09:14 85 08/03/23 08:00 66 12 100 Room Air 08/03/23 03:41 97.6 F 79 20 165/85 H 96 08/02/23 20:00 73 20 97 Room Air 21 08/02/23 21:24 98.0 F 73 20 185/81 H 97 Intake/Output Intake/Output: Intake & Output 07/31/23 08/01/23 08/02/23 08/03/23 23:59 23:59 23:59 23:59 Intake Total 1070 1270 1010 690 Output Total 1025 1300 1700 500 Balance 45 30 -690 190 Meds/Results Medications: Active Medications Generic Name Dose Route Start Last Admin Trade Name Freq PRN Reason Stop Dose Admin Apixaban 10 mg 08/02/23 09:00 08/03/23 09:13 Apixaban 5 Mg Tablet PO 08/08/23 21:01 10 mg Q12HR LORA Administration Apixaban 5 mg 08/09/23 09:00 Apixaban 5 Mg Tablet PO Q12HR LORA Ascorbic Acid 500 mg 07/30/23 09:00 08/03/23 18:07 Ascorbic Acid 500 Mg Tablet PO 500 mg BID LORA Administration Bisacodyl 10 mg 07/29/23 21:45 Bisacodyl 10 Mg Suppository RECTAL Q24H PRN Constipation Dextrose 12.5 gm 07/29/23 21:38 Dextrose 50% 25 Gm/50 Ml Syringe IV PUSH PRN PRN Hypoglycemia Protocol Donepezil HCl 5 mg 07/30/23 09:00 08/03/23 09:14 Donepezil Hcl 5 Mg Tablet PO 5 mg DAILY LORA Administration Glucagon 1 mg 07/29/23 21:38 Glucagon For Inj 1 Mg Vial IM PRN PRN Hypoglycemia Protocol Glucose 15 gm 1
[2023-08-03 14:44] VITALS: BP 160/68; PULSE 66; RESP 12; TEMP 36.8; O2SAT 100
--- NOTE | 2023-08-03 15:44 | WPDGIPROGNO ---
Progress Note: A&P Assessment and Plan (1) Cirrhosis: Code(s): K74.60 - Unspecified cirrhosis of liver Status: Chronic Assessment and Plan: probably lucio related egd last month with erosive esophagitis, no varices follow-up with special effects person as outpatient (will send referral) (2) Ascites: Code(s): R18.8 - Other ascites Status: Acute Assessment and Plan: 2g na diet diuretics on hold since she is here also with PIOTR (3) Acute kidney injury: Code(s): N17.9 - Acute kidney failure, unspecified Status: Acute Assessment and Plan: ? HRS on midodrine, octreotide holding diuretics, avoid nephrotoxin agents monitor nephrology on board creatinine down to 2.3 (4) Erosive esophagitis: Code(s): K22.10 - Ulcer of esophagus without bleeding Status: Acute Assessment and Plan: no signs of bleeding on ppi and carafate anemia stable (5) DM2 (diabetes mellitus, type 2): Code(s): E11.9 - Type 2 diabetes mellitus without complications Status: Acute (6) Acute DVT (deep venous thrombosis): Code(s): I82.409 - Acute embolism and thrombosis of unspecified deep veins of unspecified lower extremity Status: Acute Assessment and Plan: tolerating blood thinner (7) Thrombocytopenia: Code(s): D69.6 - Thrombocytopenia, unspecified Status: Acute Assessment and Plan: stable, probably from cirrhosis (8) Chronic anemia: Code(s): D64.9 - Anemia, unspecified Status: Acute Subjective Date/time seen: 08/03/23 15:44 Interval history: no major changes, pain all over - working with physical therapy Review of Systems Review of Systems: All systems reviewed & are unremarkable except as noted in HPI and below Exam Narrative: General:?chronically ill appearing HEENT:?PERRL, EOMI. Neck:??Supple. Respiratory:?Lungs are clear to auscultation bilaterally. Cardiovascular:??Regular rate and rhythm with S1-S2. Gastrointestinal:??Obese, Positive bowel sounds. No guarding or rebound tenderness. Skin:??Warm and dry. Extremities:??+ 3 pitting edema of the lower legs extending to the flanks. Blister in left foot unchanged. Neurological:??Alert.? Cranial nerves 2-12 are grossly intact. No gross focal deficits to casual conversation. Psychiatric:??Pleasant and cooperative with appropriate mood and affect. Objective Data Vital Signs Vital Signs: Vital Signs - 24 hr 08/02/23 16:06 08/02/23 21:24 08/02/23 20:00 Temperature 98.0 F Pulse Rate 73 73 Respiratory Rate 20 20 Blood Pressure 185/81 H Pulse Oximetry 97 97 Oxygen Delivery Room Air Room Air Fraction of Inspired Oxygen 08/03/23 03:41 08/03/23 09:14 08/03/23 14:05 Temperature 97.6 F Pulse Rate 79 85 Respiratory Rate 20 Blood Pressure 165/85 H Pulse Oximetry 96 Oxygen Delivery Room Air Fraction of Inspired Oxygen 08/03/23 14:44 08/03/23 15:05 Temperature 98.2 F Pulse Rate 66 Respiratory Rate 12 Blood Pressure 160/68 H Pulse Oximetry 100 Oxygen Delivery Room Air Fraction of Inspired Oxygen Intake/Output Intake/Output: Intake & Output 07/31/23 08/01/23 08/02/23 08/03/23 23:59 23:59 23:59 23:59 Intake Total 1070 1270 1010 600 Output Total 1025 1300 1700 500 Balance 45 -30 -690 100 Meds/Results Medications: Active Medications Generic Name Dose Route Start Last Admin Trade Name Freq PRN Reason Stop Dose Admin Apixaban 10 mg 08/02/23 09:00 08/03/23 09:13 Apixaban 5 Mg Tablet PO 08/08/23 21:01 10 mg Q12HR LORA Administration Apixaban 5 mg 08/09/23 09:00 Apixaban 5 Mg Tablet PO Q12HR [facility] Ascorbic Acid 500 mg 07/30/23 09:00 08/03/23 09:14 Ascorbic Acid 500 Mg Tablet PO 500 mg BID LORA Administration Bisacodyl 10 mg 07/29/23 21:45 Bisacodyl 10 Mg Suppository RECTAL Q24H PRN Constipation Dextrose 12.5 gm 07/29/23 21:38 Dextrose
[2023-08-03 17:12] LABS: Glucose Point of Care 156 mg/dl (65-105)
[2023-08-03] MEDS: MELATONIN 3 MG TABLET PO (20:04)
[2023-08-03] MEDS: PANTOPRAZOLE 40 MG TABLET PO (20:04)
[2023-08-03] MEDS: LOVASTATIN 20 MG TABLET 40 MG PO (20:06)
[2023-08-03 20:43] LABS: Glucose Point of Care 163 mg/dl (65-105)
[2023-08-03 21:10] VITALS: BP 161/78; PULSE 71; RESP 18; TEMP 36.7; O2SAT 99
[2023-08-04 05:26] LABS: Basophils Absolute Auto 0.1 K/mm3 (0.0-0.1); Basophils Percent Auto 0.7 % (0.2-1.2); Eosinophils Absolute Auto 0.5 K/mm3 (0-0.3); Eosinophils Percent Auto 6.4 % (0-4.4); Hematocrit 34.5 % (37.0-47.0); Hemoglobin 10.7 g/dL (12.0-15.0); Immature Granulocyte Absolute 0.03 K/mm3 (0.00-0.031); Immature Granulocyte Percent A 0.4 % (0-0.5); Lymphocytes Absolute Auto 1.12 K/mm3 (0.9-3.2); Lymphocytes Percent Auto 14.7 % (18.3-44.2); Mean Platelet Volume 9.3 fl (7.4-10.4); Monocytes Absolute Auto 0.8 K/mm3 (0.1-0.6); Monocytes Percent Auto 10.4 % (2.6-8.5); Neutrophils Absolute Auto 5.2 K/mm3 (1.3-6.7); Neutrophils Percent Auto 67.4 % (45.5-73.1); Platelet Count Result 142 k/mm3 (150-375); Red Blood Count 3.45 M/mm3 (4.2-5.4); Red Cell Distribution Width 17.2 % (11.5-14.5); White Blood Count 7.6 K/mm3 (4.5-10.0)
[2023-08-04] MEDS: SUCRALFATE SUSP 100 MG/ML 10 ML UDC 1000 MG PO ×4 (05:33→20:25)
[2023-08-04 05:36] LABS: Alanine Aminotransferase 14 U/L (6-35); Albumin Level 2.7 g/dL (3.5-5.1); Alkaline Phosphatase 93 U/L (38-126); Anion Gap 9 mmol/L (8-16); Aspartate Amino Transferase 27 U/L (14-36); Bilirubin,Total 1.2 mg/dL (0.2-1.3); Blood Urea Nitrogen 24 mg/dL (7-17); Calcium 8.2 mg/dL (8.4-10.2); Carbon Dioxide 20 mmol/L (22-30); Chloride 107 mmol/L (98-107); Estimated CRCL calculation 28 ml/min; Estimated Glomerular Filt Rate 21; Glucose 144 mg/dL (65-110); Potassium 4.1 mmol/L (3.4-5.0); Sodium 136 mmol/L (137-145)
[2023-08-04 06:00] VITALS: BP 149/77; PULSE 80; RESP 18; TEMP 36.3; O2SAT 99
[2023-08-04 08:13] LABS: Glucose Point of Care 155 mg/dl (65-105)
[2023-08-04] MEDS: SENNA/DOCUSATE SODIUM TABLET 1 TAB PO ×2 (08:28→17:01)
[2023-08-04 08:29] VITALS: PULSE 80
[2023-08-04] MEDS: SODIUM BICARBONATE TAB 650 MG TABLET 1300 MG PO ×2 (08:29→17:01)
[2023-08-04] MEDS: MIDODRINE HCL 10 MG TABLET PO ×3 (08:29→17:01)
[2023-08-04] MEDS: DONEPEZIL HCL 5 MG TABLET PO (08:29)
[2023-08-04] MEDS: ASCORBIC ACID 500 MG TABLET PO ×2 (08:29→17:01)
[2023-08-04] MEDS: oxyBUTYnin CHLORIDE XL 5 MG TAB.ER.24 PO (08:29)
[2023-08-04] MEDS: APIXABAN 5 MG TABLET 10 MG PO ×2 (08:29→20:20)
[2023-08-04] MEDS: LORATADINE 10 MG TABLET PO (08:29)
[2023-08-04] MEDS: PROPRANOLOL HCL 20 MG TABLET PO (08:29)
[2023-08-04] MEDS: THERAPEUTIC MULTIVITAMINS/MINERALS TAB (*BKC) 1 TABLET PO (08:29)
[2023-08-04] MEDS: OCTREOTIDE ACETATE 100 MCG/ML VIAL SUB-Q ×3 (08:30→17:01)
[2023-08-04] MEDS: TOLNAFTATE 1% POWDER 45 GM BTL 1 APPLIC TOPICAL ×2 (08:32→20:24)
--- NOTE | 2023-08-04 10:47 | PM.IMPN ---
Progress Note: A&P Assessment and Plan (1) Acute DVT (deep venous thrombosis): Code(s): I82.409 - Acute embolism and thrombosis of unspecified deep veins of unspecified lower extremity Status: Acute (2) Acute kidney injury: Code(s): N17.9 - Acute kidney failure, unspecified Status: Acute (3) Heart failure with preserved ejection fraction: Code(s): I50.30 - Unspecified diastolic (congestive) heart failure Status: Acute (4) Cirrhosis: Code(s): K74.60 - Unspecified cirrhosis of liver Status: Chronic (5) Hypertension: Code(s): I10 - Essential (primary) hypertension Status: Chronic (6) Type 2 diabetes mellitus: Code(s): E11.9 - Type 2 diabetes mellitus without complications Status: Acute (7) Hypothyroidism: Code(s): E03.9 - Hypothyroidism, unspecified Status: Acute (8) Erosive esophagitis: Code(s): K22.10 - Ulcer of esophagus without bleeding Status: Acute (9) Chronic anemia: Code(s): D64.9 - Anemia, unspecified Status: Acute Plan The patient presented to the emergency department with reports of hypoxia however her SpO2 was 100% on room air on EMS arrival as per HPI. She then began to complain of abdominal discomfort and was brought in for evaluation. Labs, imaging, EKG, and all reports were personally reviewed. Vital signs have been stable since arrival. Initial labs showed an acute kidney injury with a creatinine of 2.70 compared to 0.70 on labs obtained earlier this month. Acute DVT both lower extremities Venous Doppler reports Acute nonocclusive thrombus in the right popliteal vein. Flow noted within the right posterior tibial and peroneal veins which were otherwise poorly visualized. The right common femoral vein, profunda (deep) femoral vein, femoral vein, and greater saphenous vein are patent. Acute nonocclusive thrombus at the left common femoral/greater saphenous junction and the left proximal femoral vein. Flow detected within the posterior tibial and peroneal veins, otherwise poorly visualized. The profunda (deep)? femoral vein, femoral vein, popliteal vein, and greater saphenous vein are patent. Start Lovenox 100 mg q.12 hours per pharmacist recommendation based on patient kidney function Patient denies chest pain or shortness of breath, we not pursue studies of pulmonary embolism transition to oral Eliquis 10 mg b.i.d. and then 5 mg b.i.d. p.o. Acute renal failure creatinine of 2.70 compared to 0.70 on labs obtained earlier this month. Etiology is not entirely clear. Possible prerenal Urinalysis unremarkable renal ultrasound has rule out obstruction, kidneys are of normal in size Hold furosemide Creatinine is trending up, received normal saline IV, not on fluids now Consult shake loader Appreciate shake loader input, shake loader considers possible hepatorenal syndrome, start octreotide 100 mcg t.i.d. subQ, midodrine 10 mg t.i.d. p.o. abdomen 1 gram/kilos x 1, will give 100 g today, then 20-40g qd tm renal NM scan- 1.? Relatively decreased left kidney function, which is 33% of total renal function. 2.? Delayed uptake and clearance of contrast from the kidneys, consistent with decreased renal function. Creat function is improving 2.3 today, urine output is good Hopeful dc in 2-3 days time Liver cirrhosis and ascites CT 07/04 the liver with large amount of ascites and diffuse subcutaneous edema, consistent with anasarca. Patient follow-up with Dr Stark Heart failure with preserved EF Echocardiogram July 02, 2023 shows normal EF, diastolic dysfunction grade 1 Compensated Hold furosemide Type 2 diabetes hold metformin while hospitalized. Initiate sliding scale insulin, Accu-Cheks, and hypoglycemic protocol. Hypothyroidism continue levothyroxine; recent TSH was within normal limits. Continue PPI and sucralfate for recent erosive esophagitis. Chronic anemia anemia stable on review of p
[2023-08-04 12:16] LABS: Glucose Point of Care 164 mg/dl (65-105)
[2023-08-04 14:00] VITALS: BP 142/70; PULSE 78; RESP 17; TEMP 36.4; O2SAT 98
--- NOTE | 2023-08-04 14:02 | PM.PNNEP ---
Progress Note: A&P Assessment and Plan (1) Acute kidney injury: Code(s): N17.9 - Acute kidney failure, unspecified Status: Acute Assessment and Plan: evaluation to date: renal ultrasound without obstruction UA with blood, protein, WBC and LE -- possible infection? urine electrolytes are prerenal mild proteinuria of ~ 500mg CPK low suspect decreased effective circulating volume from liver cirrhosis/physiology resulting in chronic prerenal azotemia despite outward signs of fluid overload/retention renal scan results noted - element of ATN (?) possible HRS (?) -- trial of octreotride and midodrine ongoing follow trend of repeat labs and UOP (2) Edema: Code(s): R60.9 - Edema, unspecified Status: Acute Assessment and Plan: due to liver cirrhosis, hypoalbuminemia, and DVTs treat supportively suspect will eventually need diuresis to help (3) Hypertension: Code(s): I10 - Essential (primary) hypertension Status: Chronic Assessment and Plan: reasonable control follow trend of hemodynamics (4) Chronic anemia: Code(s): D64.9 - Anemia, unspecified Status: Acute Assessment and Plan: due to PIOTR, acute illness, and liver cirrhosis follow trend of H/H (5) Acute DVT (deep venous thrombosis): Code(s): I82.409 - Acute embolism and thrombosis of unspecified deep veins of unspecified lower extremity Status: Acute Assessment and Plan: noted in bilateral lower extremities on anticoagulation contributing component to LE edema/swelling (6) Cirrhosis: Code(s): K74.60 - Unspecified cirrhosis of liver Status: Chronic Assessment and Plan: GI recommendations noted follow LFTs watch for hepatic encephalopathy (7) Type 2 diabetes mellitus: Code(s): E11.9 - Type 2 diabetes mellitus without complications Status: Acute Assessment and Plan: follow accu-cheks glycemic control per hospitalists Will continue to follow. Subjective Date/time seen: 08/04/23 14:02 Interval history: Follow-up for acute kidney injury/acute renal failure. Continues to make good urine output and renal function is a tad better; still with significant lower extremity edema despite current therapy; no other issues or events overnight or earlier this morning; no acute distress noted.. Review of Systems Review of Systems: As per HPI. Exam Narrative: General: elderly female in NAD Heart: normal S1 and S2; no rub Lungs: clear to auscultation Abdomen: soft, nontender, mild distension, positive bowel sounds Extremities: no cyanosis or clubbing; 2+ edema Skin: no nodules; unchanged left foot water blister Objective Data Vital Signs Vital Signs: Vital Signs Temp Pulse Resp BP Pulse Ox O2 Del Method 08/04/23 14:00 97.6 F 78 17 142/70 H 98 08/04/23 08:00 Room Air 08/04/23 08:29 80 08/04/23 06:00 97.3 F L 80 18 149/77 H 99 08/03/23 21:10 98.0 F 71 18 161/78 H 99 08/03/23 19:57 Room Air Intake/Output Intake/Output: Intake & Output 08/01/23 08/02/23 08/03/23 08/04/23 23:59 23:59 23:59 23:59 Intake Total 1270 1010 840 240 Output Total 1300 1700 1050 Balance -30 -690 -210 240 Meds/Results Medications: Active Medications Generic Name Dose Route Start Last Admin Trade Name Russ PRN Reason Stop Dose Admin Apixaban 10 mg 08/02/23 09:00 08/04/23 08:29 Apixaban 5 Mg Tablet PO 08/08/23 21:01 10 mg Q12HR LORA Administration Apixaban 5 mg 08/09/23 09:00 Apixaban 5 Mg Tablet PO Q12HR LORA Ascorbic Acid 500 mg 07/30/23 09:00 08/04/23 17:01 Ascorbic Acid 500 Mg Tablet PO 500 mg BID LORA Administration Bisacodyl 10 mg 07/29/23 21:45 Bisacodyl 10 Mg Suppository RECTAL Q24H PRN Constipation Dextrose 12.5 gm 07/29/23 21:38 Dextrose 50% 25 Gm/50 Ml Syringe IV PU
--- NOTE | 2023-08-04 14:02 | P.PNNP_ITS ---
Progress Note: A&P Assessment and Plan (1) Acute kidney injury: Code(s): N17.9 - Acute kidney failure, unspecified Status: Acute Assessment and Plan: * evaluation to date: * renal ultrasound without obstruction * UA with blood, protein, WBC and LE -- possible infection? * urine electrolytes are prerenal * mild proteinuria of ~ 500mg * CPK low * suspect decreased effective circulating volume from liver cirrhosis/physiology resulting in chronic prerenal azotemia despite outward signs of fluid overload/retention * renal scan results noted - element of ATN (?) * possible HRS (?) -- trial of octreotride and midodrine ongoing * follow trend of repeat labs and UOP (2) Edema: Code(s): R60.9 - Edema, unspecified Status: Acute Assessment and Plan: * due to liver cirrhosis, hypoalbuminemia, and DVTs * treat supportively * suspect will eventually need diuresis to help (3) Hypertension: Code(s): I10 - Essential (primary) hypertension Status: Chronic Assessment and Plan: * reasonable control * follow trend of hemodynamics (4) Chronic anemia: Code(s): D64.9 - Anemia, unspecified Status: Acute Assessment and Plan: * due to PIOTR, acute illness, and liver cirrhosis * follow trend of H/H (5) Acute DVT (deep venous thrombosis): Code(s): I82.409 - Acute embolism and thrombosis of unspecified deep veins of unspecified lower extremity Status: Acute Assessment and Plan: * noted in bilateral lower extremities * on anticoagulation * contributing component to LE edema/swelling (6) Cirrhosis: Code(s): K74.60 - Unspecified cirrhosis of liver Status: Chronic Assessment and Plan: * GI recommendations noted * follow LFTs * watch for hepatic encephalopathy (7) Type 2 diabetes mellitus: Code(s): E11.9 - Type 2 diabetes mellitus without complications Status: Acute Assessment and Plan: * follow accu-cheks * glycemic control per hospitalists Will continue to follow. Subjective Date/time seen: 08/04/23 14:02 Interval history: Follow-up for acute kidney injury/acute renal failure. Continues to make good urine output and renal function is a tad better; still with significant lower extremity edema despite current therapy; no other issues or events overnight or earlier this morning; no acute distress noted.. Review of Systems Review of Systems: As per HPI. Exam Narrative: General: elderly female in NAD Heart: normal S1 and S2; no rub Lungs: clear to auscultation Abdomen: soft, nontender, mild distension, positive bowel sounds Extremities: no cyanosis or clubbing; 2+ edema Skin: no nodules; unchanged left foot water blister Objective Data Vital Signs Vital Signs: Vital Signs Temp Pulse Resp BP Pulse Ox O2 Del Method 08/04/23 14:00 97.6 F 78 17 142/70 H 98 08/04/23 08:00 Room Air 08/04/23 08:29 80 08/04/23 06:00 97.3 F L 80 18 149/77 H 99 08/03/23 21:10 98.0 F 71 18 161/78 H 99 08/03/23 19:57 Room Air Intake/Output Intake/Output: Intake & Output 08/01/23 08/02/23 08/03/23 08/04/23 23:59 23:59 23:59 23:59
[2023-08-04] MEDS: oxyCODONE HCL (*CRX) 5 MG TAB IR PO (14:37)
--- NOTE | 2023-08-04 16:18 | WPDGIPROGNO ---
Progress Note: A&P Assessment and Plan (1) Cirrhosis: Code(s): K74.60 - Unspecified cirrhosis of liver Status: Chronic Assessment and Plan: probably lucio related egd last month with erosive esophagitis, no varices follow-up with office manager as outpatient (already sent referral) (2) Ascites: Code(s): R18.8 - Other ascites Status: Acute Assessment and Plan: 2g na diet diuretics on hold since she is here also with PIOTR (3) Acute kidney injury: Code(s): N17.9 - Acute kidney failure, unspecified Status: Acute Assessment and Plan: ? HRS on midodrine, octreotide holding diuretics, avoid nephrotoxin agents creatinine stable at 2.3 (4) Erosive esophagitis: Code(s): K22.10 - Ulcer of esophagus without bleeding Status: Acute Assessment and Plan: no signs of bleeding on ppi and carafate anemia stable (5) DM2 (diabetes mellitus, type 2): Code(s): E11.9 - Type 2 diabetes mellitus without complications Status: Acute (6) Acute DVT (deep venous thrombosis): Code(s): I82.409 - Acute embolism and thrombosis of unspecified deep veins of unspecified lower extremity Status: Acute Assessment and Plan: tolerating blood thinner (7) Thrombocytopenia: Code(s): D69.6 - Thrombocytopenia, unspecified Status: Acute Assessment and Plan: stable, probably from cirrhosis (8) Chronic anemia: Code(s): D64.9 - Anemia, unspecified Status: Acute Subjective Date/time seen: 08/04/23 16:18 Interval history: no changes, she is comfortable Review of Systems Review of Systems: All systems reviewed & are unremarkable except as noted in HPI and below Exam Narrative: General:?chronically ill appearing HEENT:?PERRL, EOMI. Neck:??Supple. Respiratory:?Lungs are clear to auscultation bilaterally. Cardiovascular:??Regular rate and rhythm with S1-S2. Gastrointestinal:??Obese, Positive bowel sounds. No guarding or rebound tenderness. Skin:??Warm and dry. Extremities:??+ 3 pitting edema of the lower legs extending to the flanks. Blister in left foot unchanged. Neurological:??Alert.? Cranial nerves 2-12 are grossly intact. Psychiatric:??Pleasant and cooperative with appropriate mood and affect. Objective Data Vital Signs Vital Signs: Vital Signs - 24 hr 08/03/23 19:57 08/03/23 21:10 08/04/23 06:00 Temperature 98.0 F 97.3 F L Pulse Rate 71 80 Respiratory Rate 18 18 Blood Pressure 161/78 H 149/77 H Pulse Oximetry 99 99 Oxygen Delivery Room Air 08/04/23 08:29 08/04/23 08:00 08/04/23 14:00 Temperature 97.6 F Pulse Rate 80 78 Respiratory Rate 17 Blood Pressure 142/70 H Pulse Oximetry 98 Oxygen Delivery Room Air Intake/Output Intake/Output: Intake & Output 08/01/23 08/02/23 08/03/23 08/04/23 23:59 23:59 23:59 23:59 Intake Total 1270 1010 840 240 Output Total 1300 1700 1050 Balance -30 -690 -210 240 Meds/Results Medications: Active Medications Generic Name Dose Route Start Last Admin Trade Name Freq PRN Reason Stop Dose Admin Apixaban 10 mg 08/02/23 09:00 08/04/23 08:29 Apixaban 5 Mg Tablet PO 08/08/23 21:01 10 mg Q12HR LORA Administration Apixaban 5 mg 08/09/23 09:00 Apixaban 5 Mg Tablet PO Q12HR LORA Ascorbic Acid 500 mg 07/30/23 09:00 08/04/23 08:29 Ascorbic Acid 500 Mg Tablet PO 500 mg BID LORA Administration Bisacodyl 10 mg 07/29/23 21:45 Bisacodyl 10 Mg Suppository RECTAL Q24H PRN Constipation Dextrose 12.5 gm 07/29/23 21:38 Dextrose 50% 25 Gm/50 Ml Syringe IV PUSH PRN PRN Hypoglycemia Protocol Donepezil HCl 5 mg 07/30/23 09:00 08/04/23 08:29 Donepezil Hcl 5 Mg Tablet PO 5 mg DAILY LORA Administration Glucagon 1 mg 07/29/23 21:38 Glucagon For Inj 1 Mg Vial IM PRN PRN Hypoglycemia Protocol Glucose 15 gm 07/29/23 21:38 Glucose Oral G
[2023-08-04 17:21] LABS: Glucose Point of Care 165 mg/dl (65-105)
[2023-08-04] MEDS: SODIUM CHLORIDE 0.9% IV 500 ML 50 ML IV CONT (18:31)
[2023-08-04] MEDS: PANTOPRAZOLE 40 MG TABLET PO (20:23)
[2023-08-04] MEDS: LOVASTATIN 20 MG TABLET 40 MG PO (20:24)
[2023-08-04] MEDS: MELATONIN 3 MG TABLET PO (20:24)
[2023-08-04 20:56] VITALS: BP 160/76; PULSE 61; RESP 20; TEMP 36.1; O2SAT 97
[2023-08-04 23:00] LABS: Glucose Point of Care 154 mg/dl (65-105)
[2023-08-05 04:32] VITALS: BP 148/72; PULSE 66; RESP 18; TEMP 35.9; O2SAT 100
[2023-08-05] MEDS: SUCRALFATE SUSP 100 MG/ML 10 ML UDC 1000 MG PO ×4 (05:37→21:05)
[2023-08-05 06:06] LABS: Basophils Absolute Auto 0.1 K/mm3 (0.0-0.1); Basophils Percent Auto 0.8 % (0.2-1.2); Eosinophils Absolute Auto 0.4 K/mm3 (0-0.3); Hematocrit 29.8 % (37.0-47.0); Hemoglobin 9.5 g/dL (12.0-15.0); Immature Granulocyte Absolute 0.03 K/mm3 (0.00-0.031); Immature Granulocyte Percent A 0.4 % (0-0.5); Lymphocytes Percent Auto 14.1 % (18.3-44.2); Mean Corpuscular HGB Conc 31.9 g/dl (32-36); Mean Corpuscular Hemoglobin 31.5 pg (26-34); Mean Corpuscular Volume 98.7 fl (80-100); Mean Platelet Volume 9.6 fl (7.4-10.4); Monocytes Absolute Auto 0.8 K/mm3 (0.1-0.6); Monocytes Percent Auto 11.4 % (2.6-8.5); Neutrophils Absolute Auto 4.8 K/mm3 (1.3-6.7); Neutrophils Percent Auto 67.3 % (45.5-73.1); Platelet Count Result 143 k/mm3 (150-375); Red Blood Count 3.02 M/mm3 (4.2-5.4); Red Cell Distribution Width 17.2 % (11.5-14.5); White Blood Count 7.1 K/mm3 (4.5-10.0)
[2023-08-05 06:23] LABS: Alanine Aminotransferase 13 U/L (6-35); Albumin Level 2.5 g/dL (3.5-5.1); Alkaline Phosphatase 88 U/L (38-126); Anion Gap 9 mmol/L (8-16); Aspartate Amino Transferase 26 U/L (14-36); Bilirubin,Total 1.1 mg/dL (0.2-1.3); Blood Urea Nitrogen 24 mg/dL (7-17); Calcium 7.9 mg/dL (8.4-10.2); Carbon Dioxide 22 mmol/L (22-30); Chloride 106 mmol/L (98-107); Estimated CRCL calculation 28 ml/min; Estimated Glomerular Filt Rate 21; Glucose 140 mg/dL (65-110); Potassium 3.9 mmol/L (3.4-5.0); Sodium 137 mmol/L (137-145)
[2023-08-05 08:32] LABS: Glucose Point of Care 146 mg/dl (65-105)
[2023-08-05 09:30] VITALS: BP 164/79
[2023-08-05 09:31] VITALS: PULSE 71
[2023-08-05] MEDS: LORATADINE 10 MG TABLET PO (09:31)
[2023-08-05] MEDS: SENNA/DOCUSATE SODIUM TABLET 1 TAB PO ×2 (09:31→17:48)
[2023-08-05] MEDS: DONEPEZIL HCL 5 MG TABLET PO (09:31)
[2023-08-05] MEDS: MIDODRINE HCL 10 MG TABLET PO (09:31)
[2023-08-05] MEDS: PROPRANOLOL HCL 20 MG TABLET PO (09:31)
[2023-08-05] MEDS: oxyBUTYnin CHLORIDE XL 5 MG TAB.ER.24 PO (09:31)
[2023-08-05] MEDS: THERAPEUTIC MULTIVITAMINS/MINERALS TAB (*BKC) 1 TABLET PO (09:31)
[2023-08-05] MEDS: SODIUM BICARBONATE TAB 650 MG TABLET 1300 MG PO ×2 (09:32→17:48)
[2023-08-05] MEDS: ASCORBIC ACID 500 MG TABLET PO ×2 (09:32→17:48)
[2023-08-05] MEDS: APIXABAN 5 MG TABLET 10 MG PO ×2 (09:33→21:06)
[2023-08-05] MEDS: OCTREOTIDE ACETATE 100 MCG/ML VIAL SUB-Q ×3 (09:34→17:48)
--- NOTE | 2023-08-05 10:54 | PM.IMPN ---
Progress Note: A&P Assessment and Plan (1) Acute DVT (deep venous thrombosis): Code(s): I82.409 - Acute embolism and thrombosis of unspecified deep veins of unspecified lower extremity Status: Acute (2) Acute kidney injury: Code(s): N17.9 - Acute kidney failure, unspecified Status: Acute (3) Heart failure with preserved ejection fraction: Code(s): I50.30 - Unspecified diastolic (congestive) heart failure Status: Acute (4) Cirrhosis: Code(s): K74.60 - Unspecified cirrhosis of liver Status: Chronic (5) Hypertension: Code(s): I10 - Essential (primary) hypertension Status: Chronic (6) Type 2 diabetes mellitus: Code(s): E11.9 - Type 2 diabetes mellitus without complications Status: Acute (7) Hypothyroidism: Code(s): E03.9 - Hypothyroidism, unspecified Status: Acute (8) Erosive esophagitis: Code(s): K22.10 - Ulcer of esophagus without bleeding Status: Acute (9) Chronic anemia: Code(s): D64.9 - Anemia, unspecified Status: Acute Plan The patient presented to the emergency department with reports of hypoxia however her SpO2 was 100% on room air on EMS arrival as per HPI. She then began to complain of abdominal discomfort and was brought in for evaluation. Labs, imaging, EKG, and all reports were personally reviewed. Vital signs have been stable since arrival. Initial labs showed an acute kidney injury with a creatinine of 2.70 compared to 0.70 on labs obtained earlier this month. Acute DVT both lower extremities Venous Doppler reports Acute nonocclusive thrombus in the right popliteal vein. Flow noted within the right posterior tibial and peroneal veins which were otherwise poorly visualized. The right common femoral vein, profunda (deep) femoral vein, femoral vein, and greater saphenous vein are patent. Acute nonocclusive thrombus at the left common femoral/greater saphenous junction and the left proximal femoral vein. Flow detected within the posterior tibial and peroneal veins, otherwise poorly visualized. The profunda (deep)? femoral vein, femoral vein, popliteal vein, and greater saphenous vein are patent. Start Lovenox 100 mg q.12 hours per pharmacist recommendation based on patient kidney function Patient denies chest pain or shortness of breath, we not pursue studies of pulmonary embolism transition to oral Eliquis 10 mg b.i.d. and then 5 mg b.i.d. p.o. Acute renal failure creatinine of 2.70 compared to 0.70 on labs obtained earlier this month. Etiology is not entirely clear. Possible prerenal Urinalysis unremarkable renal ultrasound has rule out obstruction, kidneys are of normal in size Hold furosemide Creatinine is trending up, received normal saline IV, not on fluids now Consult film sound coordinator Appreciate film sound coordinator input, film sound coordinator considers possible hepatorenal syndrome, start octreotide 100 mcg t.i.d. subQ, midodrine 10 mg t.i.d. p.o. abdomen 1 gram/kilos x 1, will give 100 g today, then 20-40g qd tm renal NM scan- 1.? Relatively decreased left kidney function, which is 33% of total renal function. 2.? Delayed uptake and clearance of contrast from the kidneys, consistent with decreased renal function. Creat function is improving 2.3 today, urine output is good Hopeful dc on tuesday back to [facility] Liver cirrhosis and ascites CT 07/04 the liver with large amount of ascites and diffuse subcutaneous edema, consistent with anasarca. Patient follow-up with Dr Stark and Hepatology Heart failure with preserved EF Echocardiogram July 02, 2023 shows normal EF, diastolic dysfunction grade 1 Compensated Hold furosemide Type 2 diabetes hold metformin while hospitalized. Initiate sliding scale insulin, Accu-Cheks, and hypoglycemic protocol. Hypothyroidism continue levothyroxine; recent TSH was within normal limits. Continue PPI and sucralfate for recent erosive esophagitis. Chronic anemia anemia
--- NOTE | 2023-08-05 11:09 | PM.PNNEP ---
Progress Note: A&P Assessment and Plan (1) Acute kidney injury: Code(s): N17.9 - Acute kidney failure, unspecified Status: Acute Assessment and Plan: evaluation to date: renal ultrasound without obstruction UA with blood, protein, WBC and LE -- possible infection? urine electrolytes are prerenal mild proteinuria of ~ 500mg CPK low suspect decreased effective circulating volume from liver cirrhosis/physiology resulting in chronic prerenal azotemia despite outward signs of fluid overload/retention renal scan results noted - element of ATN (?) possible HRS (?) -- trial of octreotide and midodrine wtih limited improvement just on octreotide now... may need to consider a renal biopsy for definitive diagnosis but challenging give her clinical situation (anticoagulation, liver disease, DVTs, anemia...etc) follow trend of repeat labs and UOP (2) Edema: Code(s): R60.9 - Edema, unspecified Status: Acute Assessment and Plan: due to liver cirrhosis, hypoalbuminemia, and DVTs treat supportively suspect will eventually need diuresis to help perhaps IV albumin chased by IV bumex (this may provide diuresis but maintain kidney function...) (3) Hypertension: Code(s): I10 - Essential (primary) hypertension Status: Chronic Assessment and Plan: reasonable control follow trend of hemodynamics (4) Chronic anemia: Code(s): D64.9 - Anemia, unspecified Status: Acute Assessment and Plan: due to PIOTR, acute illness, and liver cirrhosis follow trend of H/H (5) Acute DVT (deep venous thrombosis): Code(s): I82.409 - Acute embolism and thrombosis of unspecified deep veins of unspecified lower extremity Status: Acute Assessment and Plan: noted in bilateral lower extremities on anticoagulation contributing component to LE edema/swelling (6) Cirrhosis: Code(s): K74.60 - Unspecified cirrhosis of liver Status: Chronic Assessment and Plan: GI recommendations noted follow LFTs watch for hepatic encephalopathy (7) Type 2 diabetes mellitus: Code(s): E11.9 - Type 2 diabetes mellitus without complications Status: Acute Assessment and Plan: follow accu-cheks glycemic control per hospitalists Will continue to follow. Subjective Date/time seen: 08/05/23 11:09 Interval history: Follow-up for acute kidney injury/acute renal failure. Maintaining good urine output but renal function has not really improved despite therapy/interventions to date; Exam Narrative: General: elderly female in NAD Heart: normal S1 and S2; no rub Lungs: clear to auscultation Abdomen: soft, nontender, mild distension, positive bowel sounds Extremities: no cyanosis or clubbing; 2 - 3+ edema Skin: warm and dry; unchanged left foot water blister Objective Data Vital Signs Vital Signs: Vital Signs Temp Pulse Resp BP Pulse Ox O2 Del Method 08/05/23 10:23 97.4 F L 70 16 164/76 H 99 08/05/23 09:30 164/79 H 08/05/23 08:30 Room Air 08/05/23 09:31 71 08/05/23 04:32 96.7 F L 66 18 148/72 H 100 08/04/23 20:56 97.0 F L 61 20 160/76 H 97 08/04/23 20:00 Room Air Intake/Output Intake/Output: Intake & Output 08/02/23 08/03/23 08/04/23 08/05/23 23:59 23:59 23:59 23:59 Intake Total 7235 922 6799 630 Output Total 1700 1050 750 400 Balance -690 -210 430 230 Meds/Results Medications: Active Medications Generic Name Dose Route Start Last Admin Trade Name Freq PRN Reason Stop Dose Admin Apixaban 10 mg 08/02/23 09:00 08/05/23 09:33 Apixaban 5 Mg Tablet PO 08/08/23 21:01 10 mg Q12HR LORA Administration Apixaban 5 mg 08/09/23 09:00 Apixaban 5 Mg Tablet PO Q12HR LORA Ascorbic Acid 500 mg 07/30/23 09:00 08/05/23 09:32 Ascorbic Acid 500 Mg Tablet PO 500 mg BID LORA Administration Bisacodyl
--- NOTE | 2023-08-05 11:09 | P.PNNP_ITS ---
Progress Note: A&P Assessment and Plan (1) Acute kidney injury: Code(s): N17.9 - Acute kidney failure, unspecified Status: Acute Assessment and Plan: * evaluation to date: * renal ultrasound without obstruction * UA with blood, protein, WBC and LE -- possible infection? * urine electrolytes are prerenal * mild proteinuria of ~ 500mg * CPK low * suspect decreased effective circulating volume from liver cirrhosis/physiology resulting in chronic prerenal azotemia despite outward signs of fluid overload/retention * renal scan results noted - element of ATN (?) * possible HRS (?) -- trial of octreotide and midodrine wtih limited improvement * just on octreotide now... * may need to consider a renal biopsy for definitive diagnosis but challenging give her clinical situation (anticoagulation, liver disease, DVTs, anemia...etc) * follow trend of repeat labs and UOP (2) Edema: Code(s): R60.9 - Edema, unspecified Status: Acute Assessment and Plan: * due to liver cirrhosis, hypoalbuminemia, and DVTs * treat supportively * suspect will eventually need diuresis to help * perhaps IV albumin chased by IV bumex (this may provide diuresis but maintain kidney function...) (3) Hypertension: Code(s): I10 - Essential (primary) hypertension Status: Chronic Assessment and Plan: * reasonable control * follow trend of hemodynamics (4) Chronic anemia: Code(s): D64.9 - Anemia, unspecified Status: Acute Assessment and Plan: * due to PIOTR, acute illness, and liver cirrhosis * follow trend of H/H (5) Acute DVT (deep venous thrombosis): Code(s): I82.409 - Acute embolism and thrombosis of unspecified deep veins of unspecified lower extremity Status: Acute Assessment and Plan: * noted in bilateral lower extremities * on anticoagulation * contributing component to LE edema/swelling (6) Cirrhosis: Code(s): K74.60 - Unspecified cirrhosis of liver Status: Chronic Assessment and Plan: * GI recommendations noted * follow LFTs * watch for hepatic encephalopathy (7) Type 2 diabetes mellitus: Code(s): E11.9 - Type 2 diabetes mellitus without complications Status: Acute Assessment and Plan: * follow accu-cheks * glycemic control per hospitalists Will continue to follow. Subjective Date/time seen: 08/05/23 11:09 Interval history: Follow-up for acute kidney injury/acute renal failure. Maintaining good urine output but renal function has not really improved despite therapy/interventions to date; Exam Narrative: General: elderly female in NAD Heart: normal S1 and S2; no rub Lungs: clear to auscultation Abdomen: soft, nontender, mild distension, positive bowel sounds Extremities: no cyanosis or clubbing; 2 - 3+ edema Skin: warm and dry; unchanged left foot water blister Objective Data Vital Signs Vital Signs: Vital Signs Temp Pulse Resp BP Pulse Ox O2 Del Method 08/05/23 10:23 97.4 F L 70 16 164/76 H 99 08/05/23 09:30 164/79 H 08/05/23 08:30 Room Air 08/05/23 09:31 71 08/05/23 04:32 96.7 F L 66 18 148/72 H 100 08/04/23 20:56 97.0 F L 61 20 160/76 H 97 08/04/23 20:00 Room Air Intake/Ou
[2023-08-05 11:53] LABS: Glucose Point of Care 123 mg/dl (65-105)
[2023-08-05 13:23] VITALS: BP 164/76; PULSE 70; RESP 16; TEMP 36.3; O2SAT 99
[2023-08-05] MEDS: TOLNAFTATE 1% POWDER 45 GM BTL 1 APPLIC TOPICAL ×2 (13:26→21:07)
--- NOTE | 2023-08-05 14:41 | PC.NURSE ---
On 08/05/23, the student, [Juni Quinteros], provided care and completed [facility] documentation on this patient. I have reviewed the student's documentation and agree with the findings.
--- NOTE | 2023-08-05 14:52 | WPDGIPROGNO ---
Progress Note: A&P Assessment and Plan (1) Cirrhosis: Code(s): K74.60 - Unspecified cirrhosis of liver Status: Chronic Assessment and Plan: probably lucio related follow-up with trim line worker as outpatient (already sent referral) (2) Ascites: Code(s): R18.8 - Other ascites Status: Acute Assessment and Plan: 2g na diet diuretics on hold since she is here also with PIOTR (3) Acute kidney injury: Code(s): N17.9 - Acute kidney failure, unspecified Status: Acute Assessment and Plan: ? HRS on midodrine, octreotide holding diuretics, avoid nephrotoxin agents creatinine stable last seveal days at 2.3 (4) Erosive esophagitis: Code(s): K22.10 - Ulcer of esophagus without bleeding Status: Acute Assessment and Plan: no signs of bleeding on ppi and carafate anemia stable (5) DM2 (diabetes mellitus, type 2): Code(s): E11.9 - Type 2 diabetes mellitus without complications Status: Acute (6) Acute DVT (deep venous thrombosis): Code(s): I82.409 - Acute embolism and thrombosis of unspecified deep veins of unspecified lower extremity Status: Acute Assessment and Plan: on blood thinner (7) Thrombocytopenia: Code(s): D69.6 - Thrombocytopenia, unspecified Status: Acute Assessment and Plan: stable, probably from cirrhosis (8) Chronic anemia: Code(s): D64.9 - Anemia, unspecified Status: Acute Assessment and Plan: stable Subjective Date/time seen: 08/05/23 14:52 Interval history: no changes, she is comfortable Review of Systems Review of Systems: All systems reviewed & are unremarkable except as noted in HPI and below Exam Narrative: General:?chronically ill appearing HEENT:?PERRL, EOMI. Neck:??Supple. Respiratory:?Lungs are clear to auscultation bilaterally. Cardiovascular:??Regular rate and rhythm with S1-S2. Gastrointestinal:??Obese, Positive bowel sounds. No guarding or rebound tenderness. Skin:??Warm and dry. Extremities:??+ 3 pitting edema of the lower legs extending to the flanks. Blister in left foot unchanged. Neurological:??Alert.? Cranial nerves 2-12 are grossly intact. Psychiatric:??Pleasant and cooperative with appropriate mood and affect. Objective Data Vital Signs Vital Signs: Vital Signs - 24 hr 11/30/23 20:00 08/04/23 20:56 08/05/23 04:32 Temperature 97.0 F L 96.7 F L Pulse Rate 61 66 Respiratory Rate 20 18 Blood Pressure 160/76 H 148/72 H Pulse Oximetry 97 100 Oxygen Delivery Room Air 08/05/23 09:31 08/05/23 08:30 08/05/23 09:30 Temperature Pulse Rate 71 Respiratory Rate Blood Pressure 164/79 H Pulse Oximetry Oxygen Delivery Room Air 08/05/23 13:23 Temperature 97.4 F L Pulse Rate 70 Respiratory Rate 16 Blood Pressure 164/76 H Pulse Oximetry 99 Oxygen Delivery Intake/Output Intake/Output: Intake & Output 08/02/23 08/03/23 08/04/23 08/05/23 23:59 23:59 23:59 23:59 Intake Total 3108 026 8414 630 Output Total 1700 1050 750 400 Balance -690 -210 430 230 Meds/Results Medications: Active Medications Generic Name Dose Route Start Last Admin Trade Name Freq PRN Reason Stop Dose Admin Apixaban 10 mg 08/02/23 09:00 08/05/23 09:33 Apixaban 5 Mg Tablet PO 08/08/23 21:01 10 mg Q12HR LORA Administration Apixaban 5 mg 08/09/23 09:00 Apixaban 5 Mg Tablet PO Q12HR LORA Ascorbic Acid 500 mg 07/30/23 09:00 08/05/23 09:32 Ascorbic Acid 500 Mg Tablet PO 500 mg BID LORA Administration Bisacodyl 10 mg 07/29/23 21:45 Bisacodyl 10 Mg Suppository RECTAL Q24H PRN Constipation Dextrose 12.5 gm 07/29/23 21:38 Dextrose 50% 25 Gm/50 Ml Syringe IV PUSH PRN PRN Hypoglycemia Protocol Donepezil HCl 5 mg 07/30/23 09:00 08/05/23 09:31 Donepezil Hcl 5 Mg Tablet PO 5 mg DAILY LORA Administration Glucagon 1 mg 07/29/23 21:38 Gl
[2023-08-05] MEDS: oxyCODONE HCL (*CRX) 5 MG TAB IR PO ×2 (14:53→18:58)
[2023-08-05 17:39] LABS: Glucose Point of Care 171 mg/dl (65-105)
[2023-08-05 19:59] LABS: Glucose Point of Care 195 mg/dl (65-105)
[2023-08-05 20:19] VITALS: BP 150/80; PULSE 76; RESP 18; TEMP 36.7; O2SAT 100
[2023-08-05] MEDS: MELATONIN 3 MG TABLET PO (21:06)
[2023-08-05] MEDS: PANTOPRAZOLE 40 MG TABLET PO (21:06)
[2023-08-05] MEDS: LOVASTATIN 20 MG TABLET 40 MG PO (21:06)
[2023-08-05] MEDS: ALBUMIN HUMAN 25% 12.5 GM/50ML 50 ML IVPB (21:15)
[2023-08-05] MEDS: BUMETANIDE INJ 1 MG/4 ML VIAL IV PUSH (22:50)
[2023-08-06] MEDS: ALBUMIN HUMAN 25% 12.5 GM/50ML 50 ML IVPB ×3 (05:00→22:33)
[2023-08-06 05:05] VITALS: BP 140/79; PULSE 77; RESP 16; TEMP 36.8; O2SAT 99
[2023-08-06] MEDS: SUCRALFATE SUSP 100 MG/ML 10 ML UDC 1000 MG PO ×4 (06:28→20:19)
[2023-08-06] MEDS: BUMETANIDE INJ 1 MG/4 ML VIAL IV PUSH ×2 (06:28→16:56)
[2023-08-06 08:40] VITALS: BP 143/69; PULSE 75; RESP 16; O2SAT 99
[2023-08-06] MEDS: SENNA/DOCUSATE SODIUM TABLET 1 TAB PO ×2 (08:41→18:35)
[2023-08-06] MEDS: LORATADINE 10 MG TABLET PO (08:41)
[2023-08-06] MEDS: THERAPEUTIC MULTIVITAMINS/MINERALS TAB (*BKC) 1 TABLET PO (08:41)
[2023-08-06] MEDS: ASCORBIC ACID 500 MG TABLET PO ×2 (08:41→18:35)
[2023-08-06] MEDS: DONEPEZIL HCL 5 MG TABLET PO (08:41)
[2023-08-06] MEDS: SODIUM BICARBONATE TAB 650 MG TABLET 1300 MG PO ×2 (08:41→18:35)
[2023-08-06 08:42] VITALS: PULSE 74
[2023-08-06] MEDS: PROPRANOLOL HCL 20 MG TABLET PO (08:42)
[2023-08-06] MEDS: OCTREOTIDE ACETATE 100 MCG/ML VIAL SUB-Q ×3 (08:44→18:35)
[2023-08-06 08:50] LABS: Glucose Point of Care 159 mg/dl (65-105)
--- NOTE | 2023-08-06 09:28 | PM.IMPN ---
Progress Note: A&P Assessment and Plan (1) Acute DVT (deep venous thrombosis): Code(s): I82.409 - Acute embolism and thrombosis of unspecified deep veins of unspecified lower extremity Status: Acute (2) Acute kidney injury: Code(s): N17.9 - Acute kidney failure, unspecified Status: Acute (3) Heart failure with preserved ejection fraction: Code(s): I50.30 - Unspecified diastolic (congestive) heart failure Status: Acute (4) Cirrhosis: Code(s): K74.60 - Unspecified cirrhosis of liver Status: Chronic (5) Hypertension: Code(s): I10 - Essential (primary) hypertension Status: Chronic (6) Type 2 diabetes mellitus: Code(s): E11.9 - Type 2 diabetes mellitus without complications Status: Acute (7) Hypothyroidism: Code(s): E03.9 - Hypothyroidism, unspecified Status: Acute (8) Erosive esophagitis: Code(s): K22.10 - Ulcer of esophagus without bleeding Status: Acute (9) Chronic anemia: Code(s): D64.9 - Anemia, unspecified Status: Acute Plan The patient presented to the emergency department with reports of hypoxia however her SpO2 was 100% on room air on EMS arrival as per HPI. She then began to complain of abdominal discomfort and was brought in for evaluation. Labs, imaging, EKG, and all reports were personally reviewed. Vital signs have been stable since arrival. Initial labs showed an acute kidney injury with a creatinine of 2.70 compared to 0.70 on labs obtained earlier this month. Acute DVT both lower extremities Venous Doppler reports Acute nonocclusive thrombus in the right popliteal vein. Flow noted within the right posterior tibial and peroneal veins which were otherwise poorly visualized. The right common femoral vein, profunda (deep) femoral vein, femoral vein, and greater saphenous vein are patent. Acute nonocclusive thrombus at the left common femoral/greater saphenous junction and the left proximal femoral vein. Flow detected within the posterior tibial and peroneal veins, otherwise poorly visualized. The profunda (deep)? femoral vein, femoral vein, popliteal vein, and greater saphenous vein are patent. transition to oral Eliquis 10 mg b.i.d. and then 5 mg b.i.d. p.o. Eliquis to be held over the weekend Heparin drip to be started over the weekend pt to have renal biopsy on Tuesday Acute renal failure creatinine of 2.70 compared to 0.70 on labs obtained earlier this month. Etiology is not entirely clear. Possible prerenal Urinalysis unremarkable renal ultrasound has rule out obstruction, kidneys are of normal in size Consult biomedical engineering internship Appreciate biomedical engineering internship input, biomedical engineering internship considers possible hepatorenal syndrome, start octreotide 100 mcg t.i.d. subQ, midodrine 10 mg t.i.d. p.o. abdomen 1 gram/kilos x 1, will give 100 g today, then 20-40g qd tm renal NM scan- 1.? Relatively decreased left kidney function, which is 33% of total renal function. 2.? Delayed uptake and clearance of contrast from the kidneys, consistent with decreased renal function. Creat function is improving 2.3 today, urine output is good Pt started on bumex/ albumin combination midodrine on hold due to bp running high Pt to have renal biopsy on Tuesday Liver cirrhosis and ascites CT 07/04 the liver with large amount of ascites and diffuse subcutaneous edema, consistent with anasarca. Patient follow-up with Dr Stark and Hepatology Heart failure with preserved EF Echocardiogram July 02, 2023 shows normal EF, diastolic dysfunction grade 1 Compensated Type 2 diabetes hold metformin while hospitalized. Initiate sliding scale insulin, Accu-Cheks, and hypoglycemic protocol. Hypothyroidism continue levothyroxine; recent TSH was within normal limits. Continue PPI and sucralfate for recent erosive esophagitis. Chronic anemia anemia stable on review of previous labs. Subjective Date/time seen: 08/06/23 09:28
[2023-08-06 09:56] LABS: Hematocrit 31.9 % (37.0-47.0); Hemoglobin 9.8 g/dL (12.0-15.0); Mean Corpuscular HGB Conc 30.7 g/dl (32-36); Mean Corpuscular Hemoglobin 30.2 pg (26-34); Mean Corpuscular Volume 98.5 fl (80-100); Mean Platelet Volume 9.8 fl (7.4-10.4); Platelet Count Result 159 k/mm3 (150-375); Red Blood Count 3.24 M/mm3 (4.2-5.4); Red Cell Distribution Width 17.2 % (11.5-14.5); White Blood Count 6.1 K/mm3 (4.5-10.0)
[2023-08-06 09:57] LABS: Basophils Absolute Auto 0.1 K/mm3 (0.0-0.1); Basophils Percent Auto 0.9 % (0.2-1.2); Eosinophils Absolute Auto 0.4 K/mm3 (0-0.3); Eosinophils Percent Auto 7.1 % (0-4.4); Hematocrit 31.9 % (37.0-47.0); Hemoglobin 9.7 g/dL (12.0-15.0); Immature Granulocyte Absolute 0.01 K/mm3 (0.00-0.031); Immature Granulocyte Percent A 0.2 % (0-0.5); Lymphocytes Absolute Auto 0.95 K/mm3 (0.9-3.2); Lymphocytes Percent Auto 16.5 % (18.3-44.2); Mean Corpuscular HGB Conc 30.4 g/dl (32-36); Mean Corpuscular Hemoglobin 30.4 pg (26-34); Mean Platelet Volume 10.3 fl (7.4-10.4); Monocytes Absolute Auto 0.6 K/mm3 (0.1-0.6); Monocytes Percent Auto 10.1 % (2.6-8.5); Neutrophils Absolute Auto 3.8 K/mm3 (1.3-6.7); Neutrophils Percent Auto 65.2 % (45.5-73.1); Platelet Count Result 162 k/mm3 (150-375); Red Blood Count 3.19 M/mm3 (4.2-5.4); Red Cell Distribution Width 17.2 % (11.5-14.5); White Blood Count 5.8 K/mm3 (4.5-10.0)
[2023-08-06 10:06] LABS: Anion Gap 9 mmol/L (8-16); Blood Urea Nitrogen 24 mg/dL (7-17); Calcium 8.5 mg/dL (8.4-10.2); Carbon Dioxide 23 mmol/L (22-30); Chloride 106 mmol/L (98-107); Estimated CRCL calculation 29 ml/min; Estimated Glomerular Filt Rate 22; Glucose 164 mg/dL (65-110); Potassium 3.6 mmol/L (3.4-5.0); Sodium 138 mmol/L (137-145)
[2023-08-06 10:08] LABS: Prothrombin Time 33.3 Seconds (11.1-14.7)
[2023-08-06 10:09] LABS: Partial Thromboplastin Time 43.9 SECONDS (22.3-36.8)
[2023-08-06] MEDS: HEPARIN SOD/D5W 100 UNITS/ML 25,000 UNITS/250 ML BAG 15 UNITS IV CONT (11:10)
--- NOTE | 2023-08-06 12:01 | P.PNNP_ITS ---
Progress Note: A&P Assessment and Plan (1) Acute kidney injury: Code(s): N17.9 - Acute kidney failure, unspecified Status: Acute Assessment and Plan: * evaluation to date: * renal ultrasound without obstruction * UA with blood, protein, WBC and LE -- possible infection? * urine electrolytes are prerenal * mild proteinuria of ~ 500mg * CPK low * suspect decreased effective circulating volume from liver cirrhosis/physiology resulting in chronic prerenal azotemia despite outward signs of fluid overload/retention * renal scan results noted - element of ATN (?) * possible HRS (?) -- trial of octreotide and midodrine wtih limited improvement * just on octreotide now...BP elevated so midodrine discontinued * may need to consider a renal biopsy for definitive diagnosis but challenging give her clinical situation (anticoagulation, liver disease, DVTs, anemia...etc) * holding eliquis at this time * transition to heparin gtt * follow trend of repeat labs and UOP (2) Edema: Code(s): R60.9 - Edema, unspecified Status: Acute Assessment and Plan: * due to liver cirrhosis, hypoalbuminemia, and DVTs * treat supportively * started on diuresis * IV albumin chased by IV bumex * follow I/Os and clinical exam (3) Hypertension: Code(s): I10 - Essential (primary) hypertension Status: Chronic Assessment and Plan: * reasonable control * follow trend of hemodynamics (4) Chronic anemia: Code(s): D64.9 - Anemia, unspecified Status: Acute Assessment and Plan: * due to PIOTR, acute illness, and liver cirrhosis * follow trend of H/H (5) Acute DVT (deep venous thrombosis): Code(s): I82.409 - Acute embolism and thrombosis of unspecified deep veins of unspecified lower extremity Status: Acute Assessment and Plan: * noted in bilateral lower extremities * on anticoagulation * contributing component to LE edema/swelling (6) Cirrhosis: Code(s): K74.60 - Unspecified cirrhosis of liver Status: Chronic Assessment and Plan: * GI recommendations noted * follow LFTs * watch for hepatic encephalopathy (7) Type 2 diabetes mellitus: Code(s): E11.9 - Type 2 diabetes mellitus without complications Status: Acute Assessment and Plan: * follow accu-cheks * glycemic control per hospitalists Long and extensive discussion ( greater than 20 minutes) with the patient regarding her on resolving acute kidney injury/ acute renal failure in conjunction with her significant/ severe lower extremity swelling / edema /anasarca and interventions to date including the use of IV albumin and IV loop diuretics to optimize her fluid status. I discussed with the patient the possibility of doing a renal biopsy on the assumption that it may show some pathology in her kidneys that may amenable to other therapy that has not been instituted as of yet. I also discussed that the biopsy may just show relatively normal renal pathology which would confirm that her liver cirrhosis and associated altered hemodynamics/physiology induced by her liver disease is more responsible for her kidney function at this time. I discussed the risks, benefits, pros, cons, and the procedure itself to the patient and she appears to be willing to proceed. She has been transition to heparin drip which will obviously be discontinued prior to the renal biopsy but I think I will wait a few more days to let the effect Eliquis wear off prior to arranging for the renal biopsy as she is at significant risk
--- NOTE | 2023-08-06 12:01 | PM.PNNEP ---
Progress Note: A&P Assessment and Plan (1) Acute kidney injury: Code(s): N17.9 - Acute kidney failure, unspecified Status: Acute Assessment and Plan: evaluation to date: renal ultrasound without obstruction UA with blood, protein, WBC and LE -- possible infection? urine electrolytes are prerenal mild proteinuria of ~ 500mg CPK low suspect decreased effective circulating volume from liver cirrhosis/physiology resulting in chronic prerenal azotemia despite outward signs of fluid overload/retention renal scan results noted - element of ATN (?) possible HRS (?) -- trial of octreotide and midodrine wtih limited improvement just on octreotide now...BP elevated so midodrine discontinued may need to consider a renal biopsy for definitive diagnosis but challenging give her clinical situation (anticoagulation, liver disease, DVTs, anemia...etc) holding eliquis at this time transition to heparin gtt follow trend of repeat labs and UOP (2) Edema: Code(s): R60.9 - Edema, unspecified Status: Acute Assessment and Plan: due to liver cirrhosis, hypoalbuminemia, and DVTs treat supportively started on diuresis IV albumin chased by IV bumex follow I/Os and clinical exam (3) Hypertension: Code(s): I10 - Essential (primary) hypertension Status: Chronic Assessment and Plan: reasonable control follow trend of hemodynamics (4) Chronic anemia: Code(s): D64.9 - Anemia, unspecified Status: Acute Assessment and Plan: due to PIOTR, acute illness, and liver cirrhosis follow trend of H/H (5) Acute DVT (deep venous thrombosis): Code(s): I82.409 - Acute embolism and thrombosis of unspecified deep veins of unspecified lower extremity Status: Acute Assessment and Plan: noted in bilateral lower extremities on anticoagulation contributing component to LE edema/swelling (6) Cirrhosis: Code(s): K74.60 - Unspecified cirrhosis of liver Status: Chronic Assessment and Plan: GI recommendations noted follow LFTs watch for hepatic encephalopathy (7) Type 2 diabetes mellitus: Code(s): E11.9 - Type 2 diabetes mellitus without complications Status: Acute Assessment and Plan: follow accu-cheks glycemic control per hospitalists Long and extensive discussion ( greater than 20 minutes) with the patient regarding her on resolving acute kidney injury/ acute renal failure in conjunction with her significant/ severe lower extremity swelling / edema /anasarca and interventions to date including the use of IV albumin and IV loop diuretics to optimize her fluid status. I discussed with the patient the possibility of doing a renal biopsy on the assumption that it may show some pathology in her kidneys that may amenable to other therapy that has not been instituted as of yet. I also discussed that the biopsy may just show relatively normal renal pathology which would confirm that her liver cirrhosis and associated altered hemodynamics/physiology induced by her liver disease is more responsible for her kidney function at this time. I discussed the risks, benefits, pros, cons, and the procedure itself to the patient and she appears to be willing to proceed. She has been transition to heparin drip which will obviously be discontinued prior to the renal biopsy but I think I will wait a few more days to let the effect Eliquis wear off prior to arranging for the renal biopsy as she is at significant risk for bleeding given her renal dysfunction, liver cirrhosis, fluctuating INR, and anemia. Will continue to follow. Subjective Date/time seen: 08/06/23 12:01 Interval history: Follow-up for acute kidney injury/acute renal failure. Good diuresis/urine output noted with IV albumin + IV bumex with relatively stability if not improvement in renal function; she reports her lower extremity edema is a bit bett
[2023-08-06 12:04] LABS: Glucose Point of Care 186 mg/dl (65-105)
[2023-08-06] MEDS: TOLNAFTATE 1% POWDER 45 GM BTL 1 APPLIC TOPICAL ×2 (13:04→20:20)
[2023-08-06] MEDS: LIDOCAINE HCL 1% PF INJ 5 ML VIAL INFILTRATE (14:40)
[2023-08-06 15:37] VITALS: BP 130/59; PULSE 72; RESP 16; TEMP 36.2; O2SAT 100
[2023-08-06 17:21] LABS: Glucose Point of Care 181 mg/dl (65-105)
[2023-08-06 18:05] LABS: Anion Gap 9 mmol/L (8-16); Blood Urea Nitrogen 25 mg/dL (7-17); Calcium 8.5 mg/dL (8.4-10.2); Carbon Dioxide 25 mmol/L (22-30); Chloride 105 mmol/L (98-107); Estimated CRCL calculation 29 ml/min; Estimated Glomerular Filt Rate 22; Glucose 169 mg/dL (65-110); Magnesium 1.2 mg/dL (1.6-2.3); Potassium 3.8 mmol/L (3.4-5.0); Sodium 139 mmol/L (137-145)
[2023-08-06 18:38] LABS: Partial Thromboplastin Time > 200.0 SECONDS (22.3-36.8)
[2023-08-06] MEDS: PANTOPRAZOLE 40 MG TABLET PO (20:19)
[2023-08-06] MEDS: MELATONIN 3 MG TABLET PO (20:19)
[2023-08-06] MEDS: LOVASTATIN 20 MG TABLET 40 MG PO (20:19)
[2023-08-06 21:36] LABS: Glucose Point of Care 175 mg/dl (65-105)
[2023-08-06 22:00] VITALS: BP 156/74; PULSE 85; RESP 17; TEMP 36.3; O2SAT 97
[2023-08-06] MEDS: CENTRAL LINE FLUSH 10 ML IV PUSH (22:33)
[2023-08-06 23:45] VITALS: BP 134/61
[2023-08-07] MEDS: BUMETANIDE INJ 1 MG/4 ML VIAL 0.5 MG IV PUSH ×4 (00:21→22:38)
[2023-08-07 03:32] LABS: Basophils Percent Auto 0.7 % (0.2-1.2); Eosinophils Absolute Auto 0.3 K/mm3 (0-0.3); Eosinophils Percent Auto 5.9 % (0-4.4); Hematocrit 27.5 % (37.0-47.0); Hemoglobin 8.7 g/dL (12.0-15.0); Immature Granulocyte Absolute 0.02 K/mm3 (0.00-0.031); Immature Granulocyte Percent A 0.3 % (0-0.5); Lymphocytes Absolute Auto 1.13 K/mm3 (0.9-3.2); Lymphocytes Percent Auto 19.6 % (18.3-44.2); Mean Corpuscular HGB Conc 31.6 g/dl (32-36); Mean Corpuscular Hemoglobin 30.3 pg (26-34); Mean Corpuscular Volume 95.8 fl (80-100); Mean Platelet Volume 9.5 fl (7.4-10.4); Monocytes Absolute Auto 0.6 K/mm3 (0.1-0.6); Monocytes Percent Auto 10.4 % (2.6-8.5); Neutrophils Absolute Auto 3.7 K/mm3 (1.3-6.7); Neutrophils Percent Auto 63.1 % (45.5-73.1); Platelet Count Result 137 k/mm3 (150-375); Red Blood Count 2.87 M/mm3 (4.2-5.4); Red Cell Distribution Width 17.2 % (11.5-14.5); White Blood Count 5.8 K/mm3 (4.5-10.0)
[2023-08-07 03:53] LABS: Alanine Aminotransferase 13 U/L (6-35); Albumin Level 2.9 g/dL (3.5-5.1); Alkaline Phosphatase 78 U/L (38-126); Anion Gap 7 mmol/L (8-16); Aspartate Amino Transferase 29 U/L (14-36); Bilirubin,Total 1.5 mg/dL (0.2-1.3); Blood Urea Nitrogen 25 mg/dL (7-17); Calcium 8.3 mg/dL (8.4-10.2); Carbon Dioxide 27 mmol/L (22-30); Chloride 105 mmol/L (98-107); Estimated CRCL calculation 31 ml/min; Estimated Glomerular Filt Rate 23; Glucose 166 mg/dL (65-110); Potassium 3.6 mmol/L (3.4-5.0); Sodium 139 mmol/L (137-145)
[2023-08-07 04:50] LABS: Partial Thromboplastin Time > 200.0 SECONDS (22.3-36.8)
[2023-08-07] MEDS: ALBUMIN HUMAN 25% 12.5 GM/50ML 50 ML IVPB ×3 (05:37→21:12)
[2023-08-07] MEDS: CENTRAL LINE FLUSH 10 ML IV PUSH ×3 (05:37→21:13)
[2023-08-07 06:00] VITALS: BP 154/73; PULSE 87; RESP 14; TEMP 36.6; O2SAT 95
[2023-08-07] MEDS: SUCRALFATE SUSP 100 MG/ML 10 ML UDC 1000 MG PO ×4 (07:20→21:12)
[2023-08-07 07:38] LABS: Glucose Point of Care 171 mg/dl (65-105)
[2023-08-07] MEDS: HEPARIN SOD/D5W 100 UNITS/ML 25,000 UNITS/250 ML BAG 9 UNITS IV CONT (09:43)
--- NOTE | 2023-08-07 10:24 | PC.NURSE ---
Patient going down to CT
--- NOTE | 2023-08-07 10:42 | PC.NURSE ---
patient returned from CT
[2023-08-07 10:43] VITALS: O2SAT 95
[2023-08-07] MEDS: OCTREOTIDE ACETATE 100 MCG/ML VIAL SUB-Q ×3 (10:47→18:47)
[2023-08-07 10:50] VITALS: BP 159/74; PULSE 78; RESP 16; O2SAT 98
[2023-08-07] MEDS: ONDANSETRON INJ 4 MG/2 ML VIAL IV PUSH (11:40)
[2023-08-07 11:42] LABS: Glucose Point of Care 165 mg/dl (65-105)
[2023-08-07 12:20] LABS: Ammonia 59 umol/L (9-30)
[2023-08-07] MEDS: LORATADINE 10 MG TABLET PO (12:45)
[2023-08-07] MEDS: DONEPEZIL HCL 5 MG TABLET PO (12:45)
--- NOTE | 2023-08-07 12:45 | P.PNNP_ITS ---
Progress Note: A&P Assessment and Plan (1) Acute kidney injury: Code(s): N17.9 - Acute kidney failure, unspecified Status: Acute Assessment and Plan: * evaluation to date: * renal ultrasound without obstruction * UA with blood, protein, WBC and LE -- possible infection? * urine electrolytes are prerenal * mild proteinuria of ~ 500mg * CPK low * suspect decreased effective circulating volume from liver cirrhosis/physiology resulting in chronic prerenal azotemia despite outward signs of fluid overload/retention * renal scan results noted - element of ATN (?) * possible HRS (?) -- trial of octreotide and midodrine wtih limited improvement * just on octreotide now...BP elevated so midodrine discontinued * planning renal biopsy for definitive diagnosis but challenging give her clinical situation (anticoagulation, liver disease, DVTs, anemia...etc) * holding eliquis at this time * transitioned to heparin gtt * follow trend of repeat labs and UOP (2) Edema: Code(s): R60.9 - Edema, unspecified Status: Acute Assessment and Plan: * due to liver cirrhosis, hypoalbuminemia, and DVTs * treat supportively * started on diuresis * IV albumin chased by IV bumex * follow I/Os and clinical exam (3) Hypertension: Code(s): I10 - Essential (primary) hypertension Status: Chronic Assessment and Plan: * reasonable control * follow trend of hemodynamics (4) Chronic anemia: Code(s): D64.9 - Anemia, unspecified Status: Acute Assessment and Plan: * due to PIOTR, acute illness, and liver cirrhosis * follow trend of H/H (5) Acute DVT (deep venous thrombosis): Code(s): I82.409 - Acute embolism and thrombosis of unspecified deep veins of unspecified lower extremity Status: Acute Assessment and Plan: * noted in bilateral lower extremities * on anticoagulation * contributing component to LE edema/swelling (6) Cirrhosis: Code(s): K74.60 - Unspecified cirrhosis of liver Status: Chronic Assessment and Plan: * GI recommendations noted * follow LFTs * watch for hepatic encephalopathy (7) Type 2 diabetes mellitus: Code(s): E11.9 - Type 2 diabetes mellitus without complications Status: Acute Assessment and Plan: * follow accu-cheks * glycemic control per hospitalists Will continue to follow. Subjective Date/time seen: 08/07/23 12:45 Interval history: Follow-up for acute kidney injury/acute renal failure. Continue to have good diuresis/urine output with IV albumin + IV bumex with rel atively stability if not improvement in renal function; no apparent distress voied at the time of my visit; in agreement with renal biopsy next week; some issues with confusion noted - head CT scan negative. Exam Narrative: General: elderly female in NAD Heart: normal S1 and S2; no rub Lungs: clear to auscultation Abdomen: soft, nontender, mild distension, positive bowel sounds Extremities: no cyanosis or clubbing; 2+ edema Skin: no rash; unchanged left foot water blister Objective Data Vital Signs Vital Signs: Vital Signs Temp Pulse Resp BP Pulse Ox O2 Del Method 08/07/23 12:00 97.3 F L 74 14 169/70 H 100 08/07/23 10:00 Room Air 08/07/23 12:46 80 08/07/23 10:50 78 16
--- NOTE | 2023-08-07 12:45 | PM.PNNEP ---
Progress Note: A&P Assessment and Plan (1) Acute kidney injury: Code(s): N17.9 - Acute kidney failure, unspecified Status: Acute Assessment and Plan: evaluation to date: renal ultrasound without obstruction UA with blood, protein, WBC and LE -- possible infection? urine electrolytes are prerenal mild proteinuria of ~ 500mg CPK low suspect decreased effective circulating volume from liver cirrhosis/physiology resulting in chronic prerenal azotemia despite outward signs of fluid overload/retention renal scan results noted - element of ATN (?) possible HRS (?) -- trial of octreotide and midodrine wtih limited improvement just on octreotide now...BP elevated so midodrine discontinued planning renal biopsy for definitive diagnosis but challenging give her clinical situation (anticoagulation, liver disease, DVTs, anemia...etc) holding eliquis at this time transitioned to heparin gtt follow trend of repeat labs and UOP (2) Edema: Code(s): R60.9 - Edema, unspecified Status: Acute Assessment and Plan: due to liver cirrhosis, hypoalbuminemia, and DVTs treat supportively started on diuresis IV albumin chased by IV bumex follow I/Os and clinical exam (3) Hypertension: Code(s): I10 - Essential (primary) hypertension Status: Chronic Assessment and Plan: reasonable control follow trend of hemodynamics (4) Chronic anemia: Code(s): D64.9 - Anemia, unspecified Status: Acute Assessment and Plan: due to PIOTR, acute illness, and liver cirrhosis follow trend of H/H (5) Acute DVT (deep venous thrombosis): Code(s): I82.409 - Acute embolism and thrombosis of unspecified deep veins of unspecified lower extremity Status: Acute Assessment and Plan: noted in bilateral lower extremities on anticoagulation contributing component to LE edema/swelling (6) Cirrhosis: Code(s): K74.60 - Unspecified cirrhosis of liver Status: Chronic Assessment and Plan: GI recommendations noted follow LFTs watch for hepatic encephalopathy (7) Type 2 diabetes mellitus: Code(s): E11.9 - Type 2 diabetes mellitus without complications Status: Acute Assessment and Plan: follow accu-cheks glycemic control per hospitalists Will continue to follow. Subjective Date/time seen: 08/07/23 12:45 Interval history: Follow-up for acute kidney injury/acute renal failure. Continue to have good diuresis/urine output with IV albumin + IV bumex with relatively stability if not improvement in renal function; no apparent distress voied at the time of my visit; in agreement with renal biopsy next week; some issues with confusion noted - head CT scan negative. Exam Narrative: General: elderly female in NAD Heart: normal S1 and S2; no rub Lungs: clear to auscultation Abdomen: soft, nontender, mild distension, positive bowel sounds Extremities: no cyanosis or clubbing; 2+ edema Skin: no rash; unchanged left foot water blister Objective Data Vital Signs Vital Signs: Vital Signs Temp Pulse Resp BP Pulse Ox O2 Del Method 08/07/23 12:00 97.3 F L 74 14 169/70 H 100 08/07/23 10:00 Room Air 08/07/23 12:46 80 08/07/23 10:50 78 16 159/74 H 98 08/07/23 10:43 95 Room Air 08/07/23 06:00 97.9 F 87 14 154/73 H 95 08/06/23 23:45 134/61 08/06/23 20:00 Room Air 08/06/23 22:00 97.3 F L 85 17 156/74 H 97 Intake/Output Intake/Output: Intake & Output 08/04/23 08/05/23 08/06/23 08/07/23 23:59 23:59 23:59 23:59 Intake Total 1180 800 710 200 Output Total 692 905 8257 4400 Balance 430 400 -8930 -4200 Meds/Results Medications: Active Medications Generic Name Dose Route Start Last Admin Trade Name Freq PRN Reason Stop Dose Admin Ascorbic Acid 500 mg 07/30/23 09:00 08/07/23 12:44 Ascorbic Acid 500 Mg Ta
[2023-08-07 12:46] VITALS: PULSE 80
[2023-08-07] MEDS: THERAPEUTIC MULTIVITAMINS/MINERALS TAB (*BKC) 1 TABLET PO (12:46)
[2023-08-07] MEDS: PROPRANOLOL HCL 20 MG TABLET PO (12:46)
[2023-08-07 13:16] LABS: Partial Thromboplastin Time > 200.0 SECONDS (22.3-36.8)
--- NOTE | 2023-08-07 13:53 | PCOTNOTE ---
Attempted to see pt for Occupational Therapy treatment. Per RN, pt is not appropriate today due to being very lethargic, some of pt's blood levels were elevated, and is confused. Will continue per POC duration/frequency tomorrow.
[2023-08-07 14:00] VITALS: BP 169/70; PULSE 74; RESP 14; TEMP 36.3; O2SAT 100
[2023-08-07] MEDS: LACTULOSE 20 GM/30 ML UDC PO (14:49)
--- NOTE | 2023-08-07 15:28 | PM.IMPN ---
Progress Note: A&P Assessment and Plan (1) Acute DVT (deep venous thrombosis): Code(s): I82.409 - Acute embolism and thrombosis of unspecified deep veins of unspecified lower extremity Status: Acute (2) Hypercholesterolemia: Code(s): E78.00 - Pure hypercholesterolemia, unspecified Status: Acute (3) Closed intertrochanteric fracture of right femur: Qualifiers: Encounter type: subsequent encounter Fracture alignment: displaced Fracture healing: with routine healing Qualified Code(s): S72.141D - Displaced intertrochanteric fracture of right femur, subsequent encounter for closed fracture with routine healing Code(s): S72.141A - Displaced intertrochanteric fracture of right femur, initial encounter for closed fracture Status: Acute (4) Fall: Qualifiers: Encounter type: initial encounter Qualified Code(s): W19.XXXA - Unspecified fall, initial encounter Code(s): W19.XXXA - Unspecified fall, initial encounter Status: Acute (5) Hypothyroidism: Code(s): E03.9 - Hypothyroidism, unspecified Status: Acute (6) DM2 (diabetes mellitus, type 2): Code(s): E11.9 - Type 2 diabetes mellitus without complications Status: Acute (7) HTN (hypertension) with goal to be determined: Code(s): I10 - Essential (primary) hypertension Status: Acute (8) Depression with anxiety: Code(s): F41.8 - Other specified anxiety disorders Status: Acute (9) Degenerative arthritis of right knee: Qualifiers: Osteoarthritis type: primary Qualified Code(s): M17.11 - Unilateral primary osteoarthritis, right knee Code(s): M17.11 - Unilateral primary osteoarthritis, right knee Status: Acute (10) Fall: Code(s): W19.XXXA - Unspecified fall, initial encounter Status: Acute (11) Hypomagnesemia: Code(s): E83.42 - Hypomagnesemia Status: Acute (12) Pancytopenia: Code(s): D61.818 - Other pancytopenia Status: Acute (13) Thrombocytopenia: Code(s): D69.6 - Thrombocytopenia, unspecified Status: Acute (14) Normocytic anemia: Code(s): D64.9 - Anemia, unspecified Status: Acute (15) Fracture, humerus: Qualifiers: Encounter type: subsequent encounter Fracture alignment: displaced Fracture healing: with routine healing Fracture morphology: other fracture Fracture type: closed Humerus Location: proximal Laterality: left Qualified Code(s): S42.292D - Other displaced fracture of upper end of left humerus, subsequent encounter for fracture with routine healing Code(s): S42.309A - Unspecified fracture of shaft of humerus, unspecified arm, initial encounter for closed fracture Status: Acute (16) Fall: Code(s): W19.XXXA - Unspecified fall, initial encounter Status: Acute (17) Psoas muscle strain: Code(s): S76.019A - Strain of muscle, fascia and tendon of unspecified hip, initial encounter Status: Acute (18) Diabetes: Code(s): E11.9 - Type 2 diabetes mellitus without complications Status: Acute (19) Diarrhea: Code(s): R19.7 - Diarrhea, unspecified Status: Acute (20) Back pain: Code(s): M54.9 - Dorsalgia, unspecified Status: Acute (21) LISA (generalized anxiety disorder): Code(s): F41.1 - Generalized anxiety disorder Status: Acute (22) COVID: Code(s): U07.1 - COVID-19 Status: Acute (23) Weakness: Code(s): R53.1 - Weakness Status: Acute (24) Abnormality of gait: Code(s): R26.9 - Unspecified abnormalities of gait and mobility Status: Acute (25) Closed hip fracture: Qualifiers: Encounter type: initial encounter Laterality: right Qualified Code(s): S72.001A - Fracture of unspecified part of neck of right femur, initial encounter for closed fracture Code(s): S72.009A - Fracture of unspecified part of n
[2023-08-07] MEDS: TOLNAFTATE 1% POWDER 45 GM BTL 1 APPLIC TOPICAL ×2 (16:42→21:12)
[2023-08-07 16:57] LABS: Glucose Point of Care 160 mg/dl (65-105)
[2023-08-07] MEDS: SENNA/DOCUSATE SODIUM TABLET 1 TAB PO (18:46)
[2023-08-07] MEDS: ASCORBIC ACID 500 MG TABLET PO (18:47)
[2023-08-07] MEDS: SODIUM BICARBONATE TAB 650 MG TABLET 1300 MG PO (18:47)
[2023-08-07] MEDS: LOVASTATIN 20 MG TABLET 40 MG PO (21:12)
[2023-08-07] MEDS: MELATONIN 3 MG TABLET PO (21:12)
[2023-08-07] MEDS: PANTOPRAZOLE 40 MG TABLET PO (21:12)
[2023-08-07 21:40] VITALS: BP 173/69; PULSE 78; RESP 20; TEMP 36; O2SAT 100
[2023-08-07 22:57] LABS: Glucose Point of Care 168 mg/dl (65-105)
[2023-08-08 04:08] VITALS: BP 163/74; PULSE 77; RESP 18; TEMP 36.1; O2SAT 96
[2023-08-08 04:41] LABS: Basophils Absolute Auto 0.1 K/mm3 (0.0-0.1); Basophils Percent Auto 0.9 % (0.2-1.2); Eosinophils Absolute Auto 0.3 K/mm3 (0-0.3); Eosinophils Percent Auto 5.2 % (0-4.4); Hematocrit 26.4 % (37.0-47.0); Hemoglobin 8.5 g/dL (12.0-15.0); Immature Granulocyte Absolute 0.02 K/mm3 (0.00-0.031); Immature Granulocyte Percent A 0.3 % (0-0.5); Lymphocytes Absolute Auto 1.16 K/mm3 (0.9-3.2); Lymphocytes Percent Auto 20.1 % (18.3-44.2); Mean Corpuscular HGB Conc 32.2 g/dl (32-36); Mean Corpuscular Volume 96.4 fl (80-100); Mean Platelet Volume 9.6 fl (7.4-10.4); Monocytes Absolute Auto 0.6 K/mm3 (0.1-0.6); Monocytes Percent Auto 9.9 % (2.6-8.5); Neutrophils Absolute Auto 3.7 K/mm3 (1.3-6.7); Neutrophils Percent Auto 63.6 % (45.5-73.1); Platelet Count Result 127 k/mm3 (150-375); Red Blood Count 2.74 M/mm3 (4.2-5.4); Red Cell Distribution Width 17.4 % (11.5-14.5); White Blood Count 5.8 K/mm3 (4.5-10.0)
[2023-08-08 04:53] LABS: Alanine Aminotransferase 13 U/L (6-35); Albumin Level 3.2 g/dL (3.5-5.1); Alkaline Phosphatase 78 U/L (38-126); Ammonia 33 umol/L (9-30); Anion Gap 8 mmol/L (8-16); Aspartate Amino Transferase 29 U/L (14-36); Bilirubin,Total 1.8 mg/dL (0.2-1.3); Blood Urea Nitrogen 24 mg/dL (7-17); Calcium 8.4 mg/dL (8.4-10.2); Carbon Dioxide 30 mmol/L (22-30); Chloride 101 mmol/L (98-107); Estimated CRCL calculation 30 ml/min; Estimated Glomerular Filt Rate 25; Glucose 150 mg/dL (65-110); Potassium 3.2 mmol/L (3.4-5.0); Sodium 139 mmol/L (137-145)
[2023-08-08 04:54] LABS: Partial Thromboplastin Time 70.9 SECONDS (22.3-36.8)
[2023-08-08] MEDS: CENTRAL LINE FLUSH 10 ML IV PUSH ×3 (05:04→21:12)
[2023-08-08] MEDS: ALBUMIN HUMAN 25% 12.5 GM/50ML 50 ML IVPB ×3 (05:04→21:10)
[2023-08-08] MEDS: BUMETANIDE INJ 1 MG/4 ML VIAL 0.5 MG IV PUSH ×3 (06:29→22:51)
[2023-08-08] MEDS: SUCRALFATE SUSP 100 MG/ML 10 ML UDC 1000 MG PO ×4 (06:29→21:12)
[2023-08-08] MEDS: POTASSIUM CHLORIDE 20 MEQ ER TABLET 40 MEQ PO (06:30)
[2023-08-08 08:50] LABS: Glucose Point of Care 150 mg/dl (65-105)
[2023-08-08 10:07] VITALS: PULSE 77
[2023-08-08] MEDS: THERAPEUTIC MULTIVITAMINS/MINERALS TAB (*BKC) 1 TABLET PO (10:07)
[2023-08-08] MEDS: LACTULOSE 20 GM/30 ML UDC PO (10:07)
[2023-08-08] MEDS: ASCORBIC ACID 500 MG TABLET PO ×2 (10:07→17:17)
[2023-08-08] MEDS: DONEPEZIL HCL 5 MG TABLET PO (10:07)
[2023-08-08] MEDS: SENNA/DOCUSATE SODIUM TABLET 1 TAB PO ×2 (10:07→17:17)
[2023-08-08] MEDS: PROPRANOLOL HCL 20 MG TABLET PO (10:07)
[2023-08-08] MEDS: LORATADINE 10 MG TABLET PO (10:07)
[2023-08-08] MEDS: OCTREOTIDE ACETATE 100 MCG/ML VIAL SUB-Q ×3 (10:08→17:17)
[2023-08-08] MEDS: TOLNAFTATE 1% POWDER 45 GM BTL 1 APPLIC TOPICAL ×2 (10:08→21:12)
[2023-08-08] MEDS: KCL 20 MEQ/SW 100 ML 100 ML 50 MEQ IVPB (10:08)
--- NOTE | 2023-08-08 11:20 | P.PNNP_ITS ---
Progress Note: A&P Assessment and Plan (1) Acute kidney injury: Code(s): N17.9 - Acute kidney failure, unspecified Status: Acute Assessment and Plan: * evaluation to date: * renal ultrasound without obstruction * UA with blood, protein, WBC and LE -- possible infection? * urine electrolytes are prerenal * mild proteinuria of ~ 500mg * CPK low * suspect decreased effective circulating volume from liver cirrhosis/physiology resulting in chronic prerenal azotemia despite outward signs of fluid overload/retention * renal scan results noted - element of ATN (?) * possible HRS (?) -- trial of octreotide and midodrine wtih limited improvement * just on octreotide now...BP elevated so midodrine discontinued * planning renal biopsy for definitive diagnosis but challenging give her clinical situation (anticoagulation, liver disease, DVTs, anemia...etc) * holding eliquis at this time * transitioned to heparin gtt * tentatively scheduled for Tuesday * follow trend of repeat labs and UOP (2) Edema: Code(s): R60.9 - Edema, unspecified Status: Acute Assessment and Plan: * due to liver cirrhosis, hypoalbuminemia, and DVTs * treat supportively * started on diuresis * IV albumin chased by IV bumex * follow I/Os and clinical exam (3) Hypertension: Code(s): I10 - Essential (primary) hypertension Status: Chronic Assessment and Plan: * reasonable control * follow trend of hemodynamics (4) Chronic anemia: Code(s): D64.9 - Anemia, unspecified Status: Acute Assessment and Plan: * due to PIOTR, acute illness, and liver cirrhosis * follow trend of H/H (5) Acute DVT (deep venous thrombosis): Code(s): I82.409 - Acute embolism and thrombosis of unspecified deep veins of unspecified lower extremity Status: Acute Assessment and Plan: * noted in bilateral lower extremities * on anticoagulation * contributing component to LE edema/swelling (6) Cirrhosis: Code(s): K74.60 - Unspecified cirrhosis of liver Status: Chronic Assessment and Plan: * GI recommendations noted * follow LFTs * watch for hepatic encephalopathy (7) Type 2 diabetes mellitus: Code(s): E11.9 - Type 2 diabetes mellitus without complications Status: Acute Assessment and Plan: * follow accu-cheks * glycemic control per hospitalists Will continue to follow. Subjective Date/time seen: 08/08/23 11:20 Interval history: Follow-up for acute kidney injury/acute renal failure. Renal function slowly improving despite ongoing diuresis with IV albumin + IV bumex; right foot water blister spontaneously ruptured earlier today when working with PT/OT; LE swelling/edema still present but much improved at this time. Exam Narrative: General: elderly female in NAD Heart: normal S1 and S2; no rub Lungs: clear to auscultation Abdomen: soft, nontender, mild distension, positive bowel sounds Extremities: no cyanosis or clubbing; 2+ edema Skin: no nodules Objective Data Vital Signs Vital Signs: Vital Signs - 24 hr 08/07/23 12:46 08/07/23 14:00 08/07/23 21:40 Temperature 97.3 F L 96.8 F L Pulse Rate 80 74 78 Respiratory Rate 14 20 Blood Pressure 169/70 H 173/69 H Pulse Oximetry 100 100 Oxygen Delivery
--- NOTE | 2023-08-08 11:20 | PM.PNNEP ---
Progress Note: A&P Assessment and Plan (1) Acute kidney injury: Code(s): N17.9 - Acute kidney failure, unspecified Status: Acute Assessment and Plan: evaluation to date: renal ultrasound without obstruction UA with blood, protein, WBC and LE -- possible infection? urine electrolytes are prerenal mild proteinuria of ~ 500mg CPK low suspect decreased effective circulating volume from liver cirrhosis/physiology resulting in chronic prerenal azotemia despite outward signs of fluid overload/retention renal scan results noted - element of ATN (?) possible HRS (?) -- trial of octreotide and midodrine wtih limited improvement just on octreotide now...BP elevated so midodrine discontinued planning renal biopsy for definitive diagnosis but challenging give her clinical situation (anticoagulation, liver disease, DVTs, anemia...etc) holding eliquis at this time transitioned to heparin gtt tentatively scheduled for Tuesday follow trend of repeat labs and UOP (2) Edema: Code(s): R60.9 - Edema, unspecified Status: Acute Assessment and Plan: due to liver cirrhosis, hypoalbuminemia, and DVTs treat supportively started on diuresis IV albumin chased by IV bumex follow I/Os and clinical exam (3) Hypertension: Code(s): I10 - Essential (primary) hypertension Status: Chronic Assessment and Plan: reasonable control follow trend of hemodynamics (4) Chronic anemia: Code(s): D64.9 - Anemia, unspecified Status: Acute Assessment and Plan: due to PIOTR, acute illness, and liver cirrhosis follow trend of H/H (5) Acute DVT (deep venous thrombosis): Code(s): I82.409 - Acute embolism and thrombosis of unspecified deep veins of unspecified lower extremity Status: Acute Assessment and Plan: noted in bilateral lower extremities on anticoagulation contributing component to LE edema/swelling (6) Cirrhosis: Code(s): K74.60 - Unspecified cirrhosis of liver Status: Chronic Assessment and Plan: GI recommendations noted follow LFTs watch for hepatic encephalopathy (7) Type 2 diabetes mellitus: Code(s): E11.9 - Type 2 diabetes mellitus without complications Status: Acute Assessment and Plan: follow accu-cheks glycemic control per hospitalists Will continue to follow. Subjective Date/time seen: 08/08/23 11:20 Interval history: Follow-up for acute kidney injury/acute renal failure. Renal function slowly improving despite ongoing diuresis with IV albumin + IV bumex; right foot water blister spontaneously ruptured earlier today when working with PT/OT; LE swelling/edema still present but much improved at this time. Exam Narrative: General: elderly female in NAD Heart: normal S1 and S2; no rub Lungs: clear to auscultation Abdomen: soft, nontender, mild distension, positive bowel sounds Extremities: no cyanosis or clubbing; 2+ edema Skin: no nodules Objective Data Vital Signs Vital Signs: Vital Signs - 24 hr 08/07/23 12:46 08/07/23 14:00 08/07/23 21:40 Temperature 97.3 F L 96.8 F L Pulse Rate 80 74 78 Respiratory Rate 14 20 Blood Pressure 169/70 H 173/69 H Pulse Oximetry 100 100 Oxygen Delivery 08/07/23 20:00 08/08/23 04:08 08/08/23 10:07 Temperature 97.0 F L Pulse Rate 77 77 Respiratory Rate 18 Blood Pressure 163/74 H Pulse Oximetry 96 Oxygen Delivery Room Air 08/08/23 08:00 Temperature Pulse Rate Respiratory Rate Blood Pressure Pulse Oximetry Oxygen Delivery Room Air Intake/Output Intake/Output: Intake & Output 08/05/23 08/06/23 08/07/23 08/08/23 23:59 23:59 23:59 23:59 Intake Total 800 710 300 650 Output Total 400 5450 5400 3000 Balance 505 -7644 -7352 -3638 Meds/Results Medications: Active Medications Generic Name Dose Route Start Last Admin Trade Name Sgq PRN Reas
[2023-08-08 11:59] LABS: Glucose Point of Care 180 mg/dl (65-105)
--- NOTE | 2023-08-08 13:01 | PCNWS ---
Weekly nutritional screen. Patient is tolerating current diet with adequate intake,with some lower intakes/incidents of poor appetite. No weight loss reported. Glucerna BID ordered for additional 220 kcal and 10 g protein each. No nutritional needs at this time.
[2023-08-08 13:48] LABS: Partial Thromboplastin Time 53.1 SECONDS (22.3-36.8)
[2023-08-08 14:00] VITALS: BP 161/67; PULSE 72; RESP 16; TEMP 36.9; O2SAT 100
[2023-08-08] MEDS: HEPARIN SODIUM 5,000 UNITS/ML VIAL 7000 UNITS IV PUSH (14:10)
[2023-08-08 16:49] LABS: Glucose Point of Care 152 mg/dl (65-105)
--- NOTE | 2023-08-08 17:43 | PM.IMPN ---
Progress Note: A&P Assessment and Plan (1) Acute DVT (deep venous thrombosis): Code(s): I82.409 - Acute embolism and thrombosis of unspecified deep veins of unspecified lower extremity Status: Acute (2) Hypercholesterolemia: Code(s): E78.00 - Pure hypercholesterolemia, unspecified Status: Acute (3) Closed intertrochanteric fracture of right femur: Qualifiers: Encounter type: subsequent encounter Fracture alignment: displaced Fracture healing: with routine healing Qualified Code(s): S72.141D - Displaced intertrochanteric fracture of right femur, subsequent encounter for closed fracture with routine healing Code(s): S72.141A - Displaced intertrochanteric fracture of right femur, initial encounter for closed fracture Status: Acute (4) Fall: Qualifiers: Encounter type: initial encounter Qualified Code(s): W19.XXXA - Unspecified fall, initial encounter Code(s): W19.XXXA - Unspecified fall, initial encounter Status: Acute (5) Hypothyroidism: Code(s): E03.9 - Hypothyroidism, unspecified Status: Acute (6) DM2 (diabetes mellitus, type 2): Code(s): E11.9 - Type 2 diabetes mellitus without complications Status: Acute (7) HTN (hypertension) with goal to be determined: Code(s): I10 - Essential (primary) hypertension Status: Acute (8) Depression with anxiety: Code(s): F41.8 - Other specified anxiety disorders Status: Acute (9) Degenerative arthritis of right knee: Qualifiers: Osteoarthritis type: primary Qualified Code(s): M17.11 - Unilateral primary osteoarthritis, right knee Code(s): M17.11 - Unilateral primary osteoarthritis, right knee Status: Acute (10) Hypomagnesemia: Code(s): E83.42 - Hypomagnesemia Status: Acute (11) Pancytopenia: Code(s): D61.818 - Other pancytopenia Status: Acute (12) Thrombocytopenia: Code(s): D69.6 - Thrombocytopenia, unspecified Status: Acute (13) Normocytic anemia: Code(s): D64.9 - Anemia, unspecified Status: Acute (14) Fracture, humerus: Qualifiers: Encounter type: subsequent encounter Fracture alignment: displaced Fracture healing: with routine healing Fracture morphology: other fracture Fracture type: closed Humerus Location: proximal Laterality: left Qualified Code(s): S42.292D - Other displaced fracture of upper end of left humerus, subsequent encounter for fracture with routine healing Code(s): S42.309A - Unspecified fracture of shaft of humerus, unspecified arm, initial encounter for closed fracture Status: Acute (15) Psoas muscle strain: Code(s): S76.019A - Strain of muscle, fascia and tendon of unspecified hip, initial encounter Status: Acute (16) Diabetes: Code(s): E11.9 - Type 2 diabetes mellitus without complications Status: Acute (17) Diarrhea: Code(s): R19.7 - Diarrhea, unspecified Status: Acute (18) Back pain: Code(s): M54.9 - Dorsalgia, unspecified Status: Acute (19) LISA (generalized anxiety disorder): Code(s): F41.1 - Generalized anxiety disorder Status: Acute (20) COVID: Code(s): U07.1 - COVID-19 Status: Acute (21) Weakness: Code(s): R53.1 - Weakness Status: Acute (22) Abnormality of gait: Code(s): R26.9 - Unspecified abnormalities of gait and mobility Status: Acute (23) Closed hip fracture: Qualifiers: Encounter type: initial encounter Laterality: right Qualified Code(s): S72.001A - Fracture of unspecified part of neck of right femur, initial encounter for closed fracture Code(s): S72.009A - Fracture of unspecified part of neck of unspecified femur, initial encounter for closed fracture Status: Acute (24) Failed hardware: Status: Acute (25) Acute parotitis: Code(s): K11.21 - Acute sialoadeni
[2023-08-08 20:45] VITALS: BP 169/78; PULSE 79; RESP 18; TEMP 36.5; O2SAT 97
[2023-08-08 21:08] LABS: Partial Thromboplastin Time > 200.0 SECONDS (22.3-36.8)
[2023-08-08] MEDS: LOVASTATIN 20 MG TABLET 40 MG PO (21:11)
[2023-08-08] MEDS: PANTOPRAZOLE 40 MG TABLET PO (21:11)
[2023-08-08] MEDS: MELATONIN 3 MG TABLET PO (21:11)
[2023-08-08] MEDS: INSULIN ASPART (*BKC) 100 UNITS/ML SUB-Q (21:11)
[2023-08-09 04:11] LABS: Basophils Percent Auto 0.5 % (0.2-1.2); Eosinophils Absolute Auto 0.2 K/mm3 (0-0.3); Eosinophils Percent Auto 3.4 % (0-4.4); Hematocrit 26.2 % (37.0-47.0); Hemoglobin 8.3 g/dL (12.0-15.0); Immature Granulocyte Absolute 0.02 K/mm3 (0.00-0.031); Immature Granulocyte Percent A 0.3 % (0-0.5); Lymphocytes Absolute Auto 0.92 K/mm3 (0.9-3.2); Lymphocytes Percent Auto 15.4 % (18.3-44.2); Mean Corpuscular HGB Conc 31.7 g/dl (32-36); Mean Corpuscular Hemoglobin 30.5 pg (26-34); Mean Corpuscular Volume 96.3 fl (80-100); Mean Platelet Volume 9.2 fl (7.4-10.4); Monocytes Absolute Auto 0.6 K/mm3 (0.1-0.6); Monocytes Percent Auto 9.9 % (2.6-8.5); Neutrophils Absolute Auto 4.2 K/mm3 (1.3-6.7); Neutrophils Percent Auto 70.5 % (45.5-73.1); Platelet Count Result 123 k/mm3 (150-375); Red Blood Count 2.72 M/mm3 (4.2-5.4); Red Cell Distribution Width 17.3 % (11.5-14.5)
[2023-08-09 04:15] VITALS: BP 169/79; PULSE 75; RESP 20; TEMP 36.4; O2SAT 100
[2023-08-09 04:21] LABS: Alanine Aminotransferase 12 U/L (6-35); Albumin Level 3.4 g/dL (3.5-5.1); Alkaline Phosphatase 70 U/L (38-126); Anion Gap 7 mmol/L (8-16); Aspartate Amino Transferase 28 U/L (14-36); Blood Urea Nitrogen 23 mg/dL (7-17); Calcium 8.1 mg/dL (8.4-10.2); Carbon Dioxide 35 mmol/L (22-30); Chloride 97 mmol/L (98-107); Estimated CRCL calculation 29 ml/min; Estimated Glomerular Filt Rate 25; Glucose 167 mg/dL (65-110); Potassium 3.2 mmol/L (3.4-5.0); Sodium 139 mmol/L (137-145)
[2023-08-09 04:25] LABS: Partial Thromboplastin Time 145.4 SECONDS (22.3-36.8)
[2023-08-09 04:53] LABS: Glucose Point of Care 212 mg/dl (65-105)
[2023-08-09] MEDS: ALBUMIN HUMAN 25% 12.5 GM/50ML 50 ML IVPB ×3 (05:01→21:19)
[2023-08-09] MEDS: CENTRAL LINE FLUSH 10 ML IV PUSH ×3 (05:02→21:20)
[2023-08-09] MEDS: BUMETANIDE INJ 1 MG/4 ML VIAL 0.5 MG IV PUSH ×3 (06:35→23:46)
[2023-08-09] MEDS: SUCRALFATE SUSP 100 MG/ML 10 ML UDC 1000 MG PO ×4 (06:36→21:19)
[2023-08-09] MEDS: POTASSIUM CHLORIDE 20 MEQ ER TABLET 40 MEQ PO (08:20)
[2023-08-09 08:21] VITALS: PULSE 80
[2023-08-09] MEDS: PROPRANOLOL HCL 20 MG TABLET PO (08:21)
[2023-08-09] MEDS: LORATADINE 10 MG TABLET PO (08:21)
[2023-08-09] MEDS: DONEPEZIL HCL 5 MG TABLET PO (08:21)
[2023-08-09] MEDS: SENNA/DOCUSATE SODIUM TABLET 1 TAB PO ×2 (08:22→16:35)
[2023-08-09] MEDS: OCTREOTIDE ACETATE 100 MCG/ML VIAL SUB-Q ×3 (08:22→16:37)
[2023-08-09] MEDS: ASCORBIC ACID 500 MG TABLET PO ×2 (08:22→16:36)
[2023-08-09] MEDS: THERAPEUTIC MULTIVITAMINS/MINERALS TAB (*BKC) 1 TABLET PO (08:22)
[2023-08-09] MEDS: LACTULOSE 20 GM/30 ML UDC PO ×2 (08:23→21:18)
[2023-08-09] MEDS: TOLNAFTATE 1% POWDER 45 GM BTL 1 APPLIC TOPICAL ×2 (08:31→21:19)
[2023-08-09 08:43] LABS: Glucose Point of Care 159 mg/dl (65-105)
[2023-08-09] MEDS: oxyCODONE HCL (*CRX) 5 MG TAB IR PO (08:45)
--- NOTE | 2023-08-09 10:38 | P.PNNP_ITS ---
Progress Note: A&P Assessment and Plan (1) Acute kidney injury: Code(s): N17.9 - Acute kidney failure, unspecified Status: Acute Assessment and Plan: * evaluation to date: * renal ultrasound without obstruction * UA with blood, protein, WBC and LE -- possible infection? * urine electrolytes are prerenal * mild proteinuria of ~ 500mg * CPK low * suspect decreased effective circulating volume from liver cirrhosis/physiology resulting in chronic prerenal azotemia despite outward signs of fluid overload/retention * renal scan results noted - element of ATN (?) * possible HRS (?) -- trial of octreotide and midodrine wtih limited improvement * just on octreotide now...BP elevated so midodrine discontinued * planning renal biopsy for definitive diagnosis but challenging give her clinical situation (anticoagulation, liver disease, DVTs, anemia...etc) * holding eliquis at this time * transitioned to heparin gtt * tentatively scheduled for tomorrow * follow trend of repeat labs and UOP (2) Edema: Code(s): R60.9 - Edema, unspecified Status: Acute Assessment and Plan: * due to liver cirrhosis, hypoalbuminemia, and DVTs * treat supportively * started on diuresis * IV albumin chased by IV bumex * follow I/Os and clinical exam (3) Hypertension: Code(s): I10 - Essential (primary) hypertension Status: Chronic Assessment and Plan: * reasonable control * follow trend of hemodynamics (4) Chronic anemia: Code(s): D64.9 - Anemia, unspecified Status: Acute Assessment and Plan: * due to PIOTR, acute illness, and liver cirrhosis * follow trend of H/H (5) Acute DVT (deep venous thrombosis): Code(s): I82.409 - Acute embolism and thrombosis of unspecified deep veins of unspecified lower extremity Status: Acute Assessment and Plan: * noted in bilateral lower extremities * on anticoagulation * contributing component to LE edema/swelling (6) Cirrhosis: Code(s): K74.60 - Unspecified cirrhosis of liver Status: Chronic Assessment and Plan: * GI recommendations noted * follow LFTs * watch for hepatic encephalopathy (7) Type 2 diabetes mellitus: Code(s): E11.9 - Type 2 diabetes mellitus without complications Status: Acute Assessment and Plan: * follow accu-cheks * glycemic control per hospitalists Will continue to follow. Subjective Date/time seen: 08/09/23 10:38 Interval history: Follow-up for acute kidney injury/acute renal failure. Renal function relatively stable but has yet to improve back to baseline despite all interventions to date; good urine output with IV albumin and IV bumex. issuew with hepatic encephalopathy noted and on lactulose; no apparent distress noted at the time of my visit. Exam Narrative: General: elderly female in NAD Heart: normal S1 and S2; no rub Lungs: clear to auscultation Abdomen: soft, nontender, mild distension, positive bowel sounds Extremities: no cyanosis or clubbing; 1 - 2+ edema Skin: warm and dry Objective Data Vital Signs Vital Signs: Vital Signs Temp Pulse Resp BP Pulse Ox O2 Del Method 08/09/23 09:45 Room Air 08/09/23 08:21 80 08/09/23 04:15 97.5 F L 75 20 169/79 H 100 08/08/23 20:45 97.7 F 79
--- NOTE | 2023-08-09 10:38 | PM.PNNEP ---
Progress Note: A&P Assessment and Plan (1) Acute kidney injury: Code(s): N17.9 - Acute kidney failure, unspecified Status: Acute Assessment and Plan: evaluation to date: renal ultrasound without obstruction UA with blood, protein, WBC and LE -- possible infection? urine electrolytes are prerenal mild proteinuria of ~ 500mg CPK low suspect decreased effective circulating volume from liver cirrhosis/physiology resulting in chronic prerenal azotemia despite outward signs of fluid overload/retention renal scan results noted - element of ATN (?) possible HRS (?) -- trial of octreotide and midodrine wtih limited improvement just on octreotide now...BP elevated so midodrine discontinued planning renal biopsy for definitive diagnosis but challenging give her clinical situation (anticoagulation, liver disease, DVTs, anemia...etc) holding eliquis at this time transitioned to heparin gtt tentatively scheduled for tomorrow follow trend of repeat labs and UOP (2) Edema: Code(s): R60.9 - Edema, unspecified Status: Acute Assessment and Plan: due to liver cirrhosis, hypoalbuminemia, and DVTs treat supportively started on diuresis IV albumin chased by IV bumex follow I/Os and clinical exam (3) Hypertension: Code(s): I10 - Essential (primary) hypertension Status: Chronic Assessment and Plan: reasonable control follow trend of hemodynamics (4) Chronic anemia: Code(s): D64.9 - Anemia, unspecified Status: Acute Assessment and Plan: due to PIOTR, acute illness, and liver cirrhosis follow trend of H/H (5) Acute DVT (deep venous thrombosis): Code(s): I82.409 - Acute embolism and thrombosis of unspecified deep veins of unspecified lower extremity Status: Acute Assessment and Plan: noted in bilateral lower extremities on anticoagulation contributing component to LE edema/swelling (6) Cirrhosis: Code(s): K74.60 - Unspecified cirrhosis of liver Status: Chronic Assessment and Plan: GI recommendations noted follow LFTs watch for hepatic encephalopathy (7) Type 2 diabetes mellitus: Code(s): E11.9 - Type 2 diabetes mellitus without complications Status: Acute Assessment and Plan: follow accu-cheks glycemic control per hospitalists Will continue to follow. Subjective Date/time seen: 08/09/23 10:38 Interval history: Follow-up for acute kidney injury/acute renal failure. Renal function relatively stable but has yet to improve back to baseline despite all interventions to date; good urine output with IV albumin and IV bumex. issuew with hepatic encephalopathy noted and on lactulose; no apparent distress noted at the time of my visit. Exam Narrative: General: elderly female in NAD Heart: normal S1 and S2; no rub Lungs: clear to auscultation Abdomen: soft, nontender, mild distension, positive bowel sounds Extremities: no cyanosis or clubbing; 1 - 2+ edema Skin: warm and dry Objective Data Vital Signs Vital Signs: Vital Signs Temp Pulse Resp BP Pulse Ox O2 Del Method 08/09/23 09:45 Room Air 08/09/23 08:21 80 08/09/23 04:15 97.5 F L 75 20 169/79 H 100 08/08/23 20:45 97.7 F 79 18 169/78 H 97 Intake/Output Intake/Output: Intake & Output 08/06/23 08/07/23 08/08/23 08/09/23 23:59 23:59 23:59 23:59 Intake Total 763 944 2928 780 Output Total 5450 5400 7050 3800 [facility] -4740 -5100 -5570 -3020 Meds/Results Medications: Active Medications Generic Name Dose Route Start Last Admin Trade Name Freq PRN Reason Stop Dose Admin Ascorbic Acid 500 mg 07/30/23 09:00 08/09/23 08:22 Ascorbic Acid 500 Mg Tablet PO 500 mg BID LORA Administration Bisacodyl 10 mg 07/29/23 21:45 Bisacodyl 10 Mg Suppository RECTAL Q24H PRN Constipation Bumetanide 0.5 mg 08/08/23 15:07
[2023-08-09 11:49] LABS: Glucose Point of Care 182 mg/dl (65-105)
[2023-08-09] MEDS: HEPARIN SOD/D5W 100 UNITS/ML 25,000 UNITS/250 ML BAG IV CONT (11:57)
[2023-08-09 12:07] LABS: Ammonia 47 umol/L (9-30)
[2023-08-09 12:08] LABS: Partial Thromboplastin Time 79.6 SECONDS (22.3-36.8)
--- NOTE | 2023-08-09 12:20 | PCOTNOTE ---
Per RN, Patient has Bilateral DVT's, hold off at this time.
--- NOTE | 2023-08-09 12:44 | PCPTNOTE ---
RN reported pt has bilateral DVTs- will hold physical therapy today and cont per POC when medically able to participate.
[2023-08-09] MEDS: POTASSIUM CHLORIDE 20 MEQ ER TABLET PO (13:04)
--- NOTE | 2023-08-09 13:34 | PC.NURSE ---
On 08/09/23, the student, [Antony Carson], provided care and completed [facility] documentation on this patient. I have reviewed the student's documentation and agree with the findings.
[2023-08-09 15:02] VITALS: BP 181/73; PULSE 74; RESP 16; TEMP 36.6; O2SAT 99
[2023-08-09 16:52] LABS: Glucose Point of Care 196 mg/dl (65-105)
[2023-08-09 18:08] LABS: Albumin Level 3.8 g/dL (3.5-5.1); Anion Gap 11 mmol/L (8-16); Blood Urea Nitrogen 22 mg/dL (7-17); Calcium 8.4 mg/dL (8.4-10.2); Carbon Dioxide 34 mmol/L (22-30); Chloride 93 mmol/L (98-107); Estimated CRCL calculation 30 ml/min; Estimated Glomerular Filt Rate 26; Glucose 242 mg/dL (65-110); Phosphorus 2.8 mg/dL (2.5-4.5); Sodium 138 mmol/L (137-145)
[2023-08-09 18:13] LABS: Partial Thromboplastin Time 45.5 SECONDS (22.3-36.8)
[2023-08-09 18:13] LABS: INR 1.7
--- NOTE | 2023-08-09 18:19 | P.PNIM_ITS ---
Progress Note: A&P Assessment and Plan (1) Acute DVT (deep venous thrombosis): Code(s): I82.409 - Acute embolism and thrombosis of unspecified deep veins of unspecified lower extremity Status: Acute (2) Hypercholesterolemia: Code(s): E78.00 - Pure hypercholesterolemia, unspecified Status: Acute (3) Closed intertrochanteric fracture of right femur: Qualifiers: Encounter type: subsequent encounter Fracture alignment: displaced Fracture healing: with routine healing Qualified Code(s): S72.141D - Displaced intertrochanteric fracture of right femur, subsequent encounter for closed fracture with routine healing Code(s): S72.141A - Displaced intertrochanteric fracture of right femur, initial encounter for closed fracture Status: Acute (4) Fall: Qualifiers: Encounter type: initial encounter Qualified Code(s): W19.XXXA - Unspecified fall, initial encounter Code(s): W19.XXXA - Unspecified fall, initial encounter Status: Acute (5) Hypothyroidism: Code(s): E03.9 - Hypothyroidism, unspecified Status: Acute (6) DM2 (diabetes mellitus, type 2): Code(s): E11.9 - Type 2 diabetes mellitus without complications Status: Acute (7) HTN (hypertension) with goal to be determined: Code(s): I10 - Essential (primary) hypertension Status: Acute (8) Depression with anxiety: Code(s): F41.8 - Other specified anxiety disorders Status: Acute (9) Degenerative arthritis of right knee: Qualifiers: Osteoarthritis type: primary Qualified Code(s): M17.11 - Unilateral primary osteoarthritis, right knee Code(s): M17.11 - Unilateral primary osteoarthritis, right knee Status: Acute (10) Hypomagnesemia: Code(s): E83.42 - Hypomagnesemia Status: Acute (11) Pancytopenia: Code(s): D61.818 - Other pancytopenia Status: Acute (12) Thrombocytopenia: Code(s): D69.6 - Thrombocytopenia, unspecified Status: Acute (13) Normocytic anemia: Code(s): D64.9 - Anemia, unspecified Status: Acute (14) Fracture, humerus: Qualifiers: Encounter type: subsequent encounter Fracture alignment: displaced Fracture healing: with routine healing Fracture morphology: other fracture Fracture type: closed Humerus Location: proximal Laterality: left Qualified Code(s): S42.292D - Other displaced fracture of upper end of left humerus, subsequent encounter for fracture with routine healing Code(s): S42.309A - Unspecified fracture of shaft of humerus, unspecified arm, initial encounter for closed fracture Status: Acute (15) Psoas muscle strain: Code(s): S76.019A - Strain of muscle, fascia and tendon of unspecified hip, initial encounter Status: Acute (16) Diabetes: Code(s): E11.9 - Type 2 diabetes mellitus without complications Status: Acute (17) Diarrhea: Code(s): R19.7 - Diarrhea, unspecified Status: Acute (18) Back pain: Code(s): M54.9 - Dorsalgia, unspecified Status: Acute (19) LISA (generalized anxiety disorder): Code(s): F41.1 - Generalized anxiety disorder Status: Acute (20) COVID: Code(s): U07.1 - COVID-19 Status: Acute (21) Weakness: Code(s): R53.1 - Weakness Status: Acute (22) Abnormality of gait: Code(s): R26.9 - Unspecified abnormalities of gait and mobility Status: Acute (23) Closed hip fracture: Qualifiers
[2023-08-09] MEDS: HEPARIN SODIUM 5,000 UNITS/ML VIAL 7000 UNITS IV PUSH (18:22)
[2023-08-09 20:00] VITALS: PULSE 81; RESP 20; O2SAT 99
[2023-08-09] MEDS: LOVASTATIN 20 MG TABLET 40 MG PO (21:19)
[2023-08-09] MEDS: PANTOPRAZOLE 40 MG TABLET PO (21:19)
[2023-08-09] MEDS: MELATONIN 3 MG TABLET PO (21:19)
[2023-08-09 21:41] VITALS: BP 149/69; PULSE 81; RESP 20; TEMP 36.6; O2SAT 99
[2023-08-09] MEDS: PHYTONADIONE INJ 10 MG/ML AMP SUB-Q (23:45)
[2023-08-10 02:27] LABS: Partial Thromboplastin Time 161.2 SECONDS (22.3-36.8)
[2023-08-10 02:41] LABS: Glucose Point of Care 153 mg/dl (65-105)
[2023-08-10 04:07] VITALS: BP 152/78; PULSE 80; RESP 20; TEMP 36.1; O2SAT 99
[2023-08-10] MEDS: ALBUMIN HUMAN 25% 12.5 GM/50ML 50 ML IVPB ×3 (05:23→22:00)
[2023-08-10 05:41] LABS: Basophils Absolute Auto 0.1 K/mm3 (0.0-0.1); Basophils Percent Auto 0.9 % (0.2-1.2); Eosinophils Absolute Auto 0.3 K/mm3 (0-0.3); Eosinophils Percent Auto 5.9 % (0-4.4); Hematocrit 24.5 % (37.0-47.0); Hemoglobin 7.6 g/dL (12.0-15.0); Immature Granulocyte Absolute 0.02 K/mm3 (0.00-0.031); Immature Granulocyte Percent A 0.4 % (0-0.5); Lymphocytes Absolute Auto 1.24 K/mm3 (0.9-3.2); Lymphocytes Percent Auto 22.1 % (18.3-44.2); Mean Corpuscular Hemoglobin 30.3 pg (26-34); Mean Corpuscular Volume 97.6 fl (80-100); Mean Platelet Volume 10.1 fl (7.4-10.4); Monocytes Absolute Auto 0.6 K/mm3 (0.1-0.6); Monocytes Percent Auto 11.2 % (2.6-8.5); Neutrophils Absolute Auto 3.4 K/mm3 (1.3-6.7); Neutrophils Percent Auto 59.5 % (45.5-73.1); Platelet Count Result 107 k/mm3 (150-375); Red Blood Count 2.51 M/mm3 (4.2-5.4); Red Cell Distribution Width 17.3 % (11.5-14.5); White Blood Count 5.6 K/mm3 (4.5-10.0)
[2023-08-10 05:52] LABS: Ammonia 72 umol/L (9-30)
[2023-08-10 05:53] LABS: Alanine Aminotransferase 11 U/L (6-35); Albumin Level 3.2 g/dL (3.5-5.1); Alkaline Phosphatase 62 U/L (38-126); Anion Gap 6 mmol/L (8-16); Aspartate Amino Transferase 28 U/L (14-36); Bilirubin,Total 1.7 mg/dL (0.2-1.3); Blood Urea Nitrogen 21 mg/dL (7-17); Calcium 7.9 mg/dL (8.4-10.2); Carbon Dioxide 38 mmol/L (22-30); Chloride 93 mmol/L (98-107); Estimated CRCL calculation 29 ml/min; Estimated Glomerular Filt Rate 25; Glucose 145 mg/dL (65-110); Potassium 3.4 mmol/L (3.4-5.0); Sodium 137 mmol/L (137-145)
[2023-08-10 05:55] LABS: INR 1.8; Prothrombin Time 21.8 Seconds (11.1-14.7)
[2023-08-10 06:00] LABS: Complement C3 64 mg/dL (88-165)
[2023-08-10] MEDS: SUCRALFATE SUSP 100 MG/ML 10 ML UDC 1000 MG PO ×4 (06:50→20:33)
[2023-08-10] MEDS: CENTRAL LINE FLUSH 10 ML IV PUSH ×3 (06:50→22:00)
[2023-08-10] MEDS: BUMETANIDE INJ 1 MG/4 ML VIAL 0.5 MG IV PUSH ×3 (06:51→23:30)
[2023-08-10 08:05] LABS: Glucose Point of Care 155 mg/dl (65-105)
[2023-08-10] MEDS: POTASSIUM CHLORIDE 20 MEQ ER TABLET 40 MEQ PO (09:06)
[2023-08-10] MEDS: ASCORBIC ACID 500 MG TABLET PO ×2 (09:06→17:18)
[2023-08-10] MEDS: THERAPEUTIC MULTIVITAMINS/MINERALS TAB (*BKC) 1 TABLET PO (09:06)
[2023-08-10] MEDS: SENNA/DOCUSATE SODIUM TABLET 1 TAB PO ×2 (09:06→17:18)
[2023-08-10 09:07] VITALS: PULSE 80
[2023-08-10] MEDS: IRON SUCROSE COMPLEX 300 MG in SODIUM CHLORIDE 0.9% IV 250 ML 176.67 MG IVPB (09:07)
[2023-08-10] MEDS: PROPRANOLOL HCL 20 MG TABLET PO (09:07)
[2023-08-10] MEDS: DONEPEZIL HCL 5 MG TABLET PO (09:07)
[2023-08-10] MEDS: LACTULOSE 20 GM/30 ML UDC PO ×3 (09:07→17:17)
[2023-08-10] MEDS: OCTREOTIDE ACETATE 100 MCG/ML VIAL SUB-Q ×3 (09:07→17:18)
[2023-08-10] MEDS: TOLNAFTATE 1% POWDER 45 GM BTL 1 APPLIC TOPICAL ×2 (09:07→20:26)
[2023-08-10] MEDS: LORATADINE 10 MG TABLET PO (09:07)
[2023-08-10 10:20] LABS: Partial Thromboplastin Time 42.8 SECONDS (22.3-36.8)
[2023-08-10] MEDS: HEPARIN SODIUM 5,000 UNITS/ML VIAL 7000 UNITS IV PUSH (10:56)
[2023-08-10] MEDS: HEPARIN SOD/D5W 100 UNITS/ML 25,000 UNITS/250 ML BAG IV CONT (11:48)
--- NOTE | 2023-08-10 11:52 | PCPTNOTE ---
Patient refused treatment this session. Patient did not give reason why, patient confused.
[2023-08-10 12:08] LABS: Glucose Point of Care 190 mg/dl (65-105)
--- NOTE | 2023-08-10 12:20 | P.PNNP_ITS ---
Progress Note: A&P Assessment and Plan (1) Acute kidney injury: Code(s): N17.9 - Acute kidney failure, unspecified Status: Acute Assessment and Plan: * evaluation to date: * renal ultrasound without obstruction * UA with blood, protein, WBC and LE -- possible infection? * urine electrolytes are prerenal * mild proteinuria of ~ 500mg * CPK low * suspect decreased effective circulating volume from liver cirrhosis/physiology resulting in chronic prerenal azotemia despite outward signs of fluid overload/retention * renal scan results noted - element of ATN (?) * possible HRS (?) -- trial of octreotide and midodrine wtih limited improvement * just on octreotide now...BP elevated so midodrine discontinued * planning renal biopsy for definitive diagnosis but challenging give her clinical situation (anticoagulation, liver disease, DVTs, anemia...etc) * holding eliquis at this time * transitioned to heparin gtt * tentatively scheduled for today * follow trend of repeat labs and UOP (2) Edema: Code(s): R60.9 - Edema, unspecified Status: Acute Assessment and Plan: * due to liver cirrhosis, hypoalbuminemia, and DVTs * treat supportively * started on diuresis * IV albumin chased by IV bumex * follow I/Os and clinical exam * we may be reaching our limit with diuresis as noted by rising CO2/contraction alkalosis... (3) Hypertension: Code(s): I10 - Essential (primary) hypertension Status: Chronic Assessment and Plan: * reasonable control * follow trend of hemodynamics (4) Chronic anemia: Code(s): D64.9 - Anemia, unspecified Status: Acute Assessment and Plan: * due to PIOTR, acute illness, and liver cirrhosis * follow trend of H/H (5) Acute DVT (deep venous thrombosis): Code(s): I82.409 - Acute embolism and thrombosis of unspecified deep veins of unspecified lower extremity Status: Acute Assessment and Plan: * noted in bilateral lower extremities * on anticoagulation * contributing component to LE edema/swelling * consider empirically dosing with Epogen (6) Cirrhosis: Code(s): K74.60 - Unspecified cirrhosis of liver Status: Chronic Assessment and Plan: * GI recommendations noted * follow LFTs * monitor hepatic encephalopathy/rising ammonia (7) Type 2 diabetes mellitus: Code(s): E11.9 - Type 2 diabetes mellitus without complications Status: Acute Assessment and Plan: * follow accu-cheks * glycemic control per hospitalists Will continue to follow. Subjective Date/time seen: 08/10/23 12:20 Interval history: Follow-up for acute kidney injury/acute renal failure. Continues to make good urine output in response to IV albumin and IV bumex with improvement in abdominal as well as lower extremity edema; pleasantly confused in association with elevated ammonia level; tentatively scheduled for renal biopsy today (?); renal function remains stable (but not better/without improvement). Exam Narrative: General: elderly female in NAD Heart: normal S1 and S2; no rub Lungs: clear to auscultation Abdomen: soft, nontender, mild distension, positive bowel sounds Extremities: no cyanosis or clubbing; 1 - 2+ edema Skin: warm and intact Objective Data Vital Signs Vital Signs: Vital Signs
--- NOTE | 2023-08-10 12:20 | PM.PNNEP ---
Progress Note: A&P Assessment and Plan (1) Acute kidney injury: Code(s): N17.9 - Acute kidney failure, unspecified Status: Acute Assessment and Plan: evaluation to date: renal ultrasound without obstruction UA with blood, protein, WBC and LE -- possible infection? urine electrolytes are prerenal mild proteinuria of ~ 500mg CPK low suspect decreased effective circulating volume from liver cirrhosis/physiology resulting in chronic prerenal azotemia despite outward signs of fluid overload/retention renal scan results noted - element of ATN (?) possible HRS (?) -- trial of octreotide and midodrine wtih limited improvement just on octreotide now...BP elevated so midodrine discontinued planning renal biopsy for definitive diagnosis but challenging give her clinical situation (anticoagulation, liver disease, DVTs, anemia...etc) holding eliquis at this time transitioned to heparin gtt tentatively scheduled for today follow trend of repeat labs and UOP (2) Edema: Code(s): R60.9 - Edema, unspecified Status: Acute Assessment and Plan: due to liver cirrhosis, hypoalbuminemia, and DVTs treat supportively started on diuresis IV albumin chased by IV bumex follow I/Os and clinical exam we may be reaching our limit with diuresis as noted by rising CO2/contraction alkalosis... (3) Hypertension: Code(s): I10 - Essential (primary) hypertension Status: Chronic Assessment and Plan: reasonable control follow trend of hemodynamics (4) Chronic anemia: Code(s): D64.9 - Anemia, unspecified Status: Acute Assessment and Plan: due to PIOTR, acute illness, and liver cirrhosis follow trend of H/H (5) Acute DVT (deep venous thrombosis): Code(s): I82.409 - Acute embolism and thrombosis of unspecified deep veins of unspecified lower extremity Status: Acute Assessment and Plan: noted in bilateral lower extremities on anticoagulation contributing component to LE edema/swelling consider empirically dosing with Epogen (6) Cirrhosis: Code(s): K74.60 - Unspecified cirrhosis of liver Status: Chronic Assessment and Plan: GI recommendations noted follow LFTs monitor hepatic encephalopathy/rising ammonia (7) Type 2 diabetes mellitus: Code(s): E11.9 - Type 2 diabetes mellitus without complications Status: Acute Assessment and Plan: follow accu-cheks glycemic control per hospitalists Will continue to follow. Subjective Date/time seen: 08/10/23 12:20 Interval history: Follow-up for acute kidney injury/acute renal failure. Continues to make good urine output in response to IV albumin and IV bumex with improvement in abdominal as well as lower extremity edema; pleasantly confused in association with elevated ammonia level; tentatively scheduled for renal biopsy today (?); renal function remains stable (but not better/without improvement). Exam Narrative: General: elderly female in NAD Heart: normal S1 and S2; no rub Lungs: clear to auscultation Abdomen: soft, nontender, mild distension, positive bowel sounds Extremities: no cyanosis or clubbing; 1 - 2+ edema Skin: warm and intact Objective Data Vital Signs Vital Signs: Vital Signs Temp Pulse Resp BP Pulse Ox O2 Del Method 08/10/23 12:00 98.2 F 77 16 157/75 H 100 08/10/23 08:00 Room Air 08/10/23 09:07 80 08/10/23 04:55 98.0 78 18 140/70 100 Room Air Intake/Output Intake/Output: Intake & Output 08/07/23 08/08/23 08/09/23 08/10/23 23:59 23:59 23:59 23:59 Intake Total 300 1480 1700 2030 Output Total 5400 7050 6800 3500 Balance -5100 -5570 -5100 -1470 Meds/Results Medications: Active Medications Generic Name Dose Route Start Last Admin Trade Name Freq PRN Reason Stop Dose Admin Ascorbic Acid 500 mg 07/30/23 09:00 08/10/23 17:18 Asc
[2023-08-10 14:00] VITALS: BP 157/75; PULSE 77; RESP 16; TEMP 36.8; O2SAT 100
[2023-08-10 16:59] LABS: Glucose Point of Care 160 mg/dl (65-105)
[2023-08-10 18:28] LABS: Partial Thromboplastin Time > 200.0 SECONDS (22.3-36.8)
[2023-08-10] MEDS: PHYTONADIONE INJ 10 MG/ML AMP IM (18:37)
[2023-08-10 19:50] LABS: Glucose Point of Care 232 mg/dl (65-105)
[2023-08-10 19:53] VITALS: BP 158/90; PULSE 83; RESP 18; TEMP 36.9; O2SAT 100
[2023-08-10] MEDS: MELATONIN 3 MG TABLET PO (20:25)
[2023-08-10] MEDS: PANTOPRAZOLE 40 MG TABLET PO (20:25)
[2023-08-10] MEDS: LOVASTATIN 20 MG TABLET 40 MG PO (20:25)
[2023-08-10] MEDS: INSULIN ASPART (*BKC) 100 UNITS/ML SUB-Q (20:26)
[2023-08-11] MEDS: CENTRAL LINE FLUSH 10 ML IV PUSH ×3 (05:33→21:35)
[2023-08-11] MEDS: SUCRALFATE SUSP 100 MG/ML 10 ML UDC 1000 MG PO ×3 (05:34→21:20)
[2023-08-11 05:36] VITALS: BP 146/61; PULSE 80; RESP 16; TEMP 36.2; O2SAT 96
[2023-08-11 05:37] LABS: Basophils Absolute Auto 0.1 K/mm3 (0.0-0.1); Basophils Percent Auto 0.7 % (0.2-1.2); Eosinophils Absolute Auto 0.4 K/mm3 (0-0.3); Eosinophils Percent Auto 6.2 % (0-4.4); Hematocrit 24.8 % (37.0-47.0); Hemoglobin 7.9 g/dL (12.0-15.0); Immature Granulocyte Absolute 0.02 K/mm3 (0.00-0.031); Immature Granulocyte Percent A 0.3 % (0-0.5); Lymphocytes Absolute Auto 1.21 K/mm3 (0.9-3.2); Lymphocytes Percent Auto 17.5 % (18.3-44.2); Mean Corpuscular HGB Conc 31.9 g/dl (32-36); Mean Corpuscular Hemoglobin 30.9 pg (26-34); Mean Corpuscular Volume 96.9 fl (80-100); Mean Platelet Volume 9.8 fl (7.4-10.4); Monocytes Absolute Auto 0.9 K/mm3 (0.1-0.6); Monocytes Percent Auto 12.4 % (2.6-8.5); Neutrophils Absolute Auto 4.3 K/mm3 (1.3-6.7); Neutrophils Percent Auto 62.9 % (45.5-73.1); Platelet Count Result 118 k/mm3 (150-375); Red Blood Count 2.56 M/mm3 (4.2-5.4); Red Cell Distribution Width 17.2 % (11.5-14.5); White Blood Count 6.9 K/mm3 (4.5-10.0)
[2023-08-11 05:46] LABS: Alanine Aminotransferase 12 U/L (6-35); Albumin Level 3.5 g/dL (3.5-5.1); Alkaline Phosphatase 63 U/L (38-126); Anion Gap 7 mmol/L (8-16); Aspartate Amino Transferase 29 U/L (14-36); Blood Urea Nitrogen 22 mg/dL (7-17); Carbon Dioxide 38 mmol/L (22-30); Chloride 93 mmol/L (98-107); Estimated CRCL calculation 33 ml/min; Estimated Glomerular Filt Rate 30; Glucose 166 mg/dL (65-110); Potassium 3.3 mmol/L (3.4-5.0); Sodium 138 mmol/L (137-145)
[2023-08-11 05:54] LABS: INR 1.6; Prothrombin Time 20.1 Seconds (11.1-14.7)
[2023-08-11 05:55] LABS: Partial Thromboplastin Time 42.2 SECONDS (22.3-36.8)
[2023-08-11 08:34] LABS: Glucose Point of Care 175 mg/dl (65-105)
[2023-08-11] MEDS: LORATADINE 10 MG TABLET PO (08:51)
[2023-08-11] MEDS: SENNA/DOCUSATE SODIUM TABLET 1 TAB PO ×2 (08:51→18:07)
[2023-08-11] MEDS: ASCORBIC ACID 500 MG TABLET PO ×2 (08:51→18:09)
[2023-08-11] MEDS: POTASSIUM CHLORIDE 20 MEQ ER TABLET 40 MEQ PO ×2 (08:51→18:09)
[2023-08-11] MEDS: DONEPEZIL HCL 5 MG TABLET PO (08:51)
[2023-08-11] MEDS: OCTREOTIDE ACETATE 100 MCG/ML VIAL SUB-Q ×2 (08:54→18:06)
[2023-08-11] MEDS: TOLNAFTATE 1% POWDER 45 GM BTL 1 APPLIC TOPICAL ×2 (08:55→21:21)
[2023-08-11] MEDS: THERAPEUTIC MULTIVITAMINS/MINERALS TAB (*BKC) 1 TABLET PO (08:55)
[2023-08-11 08:57] VITALS: BP 149/68; PULSE 82; RESP 14; O2SAT 100
[2023-08-11] MEDS: PROPRANOLOL HCL 20 MG TABLET PO (08:57)
--- NOTE | 2023-08-11 10:55 | PCOTNOTE ---
Attempted to see Patient for an updated OT treatment note for insurance at this time. Patient unavailable to be seen at this time due to getting ready to go down for a liver biopsy. Will check back at a later time.
[2023-08-11 11:25] LABS: Ammonia 22 umol/L (9-30)
[2023-08-11] MEDS: oxyCODONE HCL (*CRX) 5 MG TAB IR PO (11:40)
--- NOTE | 2023-08-11 13:16 | PM.PNNEP ---
Progress Note: A&P Assessment and Plan (1) Acute kidney injury: Code(s): N17.9 - Acute kidney failure, unspecified Status: Acute Assessment and Plan: improvement noted today evaluation to date: renal ultrasound without obstruction UA with blood, protein, WBC and LE -- possible infection? urine electrolytes are prerenal mild proteinuria of ~ 500mg CPK low suspect decreased effective circulating volume from liver cirrhosis/physiology resulting in chronic prerenal azotemia despite outward signs of fluid overload/retention renal scan results noted - element of ATN (?) possible HRS (?) -- trial of octreotide and midodrine with limited improvement just on octreotide now...BP elevated so midodrine discontinued planning renal biopsy for definitive diagnosis but challenging give her clinical situation (anticoagulation, liver disease, DVTs, anemia...etc) holding eliquis at this time transitioned to heparin gtt tentatively scheduled for tomorrow if platelets/INR remain an issue, perhaps risk outweighs benefit (particularly if renal function continues to improve) follow trend of repeat labs and UOP (2) Edema: Code(s): R60.9 - Edema, unspecified Status: Acute Assessment and Plan: due to liver cirrhosis, hypoalbuminemia, and DVTs treat supportively s/p diuresis IV albumin chased by IV bumex consider start oral diuretics (bumex + spironolactone tomorrow) follow I/Os and clinical exam we may be reaching our limit with diuresis as noted by rising CO2/contraction alkalosis... (3) Hypertension: Code(s): I10 - Essential (primary) hypertension Status: Chronic Assessment and Plan: reasonable control follow trend of hemodynamics (4) Chronic anemia: Code(s): D64.9 - Anemia, unspecified Status: Acute Assessment and Plan: due to PIOTR, acute illness, and liver cirrhosis follow trend of H/H consider empirically dosing with Epogen (5) Acute DVT (deep venous thrombosis): Code(s): I82.409 - Acute embolism and thrombosis of unspecified deep veins of unspecified lower extremity Status: Acute Assessment and Plan: noted in bilateral lower extremities on anticoagulation contributing component to LE edema/swelling (6) Cirrhosis: Code(s): K74.60 - Unspecified cirrhosis of liver Status: Chronic Assessment and Plan: GI recommendations noted follow LFTs monitor hepatic encephalopathy/rising ammonia (7) Type 2 diabetes mellitus: Code(s): E11.9 - Type 2 diabetes mellitus without complications Status: Acute Assessment and Plan: follow accu-cheks glycemic control per hospitalists Will continue to follow. Subjective Date/time seen: 08/11/23 13:16 Interval history: Follow-up for acute kidney injury/acute renal failure. No apparent distress voiced at the time of my visit; renal function better as noted by AM labs and continues to make good urine output (completed course of IV albumin + IV bumex); mentation alnog with communication seems to be doing better as well; renal biopsy re-scheduled due to issues with elevated INR and thrombocytopenia; edema/swelling continues to slowly improve. Exam Narrative: General: elderly female in NAD Heart: normal S1 and S2; no rub Lungs: clear to auscultation Abdomen: soft, nontender, mild distension, positive bowel sounds Extremities: no cyanosis or clubbing; 1 - 2+ edema Skin: no rash Objective Data Vital Signs Vital Signs: Vital Signs Temp Pulse Resp BP Pulse Ox O2 Del Method 08/11/23 13:00 98.3 F 71 14 144/55 H 98 08/11/23 08:55 Room Air 08/11/23 08:57 82 08/11/23 08:57 82 14 149/68 H 100 08/11/23 05:36 97.2 F L 80 16 146/61 H 96 08/10/23 20:00 Room Air 08/10/23 19:53 98.5 F 83 18 158/90 H 100 Intake/Output Intake/Output: Intake & Output
--- NOTE | 2023-08-11 13:16 | P.PNNP_ITS ---
Progress Note: A&P Assessment and Plan (1) Acute kidney injury: Code(s): N17.9 - Acute kidney failure, unspecified Status: Acute Assessment and Plan: * improvement noted today * evaluation to date: * renal ultrasound without obstruction * UA with blood, protein, WBC and LE -- possible infection? * urine electrolytes are prerenal * mild proteinuria of ~ 500mg * CPK low * suspect decreased effective circulating volume from liver cirrhosis/physiology resulting in chronic prerenal azotemia despite outward signs of fluid overload/retention * renal scan results noted - element of ATN (?) * possible HRS (?) -- trial of octreotide and midodrine with limited improvement * just on octreotide now...BP elevated so midodrine discontinued * planning renal biopsy for definitive diagnosis but challenging give her clinic al situation (anticoagulation, liver disease, DVTs, anemia...etc) * holding eliquis at this time * transitioned to heparin gtt * tentatively scheduled for tomorrow * if platelets/INR remain an issue, perhaps risk outweighs benefit (particularly if renal function continues to improve) * follow trend of repeat labs and UOP (2) Edema: Code(s): R60.9 - Edema, unspecified Status: Acute Assessment and Plan: * due to liver cirrhosis, hypoalbuminemia, and DVTs * treat supportively * s/p diuresis * IV albumin chased by IV bumex * consider start oral diuretics (bumex + spironolactone tomorrow) * follow I/Os and clinical exam * we may be reaching our limit with diuresis as noted by rising CO2/contraction alkalosis... (3) Hypertension: Code(s): I10 - Essential (primary) hypertension Status: Chronic Assessment and Plan: * reasonable control * follow trend of hemodynamics (4) Chronic anemia: Code(s): D64.9 - Anemia, unspecified Status: Acute Assessment and Plan: * due to PIOTR, acute illness, and liver cirrhosis * follow trend of H/H * consider empirically dosing with Epogen (5) Acute DVT (deep venous thrombosis): Code(s): I82.409 - Acute embolism and thrombosis of unspecified deep veins of unspecified lower extremity Status: Acute Assessment and Plan: * noted in bilateral lower extremities * on anticoagulation * contributing component to LE edema/swelling (6) Cirrhosis: Code(s): K74.60 - Unspecified cirrhosis of liver Status: Chronic Assessment and Plan: * GI recommendations noted * follow LFTs * monitor hepatic encephalopathy/rising ammonia (7) Type 2 diabetes mellitus: Code(s): E11.9 - Type 2 diabetes mellitus without complications Status: Acute Assessment and Plan: * follow accu-cheks * glycemic control per hospitalists Will continue to follow. Subjective Date/time seen: 08/11/23 13:16 Interval history: Follow-up for acute kidney injury/acute renal failure. No apparent distress voiced at the time of my visit; renal function better as noted by AM labs and continues to make good urine output (completed course of IV albumin + IV bumex); mentation alnog with communication seems to be doing better as well; renal biopsy re-scheduled due to issues with elevated INR and thrombocytopenia; edema/swelling continues to slowly improve. Exam Narrative: General: elderly female in NAD Heart: normal S1 and S2; no rub Lungs: clear to auscultation Abdomen: soft, nontender, mild distension, positive bowel
[2023-08-11 13:29] VITALS: BP 144/55; PULSE 71; RESP 14; TEMP 36.8; O2SAT 98
[2023-08-11 13:34] LABS: Glucose Point of Care 152 mg/dl (65-105)
[2023-08-11] MEDS: HEPARIN SOD/D5W 100 UNITS/ML 25,000 UNITS/250 ML BAG IV CONT (14:54)
--- NOTE | 2023-08-11 14:56 | PC.NURSE ---
On 08/11/23, the student, [Patrizia Gonzales], provided care and completed [facility] documentation on this patient. I have reviewed the student's documentation and agree with the findings.
[2023-08-11 15:07] LABS: INR 1.6; Partial Thromboplastin Time 34.2 SECONDS (22.3-36.8); Prothrombin Time 19.6 Seconds (11.1-14.7)
[2023-08-11] MEDS: HEPARIN SODIUM 5,000 UNITS/ML VIAL 7000 UNITS IV PUSH (15:18)
--- NOTE | 2023-08-11 15:30 | PCOTNOTE ---
Attempted to see patient at this time. Patient declined stating she is feeling woozy and out of it this P.M. declined performing activities. Per RN, Patient did not end up getting the liver biopsy due to her labs. Will try again tomorrow.
[2023-08-11 17:11] LABS: Glucose Point of Care 162 mg/dl (65-105)
[2023-08-11] MEDS: LACTULOSE 20 GM/30 ML UDC PO (18:06)
--- NOTE | 2023-08-11 19:41 | PC.NURSE ---
08/11/23 13:45 Dr. Cordero gave verbal orders for frozen plasma per hospitalist order, heparin to be stopped at midnight, and anticoagulants after infusion of plasma.
[2023-08-11] MEDS: MELATONIN 3 MG TABLET PO (21:19)
[2023-08-11] MEDS: PANTOPRAZOLE 40 MG TABLET PO (21:19)
[2023-08-11] MEDS: LOVASTATIN 20 MG TABLET 40 MG PO (21:20)
[2023-08-11 21:26] LABS: Glucose Point of Care 203 mg/dl (65-105)
[2023-08-11] MEDS: INSULIN ASPART (*BKC) 100 UNITS/ML SUB-Q (21:34)
[2023-08-11 22:00] VITALS: BP 138/65; PULSE 83; RESP 18; TEMP 36.4; O2SAT 98
[2023-08-12] VITALS (7 sets, daily range): BP systolic 114–164; BP diastolic 58–84; PULSE 70–82; RESP 14–20; TEMP 36–36.6; O2SAT 100
[2023-08-12 00:22] LABS: INR 1.6
[2023-08-12 00:24] LABS: Partial Thromboplastin Time 94.2 SECONDS (22.3-36.8)
[2023-08-12 01:30] LABS: Appearance Urine Turbid (Clear); Bacteria Urine 4+ /hpf; Bilirubin Urine Negative (Negative); Blood Urine 3+ (Negative); Color Urine Yellow (Yellow); Glucose Urine UA Negative (Negative); Ketones Urine Negative (Negative); Leukocyte Esterase Ur 3+ LEU/UL (NEGATIVE); Need Manual Microscopic Reviewed; Nitrate Urine Negative (Negative); Non Pathogenic Casts >20; Protein Urine 1+ mg/dL (Negative); RBC Urine >100 /hpf (0-2); Specific Grav Ur 1.011 (1.001-1.035); Squamous Epithelial Cell Urine Few /hpf (Few); Urobilinogen Urine 0.2 mg/dL (<2.0); WBC Urine >100 /hpf (0-3)
[2023-08-12 01:31] LABS: Add Urine Microscopic? YES
[2023-08-12 05:45] LABS: Basophils Absolute Auto 0.1 K/mm3 (0.0-0.1); Basophils Percent Auto 0.8 % (0.2-1.2); Eosinophils Absolute Auto 0.3 K/mm3 (0-0.3); Eosinophils Percent Auto 4.6 % (0-4.4); Hematocrit 27.4 % (37.0-47.0); Hemoglobin 8.4 g/dL (12.0-15.0); Immature Granulocyte Absolute 0.03 K/mm3 (0.00-0.031); Immature Granulocyte Percent A 0.5 % (0-0.5); Lymphocytes Absolute Auto 1.37 K/mm3 (0.9-3.2); Lymphocytes Percent Auto 22.6 % (18.3-44.2); Mean Corpuscular HGB Conc 30.7 g/dl (32-36); Mean Corpuscular Hemoglobin 30.1 pg (26-34); Mean Corpuscular Volume 98.2 fl (80-100); Mean Platelet Volume 10.4 fl (7.4-10.4); Monocytes Absolute Auto 0.6 K/mm3 (0.1-0.6); Monocytes Percent Auto 9.4 % (2.6-8.5); Neutrophils Absolute Auto 3.8 K/mm3 (1.3-6.7); Neutrophils Percent Auto 62.1 % (45.5-73.1); Platelet Count Result 142 k/mm3 (150-375); Red Blood Count 2.79 M/mm3 (4.2-5.4); Red Cell Distribution Width 17.3 % (11.5-14.5); White Blood Count 6.1 K/mm3 (4.5-10.0)
[2023-08-12 05:47] LABS: Alanine Aminotransferase 13 U/L (6-35); Albumin Level 3.6 g/dL (3.5-5.1); Alkaline Phosphatase 97 U/L (38-126); Anion Gap 5 mmol/L (8-16); Aspartate Amino Transferase 34 U/L (14-36); Bilirubin,Total 1.9 mg/dL (0.2-1.3); Blood Urea Nitrogen 23 mg/dL (7-17); Calcium 8.5 mg/dL (8.4-10.2); Carbon Dioxide 39 mmol/L (22-30); Chloride 95 mmol/L (98-107); Estimated CRCL calculation 30 ml/min; Estimated Glomerular Filt Rate 28; Glucose 162 mg/dL (65-110); Sodium 139 mmol/L (137-145)
[2023-08-12] MEDS: CENTRAL LINE FLUSH 10 ML IV PUSH ×3 (05:48→21:22)
[2023-08-12 05:50] LABS: INR 1.4; Prothrombin Time 18.4 Seconds (11.1-14.7)
[2023-08-12 05:51] LABS: Ammonia 30 umol/L (9-30)
--- NOTE | 2023-08-12 08:22 | PC.NURSE ---
Spoke with ultrasound to clarify what medications patient may take before renal biopsy at 1200. Patient may take all medications except blood thinners.
[2023-08-12] MEDS: ASCORBIC ACID 500 MG TABLET PO ×2 (08:38→18:15)
[2023-08-12] MEDS: PROPRANOLOL HCL 20 MG TABLET PO (08:39)
[2023-08-12] MEDS: LACTULOSE 20 GM/30 ML UDC PO ×3 (08:39→18:15)
[2023-08-12] MEDS: OCTREOTIDE ACETATE 100 MCG/ML VIAL SUB-Q ×3 (08:39→18:18)
[2023-08-12] MEDS: LORATADINE 10 MG TABLET PO (08:39)
[2023-08-12] MEDS: POTASSIUM CHLORIDE 20 MEQ ER TABLET 40 MEQ PO (08:39)
[2023-08-12] MEDS: THERAPEUTIC MULTIVITAMINS/MINERALS TAB (*BKC) 1 TABLET PO (08:39)
[2023-08-12] MEDS: DONEPEZIL HCL 5 MG TABLET PO (08:39)
--- NOTE | 2023-08-12 08:50 | PCOTNOTE ---
Attempted OT treatment session early this date due to Patient has plans to go down for a liver biopsy this date. 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
[2023-08-12 08:51] LABS: Glucose Point of Care 154 mg/dl (65-105)
--- NOTE | 2023-08-12 10:46 | P.PNNP_ITS ---
Progress Note: A&P Assessment and Plan (1) Acute kidney injury: Code(s): N17.9 - Acute kidney failure, unspecified Status: Acute Assessment and Plan: * improvement noted since admission * evaluation to date: * renal ultrasound without obstruction * UA with blood, protein, WBC and LE -- possible infection? (but urine culture negative) * urine electrolytes are prerenal * mild proteinuria of ~ 500mg * CPK low * positive GALINA (high titer) with low C3; other serologies pending * suspect decreased effective circulating volume from liver cirrhosis/physiology resulting in chronic prerenal azotemia despite outward signs of fluid overload/retention * renal scan results noted - element of ATN (?) * possible HRS (?) -- trial of octreotide and midodrine with limited improvement * just on octreotide now...BP elevated so midodrine discontinued * consider weaning off octreotide * ordered renal biopsy but challenging give her clinical situation (anticoagulation, liver disease, DVTs, anemia...etc) * holding eliquis at this time * transitioned to heparin gtt * tentatively scheduled for today * follow trend of repeat labs and UOP (2) Edema: Code(s): R60.9 - Edema, unspecified Status: Acute Assessment and Plan: * due to liver cirrhosis, hypoalbuminemia, and DVTs * treat supportively * s/p diuresis * IV albumin chased by IV bumex * consider start oral diuretics (bumex + spironolactone closer to discharge) * follow I/Os and clinical exam * we may be reaching our limit with diuresis as noted by rising CO2/contraction alkalosis... (3) Hypertension: Code(s): I10 - Essential (primary) hypertension Status: Chronic Assessment and Plan: * reasonable control * follow trend of hemodynamics (4) Chronic anemia: Code(s): D64.9 - Anemia, unspecified Status: Acute Assessment and Plan: * due to PIOTR, acute illness, and liver cirrhosis * follow trend of H/H * empirically dose with Epogen x 1 (5) Acute DVT (deep venous thrombosis): Code(s): I82.409 - Acute embolism and thrombosis of unspecified deep veins of unspecified lower extremity Status: Acute Assessment and Plan: * noted in bilateral lower extremities * on anticoagulation * contributing component to LE edema/swelling (6) Cirrhosis: Code(s): K74.60 - Unspecified cirrhosis of liver Status: Chronic Assessment and Plan: * GI recommendations noted * follow LFTs * monitor hepatic encephalopathy/rising ammonia (7) Type 2 diabetes mellitus: Code(s): E11.9 - Type 2 diabetes mellitus without complications Status: Acute Assessment and Plan: * follow accu-cheks * glycemic control per hospitalists Will continue to follow. Subjective Date/time seen: 08/12/23 10:46 Interval history: Follow-up for acute kidney injury/acute renal failure. Continues to make good urine output despite being off diuretic therapy; renal function relatively stable as well; tentatively scheduled for renal biopsy this afternoon given improvement in INR and platelet count; no acute distress noted at the time of my visit. Exam Narrative: General: elderly female in NAD Heart: normal S1 and S2; no rub Lungs: clear to auscultation Abdomen: soft, nontender, mild distension, positive bowel sounds Extremities: no cyanosis or clubbing; 1 - 2+ edema Skin: no nodules O
--- NOTE | 2023-08-12 10:46 | PM.PNNEP ---
Progress Note: A&P Assessment and Plan (1) Acute kidney injury: Code(s): N17.9 - Acute kidney failure, unspecified Status: Acute Assessment and Plan: improvement noted since admission evaluation to date: renal ultrasound without obstruction UA with blood, protein, WBC and LE -- possible infection? (but urine culture negative) urine electrolytes are prerenal mild proteinuria of ~ 500mg CPK low positive GALINA (high titer) with low C3; other serologies pending suspect decreased effective circulating volume from liver cirrhosis/physiology resulting in chronic prerenal azotemia despite outward signs of fluid overload/retention renal scan results noted - element of ATN (?) possible HRS (?) -- trial of octreotide and midodrine with limited improvement just on octreotide now...BP elevated so midodrine discontinued consider weaning off octreotide ordered renal biopsy but challenging give her clinical situation (anticoagulation, liver disease, DVTs, anemia...etc) holding eliquis at this time transitioned to heparin gtt tentatively scheduled for today follow trend of repeat labs and UOP (2) Edema: Code(s): R60.9 - Edema, unspecified Status: Acute Assessment and Plan: due to liver cirrhosis, hypoalbuminemia, and DVTs treat supportively s/p diuresis IV albumin chased by IV bumex consider start oral diuretics (bumex + spironolactone closer to discharge) follow I/Os and clinical exam we may be reaching our limit with diuresis as noted by rising CO2/contraction alkalosis... (3) Hypertension: Code(s): I10 - Essential (primary) hypertension Status: Chronic Assessment and Plan: reasonable control follow trend of hemodynamics (4) Chronic anemia: Code(s): D64.9 - Anemia, unspecified Status: Acute Assessment and Plan: due to PIOTR, acute illness, and liver cirrhosis follow trend of H/H empirically dose with Epogen x 1 (5) Acute DVT (deep venous thrombosis): Code(s): I82.409 - Acute embolism and thrombosis of unspecified deep veins of unspecified lower extremity Status: Acute Assessment and Plan: noted in bilateral lower extremities on anticoagulation contributing component to LE edema/swelling (6) Cirrhosis: Code(s): K74.60 - Unspecified cirrhosis of liver Status: Chronic Assessment and Plan: GI recommendations noted follow LFTs monitor hepatic encephalopathy/rising ammonia (7) Type 2 diabetes mellitus: Code(s): E11.9 - Type 2 diabetes mellitus without complications Status: Acute Assessment and Plan: follow accu-cheks glycemic control per hospitalists Will continue to follow. Subjective Date/time seen: 08/12/23 10:46 Interval history: Follow-up for acute kidney injury/acute renal failure. Continues to make good urine output despite being off diuretic therapy; renal function relatively stable as well; tentatively scheduled for renal biopsy this afternoon given improvement in INR and platelet count; no acute distress noted at the time of my visit. Exam Narrative: General: elderly female in NAD Heart: normal S1 and S2; no rub Lungs: clear to auscultation Abdomen: soft, nontender, mild distension, positive bowel sounds Extremities: no cyanosis or clubbing; 1 - 2+ edema Skin: no nodules Objective Data Vital Signs Vital Signs: Vital Signs Temp Pulse Resp BP Pulse Ox O2 Del Method 08/12/23 08:35 Room Air 08/12/23 08:39 78 08/12/23 08:36 79 16 114/58 L 100 08/11/23 20:00 Room Air 08/12/23 03:45 96.8 F L 75 20 151/75 H 100 08/11/23 22:00 97.5 F L 83 18 138/65 98 Intake/Output Intake/Output: Intake & Output 08/09/23 08/10/23 08/11/23 08/12/23 23:59 23:59 23:59 23:59 Intake Total 1700 2080 517 0 Output Total 6800 3500 3450 1700 Balance -5100 -1420 -2933 -170
[2023-08-12 12:13] LABS: Glucose Point of Care 151 mg/dl (65-105)
--- NOTE | 2023-08-12 12:21 | PC.NURSE ---
Patient taken off unit for renal biopsy
--- NOTE | 2023-08-12 12:45 | PCOTNOTE ---
Attempted again, Patient out of the room at this time for a procedure.
--- NOTE | 2023-08-12 13:30 | PC.NURSE ---
patient returned to room from biopsy
[2023-08-12] MEDS: TOLNAFTATE 1% POWDER 45 GM BTL 1 APPLIC TOPICAL ×2 (13:51→21:22)
[2023-08-12 17:34] LABS: Glucose Point of Care 164 mg/dl (65-105)
[2023-08-12] MEDS: SUCRALFATE SUSP 100 MG/ML 10 ML UDC 1000 MG PO ×2 (18:14→21:35)
[2023-08-12] MEDS: SENNA/DOCUSATE SODIUM TABLET 1 TAB PO (18:15)
--- NOTE | 2023-08-12 19:38 | PC.NURSE ---
Spoke with main lab to ask that they cancel order for plasma. I am unable to DC order on my end
[2023-08-12 20:54] LABS: Glucose Point of Care 200 mg/dl (65-105)
--- NOTE | 2023-08-12 21:13 | PC.NURSE ---
Per provider orders, heparin drip stopped at midnight 12/8 for kidney biopsy and to be held until morning of 08/13 pending provider approval. Heparin drip was not stopped in NOV and shows it has been running all day when it has not. Infusion pause time back timed to 12/8 0000 per orders available.
[2023-08-12] MEDS: LOVASTATIN 20 MG TABLET 40 MG PO (21:21)
[2023-08-12] MEDS: MELATONIN 3 MG TABLET PO (21:22)
[2023-08-12] MEDS: PANTOPRAZOLE 40 MG TABLET PO (21:22)
[2023-08-12] MEDS: oxyCODONE HCL (*CRX) 5 MG TAB IR PO (21:31)
[2023-08-13 05:49] LABS: Basophils Absolute Auto 0.1 K/mm3 (0.0-0.1); Basophils Percent Auto 0.8 % (0.2-1.2); Eosinophils Absolute Auto 0.5 K/mm3 (0-0.3); Eosinophils Percent Auto 6.7 % (0-4.4); Hematocrit 24.1 % (37.0-47.0); Hemoglobin 7.6 g/dL (12.0-15.0); Immature Granulocyte Absolute 0.02 K/mm3 (0.00-0.031); Immature Granulocyte Percent A 0.3 % (0-0.5); Lymphocytes Absolute Auto 1.28 K/mm3 (0.9-3.2); Lymphocytes Percent Auto 17.3 % (18.3-44.2); Mean Corpuscular HGB Conc 31.5 g/dl (32-36); Mean Corpuscular Hemoglobin 30.5 pg (26-34); Mean Corpuscular Volume 96.8 fl (80-100); Mean Platelet Volume 9.5 fl (7.4-10.4); Monocytes Absolute Auto 0.9 K/mm3 (0.1-0.6); Monocytes Percent Auto 11.5 % (2.6-8.5); Neutrophils Absolute Auto 4.7 K/mm3 (1.3-6.7); Neutrophils Percent Auto 63.4 % (45.5-73.1); Platelet Count Result 127 k/mm3 (150-375); Red Blood Count 2.49 M/mm3 (4.2-5.4); Red Cell Distribution Width 17.1 % (11.5-14.5); White Blood Count 7.4 K/mm3 (4.5-10.0)
[2023-08-13 06:00] VITALS: BP 147/66; PULSE 84; RESP 18; TEMP 36.8; O2SAT 96
[2023-08-13 06:05] LABS: Ammonia 26 umol/L (9-30)
[2023-08-13 06:12] LABS: Alanine Aminotransferase 12 U/L (6-35); Albumin Level 3.1 g/dL (3.5-5.1); Alkaline Phosphatase 79 U/L (38-126); Anion Gap 5 mmol/L (8-16); Aspartate Amino Transferase 30 U/L (14-36); Bilirubin,Total 1.8 mg/dL (0.2-1.3); Blood Urea Nitrogen 19 mg/dL (7-17); Calcium 8.1 mg/dL (8.4-10.2); Carbon Dioxide 35 mmol/L (22-30); Chloride 96 mmol/L (98-107); Estimated CRCL calculation 34 ml/min; Estimated Glomerular Filt Rate 32; Glucose 156 mg/dL (65-110); Potassium 3.8 mmol/L (3.4-5.0); Sodium 136 mmol/L (137-145)
[2023-08-13] MEDS: CENTRAL LINE FLUSH 10 ML IV PUSH ×3 (06:24→21:07)
[2023-08-13] MEDS: SUCRALFATE SUSP 100 MG/ML 10 ML UDC 1000 MG PO ×4 (06:24→21:05)
[2023-08-13 08:24] LABS: Glucose Point of Care 166 mg/dl (65-105)
[2023-08-13 10:27] VITALS: BP 131/56; PULSE 90; RESP 17; O2SAT 100
[2023-08-13] MEDS: SENNA/DOCUSATE SODIUM TABLET 1 TAB PO ×2 (10:29→17:20)
[2023-08-13] MEDS: LACTULOSE 20 GM/30 ML UDC PO ×3 (10:29→17:20)
[2023-08-13] MEDS: LORATADINE 10 MG TABLET PO (10:29)
[2023-08-13] MEDS: DONEPEZIL HCL 5 MG TABLET PO (10:29)
[2023-08-13] MEDS: ASCORBIC ACID 500 MG TABLET PO ×2 (10:29→17:20)
[2023-08-13 10:30] VITALS: PULSE 88
[2023-08-13] MEDS: OCTREOTIDE ACETATE 100 MCG/ML VIAL SUB-Q ×3 (10:30→17:20)
[2023-08-13] MEDS: PROPRANOLOL HCL 20 MG TABLET PO (10:30)
[2023-08-13] MEDS: THERAPEUTIC MULTIVITAMINS/MINERALS TAB (*BKC) 1 TABLET PO (10:30)
[2023-08-13] MEDS: POTASSIUM CHLORIDE 20 MEQ ER TABLET 40 MEQ PO (10:30)
[2023-08-13 12:23] LABS: Glucose Point of Care 188 mg/dl (65-105)
--- NOTE | 2023-08-13 12:25 | P.PNIM_ITS ---
Progress Note: A&P Assessment and Plan (1) Acute DVT (deep venous thrombosis): Code(s): I82.409 - Acute embolism and thrombosis of unspecified deep veins of unspecified lower extremity Status: Acute Assessment and Plan: Patient currently on heparin, will switch Eliquis and monitor closely (2) Hypercholesterolemia: Code(s): E78.00 - Pure hypercholesterolemia, unspecified Status: Acute Assessment and Plan: Stable on current meds, continue treatment. (3) Closed intertrochanteric fracture of right femur: Qualifiers: Encounter type: subsequent encounter Fracture alignment: displaced Fracture healing: with routine healing Qualified Code(s): S72.141D - Displaced intertrochanteric fracture of right femur, subsequent encounter for closed fracture with routine healing Code(s): S72.141A - Displaced intertrochanteric fracture of right femur, initial encounter for closed fracture Status: Acute Assessment and Plan: Stable, continue current treatment. (4) Fall: Qualifiers: Encounter type: initial encounter Qualified Code(s): W19.XXXA - Unspecified fall, initial encounter Code(s): W19.XXXA - Unspecified fall, initial encounter Status: Acute Assessment and Plan: Stable, continue current treatment start physical therapy (5) Hypothyroidism: Code(s): E03.9 - Hypothyroidism, unspecified Status: Acute Assessment and Plan: Stable, continue current treatment (6) DM2 (diabetes mellitus, type 2): Code(s): E11.9 - Type 2 diabetes mellitus without complications Status: Acute Assessment and Plan: Stable, continue current treatment (7) HTN (hypertension) with goal to be determined: Code(s): I10 - Essential (primary) hypertension Status: Acute Assessment and Plan: Stable, continued treatment. (8) Depression with anxiety: Code(s): F41.8 - Other specified anxiety disorders Status: Acute Assessment and Plan: Stable, continue current treatment. (9) Degenerative arthritis of right knee: Qualifiers: Osteoarthritis type: primary Qualified Code(s): M17.11 - Unilateral primary osteoarthritis, right knee Code(s): M17.11 - Unilateral primary osteoarthritis, right knee Status: Acute Assessment and Plan: Stable, continue current treatment. (10) Hypomagnesemia: Code(s): E83.42 - Hypomagnesemia Status: Acute Assessment and Plan: Stable (11) Pancytopenia: Code(s): D61.818 - Other pancytopenia Status: Acute Assessment and Plan: Stable (12) Thrombocytopenia: Code(s): D69.6 - Thrombocytopenia, unspecified Status: Acute Assessment and Plan: Stable monitor closely. (13) Normocytic anemia: Code(s): D64.9 - Anemia, unspecified Status: Acute Assessment and Plan: Hemoglobin dropped to 7.6 will repeat in the morning. (14) Fracture, humerus: Qualifiers: Encounter type: subsequent encounter Fracture alignment: displaced Fracture healing: with routine healing Fracture morphology: other fracture Fracture type: closed Humerus Location: proximal Laterality: left Qualified Code(s): S42.292D - Other displaced fracture of upper end of left humerus, subsequent encounter for fracture with routine healing Code(s): S42.309A - Unspecified fracture of shaft of humerus, unspecified arm, initial encounter for closed fracture Status: Acute (15) Psoas muscle strain:
[2023-08-13] MEDS: TOLNAFTATE 1% POWDER 45 GM BTL 1 APPLIC TOPICAL ×2 (13:25→21:05)
[2023-08-13 14:00] VITALS: BP 139/59; PULSE 81; RESP 18; TEMP 36.6; O2SAT 100
--- NOTE | 2023-08-13 14:00 | P.PNNP_ITS ---
Progress Note: A&P Assessment and Plan (1) Acute kidney injury: Code(s): N17.9 - Acute kidney failure, unspecified Status: Acute Assessment and Plan: * Acute kidney injury. * evaluation to date: * renal ultrasound without obstruction * UA with blood, protein, WBC and LE -- possible infection? (but urine culture negative) * urine electrolytes are prerenal * mild proteinuria of ~ 500mg * CPK low * positive GALINA (high titer) with low C3; other serologies pending * Because of the blood and protein in the urine as well as positive serology, a renal biopsy was performed and is pending. * suspect decreased effective circulating volume from liver cirrhosis/physiology resulting in chronic prerenal azotemia despite outward signs of fluid overload/retention * renal scan shows delayed uptake and decreased excretion from the kidneys. * possible HRS (?) -- trial of octreotide and midodrine with limited improvement * just on octreotide now...BP elevated so midodrine discontinued * consider weaning off octreotide * Her creatinine has improved. * Urine output has improved as well. * Recheck a creatinine tomorrow. (2) Edema: Code(s): R60.9 - Edema, unspecified Status: Acute Assessment and Plan: * due to liver cirrhosis, hypoalbuminemia, and DVTs * treat supportively * Urine output is pretty good. Intake/output was negative yesterday. * s/p diuresis * IV albumin chased by IV bumex * consider start oral diuretics (bumex + spironolactone closer to discharge) * Edema is better. (3) Hypertension: Code(s): I10 - Essential (primary) hypertension Status: Chronic Assessment and Plan: * reasonable control * follow trend of hemodynamics (4) Chronic anemia: Code(s): D64.9 - Anemia, unspecified Status: Acute Assessment and Plan: * due to PIOTR, acute illness, and liver cirrhosis * follow trend of H/H * empirically dosed with Epogen x 1 (5) Acute DVT (deep venous thrombosis): Code(s): I82.409 - Acute embolism and thrombosis of unspecified deep veins of unspecified lower extremity Status: Acute Assessment and Plan: * noted in bilateral lower extremities * on anticoagulation * contributing component to LE edema/swelling (6) Cirrhosis: Code(s): K74.60 - Unspecified cirrhosis of liver Status: Chronic Assessment and Plan: * GI recommendations noted * follow LFTs * monitor hepatic encephalopathy/rising ammonia (7) Type 2 diabetes mellitus: Code(s): E11.9 - Type 2 diabetes mellitus without complications Status: Acute Assessment and Plan: * follow accu-cheks * glycemic control per hospitalists Subjective Date/time seen: 08/13/23 14:00 Interval history: Barbara feels about the same. No chest pain or shortness of breath. She still has some swelling but it is better. She had a renal biopsy yesterday. It went well. Exam Narrative: General: elderly female in NAD Heart: normal S1 and S2; no rub or gallop Lungs: clear to auscultation Abdomen: soft, nontender, mild distension, positive bowel sounds Extremities: 1 - 2+ edema Skin: no nodules or rash Objective Data Vital Signs Vital Signs: Vital Signs - 24 hr 08/12/23 19:26 08/13/23 06:00 08/13/23 09:30 Temperature 97.8 F 98.3 F Pulse
--- NOTE | 2023-08-13 14:00 | PM.PNNEP ---
Progress Note: A&P Assessment and Plan (1) Acute kidney injury: Code(s): N17.9 - Acute kidney failure, unspecified Status: Acute Assessment and Plan: Acute kidney injury. evaluation to date: renal ultrasound without obstruction UA with blood, protein, WBC and LE -- possible infection? (but urine culture negative) urine electrolytes are prerenal mild proteinuria of ~ 500mg CPK low positive GALINA (high titer) with low C3; other serologies pending Because of the blood and protein in the urine as well as positive serology, a renal biopsy was performed and is pending. suspect decreased effective circulating volume from liver cirrhosis/physiology resulting in chronic prerenal azotemia despite outward signs of fluid overload/retention renal scan shows delayed uptake and decreased excretion from the kidneys. possible HRS (?) -- trial of octreotide and midodrine with limited improvement just on octreotide now...BP elevated so midodrine discontinued consider weaning off octreotide Her creatinine has improved. Urine output has improved as well. Recheck a creatinine tomorrow. (2) Edema: Code(s): R60.9 - Edema, unspecified Status: Acute Assessment and Plan: due to liver cirrhosis, hypoalbuminemia, and DVTs treat supportively Urine output is pretty good. Intake/output was negative yesterday. s/p diuresis IV albumin chased by IV bumex consider start oral diuretics (bumex + spironolactone closer to discharge) Edema is better. (3) Hypertension: Code(s): I10 - Essential (primary) hypertension Status: Chronic Assessment and Plan: reasonable control follow trend of hemodynamics (4) Chronic anemia: Code(s): D64.9 - Anemia, unspecified Status: Acute Assessment and Plan: due to PIOTR, acute illness, and liver cirrhosis follow trend of H/H empirically dosed with Epogen x 1 (5) Acute DVT (deep venous thrombosis): Code(s): I82.409 - Acute embolism and thrombosis of unspecified deep veins of unspecified lower extremity Status: Acute Assessment and Plan: noted in bilateral lower extremities on anticoagulation contributing component to LE edema/swelling (6) Cirrhosis: Code(s): K74.60 - Unspecified cirrhosis of liver Status: Chronic Assessment and Plan: GI recommendations noted follow LFTs monitor hepatic encephalopathy/rising ammonia (7) Type 2 diabetes mellitus: Code(s): E11.9 - Type 2 diabetes mellitus without complications Status: Acute Assessment and Plan: follow accu-cheks glycemic control per hospitalists Subjective Date/time seen: 08/13/23 14:00 Interval history: Barbara feels about the same. No chest pain or shortness of breath. She still has some swelling but it is better. She had a renal biopsy yesterday. It went well. Exam Narrative: General: elderly female in NAD Heart: normal S1 and S2; no rub or gallop Lungs: clear to auscultation Abdomen: soft, nontender, mild distension, positive bowel sounds Extremities: 1 - 2+ edema Skin: no nodules or rash Objective Data Vital Signs Vital Signs: Vital Signs - 24 hr 08/12/23 19:26 08/13/23 06:00 08/13/23 09:30 Temperature 97.8 F 98.3 F Pulse Rate 82 84 Respiratory Rate 18 18 Blood Pressure 163/77 H 147/66 H Pulse Oximetry 100 96 Oxygen Delivery Room Air 08/13/23 10:27 08/13/23 10:30 Temperature Pulse Rate 90 88 Respiratory Rate 17 Blood Pressure 131/56 L Pulse Oximetry 100 Oxygen Delivery Intake/Output Intake/Output: Intake & Output 08/10/23 08/11/23 08/12/23 08/13/23 23:59 23:59 23:59 23:59 Intake Total 2080 517 740 570 Output Total 3500 3450 2450 1700 [facility] -1420 -2933 -1710 -1130 Meds/Results Medications: Active Medications Generic Name Dose Route Start Last Admin Trade Name Freq PRN Reason Stop Dos
[2023-08-13 16:26] LABS: Anti Glomerular Basement Memb <1.0 AI (<1.0)
[2023-08-13 17:23] LABS: Glucose Point of Care 185 mg/dl (65-105)
[2023-08-13 19:27] VITALS: BP 134/60; PULSE 88; RESP 18; TEMP 36.9; O2SAT 100
[2023-08-13 20:42] LABS: Glucose Point of Care 212 mg/dl (65-105)
[2023-08-13] MEDS: LOVASTATIN 20 MG TABLET 40 MG PO (21:05)
[2023-08-13] MEDS: MELATONIN 3 MG TABLET PO (21:05)
[2023-08-13] MEDS: PANTOPRAZOLE 40 MG TABLET PO (21:05)
[2023-08-13] MEDS: INSULIN ASPART (*BKC) 100 UNITS/ML SUB-Q (21:07)
[2023-08-14 01:30] LABS: Creatinine, Random Urine 17 mg/dL (20-275); Total Protein/Creatinine Ratio 471 mg/g creat (24-184)
[2023-08-14 05:21] VITALS: BP 139/60; PULSE 87; RESP 18; TEMP 36.8; O2SAT 98
[2023-08-14] MEDS: CENTRAL LINE FLUSH 10 ML IV PUSH (06:35)
[2023-08-14] MEDS: SUCRALFATE SUSP 100 MG/ML 10 ML UDC 1000 MG PO ×2 (06:35→11:22)
[2023-08-14 06:36] LABS: Hematocrit 23.7 % (37.0-47.0); Hemoglobin 7.3 g/dL (12.0-15.0); Mean Corpuscular HGB Conc 30.8 g/dl (32-36); Mean Corpuscular Hemoglobin 30.5 pg (26-34); Mean Corpuscular Volume 99.2 fl (80-100); Mean Platelet Volume 10.4 fl (7.4-10.4); Platelet Count Result 121 k/mm3 (150-375); Red Blood Count 2.39 M/mm3 (4.2-5.4); Red Cell Distribution Width 17.3 % (11.5-14.5); White Blood Count 6.6 K/mm3 (4.5-10.0)
[2023-08-14 06:51] LABS: Albumin Level 2.9 g/dL (3.5-5.1); Anion Gap 4 mmol/L (8-16); Blood Urea Nitrogen 19 mg/dL (7-17); Calcium 8.1 mg/dL (8.4-10.2); Carbon Dioxide 33 mmol/L (22-30); Chloride 99 mmol/L (98-107); Estimated CRCL calculation 37 ml/min; Estimated Glomerular Filt Rate 37; Glucose 186 mg/dL (65-110); Phosphorus 2.6 mg/dL (2.5-4.5); Potassium 3.8 mmol/L (3.4-5.0); Sodium 136 mmol/L (137-145)
[2023-08-14 08:26] VITALS: BP 125/58; PULSE 88; RESP 16; O2SAT 99
[2023-08-14 08:28] VITALS: PULSE 80
[2023-08-14] MEDS: POTASSIUM CHLORIDE 20 MEQ ER TABLET 40 MEQ PO (08:28)
[2023-08-14] MEDS: PROPRANOLOL HCL 20 MG TABLET PO (08:28)
[2023-08-14] MEDS: ASCORBIC ACID 500 MG TABLET PO (08:28)
[2023-08-14] MEDS: LORATADINE 10 MG TABLET PO (08:28)
[2023-08-14] MEDS: APIXABAN 5 MG TABLET PO (08:28)
[2023-08-14] MEDS: LACTULOSE 20 GM/30 ML UDC PO ×2 (08:28→12:55)
[2023-08-14] MEDS: SENNA/DOCUSATE SODIUM TABLET 1 TAB PO (08:28)
[2023-08-14] MEDS: DONEPEZIL HCL 5 MG TABLET PO (08:28)
[2023-08-14] MEDS: THERAPEUTIC MULTIVITAMINS/MINERALS TAB (*BKC) 1 TABLET PO (08:29)
[2023-08-14] MEDS: OCTREOTIDE ACETATE 100 MCG/ML VIAL SUB-Q ×2 (08:29→12:55)
[2023-08-14 08:37] LABS: Glucose Point of Care 208 mg/dl (65-105)
[2023-08-14] MEDS: INSULIN ASPART (*BKC) 100 UNITS/ML SUB-Q ×2 (08:39→12:42)
--- NOTE | 2023-08-14 10:04 | PM.DS ---
DS: Admitting Diagnosis Discharge Date 08/14/2023 Admitting Diagnosis Acute kidney injury DS: Discharge Diagnosis Discharge Diagnosis (1) Acute DVT (deep venous thrombosis): Code(s): I82.409 - Acute embolism and thrombosis of unspecified deep veins of unspecified lower extremity Status: Acute Assessment and Plan: Patient currently on heparin, will switch Eliquis and monitor closely (2) Hypercholesterolemia: Code(s): E78.00 - Pure hypercholesterolemia, unspecified Status: Acute Assessment and Plan: Stable on current meds, continue treatment. (3) Closed intertrochanteric fracture of right femur: Qualifiers: Encounter type: subsequent encounter Fracture alignment: displaced Fracture healing: with routine healing Qualified Code(s): S72.141D - Displaced intertrochanteric fracture of right femur, subsequent encounter for closed fracture with routine healing Code(s): S72.141A - Displaced intertrochanteric fracture of right femur, initial encounter for closed fracture Status: Acute Assessment and Plan: Stable, continue current treatment. (4) Fall: Qualifiers: Encounter type: initial encounter Qualified Code(s): W19.XXXA - Unspecified fall, initial encounter Code(s): W19.XXXA - Unspecified fall, initial encounter Status: Acute Assessment and Plan: Stable, continue current treatment start physical therapy (5) Hypothyroidism: Code(s): E03.9 - Hypothyroidism, unspecified Status: Acute Assessment and Plan: Stable, continue current treatment (6) DM2 (diabetes mellitus, type 2): Code(s): E11.9 - Type 2 diabetes mellitus without complications Status: Acute Assessment and Plan: Stable, continue current treatment (7) HTN (hypertension) with goal to be determined: Code(s): I10 - Essential (primary) hypertension Status: Acute Assessment and Plan: Stable, continued treatment. (8) Depression with anxiety: Code(s): F41.8 - Other specified anxiety disorders Status: Acute Assessment and Plan: Stable, continue current treatment. (9) Degenerative arthritis of right knee: Qualifiers: Osteoarthritis type: primary Qualified Code(s): M17.11 - Unilateral primary osteoarthritis, right knee Code(s): M17.11 - Unilateral primary osteoarthritis, right knee Status: Acute Assessment and Plan: Stable, continue current treatment. (10) Hypomagnesemia: Code(s): E83.42 - Hypomagnesemia Status: Acute Assessment and Plan: Stable (11) Pancytopenia: Code(s): D61.818 - Other pancytopenia Status: Acute Assessment and Plan: Stable (12) Thrombocytopenia: Code(s): D69.6 - Thrombocytopenia, unspecified Status: Acute Assessment and Plan: Stable monitor closely. (13) Normocytic anemia: Code(s): D64.9 - Anemia, unspecified Status: Acute Assessment and Plan: Hemoglobin dropped to 7.6 will repeat in the morning. (14) Fracture, humerus: Qualifiers: Encounter type: subsequent encounter Fracture alignment: displaced Fracture healing: with routine healing Fracture morphology: other fracture Fracture type: closed Humerus Location: proximal Laterality: left Qualified Code(s): S42.292D - Other displaced fracture of upper end of left humerus, subsequent encounter for fracture with routine healing Code(s): S42.309A - Unspecified fracture of shaft of humerus, unspecified arm, initial encounter for closed fracture Status: Acute (15) Psoas muscle strain: Code(s): S76.019A - Strain of muscle, fascia and tendon of unspecified hip, initial encounter Status: Acute (16) Diabetes: Code(s): E11.9 - Type 2 diabetes mellitus without complications Status: Acute Assessment and Plan: Stable, continue current treatment (17) LISA (g
[2023-08-14] MEDS: POLYSACCHARIDE IRON COMPLEX 150 MG CAPSULE PO (11:22)
[2023-08-14 12:16] LABS: SARS-CoV-2 RNA PCR Negative (Negative)
[2023-08-14 12:22] LABS: Glucose Point of Care 218 mg/dl (65-105)
--- NOTE | 2023-08-14 13:09 | P.PNNP_ITS ---
Progress Note: A&P Assessment and Plan (1) Acute kidney injury: Code(s): N17.9 - Acute kidney failure, unspecified Status: Acute Assessment and Plan: * Acute kidney injury. * evaluation to date: * renal ultrasound without obstruction * UA with blood, protein, WBC and LE -- possible infection? (but urine culture negative) * urine electrolytes are prerenal * mild proteinuria of ~ 500mg * CPK low * positive GALINA (high titer) with low C3; other serologies pending * Because of the blood and protein in the urine as well as positive serology, a renal biopsy was performed and is pending. * suspect decreased effective circulating volume from liver cirrhosis/physiology resulting in chronic prerenal azotemia despite outward signs of fluid overload/retention * renal scan shows delayed uptake and decreased excretion from the kidneys. * possible HRS (?) -- trial of octreotide and midodrine with limited improvement * just on octreotide now...BP elevated so midodrine discontinued * consider weaning off octreotide * Her creatinine has improved. * Urine output has improved as well. * Recheck a creatinine tomorrow. (2) Edema: Code(s): R60.9 - Edema, unspecified Status: Acute Assessment and Plan: * due to liver cirrhosis, hypoalbuminemia, and DVTs * treat supportively * Urine output is pretty good. Intake/output was negative yesterday. * s/p diuresis * IV albumin chased by IV bumex * consider start oral diuretics (bumex + spironolactone closer to discharge) * Edema is better. (3) Hypertension: Code(s): I10 - Essential (primary) hypertension Status: Chronic Assessment and Plan: * reasonable control * follow trend of hemodynamics (4) Chronic anemia: Code(s): D64.9 - Anemia, unspecified Status: Acute Assessment and Plan: * due to PIOTR, acute illness, and liver cirrhosis * follow trend of H/H * empirically dosed with Epogen x 1 (5) Acute DVT (deep venous thrombosis): Code(s): I82.409 - Acute embolism and thrombosis of unspecified deep veins of unspecified lower extremity Status: Acute Assessment and Plan: * noted in bilateral lower extremities * on anticoagulation * contributing component to LE edema/swelling (6) Cirrhosis: Code(s): K74.60 - Unspecified cirrhosis of liver Status: Chronic Assessment and Plan: * GI recommendations noted * follow LFTs * monitor hepatic encephalopathy/rising ammonia (7) Type 2 diabetes mellitus: Code(s): E11.9 - Type 2 diabetes mellitus without complications Status: Acute Assessment and Plan: * follow accu-cheks * glycemic control per hospitalists Subjective Date/time seen: 08/14/23 13:09 Exam Narrative: General: elderly female in NAD Heart: normal S1 and S2; no rub or gallop Lungs: clear to auscultation Abdomen: soft, nontender, mild distension, positive bowel sounds Extremities: 1 - 2+ edema Skin: no nodules or rash Objective Data Vital Signs Vital Signs: Vital Signs - 24 hr 08/13/23 14:00 08/13/23 19:27 08/13/23 20:00 Temperature 98 F 98.4 F Pulse Rate 81 88 Respiratory Rate 18 18 Blood Pressure 139/59 L 134/60 Pulse Oximetry 100 100 Oxygen Delivery Room Air 08/14/23 05:21
--- NOTE | 2023-08-14 13:09 | PM.PNNEP ---
Progress Note: A&P Assessment and Plan (1) Acute kidney injury: Code(s): N17.9 - Acute kidney failure, unspecified Status: Acute Assessment and Plan: Acute kidney injury. evaluation to date: renal ultrasound without obstruction UA with blood, protein, WBC and LE -- possible infection? (but urine culture negative) urine electrolytes are prerenal mild proteinuria of ~ 500mg CPK low positive GALINA (high titer) with low C3; other serologies pending Because of the blood and protein in the urine as well as positive serology, a renal biopsy was performed and is pending. suspect decreased effective circulating volume from liver cirrhosis/physiology resulting in chronic prerenal azotemia despite outward signs of fluid overload/retention renal scan shows delayed uptake and decreased excretion from the kidneys. possible HRS (?) -- trial of octreotide and midodrine with limited improvement just on octreotide now...BP elevated so midodrine discontinued consider weaning off octreotide Her creatinine has improved. Urine output has improved as well. Recheck a creatinine tomorrow. (2) Edema: Code(s): R60.9 - Edema, unspecified Status: Acute Assessment and Plan: due to liver cirrhosis, hypoalbuminemia, and DVTs treat supportively Urine output is pretty good. Intake/output was negative yesterday. s/p diuresis IV albumin chased by IV bumex consider start oral diuretics (bumex + spironolactone closer to discharge) Edema is better. (3) Hypertension: Code(s): I10 - Essential (primary) hypertension Status: Chronic Assessment and Plan: reasonable control follow trend of hemodynamics (4) Chronic anemia: Code(s): D64.9 - Anemia, unspecified Status: Acute Assessment and Plan: due to PIOTR, acute illness, and liver cirrhosis follow trend of H/H empirically dosed with Epogen x 1 (5) Acute DVT (deep venous thrombosis): Code(s): I82.409 - Acute embolism and thrombosis of unspecified deep veins of unspecified lower extremity Status: Acute Assessment and Plan: noted in bilateral lower extremities on anticoagulation contributing component to LE edema/swelling (6) Cirrhosis: Code(s): K74.60 - Unspecified cirrhosis of liver Status: Chronic Assessment and Plan: GI recommendations noted follow LFTs monitor hepatic encephalopathy/rising ammonia (7) Type 2 diabetes mellitus: Code(s): E11.9 - Type 2 diabetes mellitus without complications Status: Acute Assessment and Plan: follow accu-cheks glycemic control per hospitalists Subjective Date/time seen: 08/14/23 13:09 Exam Narrative: General: elderly female in NAD Heart: normal S1 and S2; no rub or gallop Lungs: clear to auscultation Abdomen: soft, nontender, mild distension, positive bowel sounds Extremities: 1 - 2+ edema Skin: no nodules or rash Objective Data Vital Signs Vital Signs: Vital Signs - 24 hr 08/13/23 14:00 08/13/23 19:27 08/13/23 20:00 Temperature 98 F 98.4 F Pulse Rate 81 88 Respiratory Rate 18 18 Blood Pressure 139/59 L 134/60 Pulse Oximetry 100 100 Oxygen Delivery Room Air 08/14/23 05:21 08/14/23 08:26 08/14/23 08:28 Temperature 98.3 F Pulse Rate 87 88 80 Respiratory Rate 18 16 Blood Pressure 139/60 125/58 L Pulse Oximetry 98 99 Oxygen Delivery Intake/Output Intake/Output: Intake & Output 08/11/23 08/12/23 08/13/23 08/14/23 23:59 23:59 23:59 23:59 Intake Total 553 555 1586 330 Output Total 3450 2450 2150 Balance -2933 -1710 -760 330 Meds/Results Medications: Active Medications Generic Name Dose Route Start Last Admin Trade Name Freq PRN Reason Stop Dose Admin Apixaban 5 mg 08/14/23 09:00 08/14/23 08:28 Apixaban 5 Mg Tablet PO 5 mg Q12HR LORA Administration Ascorbic Acid 500 mg 07/30/23 09:00 1
[2023-08-14] MEDS: TOLNAFTATE 1% POWDER 45 GM BTL 1 APPLIC TOPICAL (13:17)
[2023-08-14 14:00] VITALS: BP 128/59; PULSE 88; RESP 16; TEMP 36.6; O2SAT 99
[2023-08-14 16:15] LABS: Albumin 3.3 g/dL (3.8-4.8); Alpha 1 Globulin 0.3 g/dL (0.2-0.3); Alpha 2 Globulin 0.3 g/dL (0.5-0.9); Beta 1 Globulin 0.2 g/dL (0.4-0.6); Protein, Total 5.3 g/dL (6.1-8.1)
[2023-08-15 22:14] LABS: ANCA Screen Negative (Negative)
== END 2023-08-14 16:55 | DRG 683 ==
LOC: ANHED 17:27 → ANH2MED 17:35
PROVIDERS: Family Medicine; Hospitalist; Internal Medicine; Internal Medicine Nephrology; Nurse Practitioner; Physician Assistant; Admitting Provider Internal Medicine; Emergency Provider Emergency Medicine; PCP Emergency Medicine; Visit Provider Internal Medicine
DX: N17.9 Acute kidney failure, unspecified (principal); D61.818 Other pancytopenia; I82.431 Acute embolism and thrombosis of right popliteal vein; I82.451 Acute embolism and thrombosis of right peroneal vein; I82.412 Acute embolism and thrombosis of left femoral vein; I50.32 Chronic diastolic (congestive) heart failure; K22.10 Ulcer of esophagus without bleeding; R18.8 Other ascites; E11.9 Type 2 diabetes mellitus without complications; E78.5 Hyperlipidemia, unspecified; E03.9 Hypothyroidism, unspecified; K74.60 Unspecified cirrhosis of liver; K75.81 Nonalcoholic steatohepatitis (NASH); R09.02 Hypoxemia; Z20.822 Contact with and (suspected) exposure to COVID-19; I11.0 Hypertensive heart disease with heart failure; F41.8 Other specified anxiety disorders; M17.11 Unilateral primary osteoarthritis, right knee; E83.42 Hypomagnesemia; S76.019A Strain of muscle, fascia and tendon of unspecified hip, initial encounter; Z96.641 Presence of right artificial hip joint; Z90.49 Acquired absence of other specified parts of digestive tract; Z90.710 Acquired absence of both cervix and uterus; Z87.891 Personal history of nicotine dependence; Z79.84 Long term (current) use of oral hypoglycemic drugs
CPT/HCPCS: 36415; 36569; 50200; 70450; 71045; 76775; 76942; 78707; 80048; 80053; 80069; 81001; 82010; 82140; 82550; 82570; 82728; 82948; 83520; 83540; 83550; 83605; 83735; 84155; 84156; 84165; 84166; 84300; 84540; 85025; 85027; 85055; 85610; 85730; 86036; 86038; 86039; 86160; 86225; 86850; 86900; 86901; 87635; 87637; 88300; 88305; 88313; 88329; 88346; 88348; 88350; 93970; 96361; 96374; 97110; 97161; 97166; 97530; 97535; 99285; A9270; A9562; G0378; J1644; J1650; J1756; J1815; J1940; J2354; J2405; J3430; J3480; J7030; J7040; J7050; P9047